=== PATIENT | female | born 1940 | race Caucasian/White ===

== ENCOUNTER → 2016-12-31 | Emergency (ER) | payer OTHER ==
[~2016-12-31] MED LIST: ACETAMINOPHEN INJECTION 100 ML IVPB ONE; HEPARIN INFUSION - 500 ML IVPB ONE; HEPARIN NA (PORCINE) 5,000 UNITS/ML 1ML VIAL ONE
[2016-12-31 20:48] VITALS: BP 156/84; PULSE 85; TEMP 98.8; BMI 31.2
--- NOTE | 2016-12-31 21:02 | PDOC ---
History of Present Illness - General Chief Complaint: Pain Stated Complaint: FALL/HEAD INJURY Past History - Past Medical History Allergies/Adverse Reactions: Allergies Allergy/AdvReac Type Severity Reaction Status Date / Time No Known Allergies Allergy Verified 12/31/16 20:49 Home Medications: Ambulatory Orders Atenolol [Tenormin -] 50 mg PO DAILY 09/08/16 Insulin Lispro Protamin/Lispro [Humalog Mix 75-25 Kwikpen] 40 unit SQ BID Lorazepam [Ativan] 2 mg PO TID 09/08/16 Rosuvastatin Calcium [Crestor] 10 mg PO DAILY 09/08/16 Cancer: Yes (breast, cervical) Diabetes: Yes HTN: Yes Hypercholesterolemia: Yes Psychiatric Problems: Yes (anxiety) - Psycho/Social/Smoking Cessation Hx Suicidal Ideation: No Smoking History: Never smoked Have you smoked in the past 12 months: No Number of Cigarettes Smoked Daily: 0 Hx Alcohol Use: No Drug/Substance Use Hx: No Substance Use Type: None *Physical Exam - Vital Signs Last Vital Signs Temp Pulse Resp BP Pulse Ox 98.8 F 85 18 156/84 98 12/31/16 20:44 12/31/16 20:44 12/31/16 20:44 12/31/16 20:44 12/31/16 20:44 *DC/Admit/Observation/Transfer Diagnosis at time of Disposition: Closed head injury Qualifiers: Encounter type: initial encounter Qualified Code(s): S09.90XA - Unspecified injury of head, initial encounter Forehead laceration Qualifiers: Encounter type: initial encounter Qualified Code(s): S01.81XA - Laceration without foreign body of other part of head, initial encounter Shoulder pain, acute Qualifiers: Laterality: left Qualified Code(s): M25.512 - Pain in left shoulder - Discharge Dispostion Disposition: HOME Condition at time of disposition: Improved Admit: No - Referrals Referrals: Roe Jones MD [Primary Care Provider] - Guanakito Somers MD [Staff Physician] - - Patient Instructions Printed Discharge Instructions: DI for Laceration Repair, DI for Closed Head Injury Additional Instructions: Keep the incision clean and dry for 24 hours. After 24 hours, you may allow the soap and water to rinse off your incision. Avoid direct pressure of the water to the incision. Pat the incision dry with a clean clothe. Apply a small amount of bacitracin onto the incision. Cover the incision loosely with a bandaid. Take tylenol/motrin as needed for pain. Follow up with your physician or the ER in 48 hours for a wound check. Return to the ER if you notice red streaks, increase redness/swelling/severe pain to the incision. Suture removal in 7 days. YOU MUST follow up with your orthopedic or the one listed on your discharge. Tylenol/Motrin as needed for pain You ADAMANTLY REFUSE TO obtain a catscan of your left shoulder and insist on being discharged. If the pain persists/worsens or becomes more severe, please return to the ER
--- NOTE | 2016-12-31 21:37 | PDOC ---
History of Present Illness - General Chief Complaint: Pain Stated Complaint: FALL/HEAD INJURY Time Seen by Provider: 12/31/16 21:05 History Source: Patient Exam Limitations: No Limitations - History of Present Illness Occurred: reports: just prior to arrival Pain Location: reports: head, upper extremity (left shoulder) Method of Injury: Yes: fall (tripped over [facility]) Loss of Consciousness: no loss of consciousness Associated Symptoms (Fall): denies symptoms Past History - Travel Traveled outside of the country in the last 30 days: No Close contact w/someone who was outside of country & ill: No - Past Medical History Allergies/Adverse Reactions: Allergies Allergy/AdvReac Type Severity Reaction Status Date / Time No Known Allergies Allergy Verified 12/31/16 20:49 Home Medications: Ambulatory Orders Atenolol [Tenormin -] 50 mg PO DAILY 09/08/16 Insulin Lispro Protamin/Lispro [Humalog Mix 75-25 Kwikpen] 40 unit SQ BID Lorazepam [Ativan] 2 mg PO TID 09/08/16 Rosuvastatin Calcium [Crestor] 10 mg PO DAILY 09/08/16 Cancer: Yes (breast, cervical) Diabetes: Yes HTN: Yes Hypercholesterolemia: Yes Psychiatric Problems: Yes (anxiety) - Psycho/Social/Smoking Cessation Hx Suicidal Ideation: No Smoking History: Never smoked Have you smoked in the past 12 months: No Number of Cigarettes Smoked Daily: 0 Hx Alcohol Use: No Drug/Substance Use Hx: No Substance Use Type: None Trauma Specific PMHX - Complaint Specific PMHX Back Injury: No Neck Injury: No Review of Systems - Review of Systems Able to Perform ROS?: Yes Comments:: 12/31/16 21:32 CONSTITUTIONAL: Absent: fever, chills, diaphoresis, generalized weakness, malaise, loss of appetite HEENT: Absent: rhinorrhea, nasal congestion, throat pain, throat swelling, difficulty swallowing, mouth swelling, ear pain, eye pain, visual Changes CARDIOVASCULAR: Absent: chest pain, loss of consciousness, palpitations, irregular heart rate, peripheral edema RESPIRATORY: Absent: cough, shortness of breath, dyspnea with exertion, orthopnea, wheezing, stridor, hemoptysis GASTROINTESTINAL: Absent: abdominal pain, abdominal distension, nausea, vomiting, diarrhea, constipation, melena, hematochezia GENITOURINARY: Absent: dysuria, frequency, urgency, hesitancy, hematuria, flank pain, genital pain MUSCULOSKELETAL: +left shoulder pain Absent: myalgia, arthralgia, joint swelling SKIN: Absent: rash, itching, pallor HEMATOLOGIC/IMMUNOLOGIC: Absent: easy bleeding, easy bruising, lymphadenopathy, frequent infections ENDOCRINE: Absent: unexplained weight gain, unexplained weight loss, heat intolerance, cold intolerance NEUROLOGIC: left side forehead lac Absent: headache, focal weakness or paresthesias, dizziness, unsteady gait, seizure, mental status changes, bladder or bowel incontinence PSYCHIATRIC: Absent: anxiety, depression, suicidal or homicidal ideation, hallucinations. Is the patient limited Turkish proficient: No *Physical Exam - Vital Signs Last Vital Signs Temp Pulse Resp BP Pulse Ox 98.8 F 85 18 156/84 98 12/31/16 20:44 12/31/16 20:44 12/31/16 20:44 12/31/16 20:44 12/31/16 20:44 - Physical Exam Comments: 12/31/16 21:33 GENERAL: Well developed, well nourished. Awake and alert. No acute distress. HEENT: Normocephalic, atraumatic. PERRLA, EOMI. No conjunctival pallor. Sclera are non- icteric. Moist mucous membranes. Oropharynx is clear. NECK: Supple. Full ROM. No JVD. Carotid pulses 2+ and symmetric, without bruits. No thyromegaly. No lymphadenopathy. CARDIOVASCULAR: Regular rate and rhythm. No murmurs, rubs, or gallops. Distal pulses are 2+ and symmetric. PULMONARY: No evidence of respiratory distress. Lungs clear to auscultation bilaterally. No wheezing, rales or rhonchi. ABDOMINAL: Soft. Non-tender. Non-distended. No rebound or guarding. No organomegaly. Normoactive bowel sounds. MUSCULOSKELETAL Normal range of motion at all joints except left shoulder. No bony deformities or tenderness. No CVA tenderness. EXTREMITIES: No cyanosis. No clubbing. No edema. No calf tenderness. SKIN: Warm and dry. Normal capillary refill. No rashes. No jaundice. NEUROLOGICAL: Alert, awake, appropriate. Cranial nerves 2-12 intact. No deficits to light touch and temperature in face, upper extremities and lower extremities. No motor deficits in the in face, upper extremities and lower extremities. Normoreflexic in the upper and lower extremities. Normal speech. Toes are down- going bilaterally. Gait is normal without ataxia. PSYCHIATRIC: Cooperative. Good eye contact. Appropriate mood and affect. Left shoulder +pain on palp Limited R.O.M. +swelling Left elbow: F.R.O.M. neg pain on palp Left sided forehead 3cm horizontal lac +swelling Left shoulder Decreased R.O.M. Neg swelling Closed injury Pt able to extend ~30 degrees. Left elbow Neg obv deformities Neg pain on palp F.R.O.M. Neg swelling ED Treatment Course - RADIOLOGY Radiology Studies Ordered: Category Date Time Status HEAD CT WITHOUT CONTRAST [CT] Stat CT Scan 12/31/16 21:08 Ordered SHOULDER-LEFT [RAD] Stat Radiology 12/31/16 21:31 Ordered Radiograph Interpretation: 12/31/16 23:29 CT head w/o contrast neg xray left shoulder; 2v; no obv def Ctscan left shoulder/pt adamantly refused Progress Note - Progress Note Progress Note: 76-year-old female presents to the emergency department with her family complaining of a forehead laceration and left shoulder pain. Patient states while getting up from her couch, she tripped on her ottoman causing her to hit her forehead against the corner of the TV stand. Patient denies any loss of consciousness. The fall was witnessed by her . Patient denies any lightheadedness, dizziness, visual disturbance, blurry vision, neck pains, chest pain, shortness of breath, abdominal pains, extremity numbness or tingling sensation. Will obtain Ct left shoulder /pain is atypical for injury Procedure: left sided forehead 4mm superior to eyelbrow Betadin eprep 1% lidocaine=3cc NS irrigation (2) 5.0 vicryl sq (7) 6.0 prolene simple interrupted Bacitracin Bandaid 0040hrs: Pt adamantly refuses to obtain a catscan of her left shoulder and insists on being discharged AMA. Pt and her son has been advised that her left shoulder pain is atypical for her injury and a catscan would be able to ascertain the extent of her injury. Pt says "I don't care, I will see my own doctor". Pt and her son insists on being discharge. They will f/u with her PMD. I advised her that her PMD will most likely give her a prescription for a ctscan or her shoulder and have her follow up with an orthopedic surgeon. *DC/Admit/Observation/Transfer Diagnosis at time of Disposition: Closed head injury Qualifiers: Encounter type: initial encounter Qualified Code(s): S09.90XA - Unspecified injury of head, initial encounter Forehead laceration Qualifiers: Encounter type: initial encounter Qualified Code(s): S01.81XA - Laceration without foreign body of other part of head, initial encounter Shoulder pain, acute Qualifiers: Laterality: left Qualified Code(s): M25.512 - Pain in left shoulder - Discharge Dispostion Disposition: HOME Condition at time of disposition: Improved Admit: No - Referrals Referrals: Roe Jones MD [Primary Care Provider] - Guanakito Somers MD [Staff Physician] - - Patient Instructions Printed Discharge Instructions: DI for Closed Head Injury, DI for Laceration Repair Additional Instructions: Keep the incision clean and dry for 24 hours. After 24 hours, you may allow the soap and water to rinse off your incision. Avoid direct pressure of the water to the incision. Pat the incision dry with a clean clothe. Apply a small amount of bacitracin onto the incision. Cover the incision loosely with a bandaid. Take tylenol/motrin as needed for pain. Follow up with your physician or the ER in 48 hours for a wound check. Return to the ER if you notice red streaks, increase redness/swelling/severe pain to the incision. Suture removal in 7 days. YOU MUST follow up with your orthopedic or the one listed on your discharge. Tylenol/Motrin as needed for pain You ADAMANTLY REFUSE TO obtain a catscan of your left shoulder and insist on being discharged. If the pain persists/worsens or becomes more severe, please return to the ER
== END | disposition home or self-care (01) ==
LOC: JER 20:37
PROC: 0HQ1XZZ Repair Face Skin, External Approach (ICD-10-PCS; principal; 2016-12-31)
DX: S01.81XA Laceration without foreign body of other part of head, initial encounter (principal); M25.512 Pain in left shoulder; W01.190A Fall on same level from slipping, tripping and stumbling with subsequent striking against furniture, initial encounter; Y93.89 Activity, other specified; Y92.018 Other place in single-family (private) house as the place of occurrence of the external cause; I10 Essential (primary) hypertension; E11.9 Type 2 diabetes mellitus without complications; Z79.4 Long term (current) use of insulin; E78.00 Pure hypercholesterolemia, unspecified; F41.9 Anxiety disorder, unspecified; Z85.3 Personal history of malignant neoplasm of breast; Z85.41 Personal history of malignant neoplasm of cervix uteri
CPT/HCPCS: 12011-25; 70450-TC; 73030-TC-LT; 99282-25

== ENCOUNTER 2017-02-20 10:08 | Inpatient (IN) | payer OTHER, MEDICARE ==
--- NOTE | 2017-02-20 10:25 | PDOC ---
History of Present Illness - History of Present Illness Initial Comments: 02/20/17 12:20 The patient is a 76 year old female, with a significant past medical history of cervical cancer (radiation therapy M-F at [facility], 10 min sessions), IDDM, hypercholesterolemia, and hypertension, who presents to the emergency department via ems from [facility] for low-grade fevers and right lower extremity edema r/o DVT since yesterday. As per the patient's son, he also reports noticing his mothers left lower extremity is slightly edematous today. The patient states she feels generally weak. The son states his mothers last radiation therapy for her cancer was on Tuesday and is usually very tired and weak after radiation treatment. He also reports she just recently had a kidney stent placed because of the effect from her cervical cancer. The patient reports having a decreased appetite the past few days. She denies chest pain, shortness of breath, headache and dizziness. She denies nausea, vomit, diarrhea and constipation. She denies dysuria, frequency, urgency and hematuria. Allergies: NKDA, adverse rxn to acetaminophen PCP - Dr. Jones <Janelle Edmonds - Last Filed: 02/20/17 12:29> <Alfonso Garcia - Last Filed: 02/20/17 18:13> - General Chief Complaint: Edema Stated Complaint: LEG SWELLING Time Seen by Provider: 02/20/17 10:15 Past History <Janelle Edmonds - Last Filed: 02/20/17 12:29> - Past Medical History Cancer: Yes (breast, cervical) Diabetes: Yes HTN: Yes Hypercholesterolemia: Yes Psychiatric Problems: Yes (anxiety) - Psycho/Social/Smoking Cessation Hx Suicidal Ideation: No Smoking History: Never smoked Have you smoked in the past 12 months: No Number of Cigarettes Smoked Daily: 0 Hx Alcohol Use: No Drug/Substance Use Hx: No Substance Use Type: None <Alfonso Garcia - Last Filed: 02/20/17 18:13> - Past Medical History Allergies/Adverse Reactions: Allergies Allergy/AdvReac Type Severity Reaction Status Date / Time acetaminophen [From Tylenol] AdvReac Verified 02/20/17 12:25 Home Medications: Ambulatory Orders Aspirin [ASA -] 81 mg PO DAILY 02/20/17 Atorvastatin Ca [Lipitor] 20 mg PO HS 02/20/17 Clonazepam [KlonoPIN] 0.5 mg PO TID 02/20/17 Insulin Glargine,Hum.rec.anlog [Lantus (nf)] 22 units SQ HS 02/20/17 Insulin Lispro [Humalog] 4 unit SQ TID 02/20/17 Mag Hydrox/Al Hydrox/Simeth [Mylanta Oral Suspension -] 30 ml PO PRN 02/20/17 Mirtazapine 15 mg PO HS 02/20/17 Ondansetron [Zofran -] 4 mg PO Q6H PRN 02/20/17 Review of Systems - Review of Systems Able to Perform ROS?: Yes Comments:: 02/20/17 12:21 CONSTITUTIONAL: (+) Fever No reported: Chills, Diaphoresis, Generalized Weakness, Malaise, Loss of Appetite HEENT: No reported: Rhinorrhea, Nasal Congestion, Throat Pain, Throat Swelling, Difficulty Swallowing, Mouth Swelling, Ear Pain, Eye Pain, Visual Changes CARDIOVASCULAR: No reported: Chest Pain, Syncope, Palpitations, Irregular Heart Rate, Lightheadedness, Peripheral Edema RESPIRATORY: No reported: Cough, Shortness of Breath, SOB with Exertion, Orthopnea, Wheezing , Stridor, Hemoptysis GASTROINTESTINAL: No reported: Abdominal pain, Abdominal Distension, Nausea, Vomiting, Diarrhea, Constipation, Melena, Hematochezia GENITOURINARY: No reported: Dysuria, Frequency, Urgency, Hesitancy, Flank Pain, Genital Pain MUSCULOSKELETAL: (+) Right lower extremity edema. No reported: Myalgia, Arthralgia, Joint Swelling, Back pain, Neck Pain SKIN: No reported: Rash, Itching, Pallor HEMEATOLOGIC/IMMUNOLOGIC: No reported: Easy Bleeding, Easy Bruising, Lymphadenopathy, Frequent infections ENDOCRINE: No reported: Unexplained Weight Gain, Unexplained Weight Loss, Heat Intolerance , Cold Intolerance NEUROLOGIC: No reported: Headache, Focal Weakness, Paresthesias, Vertigo, Lightheadedness, Unsteady Gait, Seizure, Mental Status Changes, Incontinence PSYCHIATRIC: No reported: Anxiety, Depression <Janelle Edmonds - Last Filed: 02/20/17 12:29> *Physical Exam - Vital Signs Last Vital Signs Temp Pulse Resp BP Pulse Ox 98 F 80 18 102/55 95 02/20/17 12:17 02/20/17 12:17 02/20/17 12:17 02/20/17 12:17 02/20/17 12:17 - Physical Exam Comments: 02/20/17 12:21 GENERAL: The patient is awake, alert, and fully oriented - in no acute distress. HEAD: Normocephalic, atraumatic. EYES: extraocular movements intact, sclera anicteric, conjunctiva clear. ENT: Normal voice, Moist mucous membranes. NECK: Normal range of motion, supple LUNGS: Breath sounds equal, clear to auscultation bilaterally. No wheezes, no rhonchi, no rales. HEART: Regular rate and rhythm, without murmur, rub or gallop. ABDOMEN: firm nontender mass in the suprapubic region, normoactive bowel sounds. No guarding, no rebound.No CVA tenderness EXTREMITIES: (+) 2+ edema on the right lower extremity up to thigh. 1+ edema on left lower extremity. Normal range of motion of upper extremities, as well as, hips and knees bilaterally, No clubbing or cyanosis. No cords, erythema, or tenderness. Negative calf tenderness bilaterally. NEUROLOGICAL: No facial assymetry, Normal speech, PSYCH: Normal mood, normal affect. SKIN: Warm, Dry, normal turgor, No skin lesions, no sacodecubital ulcers. no skin breakdowns on anterior pelvis. <Janelle Edmonds - Last Filed: 02/20/17 12:29> Heart Score/ECG Review - ECG Impressions Comment:: 02/20/17 10:39 Twelve-lead EKG was performed and reviewed by me. There is normal sinus rhythm with a normal rate. Rate of 85 left axis deviation The intervals are normal. There is normal R wave progression There are no ST or T wave abnormalities. <Alfonso Garcia - Last Filed: 02/20/17 18:13> ED Treatment Course - LABORATORY CBC & Chemistry Diagram: 02/20/17 10:25 02/20/17 11:23 - ADDITIONAL ORDERS Additional order review: Laboratory Results 02/20/17 02/20/17 02/20/17 12:16 11:23 11:23 INR PTT (Actin FS) VBG pH POC VBG pCO2 POC VBG pO2 Mixed VBG HCO3 Sodium 134 L Potassium 3.7 Chloride 96 L Carbon Dioxide 24 Anion Gap 14 BUN 56 H Creatinine 2.4 H Creat Clearance w eGFR 19.73 Random Glucose 130 H Lactic Acid Calcium 8.1 L Total Bilirubin 0.3 AST 26 ALT 22 Alkaline Phosphatase 112 Creatine Kinase 120 Troponin I < 0.02 Total Protein 6.4 Albumin 2.2 L Urine Color Urine Appearance Urine pH Ur Specific [place] Urine Protein Urine Glucose (UA) Urine Ketones Urine Blood Urine Nitrite Urine Bilirubin Urine Urobilinogen Ur Leukocyte Esterase Urine RBC Urine WBC Urine Bacteria Urine Yeast Stool Occult Blood Negative Blood Type A POSITIVE Antibody Screen Negative 02/20/17 02/20/17 02/20/17 11:00 10:45 10:45 INR PTT (Actin FS) VBG pH 7.40 POC VBG pCO2 42.3 POC VBG pO2 22.9 L Mixed VBG HCO3 26.3 H Sodium Potassium Chloride Carbon Dioxide Anion Gap BUN Creatinine Creat Clearance w eGFR Random Glucose Lactic Acid 1.071 Calcium Total Bilirubin AST ALT Alkaline Phosphatase Creatine Kinase Troponin I Total Protein Albumin Urine Color Yellow Urine Appearance Clear Urine pH 5.0 Ur Specific [place] 1.011 Urine Protein 2+ H Urine Glucose (UA) Negative Urine Ketones Negative Urine Blood 1+ H Urine Nitrite Negative Urine Bilirubin Negative Urine Urobilinogen Negative Ur Leukocyte Esterase Negative Urine RBC 1 Urine WBC 2 Urine Bacteria Rare Urine Yeast Few Stool Occult Blood Blood Type Antibody Screen 02/20/17 10:25 INR 1.34 H PTT (Actin FS) 25.3 L VBG pH POC VBG pCO2 POC VBG pO2 Mixed VBG HCO3 Sodium Potassium Chloride Carbon Dioxide Anion Gap BUN Creatinine Creat Clearance w eGFR Random Glucose Lactic Acid Calcium Total Bilirubin AST ALT Alkaline Phosphatase Creatine Kinase Troponin I Total Protein Albumin Urine Color Urine Appearance Urine pH Ur Specific [place] Urine Protein Urine Glucose (UA) Urine Ketones Urine Blood Urine Nitrite Urine Bilirubin Urine Urobilinogen Ur Leukocyte Esterase Urine RBC Urine WBC Urine Bacteria Urine Yeast Stool Occult Blood Blood Type Antibody Screen 02/20/17 11:13 Influenza Types A,B Antigen (DUTCH) - Final Nasopharyngeal Swab - Final 02/20/17 10:25 RBC 3.28 L MCV 75.9 L MCHC 33.5 RDW 17.6 H MPV 7.3 L Neutrophils % 86.5 H Lymphocytes % 2.4 L Monocytes % 7.4 Eosinophils % 3.4 Basophils % 0.3 - RADIOLOGY Radiograph Interpretation: 02/20/17 12:28 CXR was read by Dr. Bellamy at 11:36 Impression: No acute pathology 02/20/17 12:29 Right lower extremity venous US was read by Dr. Drake at 12:18 Impression: +Right leg DVT. Thrombus is identified within the common femoral, femoral, popliteal, and posterior tibial veins. Soft tissue edema is noted. Note is also made of several nonspecific enlarged right inguinal lymph nodes the most prominent with a 1.5 cm short axis diameter. - Medications Given in the ED: ED Medications Discontinued Medications Generic Name Dose Route Start Last Admin Trade Name Dorothy PRN Reason Stop Dose Admin Acetaminophen 1,000 mg 02/20/17 10:26 02/20/17 11:11 Ofirmev Injection - IVPB 02/20/17 10:27 1,000 mg ONCE ONE Administration <Janelle Edmonds - Last Filed: 02/20/17 12:29> - LABORATORY CBC & Chemistry Diagram: 02/20/17 10:25 02/20/17 11:23 <Alfonso Garcia - Last Filed: 02/20/17 18:13> Medical Decision Making - Medical Decision Making 02/20/17 12:27 Dr. Jones was called at 12:18 via phone answering service and I was connected to speak with him upon first attempt. The patient's case was discussed and he accepts the patient for admission. <Janelle Edmonds - Last Filed: 02/20/17 12:29> - Medical Decision Making 02/20/17 10:43 76y F hx of cervical ca currently receiving radiation therapy (last dose tuesday) , IDDM, htn, hl, anxiety, presents with complaint of RLE edema since yesterday noticed by the pts son. The pt has no other complaints, but the pt was noted to be febrile upon arrival to 100.6. On exam pt had significantRLE edema to this hip, no focal tenderness or limitation in ROM otherwise, trace edema of ankle. Neg homans/tenderness. exam otherwise nonfocal. sepsis orderset obtained - unclear source of fever at this point - will r/o influenza, pna, uti differential for the pts leg swelling includes possible DVT vs. demnished venous return due to pelvic mass will obtain US to r/o dvt A portion of this note was documented by scribe services under my direction. I have reviewed the details of the note, within reason, and agree with the documentation with the following case summary and management plan written by hi 02/20/17 12:06 pts had minaya notable for urinary retention - with output of approx 1L of urine US +DVT labs noted for anemia (last lab work on 02/11 showed hgb of 10.2) --> now to 8.3 , rectal was yellow diarrhea/stool - stool guaic was sent cr noted to be 2.4, last cr on 02/11 was 1.0 --> suspect obstrutive uropathy in light of her urinary retention pt will need a/c for her DVT will continue to monitor her hgb will notify dr. Jones for admission for further management. 02/20/17 14:[address] jones agreed with admission for further management CRITICAL CARE DOCUMENTATION: I spent 45 minutes of Critical Care time, excluding separately billable procedures, involving high complexity decision making to assess, manipulate and support vital system function(s) to treat single or multiple vital organ system failure and/or to prevent further life threatening deterioration of the patient' s condition. <Alfonso Garcia - Last Filed: 02/20/17 18:13> *DC/Admit/Observation/Transfer - Attestations Scribe Attestion: 02/20/17 12:21 Documentation prepared by Janelle Edmonds, acting as medical office scheduler for Alfonso Garcia MD. <Janelle Edmonds - Last Filed: 02/20/17 12:29> - Discharge Dispostion Admit: Yes <Alofnso Garcia - Last Filed: 02/20/17 18:13> Diagnosis at time of Disposition: Urinary retention, Obstructive uropathy DVT, lower extremity Qualifiers: Affected thrombotic vein of extremity: unspecified vein of extremity Laterality : right Chronicity: acute Qualified Code(s): I82.401 - Acute embolism and thrombosis of unspecified deep veins of right lower extremity Anemia Qualifiers: Anemia type: unspecified type Qualified Code(s): D64.9 - Anemia, unspecified Fever Qualifiers: Fever type: unspecified Qualified Code(s): R50.9 - Fever, unspecified - Referrals
[2017-02-20] MEDS ORDERED: ACETAMINOPHEN 1000 MG/100 ML VIAL (NON FORMULARY) IVPB ONE (10:26)
[2017-02-20 11:03] LABS: VENOUS BLOOD GAS HCO3 26.3 meq/L (19-25); VENOUS PH 7.4 (7.32-7.42)
[2017-02-20 11:03] LABS: BASOPHIL 0.3 % (0-2.0); EOSINOPHIL 3.4 % (0-4.5); MCH 25.4 pg (25.7-33.7); MCHC 33.5 g/dl (32.0-36.0); MEAN CELL VOLUME 75.9 fl (80-96); MEAN PLT VOLUME 7.3 fl (7.5-11.1); NEUTROPHILS 86.5 % (42.8-82.8); PLATELET COUNT 211 K/MM3 (134-434); RDW 17.6 % (11.6-15.6); WHITE BLOOD COUNT 10.6 K/mm3 (4.0-10.0)
[2017-02-20 11:14] LABS: INR 1.34 (0.82-1.09); PROTHROMBIN TIME (PATIENT) 14.8 SEC (9.98-11.88)
[2017-02-20 11:14] LABS: URINE APPEARANCE CLEAR; URINE BILIRUBIN NEGATIVE (NEGATIVE); URINE COLOR YELLOW; URINE GLUCOSE (UA) NEGATIVE (NEGATIVE); URINE KETONE NEGATIVE (NEGATIVE); URINE LEUK ESTERASE NEGATIVE (NEGATIVE); URINE NITRITE NEGATIVE (NEGATIVE); URINE UROBILINOGEN NEGATIVE E.U./dl (0.2-1.0)
[2017-02-20 11:17] LABS: ACTIVATED PTT 25.3 SECONDS (26.9-34.4)
[2017-02-20 11:23] LABS: URINE BLOOD 1+ (NEGATIVE); URINE PROTEIN 2+ (NEGATIVE)
[2017-02-20 11:37] LABS: URINE BACTERIA RARE /hpf (NONE SEEN); URINE RBC 1 /hpf (0-3); URINE WBC 2 /hpf (3-5); YEAST FEW
[2017-02-20 11:41] LABS: ALBUMIN 2.2 g/dl (3.4-5.0); ANION GAP 14 (8-16); BILIRUBIN,TOTAL 0.3 mg/dL (0.2-1.0); CALCIUM 8.1 mg/dL (8.5-10.1); CO2 24 mmol/L (21-32); COCKROFT - GAULT 22.6695; CREATININE 2.4 mg/dL (0.55-1.02); GLUCOSE,RANDOM 130 mg/dL (74-106); SGPT/ALT 22 U/L (12-78); TOT PROT 6.4 g/dl (6.4-8.2)
[2017-02-20 11:44] LABS: ALK PHOS 112 U/L (45-117); TROPONIN I < 0.02 ng/ml (0.00-0.05)
[2017-02-20 11:56] LABS: SGOT/AST 26 U/L (15-37)
[2017-02-20] MEDS ORDERED: HEPARIN NA (PORCINE) 5,000 UNITS/ML 1ML VIAL IVPUSH ONE (12:30)
[2017-02-20] MEDS: HEPARIN INFUSION - 500 ML IVPB SCH (13:01)
--- NOTE | 2017-02-20 14:36 | HP ---
DATE OF ADMISSION: 02/20/2017 This is a 76-year-old female who came to the emergency room with swelling of the left lower extremity for 2 days. She has multiple problems; diagnosed to have diabetes, recently diagnosed to have CA of the breast, on radiation. She is coming from a short-term stay in the [facility]. PHYSICAL EXAMINATION: General: She is awake, alert, oriented, but in a lot of anxiety disorder. Vital Signs: Blood pressure is 120/70, pulse 98, temperature 100.6. HEENT: Unremarkable. Neck: Supple. No JVD. Lungs: Clear. Heart: S1, S2 normal. No S3, S4. Abdomen: Soft, nontender. Genitourinary: She has a Hutchins with clear urine. Legs: Edema present. Urinalysis showed urine blood plus, bacteria rare, yeast few. Patient is being admitted for UTI and DVT. ID consult obtained by Dr. Lewis and patient also will be started on IV heparin. FINAL DIAGNOSIS: 1. Deep vein thrombosis. 2. Diabetes. 3. Urinary tract infection. 4. Carcinoma of the uterus. DANELLE VIDALES M.D. [id number]
--- NOTE | 2017-02-20 15:14 | CONSULT ---
Consult Consult Specialty:: infectious diseases Referred by:: Reason for Consultation:: uti - History of Present Illness Chief Complaint: weakness,pain in the leg History of Present Illness: 76 year old female, with a significant past medical history of cervical cancer (radiation therapy M-F at [facility], 10 min sessions), IDDM, hypercholesterolemia, and hypertension, comes from from [facility] for low- grade fevers and right lower extremity edema r/o DVT since yesterday. As per the patient's son, he also reports noticing his mothers left lower extremity is slightly edematous today. The patient states she feels generally weak. The son states his mothers last radiation therapy for her cancer was on Tuesday and is usually very tired and weak after radiation treatment. He also reports she just recently had a kidney stent placed because of the effect from her cervical cancer. The patient reports having a decreased appetite the past few days. patient cannot give history which is taken from the family patient currently feels better,has been receiving radiation - History Source History Provided By: Family Member Limitations to Obtaining History: Language Barrier - Alcohol/Substance Use Hx Alcohol Use: No - Smoking History Smoking history: Never smoked Have you smoked in the past 12 months: No Aproximately how many cigarettes per day: 0 Home Medications - Allergies Allergies/Adverse Reactions: Allergies Allergy/AdvReac Type Severity Reaction Status Date / Time acetaminophen [From Tylenol] AdvReac Verified 02/20/17 12:25 - Home Medications Home Medications: Ambulatory Orders Aspirin [ASA -] 81 mg PO DAILY 02/20/17 Atorvastatin Ca [Lipitor] 20 mg PO HS 02/20/17 Clonazepam [KlonoPIN] 0.5 mg PO TID 02/20/17 Insulin Glargine,Hum.rec.anlog [Lantus (nf)] 22 units SQ HS 02/20/17 Insulin Lispro [Humalog] 4 unit SQ TID 02/20/17 Mag Hydrox/Al Hydrox/Simeth [Mylanta Oral Suspension -] 30 ml PO PRN 02/20/17 Mirtazapine 15 mg PO HS 02/20/17 Ondansetron [Zofran -] 4 mg PO Q6H PRN 02/20/17 Review of Systems Unable to obtain ROS, reason: unable to obtain - Review of Systems Constitutional: reports: Fever, Weakness Physical Exam Vital Signs: Vital Signs Temperature 98 F 02/20/17 12:17 Pulse Rate 78 02/20/17 13:30 Respiratory Rate 18 02/20/17 13:30 Blood Pressure 117/59 02/20/17 13:30 O2 Sat by Pulse Oximetry (%) 99 02/20/17 13:30 Constitutional: Yes: No Distress, Calm, Other Eyes: Yes: Conjunctiva Clear HENT: Yes: Atraumatic, Normocephalic Neck: Yes: Supple, Trachea Midline Cardiovascular: Yes: Pulse Irregular Respiratory: Yes: Regular, CTA Bilaterally Gastrointestinal: Yes: Normal Bowel Sounds, Soft Musculoskeletal: Yes: Other Extremities: Yes: Erythema, Other (edema of the leg) Integumentary: Yes: Erythema, Other Neurological: Yes: Alert, Oriented Psychiatric: Yes: Alert, Oriented Imaging - Results Chest X-ray: Report Reviewed, Image Reviewed Ultrasound: Report Reviewed, Image Reviewed Other: Report Reviewed, Image Reviewed Assessment/Plan dvt edema of both legs r/o uti fever malignancy plan will start on ceftriaxone close monitoring await for all cx to be back rest as per primary team dvt treatment
[2017-02-20] MEDS: CEFTRIAXONE 1G/50 ML IVPB SCH (17:59)
[2017-02-20] MEDS: INSULIN (NOVOLOG) ASPART 100 UNITS/ML 10ML VIAL SQ SCH (18:43)
[2017-02-20] MEDS ORDERED: HEPARIN NA (PORCINE) 5,000 UNITS/ML 1ML VIAL IVPUSH PRN (20:00)
[2017-02-20] MEDS: HEPARIN NA (PORCINE) 5,000 UNITS/ML 1ML VIAL IVPUSH PRN (20:00)
[2017-02-20] MEDS: clonazePAM 0.5 MG TABLET PO SCH (21:40)
[2017-02-20] MEDS: ATORVASTATIN CA 20 MG TABLET (FP) PO SCH (21:40)
[2017-02-20] MEDS: MIRTAZAPINE 15 MG TABLET (FP) PO SCH (21:41)
[2017-02-20] MEDS: INSULIN DETEMIR 100 UNITS/ML MDV SQ SCH (23:00)
[2017-02-20] MEDS: NYSTATIN POWDER 100,000 UNITS/GM - 15 GM TOPICAL POWDER TP SCH (23:01)
[2017-02-21] MEDS: LORazepam 1 MG TABLET PO PRN (02:08)
[2017-02-21] MEDS: clonazePAM 0.5 MG TABLET PO SCH ×3 (05:53→22:47)
[2017-02-21] MEDS: INSULIN (NOVOLOG) ASPART 100 UNITS/ML 10ML VIAL SQ SCH (06:23)
--- NOTE | 2017-02-21 09:01 | PN ---
Progress Note, Physician Chief Complaint: Wants go home History of Present Illness: Admitted with DVT and UTI - Current Medication List Current Medications: Active Medications Aspirin (Ecotrin -) 81 mg PO DAILY [facility] Atorvastatin Calcium (Lipitor -) 20 mg PO HS [facility] Last Admin: 02/20/17 21:40 Dose: 20 mg Clonazepam (Klonopin -) 0.5 mg PO TID [facility] Last Admin: 02/21/17 05:53 Dose: 0.5 mg Heparin Sodium (Porcine) (Heparin -) 5,000 unit IVPUSH PRN PRN Last Admin: 02/21/17 03:28 Dose: 5,000 unit Heparin Sodium (Porcine) (Heparin -) 1,000 unit IVPUSH PRN PRN Last Admin: 02/20/17 20:00 Dose: 1,000 unit Heparin Sodium/Dextrose (Heparin Infusion -) 500 mls @ 16 mls/hr IVPB TITR [facility] ; 800 UNITS/HR PRN Reason: Protocol Last Titration: 02/21/17 03:29 Dose: 1,050 units/hr Ceftriaxone Sodium (Rocephin 1gm Ivpb (Pre-Docked)) 50 mls @ 100 mls/hr IVPB DAILY [facility] Last Admin: 02/20/17 17:59 Dose: 100 mls/hr Insulin Aspart (Novolog Vial) 4 units SQ TIDAC [facility] Last Admin: 02/21/17 06:23 Dose: 4 units Insulin Detemir (Levemir Vial) 22 units SQ HS [facility] Last Admin: 02/20/17 23:00 Dose: 22 units Lorazepam (Ativan -) 1 mg PO Q12H PRN PRN Reason: AGITATION Last Admin: 02/21/17 02:08 Dose: 1 mg Mirtazapine (Remeron -) 15 mg PO HS [facility] Last Admin: 02/20/17 21:41 Dose: 15 mg Nystatin (Nystop Powder -) 1 applic TP BID [facility] Last Admin: 02/20/17 23:01 Dose: 1 applic - Objective Vital Signs: Vital Signs Temperature 99.9 F H 02/21/17 06:00 Pulse Rate 88 02/21/17 06:00 Respiratory Rate 20 02/21/17 06:00 Blood Pressure 141/74 02/21/17 06:00 O2 Sat by Pulse Oximetry (%) 95 02/20/17 20:17 Constitutional: Yes: Anxious Eyes: Yes: WNL HENT: Yes: WNL Neck: Yes: WNL Cardiovascular: Yes: WNL Respiratory: Yes: WNL Gastrointestinal: Yes: Normal Bowel Sounds ...Rectal Exam: Yes: Deferred Genitourinary: Yes: Hutchins Present Breast(s): Yes: WNL Musculoskeletal: Yes: WNL Edema: No Peripheral Pulses WNL: Yes Integumentary: Yes: Rash Neurological: Yes: Alert Psychiatric: Yes: Agitated Labs: INR, PTT INR 1.34 (0.82-1.09) H 02/20/17 10:25
[2017-02-21] MEDS: CEFTRIAXONE 1G/50 ML IVPB SCH (09:37)
[2017-02-21] MEDS ORDERED: CLOTRIMAZOLE/BETAMET DIPROP 15 GM TUBE TP SCH (10:00)
[2017-02-21] MEDS: ASPIRIN COATED 81 MG TABLET.EC PO SCH (10:50)
[2017-02-21] MEDS: NYSTATIN POWDER 100,000 UNITS/GM - 15 GM TOPICAL POWDER TP SCH ×2 (10:50→22:48)
--- NOTE | 2017-02-21 11:10 | EKG ---
Test Reason : Blood Pressure : / mmHG Vent. Rate : 085 BPM Atrial Rate : 085 BPM P-R Int : 146 ms QRS Dur : 080 ms QT Int : 374 ms P-R-T Axes : 042 -34 075 degrees QTc Int : 445 ms NORMAL SINUS RHYTHM LEFT AXIS DEVIATION MODERATE VOLTAGE CRITERIA FOR LVH, MAY BE NORMAL VARIANT ABNORMAL ECG NO PREVIOUS ECGS AVAILABLE Confirmed by TRAV HOFFMAN MD ([id number]) on 02/21/2017 11:09:58 AM Referred By: Confirmed By:TRAV HOFFMAN MD
[2017-02-21] MEDS: INSULIN SLIDING SCALE (NOVOLOG) 1 VIAL SQ SCH ×3 (11:26→23:52)
[2017-02-21] MEDS: HEPARIN INFUSION - 500 ML IVPB SCH (14:26)
--- NOTE | 2017-02-21 18:24 | PN ---
Progress Note, Physician History of Present Illness: stable doing well family in the room no new issues d/w the family inn great detail - Current Medication List Current Medications: Active Medications Aspirin (Ecotrin -) 81 mg PO DAILY [facility] Last Admin: 02/21/17 10:50 Dose: 81 mg Atorvastatin Calcium (Lipitor -) 20 mg PO HS [facility] Last Admin: 02/20/17 21:40 Dose: 20 mg Clonazepam (Klonopin -) 0.5 mg PO TID [facility] Last Admin: 02/21/17 14:45 Dose: Not Given Heparin Sodium (Porcine) (Heparin -) 5,000 unit IVPUSH PRN PRN Last Admin: 02/21/17 03:28 Dose: 5,000 unit Heparin Sodium (Porcine) (Heparin -) 1,000 unit IVPUSH PRN PRN Last Admin: 02/20/17 20:00 Dose: 1,000 unit Heparin Sodium/Dextrose (Heparin Infusion -) 500 mls @ 16 mls/hr IVPB TITR JADEN ; 800 UNITS/HR PRN Reason: Protocol Last Admin: 02/21/17 14:26 Dose: 21 mls/hr Ceftriaxone Sodium (Rocephin 1gm Ivpb (Pre-Docked)) 50 mls @ 100 mls/hr IVPB DAILY [facility] Last Admin: 02/21/17 09:37 Dose: 100 mls/hr Insulin Aspart (Novolog Vial Sliding Scale -) 1 vial SQ ACHS [facility] PRN Reason: Protocol Last Admin: 02/21/17 17:39 Dose: Not Given Insulin Detemir (Levemir Vial) 22 units SQ HS [facility] Last Admin: 02/20/17 23:00 Dose: 22 units Lorazepam (Ativan -) 1 mg PO Q12H PRN PRN Reason: AGITATION Last Admin: 02/21/17 02:08 Dose: 1 mg Mirtazapine (Remeron -) 15 mg PO HS [facility] Last Admin: 02/20/17 21:41 Dose: 15 mg Nystatin (Nystop Powder -) 1 applic TP BID [facility] Last Admin: 02/21/17 10:50 Dose: 1 applic - Objective Vital Signs: Vital Signs Temperature 98.4 F 02/21/17 17:50 Pulse Rate 94 H 02/21/17 17:50 Respiratory Rate 20 02/21/17 17:50 Blood Pressure 129/57 02/21/17 17:50 O2 Sat by Pulse Oximetry (%) 95 02/21/17 11:45 Constitutional: Yes: No Distress, Calm Neck: Yes: Supple Cardiovascular: Yes: Pulse Irregular Respiratory: Yes: Regular, CTA Bilaterally Gastrointestinal: Yes: Normal Bowel Sounds, Soft Musculoskeletal: Yes: Other Extremities: Yes: Other (edema bilateral ext) Edema: LLE: 1+, RLE: 2+ Neurological: Yes: Alert, Oriented Psychiatric: Yes: Alert, Oriented Labs: INR, PTT INR 1.34 (0.82-1.09) H 02/20/17 10:25 Assessment/Plan dvt edema of both legs r/o uti fever malignancy plan continue current mgmt rest as per primary team await for all results
[2017-02-21] MEDS: ATORVASTATIN CA 20 MG TABLET (FP) PO SCH (22:47)
[2017-02-21] MEDS: MIRTAZAPINE 15 MG TABLET (FP) PO SCH (22:47)
[2017-02-22] MEDS: INSULIN DETEMIR 100 UNITS/ML MDV SQ SCH ×3 (00:24→22:44)
[2017-02-22] MEDS: clonazePAM 0.5 MG TABLET PO SCH ×3 (06:11→22:33)
[2017-02-22] MEDS: INSULIN SLIDING SCALE (NOVOLOG) 1 VIAL SQ SCH ×3 (06:11→16:59)
[2017-02-22] MEDS ORDERED: PT OWN MED DRAWER 7, Y5N ONE ×2 (09:00→21:42)
[2017-02-22] MEDS: CEFTRIAXONE 1G/50 ML IVPB SCH (09:06)
[2017-02-22] MEDS: ASPIRIN COATED 81 MG TABLET.EC PO SCH (09:06)
[2017-02-22] MEDS: LORazepam 1 MG TABLET PO PRN (09:07)
[2017-02-22] MEDS: NYSTATIN POWDER 100,000 UNITS/GM - 15 GM TOPICAL POWDER TP SCH ×2 (09:07→22:34)
[2017-02-22] MEDS: HEPARIN INFUSION - 500 ML IVPB SCH ×3 (09:08→20:41)
--- NOTE | 2017-02-22 09:10 | PN ---
Progress Note, Physician Chief Complaint: Feels better History of Present Illness: Admitted with DVT and UTI - Current Medication List Current Medications: Active Medications Aspirin (Ecotrin -) 81 mg PO DAILY [facility] Last Admin: 02/21/17 10:50 Dose: 81 mg Atorvastatin Calcium (Lipitor -) 20 mg PO HS [facility] Last Admin: 02/21/17 22:47 Dose: 20 mg Clonazepam (Klonopin -) 0.5 mg PO TID [facility] Last Admin: 02/22/17 06:11 Dose: 0.5 mg Heparin Sodium (Porcine) (Heparin -) 5,000 unit IVPUSH PRN PRN Last Admin: 02/21/17 03:28 Dose: 5,000 unit Heparin Sodium (Porcine) (Heparin -) 1,000 unit IVPUSH PRN PRN Last Admin: 02/20/17 20:00 Dose: 1,000 unit Heparin Sodium/Dextrose (Heparin Infusion -) 500 mls @ 16 mls/hr IVPB TITR [facility] ; 800 UNITS/HR PRN Reason: Protocol Last Admin: 02/21/17 14:26 Dose: 21 mls/hr Ceftriaxone Sodium (Rocephin 1gm Ivpb (Pre-Docked)) 50 mls @ 100 mls/hr IVPB DAILY [facility] Last Admin: 02/21/17 09:37 Dose: 100 mls/hr Insulin Aspart (Novolog Vial Sliding Scale -) 1 vial SQ ACHS [facility] PRN Reason: Protocol Last Admin: 02/22/17 06:11 Dose: Not Given Insulin Detemir (Levemir Vial) 22 units SQ HS [facility] Last Admin: 02/22/17 00:24 Dose: 22 units Lorazepam (Ativan -) 1 mg PO Q12H PRN PRN Reason: AGITATION Last Admin: 02/21/17 02:08 Dose: 1 mg Mirtazapine (Remeron -) 15 mg PO HS [facility] Last Admin: 02/21/17 22:47 Dose: 15 mg Nystatin (Nystop Powder -) 1 applic TP BID [facility] Last Admin: 02/21/17 22:48 Dose: 1 applic Warfarin Sodium (Coumadin -) 10 mg PO ONCE@1800 ONE Stop: 02/22/17 18:01 - Objective Vital Signs: Vital Signs Temperature 99.1 F 02/22/17 05:46 Pulse Rate 94 H 02/22/17 05:46 Respiratory Rate 20 02/22/17 05:46 Blood Pressure 123/61 02/22/17 05:46 O2 Sat by Pulse Oximetry (%) 97 02/22/17 08:49 Constitutional: Yes: Anxious Eyes: Yes: WNL HENT: Yes: WNL Neck: Yes: WNL Cardiovascular: Yes: WNL Respiratory: Yes: WNL Gastrointestinal: Yes: WNL ...Rectal Exam: Yes: Deferred Genitourinary: Yes: Cuong CONTRERAS Present Edema: Yes Edema: RLE: 1+ Integumentary: No: Body Piercing Neurological: Yes: Alert Labs: INR, PTT INR 1.34 (0.82-1.09) H 02/20/17 10:25 Assessment/Plan Start coumadin CYRIL minaya PT for ambulation
[2017-02-22] MEDS ORDERED: ACETAMINOPHEN 325 MG TABLET (FP) PO PRN (14:23)
[2017-02-22] MEDS ORDERED: WARFARIN NA 10 MG TABLET (FP) PO ONE (18:00)
--- NOTE | 2017-02-22 18:50 | PN ---
Progress Note, Physician History of Present Illness: patient having dirrhoea had fever no complaints - Current Medication List Current Medications: Active Medications Aspirin (Ecotrin -) 81 mg PO DAILY [facility] Last Admin: 02/22/17 09:06 Dose: 81 mg Atorvastatin Calcium (Lipitor -) 20 mg PO HS [facility] Last Admin: 02/21/17 22:47 Dose: 20 mg Clonazepam (Klonopin -) 0.5 mg PO TID [facility] Last Admin: 02/22/17 14:05 Dose: Not Given Heparin Sodium (Porcine) (Heparin -) 5,000 unit IVPUSH PRN PRN Last Admin: 02/21/17 03:28 Dose: 5,000 unit Heparin Sodium (Porcine) (Heparin -) 1,000 unit IVPUSH PRN PRN Last Admin: 02/20/17 20:00 Dose: 1,000 unit Heparin Sodium/Dextrose (Heparin Infusion -) 500 mls @ 16 mls/hr IVPB TITR [facility]AD[facility] ; 800 UNITS/HR PRN Reason: Protocol Last Admin: 02/22/17 14:03 Dose: Not Given Ceftriaxone Sodium (Rocephin 1gm Ivpb (Pre-Docked)) 50 mls @ 100 mls/hr IVPB DAILY [facility] Last Admin: 02/22/17 09:06 Dose: 100 mls/hr Insulin Aspart (Novolog Vial Sliding Scale -) 1 vial SQ ACHS [facility] PRN Reason: Protocol Last Admin: 02/22/17 16:59 Dose: Not Given Insulin Detemir (Levemir Vial) 22 units SQ HS [facility] Last Admin: 02/22/17 00:24 Dose: 22 units Lorazepam (Ativan -) 1 mg PO Q12H PRN PRN Reason: AGITATION Last Admin: 02/22/17 09:07 Dose: 1 mg Mirtazapine (Remeron -) 15 mg PO HS [facility] Last Admin: 02/21/17 22:47 Dose: 15 mg Nystatin (Nystop Powder -) 1 applic TP BID [facility] Last Admin: 02/22/17 09:07 Dose: 1 applic - Objective Vital Signs: Vital Signs Temperature 100.3 F H 02/22/17 18:25 Pulse Rate 108 H 02/22/17 17:57 Respiratory Rate 18 02/22/17 17:57 Blood Pressure 127/72 02/22/17 17:57 O2 Sat by Pulse Oximetry (%) 97 02/22/17 08:49 Constitutional: Yes: No Distress, Calm Cardiovascular: Yes: Pulse Irregular Respiratory: Yes: Regular, CTA Bilaterally Gastrointestinal: Yes: Normal Bowel Sounds, Soft Musculoskeletal: Yes: Other Extremities: Yes: Other Edema: LLE: 1+, RLE: 2+ Integumentary: Yes: Erythema Neurological: Yes: Alert, Oriented Psychiatric: Yes: Alert, Oriented Labs: INR, PTT INR 1.34 (0.82-1.09) H 02/20/17 10:25 Assessment/Plan dvt edema of both legs r/o uti fever malignancy plan continue current mgmt rest as per primary team await for all results if patient continues to spike fever will change abx
[2017-02-22] MEDS: HEPARIN NA (PORCINE) 5,000 UNITS/ML 1ML VIAL IVPUSH PRN (20:33)
[2017-02-22] MEDS: ATORVASTATIN CA 20 MG TABLET (FP) PO SCH (22:33)
[2017-02-22] MEDS: MIRTAZAPINE 15 MG TABLET (FP) PO SCH (22:33)
[2017-02-23] MEDS: INSULIN SLIDING SCALE (NOVOLOG) 1 VIAL SQ SCH ×5 (01:33→21:37)
[2017-02-23] MEDS: HEPARIN INFUSION - 500 ML IVPB SCH ×2 (05:09→16:34)
[2017-02-23] MEDS: clonazePAM 0.5 MG TABLET PO SCH ×3 (06:12→21:35)
[2017-02-23 08:07] LABS: INR 1.79 (0.82-1.09); PROTHROMBIN TIME (PATIENT) 19.9 SEC (9.98-11.88)
[2017-02-23 08:10] LABS: ACTIVATED PTT 57.1 SECONDS (26.9-34.4)
--- NOTE | 2017-02-23 09:47 | PN ---
Progress Note, Physician History of Present Illness: Admitted with DVT and fever on IV heparin and coumadin INR 1.79 - Current Medication List Current Medications: Active Medications Aspirin (Ecotrin -) 81 mg PO DAILY [facility] Last Admin: 02/22/17 09:06 Dose: 81 mg Atorvastatin Calcium (Lipitor -) 20 mg PO HS [facility] Last Admin: 02/22/17 22:33 Dose: 20 mg Clonazepam (Klonopin -) 0.5 mg PO TID [facility] Last Admin: 02/23/17 06:12 Dose: 0.5 mg Heparin Sodium (Porcine) (Heparin -) 5,000 unit IVPUSH PRN PRN Last Admin: 02/21/17 03:28 Dose: 5,000 unit Heparin Sodium (Porcine) (Heparin -) 1,000 unit IVPUSH PRN PRN Last Admin: 02/22/17 20:33 Dose: 1,000 unit Heparin Sodium/Dextrose (Heparin Infusion -) 500 mls @ 16 mls/hr IVPB TITR [facility] ; 800 UNITS/HR PRN Reason: Protocol Last Admin: 02/23/17 05:09 Dose: 25 mls/hr Ceftriaxone Sodium (Rocephin 1gm Ivpb (Pre-Docked)) 50 mls @ 100 mls/hr IVPB DAILY [facility] Last Admin: 02/22/17 09:06 Dose: 100 mls/hr Insulin Aspart (Novolog Vial Sliding Scale -) 1 vial SQ ACHS [facility] PRN Reason: Protocol Last Admin: 02/23/17 06:11 Dose: Not Given Insulin Detemir (Levemir Vial) 22 units SQ HS [facility] Last Admin: 02/22/17 22:44 Dose: 22 units Lorazepam (Ativan -) 1 mg PO Q12H PRN PRN Reason: AGITATION Last Admin: 02/22/17 09:07 Dose: 1 mg Mirtazapine (Remeron -) 15 mg PO HS [facility] Last Admin: 02/22/17 22:33 Dose: 15 mg Nystatin (Nystop Powder -) 1 applic TP BID [facility] Last Admin: 02/22/17 22:34 Dose: 1 applic - Objective Vital Signs: Vital Signs Temperature 100.1 F H 02/23/17 07:50 Pulse Rate 105 H 02/23/17 07:50 Respiratory Rate 20 02/23/17 07:50 Blood Pressure 119/62 02/23/17 07:50 O2 Sat by Pulse Oximetry (%) 97 02/22/17 21:00 Constitutional: Yes: No Distress Eyes: Yes: WNL HENT: Yes: WNL Neck: Yes: WNL Cardiovascular: Yes: WNL Respiratory: Yes: WNL Gastrointestinal: Yes: WNL ...Rectal Exam: Yes: Deferred Genitourinary: Yes: WNL Edema: No Peripheral Pulses WNL: Yes ...Motor Strength: WNL Labs: INR, PTT INR 1.79 (0.82-1.09) H D 02/23/17 06:00 Assessment/Plan Coumadin ordered
[2017-02-23] MEDS: CEFTRIAXONE 1G/50 ML IVPB SCH (10:13)
[2017-02-23] MEDS: ASPIRIN COATED 81 MG TABLET.EC PO SCH (10:13)
[2017-02-23] MEDS: NYSTATIN POWDER 100,000 UNITS/GM - 15 GM TOPICAL POWDER TP SCH ×2 (10:14→21:36)
--- NOTE | 2017-02-23 11:24 | PN ---
Progress Note, Physician History of Present Illness: stable still with low grade fevers no other events - Current Medication List Current Medications: Active Medications Aspirin (Ecotrin -) 81 mg PO DAILY [facility] Last Admin: 02/23/17 10:13 Dose: 81 mg Atorvastatin Calcium (Lipitor -) 20 mg PO HS [facility] Last Admin: 02/22/17 22:33 Dose: 20 mg Clonazepam (Klonopin -) 0.5 mg PO TID [facility] Last Admin: 02/23/17 06:12 Dose: 0.5 mg Heparin Sodium (Porcine) (Heparin -) 5,000 unit IVPUSH PRN PRN Last Admin: 02/21/17 03:28 Dose: 5,000 unit Heparin Sodium (Porcine) (Heparin -) 1,000 unit IVPUSH PRN PRN Last Admin: 02/22/17 20:33 Dose: 1,000 unit Heparin Sodium/Dextrose (Heparin Infusion -) 500 mls @ 16 mls/hr IVPB TITR [facility] ; 800 UNITS/HR PRN Reason: Protocol Last Titration: 02/23/17 10:15 Dose: 1,250 units/hr Ceftriaxone Sodium (Rocephin 1gm Ivpb (Pre-Docked)) 50 mls @ 100 mls/hr IVPB DAILY [facility] Last Admin: 02/23/17 10:13 Dose: 100 mls/hr Insulin Aspart (Novolog Vial Sliding Scale -) 1 vial SQ ACHS [facility] PRN Reason: Protocol Last Admin: 02/23/17 06:11 Dose: Not Given Insulin Detemir (Levemir Vial) 22 units SQ HS [facility] Last Admin: 02/22/17 22:44 Dose: 22 units Lorazepam (Ativan -) 1 mg PO Q12H PRN PRN Reason: AGITATION Last Admin: 02/22/17 09:07 Dose: 1 mg Mirtazapine (Remeron -) 15 mg PO HS [facility] Last Admin: 02/22/17 22:33 Dose: 15 mg Nystatin (Nystop Powder -) 1 applic TP BID [facility] Last Admin: 02/23/17 10:14 Dose: 1 applic Warfarin Sodium (Coumadin -) 5 mg PO ONCE@1800 ONE Stop: 02/23/17 18:01 - Objective Vital Signs: Vital Signs Temperature 100.1 F H 02/23/17 07:50 Pulse Rate 105 H 02/23/17 07:50 Respiratory Rate 20 02/23/17 07:50 Blood Pressure 119/62 02/23/17 07:50 O2 Sat by Pulse Oximetry (%) 97 02/22/17 21:00 Constitutional: Yes: No Distress, Calm Cardiovascular: Yes: Regular Rate and Rhythm Respiratory: Yes: Regular, CTA Bilaterally Gastrointestinal: Yes: Normal Bowel Sounds, Soft Musculoskeletal: Yes: Other Extremities: Yes: Other Edema: LLE: 1+, RLE: 2+ Neurological: Yes: Alert Psychiatric: Yes: Alert Labs: INR, PTT INR 1.79 (0.82-1.09) H D 02/23/17 06:00 Assessment/Plan dvt edema of both legs r/o uti fever malignancy plan continue current mgmt rest as per primary team await for all results will see labs tomorrow if she spikes will change abx
[2017-02-23] MEDS ORDERED: WARFARIN NA 5 MG TABLET (UD) PO ONE (18:00)
[2017-02-23] MEDS ORDERED: PT OWN MED DRAWER 7, Y5N ONE ×2 (21:29→21:32)
[2017-02-23] MEDS: ATORVASTATIN CA 20 MG TABLET (FP) PO SCH (21:35)
[2017-02-23] MEDS: MIRTAZAPINE 15 MG TABLET (FP) PO SCH (21:36)
[2017-02-23] MEDS: INSULIN DETEMIR 100 UNITS/ML MDV SQ SCH (21:37)
[2017-02-23] MEDS: LORazepam 1 MG TABLET PO PRN (22:45)
[2017-02-24] MEDS: HEPARIN INFUSION - 500 ML IVPB SCH ×2 (01:14→14:52)
[2017-02-24] MEDS: INSULIN SLIDING SCALE (NOVOLOG) 1 VIAL SQ SCH ×4 (06:22→22:12)
[2017-02-24] MEDS: clonazePAM 0.5 MG TABLET PO SCH ×4 (06:30→22:01)
[2017-02-24 07:39] LABS: MCH 24.8 pg (25.7-33.7); MCHC 32.3 g/dl (32.0-36.0); MEAN CELL VOLUME 76.8 fl (80-96); MEAN PLT VOLUME 6.7 fl (7.5-11.1); PLATELET COUNT 210 K/MM3 (134-434); RDW 18.2 % (11.6-15.6); WHITE BLOOD COUNT 6.9 K/mm3 (4.0-10.0)
[2017-02-24 08:11] LABS: CALCIUM 7.8 mg/dL (8.5-10.1); COCKROFT - GAULT 36.278; CREATININE 1.5 mg/dL (0.55-1.02)
--- NOTE | 2017-02-24 09:30 | PN ---
Progress Note, Physician Chief Complaint: Wants to go home History of Present Illness: DVT ,low grade fever on IV heparin and rocephin - Current Medication List Current Medications: Active Medications Aspirin (Ecotrin -) 81 mg PO DAILY [facility] Last Admin: 02/23/17 10:13 Dose: 81 mg Atorvastatin Calcium (Lipitor -) 20 mg PO HS [facility] Last Admin: 02/23/17 21:35 Dose: 20 mg Clonazepam (Klonopin -) 0.5 mg PO TID [facility] Last Admin: 02/24/17 06:32 Dose: 0.5 mg Heparin Sodium (Porcine) (Heparin -) 5,000 unit IVPUSH PRN PRN Last Admin: 02/21/17 03:28 Dose: 5,000 unit Heparin Sodium (Porcine) (Heparin -) 1,000 unit IVPUSH PRN PRN Last Admin: 02/22/17 20:33 Dose: 1,000 unit Heparin Sodium/Dextrose (Heparin Infusion -) 500 mls @ 16 mls/hr IVPB TITR [facility] ; 800 UNITS/HR PRN Reason: Protocol Last Admin: 02/24/17 01:14 Dose: 25 mls/hr Ceftriaxone Sodium (Rocephin 1gm Ivpb (Pre-Docked)) 50 mls @ 100 mls/hr IVPB DAILY [facility] Last Admin: 02/23/17 10:13 Dose: 100 mls/hr Insulin Aspart (Novolog Vial Sliding Scale -) 1 vial SQ ACHS [facility] PRN Reason: Protocol Last Admin: 02/24/17 06:22 Dose: Not Given Insulin Detemir (Levemir Vial) 22 units SQ HS [facility] Last Admin: 02/23/17 21:37 Dose: 22 units Lorazepam (Ativan -) 1 mg PO Q12H PRN PRN Reason: AGITATION Last Admin: 02/23/17 22:45 Dose: 1 mg Mirtazapine (Remeron -) 15 mg PO HS [facility] Last Admin: 02/23/17 21:36 Dose: 15 mg Nystatin (Nystop Powder -) 1 applic TP BID [facility] Last Admin: 02/23/17 21:36 Dose: 1 applic - Objective Vital Signs: Vital Signs Temperature 100 F H 02/24/17 06:54 Pulse Rate 107 H 02/24/17 06:33 Respiratory Rate 20 02/24/17 06:33 Blood Pressure 118/60 02/24/17 06:33 O2 Sat by Pulse Oximetry (%) 96 02/23/17 21:00 Constitutional: Yes: Anxious Eyes: Yes: WNL HENT: Yes: WNL Neck: Yes: WNL Cardiovascular: Yes: WNL Respiratory: Yes: WNL Gastrointestinal: Yes: WNL ...Rectal Exam: Yes: Deferred Genitourinary: Yes: WNL Musculoskeletal: No: Muscle Weakness Peripheral Pulses WNL: Yes Integumentary: Yes: WNL Psychiatric: Yes: Alert Labs: CBC, BMP 02/24/17 06:00 02/24/17 06:00 INR, PTT INR 1.79 (0.82-1.09) H D 02/23/17 06:00 Assessment/Plan Labs K 3,cr came down to 1.5 Hb 7.5 down from 8.3 ,probably hydration Plan Kdur PO Case discussed with Dr Medina may change antibiotics
[2017-02-24 11:15] LABS: INR 3.54 (0.82-1.09)
[2017-02-24] MEDS: CEFTRIAXONE 1G/50 ML IVPB SCH (11:35)
[2017-02-24] MEDS: POTASSIUM CHLORIDE TABS 20 MEQ TABLET.ER (FP) PO SCH ×2 (11:36→22:00)
[2017-02-24] MEDS: ASPIRIN COATED 81 MG TABLET.EC PO SCH (11:36)
[2017-02-24] MEDS: NYSTATIN POWDER 100,000 UNITS/GM - 15 GM TOPICAL POWDER TP SCH ×2 (11:37→22:12)
--- NOTE | 2017-02-24 13:20 | PN ---
Progress Note, Physician History of Present Illness: patient continues to spike fevers weakness rest stable - Current Medication List Current Medications: Active Medications Aspirin (Ecotrin -) 81 mg PO DAILY [facility] Last Admin: 02/24/17 11:36 Dose: 81 mg Atorvastatin Calcium (Lipitor -) 20 mg PO HS [facility] Last Admin: 02/23/17 21:35 Dose: 20 mg Clonazepam (Klonopin -) 0.5 mg PO TID [facility] Last Admin: 02/24/17 06:32 Dose: 0.5 mg Heparin Sodium (Porcine) (Heparin -) 5,000 unit IVPUSH PRN PRN Last Admin: 02/21/17 03:28 Dose: 5,000 unit Heparin Sodium (Porcine) (Heparin -) 1,000 unit IVPUSH PRN PRN Last Admin: 02/22/17 20:33 Dose: 1,000 unit Heparin Sodium/Dextrose (Heparin Infusion -) 500 mls @ 16 mls/hr IVPB TITR [facility] ; 800 UNITS/HR PRN Reason: Protocol Last Admin: 02/24/17 01:14 Dose: 25 mls/hr Ceftriaxone Sodium (Rocephin 1gm Ivpb (Pre-Docked)) 50 mls @ 100 mls/hr IVPB DAILY [facility] Last Admin: 02/24/17 11:35 Dose: 100 mls/hr Insulin Aspart (Novolog Vial Sliding Scale -) 1 vial SQ ACHS [facility] PRN Reason: Protocol Last Admin: 02/24/17 06:22 Dose: Not Given Insulin Detemir (Levemir Vial) 22 units SQ HS [facility] Last Admin: 02/23/17 21:37 Dose: 22 units Lorazepam (Ativan -) 1 mg PO Q12H PRN PRN Reason: AGITATION Last Admin: 02/23/17 22:45 Dose: 1 mg Mirtazapine (Remeron -) 15 mg PO HS [facility] Last Admin: 02/23/17 21:36 Dose: 15 mg Nystatin (Nystop Powder -) 1 applic TP BID [facility] Last Admin: 02/24/17 11:37 Dose: 1 applic Potassium Chloride (K-Dur -) 20 meq PO BID [facility] Last Admin: 02/24/17 11:36 Dose: 20 meq - Objective Vital Signs: Vital Signs Temperature 100 F H 02/24/17 06:54 Pulse Rate 107 H 02/24/17 06:33 Respiratory Rate 20 02/24/17 06:33 Blood Pressure 118/60 02/24/17 06:33 O2 Sat by Pulse Oximetry (%) 96 02/23/17 21:00 Constitutional: Yes: No Distress, Calm Cardiovascular: Yes: Regular Rate and Rhythm Respiratory: Yes: Regular, Poor Air Entry Gastrointestinal: Yes: Normal Bowel Sounds, Soft Musculoskeletal: Yes: WNL Extremities: Yes: WNL Neurological: Yes: Alert, Oriented Psychiatric: Yes: Alert, Oriented Labs: CBC, BMP 02/24/17 06:00 02/24/17 06:00 INR, PTT INR 3.54 (0.82-1.09) H D 02/24/17 06:10 Assessment/Plan dvt edema of both legs r/o uti fever malignancy plan continue current mgmt rest as per primary team patient still spiking will change to zosyn and watch
[2017-02-24] MEDS: PIPERACILLIN/TAZOB 3.375 GM 50 ML IVPB SCH ×2 (14:55→18:38)
[2017-02-24] MEDS ORDERED: PT OWN MED DRAWER 7, Y5N ONE (21:58)
[2017-02-24] MEDS: MIRTAZAPINE 15 MG TABLET (FP) PO SCH (22:00)
[2017-02-24] MEDS: ATORVASTATIN CA 20 MG TABLET (FP) PO SCH (22:01)
[2017-02-24] MEDS: INSULIN DETEMIR 100 UNITS/ML MDV SQ SCH (22:03)
[2017-02-25] MEDS: PIPERACILLIN/TAZOB 3.375 GM 50 ML IVPB SCH ×3 (01:20→18:40)
[2017-02-25] MEDS: clonazePAM 0.5 MG TABLET PO SCH ×3 (05:57→21:52)
[2017-02-25] MEDS: INSULIN SLIDING SCALE (NOVOLOG) 1 VIAL SQ SCH ×4 (06:04→23:06)
[2017-02-25 07:14] LABS: MCH 25.3 pg (25.7-33.7); MEAN CELL VOLUME 76.6 fl (80-96); MEAN PLT VOLUME 6.8 fl (7.5-11.1); PLATELET COUNT 206 K/MM3 (134-434); RDW 17.9 % (11.6-15.6)
[2017-02-25 07:43] LABS: BILIRUBIN,TOTAL 0.2 mg/dL (0.2-1.0); CALCIUM 7.6 mg/dL (8.5-10.1); COCKROFT - GAULT 25.9165; CREATININE 2.1 mg/dL (0.55-1.02); TOT PROT 5.5 g/dl (6.4-8.2)
--- NOTE | 2017-02-25 08:46 | PN ---
Progress Note, Physician Chief Complaint: Feels better History of Present Illness: Fever less 99.6 - Current Medication List Current Medications: Active Medications Aspirin (Ecotrin -) 81 mg PO DAILY [facility] Last Admin: 02/24/17 11:36 Dose: 81 mg Atorvastatin Calcium (Lipitor -) 20 mg PO HS [facility] Last Admin: 02/24/17 22:01 Dose: 20 mg Clonazepam (Klonopin -) 0.5 mg PO TID [facility] Last Admin: 02/25/17 05:57 Dose: 0.5 mg Piperacillin Sod/Tazobactam Sod (Zosyn 3.375gm Ivpb (Pre-Docked)) 50 mls @ 100 mls/hr IVPB Q8H-IV [facility] PRN Reason: Protocol Last Admin: 02/25/17 01:20 Dose: 100 mls/hr Insulin Aspart (Novolog Vial Sliding Scale -) 1 vial SQ ACHS [facility] PRN Reason: Protocol Last Admin: 02/25/17 06:04 Dose: Not Given Insulin Detemir (Levemir Vial) 22 units SQ [facility] Last Admin: 02/24/17 22:03 Dose: 22 units Lorazepam (Ativan -) 1 mg PO Q12H PRN PRN Reason: AGITATION Last Admin: 02/23/17 22:45 Dose: 1 mg Mirtazapine (Remeron -) 15 mg PO [facility] Last Admin: 02/24/17 22:00 Dose: 15 mg Nystatin (Nystop Powder -) 1 applic TP BID [facility] Last Admin: 02/24/17 22:12 Dose: 1 applic Potassium Chloride (K-Dur -) 20 meq PO BID [facility] Last Admin: 02/24/17 22:00 Dose: 20 meq - Objective Vital Signs: Vital Signs Temperature 98.8 F 02/25/17 07:22 Pulse Rate 99 H 02/25/17 07:22 Respiratory Rate 20 02/25/17 07:22 Blood Pressure 111/48 02/25/17 07:22 O2 Sat by Pulse Oximetry (%) 95 02/24/17 21:00 Constitutional: Yes: Calm Eyes: Yes: WNL HENT: Yes: WNL Neck: Yes: WNL Cardiovascular: Yes: WNL Respiratory: Yes: WNL Gastrointestinal: Yes: Normal Bowel Sounds ...Rectal Exam: Yes: Deferred Genitourinary: Yes: WNL Neurological: Yes: Alert Labs: CBC, BMP 02/25/17 06:00 02/25/17 06:00 INR, PTT INR 3.54 (0.82-1.09) H D 02/24/17 06:10 Assessment/Plan Cr went up 2.1 ,will get nephrology consult MRI of the pelvis ordered
[2017-02-25] MEDS: NYSTATIN POWDER 100,000 UNITS/GM - 15 GM TOPICAL POWDER TP SCH ×2 (11:26→23:06)
[2017-02-25] MEDS: POTASSIUM CHLORIDE TABS 20 MEQ TABLET.ER (FP) PO SCH ×2 (11:26→21:52)
[2017-02-25] MEDS: ASPIRIN COATED 81 MG TABLET.EC PO SCH (11:26)
--- NOTE | 2017-02-25 13:39 | CONSULT ---
Consult - text type - Consultation Consultation Note: Renal Consult for OSCAR This is a 76 year old woman with PMHx of Cervical Ca on Radiation Tx, Hypertension, Hyperlipidemia, IDDM who presented with worsening LE swelling and found to have DVT and BUN/Cr of 42/2.1. Pt with recent stent placed in right ureter because of obstruction from tumor burden as per son. No intervention done on the left side. Pt denies any CP, SOB, N/V, Abd pain, fever, chills, rash. Denies any NSAID use. Pt noted to have DVt s/p heparin and Coumadin. PMhx: as above Allergies: Acetaminophen Family hx: NC Social Hx: No T/A ROS: As per HPI Home Meds: Home Medications Medication Instructions Recorded Aspirin [ASA -] 81 mg PO DAILY 02/20/17 Atorvastatin Ca [Lipitor] 20 mg PO HS 02/20/17 Clonazepam [KlonoPIN] 0.5 mg PO TID 02/20/17 Insulin Glargine,Hum.rec.anlog 22 units SQ HS 02/20/17 [Lantus (nf)] Insulin Lispro [Humalog] 4 unit SQ TID 02/20/17 Mag Hydrox/Al Hydrox/Simeth 30 ml PO PRN 02/20/17 [Mylanta Oral Suspension -] Mirtazapine 15 mg PO HS 02/20/17 Ondansetron [Zofran -] 4 mg PO Q6H PRN 02/20/17 Vital Signs Temperature 99.6 F 02/25/17 09:15 Pulse Rate 95 H 02/25/17 09:15 Respiratory Rate 22 02/25/17 09:15 Blood Pressure 114/60 02/25/17 09:15 O2 Sat by Pulse Oximetry (%) 95 02/24/17 21:00 Intake & Output 02/22/17 02/23/17 02/24/17 02/25/17 23:59 23:59 23:59 23:59 Intake Total 714 490 540 340 Output Total 1050 Balance -336 490 540 340 Gen: NAD, awake and alert HEENT: NC/AT, MMM, No JVD CVS: RRR, No M/R Lungs: CTA Abd: soft NT/ND Ext: Trace to 1+ edema in LE Neuro: AAOX3, no focal defects CBC, BMP 02/25/17 06:00 02/25/17 06:00 Current Medications Aspirin (Ecotrin -) 81 mg PO DAILY [facility] Last Admin: 02/25/17 11:26 Dose: 81 mg Atorvastatin Calcium (Lipitor -) 20 mg PO HS [facility] Last Admin: 02/24/17 22:01 Dose: 20 mg Clonazepam (Klonopin -) 0.5 mg PO TID [facility] Last Admin: 02/25/17 05:57 Dose: 0.5 mg Piperacillin Sod/Tazobactam Sod (Zosyn 3.375gm Ivpb (Pre-Docked)) 50 mls @ 100 mls/hr IVPB Q8H-IV [facility] PRN Reason: Protocol Last Admin: 02/25/17 11:26 Dose: 100 mls/hr Insulin Aspart (Novolog Vial Sliding Scale -) 1 vial SQ ACHS [facility] PRN Reason: Protocol Last Admin: 02/25/17 12:24 Dose: Not Given Insulin Detemir (Levemir Vial) 22 units SQ HS [facility] Last Admin: 02/24/17 22:03 Dose: 22 units Lorazepam (Ativan -) 1 mg PO Q12H PRN PRN Reason: AGITATION Last Admin: 02/23/17 22:45 Dose: 1 mg Mirtazapine (Remeron -) 15 mg PO HS [facility] Last Admin: 02/24/17 22:00 Dose: 15 mg Nystatin (Nystop Powder -) 1 applic TP BID [facility] Last Admin: 02/25/17 11:26 Dose: 1 applic Potassium Chloride (K-Dur -) 20 meq PO BID [facility] Last Admin: 02/25/17 11:26 Dose: 20 meq A/P 76 year old woman with PMHx of Cervical Ca on Radiation Tx, Hypertension, Hyperlipidemia, IDDM who presented with worsening LE swelling and found to have DVT and BUN/Cr of 42/2.1 #Acute renal insufficiency with ? CKD US showed b/l moderate hydronephrosis -> Urology consult placed no IVF at this time as pt does not appear volume deplete and pt is not hypotensive continue to trend BUN/Cr no indication for [employer] Dose all meds for Cr Cl less then 15 #LE swelling with DVT s/p Heparin gtt on Coumadin now Titrate as per primary #Cervical Ca Suppurative Care MRI of the Abd pending #Anemia Check iron levels no acute indication for transfusion #Hypokalemia on KCl supplement trend K daily Thank you Glenn Deluna DO
--- NOTE | 2017-02-25 14:12 | PN ---
Progress Note, Physician History of Present Illness: patient stable afebrile nephro note noted agree with the thought process - Current Medication List Current Medications: Active Medications Aspirin (Ecotrin -) 81 mg PO DAILY [facility] Last Admin: 02/25/17 11:26 Dose: 81 mg Atorvastatin Calcium (Lipitor -) 20 mg PO HS [facility] Last Admin: 02/24/17 22:01 Dose: 20 mg Clonazepam (Klonopin -) 0.5 mg PO TID [facility] Last Admin: 02/25/17 05:57 Dose: 0.5 mg Piperacillin Sod/Tazobactam Sod (Zosyn 3.375gm Ivpb (Pre-Docked)) 50 mls @ 100 mls/hr IVPB Q8H-IV [facility] PRN Reason: Protocol Last Admin: 02/25/17 11:26 Dose: 100 mls/hr Insulin Aspart (Novolog Vial Sliding Scale -) 1 vial SQ ACHS [facility] PRN Reason: Protocol Last Admin: 02/25/17 12:24 Dose: Not Given Insulin Detemir (Levemir Vial) 22 units SQ [facility] Last Admin: 02/24/17 22:03 Dose: 22 units Lorazepam (Ativan -) 1 mg PO Q12H PRN PRN Reason: AGITATION Last Admin: 02/23/17 22:45 Dose: 1 mg Mirtazapine (Remeron -) 15 mg PO [facility] Last Admin: 02/24/17 22:00 Dose: 15 mg Nystatin (Nystop Powder -) 1 applic TP BID [facility] Last Admin: 02/25/17 11:26 Dose: 1 applic Potassium Chloride (K-Dur -) 20 meq PO BID [facility] Last Admin: 02/25/17 11:26 Dose: 20 meq - Objective Vital Signs: Vital Signs Temperature 99.6 F 02/25/17 09:15 Pulse Rate 95 H 02/25/17 09:15 Respiratory Rate 22 02/25/17 09:15 Blood Pressure 114/60 02/25/17 09:15 O2 Sat by Pulse Oximetry (%) 95 02/24/17 21:00 Constitutional: Yes: No Distress, Calm Respiratory: Yes: Regular, CTA Bilaterally Gastrointestinal: Yes: Normal Bowel Sounds, Soft Musculoskeletal: Yes: Other Edema: LLE: 2+, RLE: 1+ Neurological: Yes: Alert Psychiatric: Yes: Alert Labs: CBC, BMP 02/25/17 06:00 02/25/17 06:00 INR, PTT INR 3.54 (0.82-1.09) H D 02/24/17 06:10 Assessment/Plan dvt edema of both legs r/o uti fever malignancy plan continue current mgmt rest as per primary team continue zosyn await for urology input
[2017-02-25 19:19] LABS: URINE APPEARANCE SLCLOUDY; URINE BILIRUBIN NEGATIVE (NEGATIVE); URINE COLOR YELLOW; URINE GLUCOSE (UA) NEGATIVE (NEGATIVE); URINE KETONE NEGATIVE (NEGATIVE); URINE NITRITE NEGATIVE (NEGATIVE); URINE UROBILINOGEN NEGATIVE E.U./dl (0.2-1.0)
[2017-02-25 19:40] LABS: URINE BLOOD 2+ (NEGATIVE); URINE LEUK ESTERASE 3+ (NEGATIVE); URINE PROTEIN 2+ (NEGATIVE)
[2017-02-25] MEDS: ACETAMINOPHEN 325 MG TABLET (FP) PO PRN (20:38)
[2017-02-25] MEDS ORDERED: PT OWN MED DRAWER 7, Y5N ONE (21:13)
[2017-02-25 21:33] LABS: URINE RBC 1 /hpf (0-3); URINE WBC 46 /hpf (3-5)
[2017-02-25] MEDS: MIRTAZAPINE 15 MG TABLET (FP) PO SCH (22:15)
[2017-02-25] MEDS: ATORVASTATIN CA 20 MG TABLET (FP) PO SCH (23:05)
[2017-02-25] MEDS: INSULIN DETEMIR 100 UNITS/ML MDV SQ SCH (23:12)
[2017-02-26] MEDS: PIPERACILLIN/TAZOB 3.375 GM 50 ML IVPB SCH ×3 (01:14→18:05)
[2017-02-26] MEDS ORDERED: INSULIN (NOVOLOG) ASPART 100 UNITS/ML 10ML VIAL ONE (05:35)
[2017-02-26] MEDS: clonazePAM 0.5 MG TABLET PO SCH ×3 (06:03→22:04)
[2017-02-26] MEDS: INSULIN SLIDING SCALE (NOVOLOG) 1 VIAL SQ SCH ×4 (06:03→22:16)
[2017-02-26 07:47] LABS: PROTHROMBIN TIME (PATIENT) 52.4 SEC (9.98-11.88)
[2017-02-26 08:07] LABS: INR 4.62 (0.82-1.09)
[2017-02-26] MEDS: POTASSIUM CHLORIDE TABS 20 MEQ TABLET.ER (FP) PO SCH ×2 (09:52→22:04)
[2017-02-26] MEDS: NYSTATIN POWDER 100,000 UNITS/GM - 15 GM TOPICAL POWDER TP SCH ×2 (09:52→22:04)
[2017-02-26] MEDS: ASPIRIN COATED 81 MG TABLET.EC PO SCH (09:52)
--- NOTE | 2017-02-26 10:05 | PN ---
[id number]: 76 yrs old F admitted with Rt Le swelling and OSCAR H/O Ca Cervix, T2DM, Depression and CKD - Current Medication List Current Medications: Active Medications Acetaminophen (Tylenol -) 650 mg PO Q6H PRN PRN Reason: FEVER OR PAIN Last Admin: 02/25/17 20:38 Dose: 650 mg Aspirin (Ecotrin -) 81 mg PO DAILY [facility] Last Admin: 02/26/17 09:52 Dose: 81 mg Atorvastatin Calcium (Lipitor -) 20 mg PO HS [facility] Last Admin: 02/25/17 23:05 Dose: 20 mg Clonazepam (Klonopin -) 0.5 mg PO TID [facility] Last Admin: 02/26/17 06:03 Dose: 0.5 mg Piperacillin Sod/Tazobactam Sod (Zosyn 3.375gm Ivpb (Pre-Docked)) 50 mls @ 100 mls/hr IVPB Q8H-IV [facility] PRN Reason: Protocol Last Admin: 02/26/17 09:52 Dose: 100 mls/hr Insulin Aspart (Novolog Vial Sliding Scale -) 1 vial SQ ACHS [facility] PRN Reason: Protocol Last Admin: 02/26/17 06:03 Dose: Not Given Insulin Detemir (Levemir Vial) 22 units SQ HS [facility] Last Admin: 02/25/17 23:12 Dose: 22 units Lorazepam (Ativan -) 1 mg PO Q12H PRN PRN Reason: AGITATION Last Admin: 02/23/17 22:45 Dose: 1 mg Mirtazapine (Remeron -) 15 mg PO HS [facility] Last Admin: 02/25/17 22:15 Dose: 15 mg Nystatin (Nystop Powder -) 1 applic TP BID [facility] Last Admin: 02/26/17 09:52 Dose: 1 applic Potassium Chloride (K-Dur -) 20 meq PO BID [facility] Last Admin: 02/26/17 09:52 Dose: 20 meq - Objective Vital Signs: Vital Signs Temperature 99.1 F 02/26/17 08:50 Pulse Rate 99 H 02/26/17 08:50 Respiratory Rate 18 02/26/17 08:50 Blood Pressure 121/65 02/26/17 08:50 O2 Sat by Pulse Oximetry (%) 95 02/25/17 21:00 Constitutional: Yes: Calm Eyes: Yes: WNL HENT: Yes: WNL, Atraumatic Neck: Yes: WNL, Supple, Trachea Midline Cardiovascular: Yes: WNL, Regular Rate and Rhythm Respiratory: Yes: WNL, Regular, CTA Bilaterally Gastrointestinal: Yes: WNL, Normal Bowel Sounds ...Rectal Exam: Yes: Deferred Musculoskeletal: Yes: Back Pain Edema: Yes Edema: RLE: 1+ Peripheral Pulses WNL: Yes Peripheral Pulses: Left Radial: 2+, Right Radial: 2+, Left Doralis Pedis: 1+, Right Dorsalis Pedis: 1+ Integumentary: Yes: WNL Neurological: Yes: WNL, Alert, Oriented ...Motor Strength: WNL Psychiatric: Yes: WNL Labs: CBC, BMP 02/25/17 06:00 02/25/17 06:00 INR, PTT INR 4.62 (0.82-1.09) H* D 02/26/17 06:00 - ....Imaging Chest X-ray: Image Reviewed (No acute changes) Other: Image Reviewed (Le Doppler Rt Le DVT) Problem List - Problems (1) DVT, lower extremity Assessment/Plan: Rt LE DVT on AC INR 4 will hold Coumadin Code(s): I82.409 - ACUTE EMBOLISM AND THOMBOS UNSP DEEP VN UNSP LOWER EXTREMITY Qualifiers: Affected thrombotic vein of extremity: unspecified vein of extremity Laterality: right Chronicity: acute Qualified Code(s): I82.401 - Acute embolism and thrombosis of unspecified deep veins of right lower extremity (2) Obstructive uropathy Assessment/Plan: Due to CA renal functions are stable Code(s): N13.9 - OBSTRUCTIVE AND REFLUX UROPATHY, UNSPECIFIED (3) Type 2 diabetes mellitus Assessment/Plan: Cont current regimen of insulin F/U HbA1C Code(s): E11.9 - TYPE 2 DIABETES MELLITUS WITHOUT COMPLICATIONS Qualifiers: Diabetes mellitus complication detail: with polyneuropathy (4) Anemia Assessment/Plan: H/h stable F/U H/H Code(s): D64.9 - ANEMIA, UNSPECIFIED Qualifiers: Anemia type: unspecified type Qualified Code(s): D64.9 - Anemia, unspecified (5) OSCAR (acute kidney injury) Assessment/Plan: Renal functions are improving F/U Renal consult recommondation Code(s): N17.9 - ACUTE KIDNEY FAILURE, UNSPECIFIED
--- NOTE | 2017-02-26 11:01 | PN ---
Progress Note (short form) - Note Progress Note: Renal Follow up for OSCAR Pt seen and examined at the bedside no complaints denies any abd pain, sob, chest pain, N/V/D at the bedside Hutchins in place with yellow urine Vital Signs Temperature 99.1 F 02/26/17 08:50 Pulse Rate 99 H 02/26/17 08:50 Respiratory Rate 18 02/26/17 08:50 Blood Pressure 121/65 02/26/17 08:50 O2 Sat by Pulse Oximetry (%) 95 02/25/17 21:00 Intake & Output 02/23/17 02/24/17 02/25/17 02/26/17 23:59 23:59 23:59 23:59 Intake Total 490 540 640 50 Output Total 800 300 Balance 490 540 -160 -250 Gen: NAD, awake and alert CVS: RRR, No M/R Lungs: CTA Abd: soft NT/ND Ext: Trace to 1+ edema in LE : Hutchins in place CBC, BMP 02/25/17 06:00 02/25/17 06:00 Laboratory Tests 02/25/17 02/25/17 06:00 06:00 MCV 76.6 L AST 26 ALT 23 Albumin 2.0 L Current Medications Acetaminophen (Tylenol -) 650 mg PO Q6H PRN PRN Reason: FEVER OR PAIN Last Admin: 02/25/17 20:38 Dose: 650 mg Aspirin (Ecotrin -) 81 mg PO DAILY [facility] Last Admin: 02/26/17 09:52 Dose: 81 mg Atorvastatin Calcium (Lipitor -) 20 mg PO HS [facility] Last Admin: 02/25/17 23:05 Dose: 20 mg Clonazepam (Klonopin -) 0.5 mg PO TID [facility] Last Admin: 02/26/17 06:03 Dose: 0.5 mg Piperacillin Sod/Tazobactam Sod (Zosyn 3.375gm Ivpb (Pre-Docked)) 50 mls @ 100 mls/hr IVPB Q8H-IV [facility] PRN Reason: Protocol Last Admin: 02/26/17 09:52 Dose: 100 mls/hr Insulin Aspart (Novolog Vial Sliding Scale -) 1 vial SQ ACHS [facility] PRN Reason: Protocol Last Admin: 02/26/17 06:03 Dose: Not Given Insulin Detemir (Levemir Vial) 22 units SQ HS [facility] Last Admin: 02/25/17 23:12 Dose: 22 units Lorazepam (Ativan -) 1 mg PO Q12H PRN PRN Reason: AGITATION Last Admin: 02/23/17 22:45 Dose: 1 mg Mirtazapine (Remeron -) 15 mg PO HS [facility] Last Admin: 02/25/17 22:15 Dose: 15 mg Nystatin (Nystop Powder -) 1 applic TP BID [facility] Last Admin: 02/26/17 09:52 Dose: 1 applic Potassium Chloride (K-Dur -) 20 meq PO BID [facility] Last Admin: 02/26/17 09:52 Dose: 20 meq A/P 76 year old woman with PMHx of Cervical Ca on Radiation Tx, Hypertension, Hyperlipidemia, IDDM who presented with worsening LE swelling and found to have DVT and BUN/Cr of 42/2.1 #Acute renal insufficiency with ? CKD US showed b/l moderate hydronephrosis Urology Eval pending pt is non-oliguric and w/o any acute electrolyte abnormalities to warrant emergent HD continue Hutchins Catheter oral intake of fluids as tolerated Trend BUN/cr and electrolytes, todays labs pending #LE swelling with DVT INR now therapeutic #Cervical Ca Suppurative Care MRI of the Abd pending #Anemia Check iron levels- pending may require transfusion this admission #Hypokalemia on KCl supplement trend K daily - awaiting todays labs Thank you Glenn Deluna DO
[2017-02-26 11:21] LABS: MCHC 32.4 g/dl (32.0-36.0); MEAN CELL VOLUME 77.2 fl (80-96); MEAN PLT VOLUME 6.4 fl (7.5-11.1); PLATELET COUNT 198 K/MM3 (134-434); RDW 18.4 % (11.6-15.6); WHITE BLOOD COUNT 7.1 K/mm3 (4.0-10.0)
[2017-02-26 11:48] LABS: CALCIUM 7.8 mg/dL (8.5-10.1); COCKROFT - GAULT 20.1535; CREATININE 2.7 mg/dL (0.55-1.02)
--- NOTE | 2017-02-26 14:10 | PN ---
Progress Note, Physician History of Present Illness: patient stable no fevers - Current Medication List Current Medications: Active Medications Acetaminophen (Tylenol -) 650 mg PO Q6H PRN PRN Reason: FEVER OR PAIN Last Admin: 02/25/17 20:38 Dose: 650 mg Aspirin (Ecotrin -) 81 mg PO DAILY [facility] Last Admin: 02/26/17 09:52 Dose: 81 mg Atorvastatin Calcium (Lipitor -) 20 mg PO HS [facility] Last Admin: 02/25/17 23:05 Dose: 20 mg Clonazepam (Klonopin -) 0.5 mg PO TID [facility] Last Admin: 02/26/17 06:03 Dose: 0.5 mg Piperacillin Sod/Tazobactam Sod (Zosyn 3.375gm Ivpb (Pre-Docked)) 50 mls @ 100 mls/hr IVPB Q8H-IV [facility] PRN Reason: Protocol Last Admin: 02/26/17 09:52 Dose: 100 mls/hr Insulin Aspart (Novolog Vial Sliding Scale -) 1 vial SQ ACHS [facility] PRN Reason: Protocol Last Admin: 02/26/17 12:18 Dose: Not Given Insulin Detemir (Levemir Vial) 22 units SQ [facility] Last Admin: 02/25/17 23:12 Dose: 22 units Lorazepam (Ativan -) 1 mg PO Q12H PRN PRN Reason: AGITATION Last Admin: 02/23/17 22:45 Dose: 1 mg Mirtazapine (Remeron -) 15 mg PO HS [facility] Last Admin: 02/25/17 22:15 Dose: 15 mg Nystatin (Nystop Powder -) 1 applic TP BID [facility] Last Admin: 02/26/17 09:52 Dose: 1 applic Potassium Chloride (K-Dur -) 20 meq PO BID [facility] Last Admin: 02/26/17 09:52 Dose: 20 meq - Objective Vital Signs: Vital Signs Temperature 98.8 F 02/26/17 13:59 Pulse Rate 119 H 02/26/17 13:59 Respiratory Rate 18 02/26/17 13:59 Blood Pressure 133/61 02/26/17 13:59 O2 Sat by Pulse Oximetry (%) 95 02/25/17 21:00 Constitutional: Yes: No Distress, Calm Cardiovascular: Yes: Regular Rate and Rhythm Respiratory: Yes: Regular, CTA Bilaterally Gastrointestinal: Yes: Normal Bowel Sounds, Soft Musculoskeletal: Yes: WNL Extremities: Yes: Other Edema: LLE: 1+, RLE: 1+ Wound/Incision: Yes: Well Approximated Neurological: Yes: Alert, Oriented Psychiatric: Yes: Alert, Oriented Labs: CBC, BMP 02/26/17 11:00 02/26/17 11:00 INR, PTT INR 4.62 (0.82-1.09) H* D 02/26/17 06:00 Assessment/Plan dvt edema of both legs r/o uti fever malignancy plan continue current mgmt rest as per primary team continue zosyn await for urology input patient with foleys catheter
[2017-02-26] MEDS: LORazepam 1 MG TABLET PO PRN (18:12)
[2017-02-26] MEDS ORDERED: PT OWN MED DRAWER 7, Y5N ONE (21:49)
[2017-02-26] MEDS: ATORVASTATIN CA 20 MG TABLET (FP) PO SCH (22:04)
[2017-02-26] MEDS: MIRTAZAPINE 15 MG TABLET (FP) PO SCH (22:04)
[2017-02-26] MEDS: INSULIN DETEMIR 100 UNITS/ML MDV SQ SCH (22:04)
[2017-02-27] MEDS: PIPERACILLIN/TAZOB 3.375 GM 50 ML IVPB SCH ×3 (03:44→18:13)
[2017-02-27] MEDS: INSULIN SLIDING SCALE (NOVOLOG) 1 VIAL SQ SCH ×5 (06:36→22:51)
[2017-02-27] MEDS: clonazePAM 0.5 MG TABLET PO SCH ×3 (06:36→21:51)
[2017-02-27 08:00] LABS: PROTHROMBIN TIME (PATIENT) 57.8 SEC (9.98-11.88)
[2017-02-27 08:02] LABS: ALBUMIN 1.9 g/dl (3.4-5.0); BILIRUBIN,TOTAL 0.4 mg/dL (0.2-1.0); CALCIUM 8.1 mg/dL (8.5-10.1); CREATININE 3.2 mg/dL (0.55-1.02); MAGNESIUM 1.7 mg/dL (1.8-2.4); PHOSPHOROUS 4.2 mg/dL (2.5-4.9); TOT PROT 5.6 g/dl (6.4-8.2)
[2017-02-27 08:03] LABS: BASOPHIL 0.2 % (0-2.0); EOSINOPHIL 2.2 % (0-4.5); MCHC 32.7 g/dl (32.0-36.0); MEAN CELL VOLUME 76.6 fl (80-96); MEAN PLT VOLUME 6.8 fl (7.5-11.1); PLATELET COUNT 216 K/MM3 (134-434); RDW 18.5 % (11.6-15.6); WHITE BLOOD COUNT 7.6 K/mm3 (4.0-10.0)
[2017-02-27 08:18] LABS: INR 5.08 (0.82-1.09)
[2017-02-27] MEDS: D5-1/2NS+10 MEQ KCL - 1,000 ML IV SCH (09:25)
[2017-02-27] MEDS: POTASSIUM CHLORIDE TABS 20 MEQ TABLET.ER (FP) PO SCH ×2 (09:27→21:51)
[2017-02-27] MEDS: NYSTATIN POWDER 100,000 UNITS/GM - 15 GM TOPICAL POWDER TP SCH ×2 (09:28→21:52)
[2017-02-27] MEDS ORDERED: MAGNESIUM SULF 50% (8.12 MEQ/2 ML-1 GM VIAL) IVPB ONE (11:00)
[2017-02-27] MEDS: ASPIRIN COATED 81 MG TABLET.EC PO SCH (12:46)
--- NOTE | 2017-02-27 12:49 | PN ---
Progress Note, Physician Chief Complaint: No New complaint overnigh except poor Po intake History of Present Illness: 76 yrs old F admitted with Rt Le swelling and OSCAR H/O Ca Cervix - Current Medication List Current Medications: Active Medications Acetaminophen (Tylenol -) 650 mg PO Q6H PRN PRN Reason: FEVER OR PAIN Last Admin: 02/25/17 20:38 Dose: 650 mg Aspirin (Ecotrin -) 81 mg PO DAILY [facility] Last Admin: 02/27/17 12:46 Dose: Not Given Atorvastatin Calcium (Lipitor -) 20 mg PO HS [facility] Last Admin: 02/26/17 22:04 Dose: 20 mg Clonazepam (Klonopin -) 0.5 mg PO TID [facility] Last Admin: 02/27/17 06:36 Dose: 0.5 mg Piperacillin Sod/Tazobactam Sod (Zosyn 3.375gm Ivpb (Pre-Docked)) 50 mls @ 100 mls/hr IVPB Q8H-IV [facility] PRN Reason: Protocol Last Admin: 02/27/17 09:27 Dose: 100 mls/hr Potassium Chloride/Dextrose/Sod Cl (D5-1/2ns+10 Meq Kcl -) 1,000 mls @ 100 mls/ hr IV ASDIR [facility] Last Admin: 02/27/17 09:25 Dose: 100 mls/hr Insulin Aspart (Novolog Vial Sliding Scale -) 1 vial SQ ACHS [facility] PRN Reason: Protocol Last Admin: 02/27/17 12:46 Dose: Not Given Insulin Detemir (Levemir Vial) 16 units SQ HS [facility] Mirtazapine (Remeron -) 15 mg PO HS [facility] Last Admin: 02/26/17 22:04 Dose: 15 mg Nystatin (Nystop Powder -) 1 applic TP BID [facility] Last Admin: 02/27/17 09:28 Dose: 1 applic Potassium Chloride (K-Dur -) 20 meq PO BID [facility] Last Admin: 02/27/17 09:27 Dose: 20 meq - Objective Vital Signs: Vital Signs Temperature 98.7 F 02/27/17 05:33 Pulse Rate 95 H 02/27/17 05:33 Respiratory Rate 20 02/27/17 05:33 Blood Pressure 120/59 02/27/17 05:33 O2 Sat by Pulse Oximetry (%) 95 02/26/17 21:00 Labs: CBC, BMP 02/27/17 06:00 02/27/17 06:00 INR, PTT INR 5.08 (0.82-1.09) H* 02/27/17 06:00 Problem List - Problems (1) DVT, lower extremity Assessment/Plan: Rt LE DVT on AC INR 4 will hold Coumadin Code(s): I82.409 - ACUTE EMBOLISM AND THOMBOS UNSP DEEP VN UNSP LOWER EXTREMITY Qualifiers: Affected thrombotic vein of extremity: unspecified vein of extremity Laterality: right Chronicity: acute Qualified Code(s): I82.401 - Acute embolism and thrombosis of unspecified deep veins of right lower extremity (2) Obstructive uropathy Assessment/Plan: Due to CA renal functions are stable Code(s): N13.9 - OBSTRUCTIVE AND REFLUX UROPATHY, UNSPECIFIED (3) Type 2 diabetes mellitus Assessment/Plan: Cont current regimen of insulin F/U HbA1C Code(s): E11.9 - TYPE 2 DIABETES MELLITUS WITHOUT COMPLICATIONS Qualifiers: Diabetes mellitus complication detail: with polyneuropathy (4) Anemia Assessment/Plan: H/h stable F/U H/H Code(s): D64.9 - ANEMIA, UNSPECIFIED Qualifiers: Anemia type: unspecified type Qualified Code(s): D64.9 - Anemia, unspecified (5) OSCAR (acute kidney injury) Assessment/Plan: Rising BUN./Creat F/U Renal consult recommendation Code(s): N17.9 - ACUTE KIDNEY FAILURE, UNSPECIFIED (6) Supratherapeutic INR Assessment/Plan: INR > 5 on Hold of coumdin no active bleeding F/U INR in am, consider small dose of Vit K further increse in INR Code(s): R79.1 - ABNORMAL COAGULATION PROFILE
--- NOTE | 2017-02-27 15:59 | PN ---
Progress Note, Physician History of Present Illness: patient stable has low grade temp awaiting urology to see her low blood sugar - Current Medication List Current Medications: Active Medications Acetaminophen (Tylenol -) 650 mg PO Q6H PRN PRN Reason: FEVER OR PAIN Last Admin: 02/25/17 20:38 Dose: 650 mg Aspirin (Ecotrin -) 81 mg PO DAILY [facility] Last Admin: 02/27/17 12:46 Dose: Not Given Atorvastatin Calcium (Lipitor -) 20 mg PO HS [facility] Last Admin: 02/26/17 22:04 Dose: 20 mg Clonazepam (Klonopin -) 0.5 mg PO TID [facility] Last Admin: 02/27/17 06:36 Dose: 0.5 mg Piperacillin Sod/Tazobactam Sod (Zosyn 3.375gm Ivpb (Pre-Docked)) 50 mls @ 100 mls/hr IVPB Q8H-IV [facility] PRN Reason: Protocol Last Admin: 02/27/17 09:27 Dose: 100 mls/hr Potassium Chloride/Dextrose/Sod Cl (D5-1/2ns+10 Meq Kcl -) 1,000 mls @ 100 mls/ hr IV ASDIR [facility] Last Admin: 02/27/17 09:25 Dose: 100 mls/hr Insulin Aspart (Novolog Vial Sliding Scale -) 1 vial SQ ACHS [facility] PRN Reason: Protocol Last Admin: 02/27/17 12:46 Dose: Not Given Insulin Detemir (Levemir Vial) 16 units SQ HS [facility] Mirtazapine (Remeron -) 15 mg PO HS [facility] Last Admin: 02/26/17 22:04 Dose: 15 mg Nystatin (Nystop Powder -) 1 applic TP BID [facility] Last Admin: 02/27/17 09:28 Dose: 1 applic Potassium Chloride (K-Dur -) 20 meq PO BID [facility] Last Admin: 02/27/17 09:27 Dose: 20 meq - Objective Vital Signs: Vital Signs Temperature 99.6 F 02/27/17 15:23 Pulse Rate 107 H 02/27/17 15:23 Respiratory Rate 20 02/27/17 15:23 Blood Pressure 125/53 02/27/17 15:23 O2 Sat by Pulse Oximetry (%) 95 02/27/17 09:00 Constitutional: Yes: No Distress, Calm Cardiovascular: Yes: Regular Rate and Rhythm Respiratory: Yes: Regular, CTA Bilaterally Gastrointestinal: Yes: Normal Bowel Sounds, Soft Musculoskeletal: Yes: Other Extremities: Yes: Other Neurological: Yes: Alert Psychiatric: Yes: Alert Labs: CBC, BMP 02/27/17 06:00 02/27/17 06:00 INR, PTT INR 5.08 (0.82-1.09) H* 02/27/17 06:00 Assessment/Plan dvt edema of both legs r/o uti fever malignancy plan continue current mgmt rest as per primary team continue zosyn await for urology input creatinine creeping up
[2017-02-27] MEDS ORDERED: PT OWN MED DRAWER 7, Y5N ONE (21:44)
[2017-02-27] MEDS: MIRTAZAPINE 15 MG TABLET (FP) PO SCH (21:52)
[2017-02-27] MEDS: INSULIN DETEMIR 100 UNITS/ML MDV SQ SCH (21:52)
[2017-02-27] MEDS: ATORVASTATIN CA 20 MG TABLET (FP) PO SCH (21:52)
[2017-02-28] MEDS: PIPERACILLIN/TAZOB 3.375 GM 50 ML IVPB SCH ×3 (01:29→18:45)
[2017-02-28] MEDS: D5-1/2NS+10 MEQ KCL - 1,000 ML IV SCH (01:29)
[2017-02-28] MEDS: INSULIN SLIDING SCALE (NOVOLOG) 1 VIAL SQ SCH ×3 (06:33→22:06)
[2017-02-28 07:11] LABS: BASOPHIL 0.3 % (0-2.0); MCH 25.1 pg (25.7-33.7); MCHC 32.1 g/dl (32.0-36.0); MEAN CELL VOLUME 78.2 fl (80-96); MEAN PLT VOLUME 6.6 fl (7.5-11.1); NEUTROPHILS 84.9 % (42.8-82.8); PLATELET COUNT 201 K/MM3 (134-434); RDW 18.3 % (11.6-15.6); WHITE BLOOD COUNT 5.1 K/mm3 (4.0-10.0)
[2017-02-28 07:33] LABS: ALBUMIN 1.8 g/dl (3.4-5.0); BILIRUBIN,TOTAL 0.2 mg/dL (0.2-1.0); CALCIUM 7.7 mg/dL (8.5-10.1); CREATININE 3.4 mg/dL (0.55-1.02); MAGNESIUM 2.3 mg/dL (1.8-2.4); PHOSPHOROUS 3.6 mg/dL (2.5-4.9); TOT PROT 5.2 g/dl (6.4-8.2)
--- NOTE | 2017-02-28 08:57 | PN ---
Progress Note, Physician Chief Complaint: Feels cold History of Present Illness: Low grade fever persists - Current Medication List Current Medications: Active Medications Acetaminophen (Tylenol -) 650 mg PO Q6H PRN PRN Reason: FEVER OR PAIN Last Admin: 02/25/17 20:38 Dose: 650 mg Aspirin (Ecotrin -) 81 mg PO DAILY [facility] Last Admin: 02/27/17 12:46 Dose: Not Given Atorvastatin Calcium (Lipitor -) 20 mg PO HS [facility] Last Admin: 02/27/17 21:52 Dose: 20 mg Piperacillin Sod/Tazobactam Sod (Zosyn 3.375gm Ivpb (Pre-Docked)) 50 mls @ 100 mls/hr IVPB Q8H-IV [facility] PRN Reason: Protocol Last Admin: 02/28/17 01:29 Dose: 100 mls/hr Potassium Chloride/Dextrose/Sod Cl (D5-1/2ns+10 Meq Kcl -) 1,000 mls @ 100 mls/ hr IV ASDIR [facility] Last Admin: 02/28/17 01:29 Dose: 100 mls/hr Insulin Aspart (Novolog Vial Sliding Scale -) 1 vial SQ ACHS [facility] PRN Reason: Protocol Last Admin: 02/28/17 06:33 Dose: 4 unit Insulin Detemir (Levemir Vial) 16 units SQ HS [facility] Last Admin: 02/27/17 21:52 Dose: 16 units Mirtazapine (Remeron -) 15 mg PO HS [facility] Last Admin: 02/27/17 21:52 Dose: 15 mg Nystatin (Nystop Powder -) 1 applic TP BID [facility] Last Admin: 02/27/17 21:52 Dose: 1 applic Potassium Chloride (K-Dur -) 20 meq PO BID [facility] Last Admin: 02/27/17 21:51 Dose: 20 meq - Objective Vital Signs: Vital Signs Temperature 98.5 F 02/28/17 05:32 Pulse Rate 88 02/28/17 05:32 Respiratory Rate 20 02/28/17 05:32 Blood Pressure 117/68 02/28/17 05:32 O2 Sat by Pulse Oximetry (%) 96 02/27/17 20:37 Constitutional: Yes: Anxious Eyes: Yes: WNL HENT: Yes: WNL Neck: Yes: WNL Respiratory: Yes: WNL Gastrointestinal: Yes: Normal Bowel Sounds ...Rectal Exam: Yes: WNL Genitourinary: Yes: Hutchins Present Edema: No Neurological: Yes: Alert ...Motor Strength: WNL Labs: CBC, BMP 02/28/17 05:35 02/28/17 05:35 INR, PTT INR 5.08 (0.82-1.09) H* 02/27/17 06:00 Assessment/Plan Lab showed Hb 6.9 . 2units of PRBC ordered
--- NOTE | 2017-02-28 08:59 | PN ---
Progress Note, Physician - Current Medication List Current Medications: Active Medications Acetaminophen (Tylenol -) 650 mg PO Q6H PRN PRN Reason: FEVER OR PAIN Last Admin: 02/25/17 20:38 Dose: 650 mg Aspirin (Ecotrin -) 81 mg PO DAILY [facility] Last Admin: 02/27/17 12:46 Dose: Not Given Atorvastatin Calcium (Lipitor -) 20 mg PO HS [facility] Last Admin: 02/27/17 21:52 Dose: 20 mg Piperacillin Sod/Tazobactam Sod (Zosyn 3.375gm Ivpb (Pre-Docked)) 50 mls @ 100 mls/hr IVPB Q8H-IV [facility] PRN Reason: Protocol Last Admin: 02/28/17 01:29 Dose: 100 mls/hr Potassium Chloride/Dextrose/Sod Cl (D5-1/2ns+10 Meq Kcl -) 1,000 mls @ 100 mls/ hr IV ASDIR [facility] Last Admin: 02/28/17 01:29 Dose: 100 mls/hr Insulin Aspart (Novolog Vial Sliding Scale -) 1 vial SQ ACHS [facility] PRN Reason: Protocol Last Admin: 02/28/17 06:33 Dose: 4 unit Insulin Detemir (Levemir Vial) 16 units SQ HS [facility] Last Admin: 02/27/17 21:52 Dose: 16 units Mirtazapine (Remeron -) 15 mg PO HS [facility] Last Admin: 02/27/17 21:52 Dose: 15 mg Nystatin (Nystop Powder -) 1 applic TP BID [facility] Last Admin: 02/27/17 21:52 Dose: 1 applic Potassium Chloride (K-Dur -) 20 meq PO BID [facility] Last Admin: 02/27/17 21:51 Dose: 20 meq - Objective Vital Signs: Vital Signs Temperature 98.5 F 02/28/17 05:32 Pulse Rate 88 02/28/17 05:32 Respiratory Rate 20 02/28/17 05:32 Blood Pressure 117/68 02/28/17 05:32 O2 Sat by Pulse Oximetry (%) 96 02/27/17 20:37 Labs: CBC, BMP 02/28/17 05:35 02/28/17 05:35 INR, PTT INR 5.08 (0.82-1.09) H* 02/27/17 06:00 Assessment/Plan Urine culture grew fungus, will talk to ID
[2017-02-28 09:07] LABS: PROTHROMBIN TIME (PATIENT) 53.3 SEC (9.98-11.88)
[2017-02-28 09:25] LABS: INR 4.69 (0.82-1.09)
[2017-02-28] MEDS: POTASSIUM CHLORIDE TABS 20 MEQ TABLET.ER (FP) PO SCH ×2 (10:20→22:06)
[2017-02-28] MEDS: ASPIRIN COATED 81 MG TABLET.EC PO SCH (10:20)
[2017-02-28] MEDS: NYSTATIN POWDER 100,000 UNITS/GM - 15 GM TOPICAL POWDER TP SCH ×2 (10:20→22:08)
[2017-02-28 10:31] LABS: MICROCYTOSIS 1+
[2017-02-28 10:32] LABS: HYPOCHROMIA 1+
--- NOTE | 2017-02-28 11:49 | PN ---
Progress Note (short form) - Note Progress Note: Renal Follow up for OSCAR Pt seen and examined at the bedside no abd pain or sob good urine output via minaya Vital Signs Temperature 98.5 F 02/28/17 05:32 Pulse Rate 88 02/28/17 05:32 Respiratory Rate 20 02/28/17 05:32 Blood Pressure 117/68 02/28/17 05:32 O2 Sat by Pulse Oximetry (%) 96 02/27/17 20:37 Intake & Output 02/25/17 02/26/17 02/27/17 02/28/17 23:59 23:59 23:59 23:59 Intake Total 640 50 290 1300 Output Total 800 600 670 200 Balance -160 -550 -380 1100 Gen: NAD, awake and alert CVS: RRR, No M/R Lungs: CTA Abd: soft NT/ND Ext: Trace to 1+ edema in LE : Minaya in place CBC, BMP 02/28/17 05:35 02/28/17 05:35 Laboratory Tests 02/28/17 05:35 Calcium 7.7 L Phosphorus 3.6 Magnesium 2.3 D Albumin 1.8 L Current Medications Acetaminophen (Tylenol -) 650 mg PO Q6H PRN PRN Reason: FEVER OR PAIN Last Admin: 02/25/17 20:38 Dose: 650 mg Aspirin (Ecotrin -) 81 mg PO DAILY [facility] Last Admin: 02/28/17 10:20 Dose: 81 mg Atorvastatin Calcium (Lipitor -) 20 mg PO HS [facility] Last Admin: 02/27/17 21:52 Dose: 20 mg Piperacillin Sod/Tazobactam Sod (Zosyn 3.375gm Ivpb (Pre-Docked)) 50 mls @ 100 mls/hr IVPB Q8H-IV [facility] PRN Reason: Protocol Last Admin: 02/28/17 10:19 Dose: 100 mls/hr Potassium Chloride/Dextrose/Sod Cl (D5-1/2ns+10 Meq Kcl -) 1,000 mls @ 100 mls/ hr IV ASDIR [facility] Last Admin: 02/28/17 01:29 Dose: 100 mls/hr Insulin Aspart (Novolog Vial Sliding Scale -) 1 vial SQ ACHS [facility] PRN Reason: Protocol Last Admin: 02/28/17 06:33 Dose: 4 unit Insulin Detemir (Levemir Vial) 16 units SQ [facility] Last Admin: 02/27/17 21:52 Dose: 16 units Mirtazapine (Remeron -) 15 mg PO HS [facility] Last Admin: 02/27/17 21:52 Dose: 15 mg Nystatin (Nystop Powder -) 1 applic TP BID [facility] Last Admin: 02/28/17 10:20 Dose: 1 applic Potassium Chloride (K-Dur -) 20 meq PO BID [facility] Last Admin: 02/28/17 10:20 Dose: 20 meq A/P 76 year old woman with PMHx of Cervical Ca on Radiation Tx, Hypertension, Hyperlipidemia, IDDM who presented with worsening LE swelling and found to have DVT and BUN/Cr of 42/2.1 #Acute renal insufficiency with ? CKD US showed b/l moderate hydronephrosis Renal function worsening over the past 3 days Urology consult pending no lasix at this time Trend BUN/Cr no indicatoin for [employer]ER #LE swelling with DVT on Coumdin INR supratheraptuic #Cervical Ca Suppurative Care MRI of the Abd pending #Anemia to get PRBC transfusion today Check stool occult blood Thank you Glenn Deluna DO
--- NOTE | 2017-02-28 16:28 | CON.GU ---
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rec.anlog [Lantus (nf)] 22 units SQ HS 02/20/17 Insulin Lispro [Humalog] 4 unit SQ TID 02/20/17 Mag Hydrox/Al Hydrox/Simeth [Mylanta Oral Suspension -] 30 ml PO PRN 02/20/17 Mirtazapine 15 mg PO HS 02/20/17 Ondansetron [Zofran -] 4 mg PO Q6H PRN 02/20/17 Physical Exam- Vital Signs: Vital Signs Temperature 98.5 F 02/28/17 05:32 Pulse Rate 88 02/28/17 05:32 Respiratory Rate 20 02/28/17 05:32 Blood Pressure 117/68 02/28/17 05:32 O2 Sat by Pulse Oximetry (%) 96 02/27/17 20:37 Labs: CBC, BMP 02/28/17 05:35 02/28/17 05:35 Assessment/Plan 76 year old recently diagnosed cervical ca, with hydronephrosis and shayy insufficiency. Pt. was treated at [facility] where a stent was placed on the left lang system. Recent ultrasound showed bilateral hydro and progressive enal insufficiency. Plan: Most likely will need stent change on the left and stent placement on the right. Will discuss with Dr. Jones and Dr. Mikie elizabeth. May schedule on Tuesday. Thank you
[2017-02-28] MEDS ORDERED: MAG HYDROX/AL HYDROX/SIMETH 30 ML UNIT-DOSE CUP PO PRN (17:44)
--- NOTE | 2017-02-28 17:54 | PN ---
Progress Note, Physician History of Present Illness: stable no complaints remaining afebrile - Current Medication List Current Medications: Active Medications Acetaminophen (Tylenol -) 650 mg PO Q6H PRN PRN Reason: FEVER OR PAIN Last Admin: 02/25/17 20:38 Dose: 650 mg Al Hydroxide/Mg Hydroxide (Mylanta Oral Suspension -) 30 ml PO Q6H PRN PRN Reason: DYSPEPSIA Aspirin (Ecotrin -) 81 mg PO DAILY [facility] Last Admin: 02/28/17 10:20 Dose: 81 mg Atorvastatin Calcium (Lipitor -) 20 mg PO HS [facility] Last Admin: 02/27/17 21:52 Dose: 20 mg Piperacillin Sod/Tazobactam Sod (Zosyn 3.375gm Ivpb (Pre-Docked)) 50 mls @ 100 mls/hr IVPB Q8H-IV [facility] PRN Reason: Protocol Last Admin: 02/28/17 10:19 Dose: 100 mls/hr Potassium Chloride/Dextrose/Sod Cl (D5-1/2ns+10 Meq Kcl -) 1,000 mls @ 100 mls/ hr IV ASDIR [facility] Last Admin: 02/28/17 01:29 Dose: 100 mls/hr Insulin Aspart (Novolog Vial Sliding Scale -) 1 vial SQ ACHS [facility] PRN Reason: Protocol Last Admin: 02/28/17 14:48 Dose: Not Given Insulin Detemir (Levemir Vial) 16 units SQ HS [facility] Last Admin: 02/27/17 21:52 Dose: 16 units Mirtazapine (Remeron -) 15 mg PO HS [facility] Last Admin: 02/27/17 21:52 Dose: 15 mg Nystatin (Nystop Powder -) 1 applic TP BID [facility] Last Admin: 02/28/17 10:20 Dose: 1 applic Potassium Chloride (K-Dur -) 20 meq PO BID [facility] Last Admin: 02/28/17 10:20 Dose: 20 meq - Objective Vital Signs: Vital Signs Temperature 98.5 F 02/28/17 10:00 Pulse Rate 88 02/28/17 10:00 Respiratory Rate 20 02/28/17 10:00 Blood Pressure 117/68 02/28/17 10:00 O2 Sat by Pulse Oximetry (%) 96 02/27/17 20:37 Constitutional: Yes: No Distress, Calm Cardiovascular: Yes: S1, S2 Respiratory: Yes: Regular, CTA Bilaterally Gastrointestinal: Yes: Normal Bowel Sounds, Soft Genitourinary: Yes: Other Musculoskeletal: Yes: Other Extremities: Yes: Other Edema: LLE: 1+, RLE: Trace Integumentary: Yes: WNL Neurological: Yes: Alert, Oriented Psychiatric: Yes: Alert Labs: CBC, BMP 02/28/17 05:35 02/28/17 05:35 INR, PTT INR 4.69 (0.82-1.09) H* 02/28/17 05:35 Assessment/Plan dvt edema of both legs r/o uti fever malignancy plan continue current mgmt rest as per primary team urology input noted plan noted urine growing yeast will add antifungal
[2017-02-28] MEDS: ATORVASTATIN CA 20 MG TABLET (FP) PO SCH (22:06)
[2017-02-28] MEDS: INSULIN DETEMIR 100 UNITS/ML MDV SQ SCH (22:07)
[2017-02-28] MEDS: ACETAMINOPHEN 325 MG TABLET (FP) PO PRN (22:09)
[2017-02-28] MEDS: MIRTAZAPINE 15 MG TABLET (FP) PO SCH (22:12)
[2017-03-01] MEDS: D5-1/2NS+10 MEQ KCL - 1,000 ML IV SCH (01:17)
[2017-03-01] MEDS: PIPERACILLIN/TAZOB 3.375 GM 50 ML IVPB SCH ×2 (01:17→11:00)
[2017-03-01] MEDS ORDERED: INSULIN DETEMIR 100 UNITS/ML MDV SQ ONE ×2 (05:55→22:04)
[2017-03-01] MEDS: INSULIN SLIDING SCALE (NOVOLOG) 1 VIAL SQ SCH ×4 (06:10→21:34)
[2017-03-01 07:57] LABS: BASOPHIL 0.4 % (0-2.0); EOSINOPHIL 2.4 % (0-4.5); MCHC 33.1 g/dl (32.0-36.0); MEAN CELL VOLUME 78.7 fl (80-96); MEAN PLT VOLUME 6.6 fl (7.5-11.1); NEUTROPHILS 86.1 % (42.8-82.8); PLATELET COUNT 193 K/MM3 (134-434); WHITE BLOOD COUNT 6.3 K/mm3 (4.0-10.0)
[2017-03-01 08:15] LABS: ALBUMIN 1.8 g/dl (3.4-5.0); BILIRUBIN,TOTAL 0.6 mg/dL (0.2-1.0); CALCIUM 7.9 mg/dL (8.5-10.1); CREATININE 3.4 mg/dL (0.55-1.02); MAGNESIUM 2.2 mg/dL (1.8-2.4); PHOSPHOROUS 3.7 mg/dL (2.5-4.9); TOT PROT 5.3 g/dl (6.4-8.2)
--- NOTE | 2017-03-01 08:42 | PN ---
Progress Note, Physician History of Present Illness: stable no complaints remaining afebrile son in room creatinine increasing c/o of loose BM 2 times now - Current Medication List Current Medications: Active Medications Acetaminophen (Tylenol -) 650 mg PO Q6H PRN PRN Reason: FEVER OR PAIN Last Admin: 02/28/17 22:09 Dose: 650 mg Al Hydroxide/Mg Hydroxide (Mylanta Oral Suspension -) 30 ml PO Q6H PRN PRN Reason: DYSPEPSIA Last Admin: 02/28/17 18:12 Dose: 30 ml Aspirin (Ecotrin -) 81 mg PO DAILY [facility] Last Admin: 02/28/17 10:20 Dose: 81 mg Atorvastatin Calcium (Lipitor -) 20 mg PO HS [facility] Last Admin: 02/28/17 22:06 Dose: 20 mg Piperacillin Sod/Tazobactam Sod (Zosyn 3.375gm Ivpb (Pre-Docked)) 50 mls @ 100 mls/hr IVPB Q8H-IV [facility] PRN Reason: Protocol Last Admin: 03/01/17 01:17 Dose: 100 mls/hr Potassium Chloride/Dextrose/Sod Cl (D5-1/2ns+10 Meq Kcl -) 1,000 mls @ 100 mls/ hr IV ASDIR [facility] Last Admin: 03/01/17 01:17 Dose: 100 mls/hr Insulin Aspart (Novolog Vial Sliding Scale -) 1 vial SQ ACHS [facility] PRN Reason: Protocol Last Admin: 03/01/17 06:10 Dose: Not Given Insulin Detemir (Levemir Vial) 16 units SQ HS [facility] Last Admin: 02/28/17 22:07 Dose: 16 units Mirtazapine (Remeron -) 15 mg PO HS [facility] Last Admin: 02/28/17 22:12 Dose: 15 mg Nystatin (Nystop Powder -) 1 applic TP BID [facility] Last Admin: 02/28/17 22:08 Dose: 1 applic Potassium Chloride (K-Dur -) 20 meq PO BID [facility] Last Admin: 02/28/17 22:06 Dose: 20 meq - Objective Vital Signs: Vital Signs Temperature 97.7 F 03/01/17 02:00 Pulse Rate 99 H 03/01/17 02:00 Respiratory Rate 20 03/01/17 02:00 Blood Pressure 131/68 03/01/17 02:00 O2 Sat by Pulse Oximetry (%) 96 02/28/17 21:00 Constitutional: Yes: No Distress Cardiovascular: Yes: S1, S2 Respiratory: Yes: Regular, CTA Bilaterally Gastrointestinal: Yes: Normal Bowel Sounds, Soft Musculoskeletal: Yes: Other Extremities: Yes: Other Edema: LLE: 1+, RLE: 1+ Neurological: Yes: Alert, Oriented Labs: CBC, BMP 03/01/17 06:00 03/01/17 06:00 INR, PTT INR 4.69 (0.82-1.09) H* 02/28/17 05:35 Assessment/Plan dvt edema of both legs r/o uti fever malignancy plan continue current mgmt rest as per primary team urology input noted plan noted urine growing yeast l
--- NOTE | 2017-03-01 09:26 | PN ---
Progress Note, Physician Chief Complaint: Feels better History of Present Illness: receved 2units of PC , Hb today is 9.7 - Current Medication List Current Medications: Active Medications Acetaminophen (Tylenol -) 650 mg PO Q6H PRN PRN Reason: FEVER OR PAIN Last Admin: 02/28/17 22:09 Dose: 650 mg Al Hydroxide/Mg Hydroxide (Mylanta Oral Suspension -) 30 ml PO Q6H PRN PRN Reason: DYSPEPSIA Last Admin: 02/28/17 18:12 Dose: 30 ml Aspirin (Ecotrin -) 81 mg PO DAILY [facility] Last Admin: 02/28/17 10:20 Dose: 81 mg Atorvastatin Calcium (Lipitor -) 20 mg PO HS [facility] Last Admin: 02/28/17 22:06 Dose: 20 mg Piperacillin Sod/Tazobactam Sod (Zosyn 3.375gm Ivpb (Pre-Docked)) 50 mls @ 100 mls/hr IVPB Q8H-IV [facility] PRN Reason: Protocol Last Admin: 03/01/17 01:17 Dose: 100 mls/hr Fluconazole (Diflucan 200 Mg/D5w Premixed Ivpb -) 100 mls @ 100 mls/hr IVPB ONCE ONE Stop: 03/01/17 10:59 Fluconazole (Diflucan 100 Mg/D5w Premixed Ivpb -) 50 mls @ 100 mls/hr IVPB DAILY [facility] Insulin Aspart (Novolog Vial Sliding Scale -) 1 vial SQ ACHS [facility] PRN Reason: Protocol Last Admin: 03/01/17 06:10 Dose: Not Given Insulin Detemir (Levemir Vial) 16 units SQ HS [facility] Last Admin: 02/28/17 22:07 Dose: 16 units Mirtazapine (Remeron -) 15 mg PO HS [facility] Last Admin: 02/28/17 22:12 Dose: 15 mg Nystatin (Nystop Powder -) 1 applic TP BID [facility] Last Admin: 02/28/17 22:08 Dose: 1 applic Potassium Chloride (K-Dur -) 20 meq PO BID [facility] Last Admin: 02/28/17 22:06 Dose: 20 meq - Objective Vital Signs: Vital Signs Temperature 97.7 F 03/01/17 02:00 Pulse Rate 99 H 03/01/17 02:00 Respiratory Rate 20 03/01/17 02:00 Blood Pressure 131/68 03/01/17 02:00 O2 Sat by Pulse Oximetry (%) 96 02/28/17 21:00 Constitutional: Yes: Mild Distress Eyes: Yes: WNL HENT: Yes: WNL Neck: Yes: WNL Cardiovascular: Yes: WNL Respiratory: Yes: WNL Genitourinary: Yes: Hutchins Present Breast(s): Yes: WNL Musculoskeletal: Yes: WNL Extremities: Yes: WNL Edema: No Peripheral Pulses WNL: Yes Neurological: Yes: Alert Labs: CBC, BMP 03/01/17 06:00 03/01/17 06:00 INR, PTT INR 4.69 (0.82-1.09) H* 02/28/17 05:35 Assessment/Plan Needs urethral stent insertion both sides Case discussed with Dr Medina On diflucan for yeast
[2017-03-01] MEDS: POTASSIUM CHLORIDE TABS 20 MEQ TABLET.ER (FP) PO SCH ×2 (10:00→21:49)
[2017-03-01] MEDS ORDERED: FLUCONAZOLE 200 MG/D5W 100 ML IVPB ONE (10:00)
[2017-03-01] MEDS: BISMUTH SUBSALICYLATE 262 MG/15 ML BTL PO SCH (10:57)
[2017-03-01] MEDS: NYSTATIN POWDER 100,000 UNITS/GM - 15 GM TOPICAL POWDER TP SCH ×2 (10:58→21:50)
[2017-03-01] MEDS: ASPIRIN COATED 81 MG TABLET.EC PO SCH (11:00)
--- NOTE | 2017-03-01 11:43 | PN ---
Progress Note (short form) - Note Progress Note: Renal Follow up for OSCAR Pt seen and examined at the bedside no acute complaints son at the bedside Vital Signs Temperature 97.7 F 03/01/17 02:00 Pulse Rate 99 H 03/01/17 02:00 Respiratory Rate 20 03/01/17 02:00 Blood Pressure 131/68 03/01/17 02:00 O2 Sat by Pulse Oximetry (%) 96 02/28/17 21:00 Intake & Output 02/26/17 02/27/17 02/28/17 03/01/17 23:59 23:59 23:59 23:59 Intake Total 50 290 1400 1100 Output Total 600 670 600 350 Balance -550 -380 800 750 Gen: NAD, awake and alert CVS: RRR, No M/R Lungs: CTA Abd: soft NT/ND Ext: Trace to 1+ edema in LE : Hutchins in place CBC, BMP 03/01/17 06:00 03/01/17 06:00 Laboratory Tests 03/01/17 06:00 Calcium 7.9 L Phosphorus 3.7 Magnesium 2.2 Albumin 1.8 L Current Medications Acetaminophen (Tylenol -) 650 mg PO Q6H PRN PRN Reason: FEVER OR PAIN Last Admin: 02/28/17 22:09 Dose: 650 mg Al Hydroxide/Mg Hydroxide (Mylanta Oral Suspension -) 30 ml PO Q6H PRN PRN Reason: DYSPEPSIA Last Admin: 02/28/17 18:12 Dose: 30 ml Aspirin (Ecotrin -) 81 mg PO DAILY [facility] Last Admin: 03/01/17 11:00 Dose: 81 mg Atorvastatin Calcium (Lipitor -) 20 mg PO HS [facility] Last Admin: 02/28/17 22:06 Dose: 20 mg Bismuth Subsalicylate (Pepto-Bismol Liquid -) 30 ml PO DAILY [facility] Last Admin: 03/01/17 10:57 Dose: 30 ml Piperacillin Sod/Tazobactam Sod (Zosyn 3.375gm Ivpb (Pre-Docked)) 50 mls @ 100 mls/hr IVPB Q8H-IV [facility] PRN Reason: Protocol Last Admin: 03/01/17 11:00 Dose: 100 mls/hr Fluconazole (Diflucan 100 Mg/Ns Premixed Ivpb -) 50 mls @ 100 mls/hr IVPB DAILY [facility] Insulin Aspart (Novolog Vial Sliding Scale -) 1 vial SQ ACHS [facility] PRN Reason: Protocol Last Admin: 03/01/17 06:10 Dose: Not Given Insulin Detemir (Levemir Vial) 16 units SQ HS [facility] Last Admin: 02/28/17 22:07 Dose: 16 units Mirtazapine (Remeron -) 15 mg PO HS [facility] Last Admin: 02/28/17 22:12 Dose: 15 mg Nystatin (Nystop Powder -) 1 applic TP BID [facility] Last Admin: 03/01/17 10:58 Dose: 1 applic Potassium Chloride (K-Dur -) 20 meq PO BID [facility] Last Admin: 02/28/17 22:06 Dose: 20 meq A/P 76 year old woman with PMHx of Cervical Ca on Radiation Tx, Hypertension, Hyperlipidemia, IDDM who presented with worsening LE swelling and found to have DVT and BUN/Cr of 42/2.1 #Acute renal insufficiency with ? CKD Renal function worse then baseline but stable for b/l stent placement tomorrow as per urology trend BUN/Cr continue gentle IVF #LE swelling with DVT on Coumdin INR supratheraptuic #Cervical Ca Suppurative Care MRI of the Abd pending #Anemia s/p prbc transfusion with good response trend CBC Thank you Glenn Deluna DO
[2017-03-01] MEDS: ATORVASTATIN CA 20 MG TABLET (FP) PO SCH (21:48)
[2017-03-01] MEDS: INSULIN DETEMIR 100 UNITS/ML MDV SQ SCH (21:49)
[2017-03-01] MEDS: MIRTAZAPINE 15 MG TABLET (FP) PO SCH (21:51)
[2017-03-02] MEDS: PIPERACILLIN/TAZOB 3.375 GM 50 ML IVPB SCH ×3 (01:27→18:19)
[2017-03-02] MEDS: MAG HYDROX/ALH/SMC/DPHA/LIDO 240 ML MOUTHWASH MM SCH ×3 (01:55→13:08)
[2017-03-02 07:08] LABS: BASOPHIL 0.3 % (0-2.0); EOSINOPHIL 2.5 % (0-4.5); MCH 26.6 pg (25.7-33.7); MCHC 34.5 g/dl (32.0-36.0); MEAN CELL VOLUME 76.9 fl (80-96); MEAN PLT VOLUME 6.3 fl (7.5-11.1); NEUTROPHILS 82.6 % (42.8-82.8); PLATELET COUNT 181 K/MM3 (134-434); RDW 18.1 % (11.6-15.6); WHITE BLOOD COUNT 5.5 K/mm3 (4.0-10.0)
[2017-03-02 08:03] LABS: CALCIUM 7.9 mg/dL (8.5-10.1); CREATININE 3.2 mg/dL (0.55-1.02); MAGNESIUM 1.9 mg/dL (1.8-2.4); PHOSPHOROUS 3.8 mg/dL (2.5-4.9)
[2017-03-02] MEDS ORDERED: DEXTROSE 5%-0.45% SALINE 1,000 ML IV SCH (08:30)
--- NOTE | 2017-03-02 08:35 | PN ---
Progress Note, Physician Chief Complaint: Feels better History of Present Illness: Scheduled for uretric stent insertion - Current Medication List Current Medications: Active Medications Acetaminophen (Tylenol -) 650 mg PO Q6H PRN PRN Reason: FEVER OR PAIN Last Admin: 02/28/17 22:09 Dose: 650 mg Al Hydroxide/Mg Hydroxide (Mylanta Oral Suspension -) 30 ml PO Q6H PRN PRN Reason: DYSPEPSIA Last Admin: 02/28/17 18:12 Dose: 30 ml Aspirin (Ecotrin -) 81 mg PO DAILY [facility] Last Admin: 03/01/17 11:00 Dose: 81 mg Atorvastatin Calcium (Lipitor -) 20 mg PO HS [facility] Last Admin: 03/01/17 21:48 Dose: 20 mg Bismuth Subsalicylate (Pepto-Bismol Liquid -) 30 ml PO DAILY [facility] Last Admin: 03/01/17 10:57 Dose: 30 ml Piperacillin Sod/Tazobactam Sod (Zosyn 3.375gm Ivpb (Pre-Docked)) 50 mls @ 100 mls/hr IVPB Q8H-IV [facility] PRN Reason: Protocol Last Admin: 03/02/17 01:27 Dose: 100 mls/hr Fluconazole (Diflucan 100 Mg/Ns Premixed Ivpb -) 50 mls @ 100 mls/hr IVPB DAILY [facility] Dextrose/Sodium Chloride (D5-1/2ns -) 1,000 mls @ 83 mls/hr IV ASDIR [facility] Insulin Aspart (Novolog Vial Sliding Scale -) 1 vial SQ ACHS [facility] PRN Reason: Protocol Last Admin: 03/01/17 21:34 Dose: Not Given Insulin Detemir (Levemir Vial) 16 units SQ HS [facility] Last Admin: 03/01/17 21:49 Dose: 16 units Lidocaine/Aluminum/Magnesium/Simeth (Magic Mouthwash *Sjr Formula* -) 5 ml MM Q6HPO [facility] Last Admin: 03/02/17 01:55 Dose: Not Given Mirtazapine (Remeron -) 15 mg PO HS [facility] Last Admin: 03/01/17 21:51 Dose: 15 mg Nystatin (Nystop Powder -) 1 applic TP BID [facility] Last Admin: 03/01/17 21:50 Dose: 1 applic Potassium Chloride (K-Dur -) 20 meq PO BID [facility] Last Admin: 03/01/17 21:49 Dose: 20 meq - Objective Vital Signs: Vital Signs Temperature 98 F 03/02/17 06:00 Pulse Rate 87 03/02/17 06:00 Respiratory Rate 20 03/02/17 06:00 Blood Pressure 112/55 03/02/17 06:00 O2 Sat by Pulse Oximetry (%) 96 03/01/17 20:24 Constitutional: Yes: No Distress Eyes: Yes: WNL HENT: Yes: WNL Neck: Yes: WNL Cardiovascular: Yes: WNL Respiratory: Yes: WNL Gastrointestinal: Yes: Normal Bowel Sounds ...Rectal Exam: Yes: Deferred Genitourinary: Yes: Hutchins Present Breast(s): Yes: WNL Edema: No Labs: CBC, BMP 03/02/17 06:00 03/02/17 06:00 INR, PTT INR 4.69 (0.82-1.09) H* 02/28/17 05:35 Assessment/Plan Cleared for the procedures
[2017-03-02] MEDS: INSULIN SLIDING SCALE (NOVOLOG) 1 VIAL SQ SCH ×3 (09:38→21:31)
[2017-03-02] MEDS: POTASSIUM CHLORIDE TABS 20 MEQ TABLET.ER (FP) PO SCH ×2 (09:44→21:33)
[2017-03-02] MEDS: BISMUTH SUBSALICYLATE 262 MG/15 ML BTL PO SCH (09:44)
[2017-03-02] MEDS: ASPIRIN COATED 81 MG TABLET.EC PO SCH (09:45)
[2017-03-02] MEDS ORDERED: FLUCONAZOLE 100 MG/NS 50 ML IVPB SCH (10:00)
[2017-03-02] MEDS: NYSTATIN POWDER 100,000 UNITS/GM - 15 GM TOPICAL POWDER TP SCH ×2 (10:50→21:35)
--- NOTE | 2017-03-02 14:57 | PN ---
Progress Note, Physician History of Present Illness: stable no new issues patient going for procedure today - Current Medication List Current Medications: Active Medications Acetaminophen (Tylenol -) 650 mg PO Q6H PRN PRN Reason: FEVER OR PAIN Last Admin: 02/28/17 22:09 Dose: 650 mg Al Hydroxide/Mg Hydroxide (Mylanta Oral Suspension -) 30 ml PO Q6H PRN PRN Reason: DYSPEPSIA Last Admin: 02/28/17 18:12 Dose: 30 ml Aspirin (Ecotrin -) 81 mg PO DAILY [facility] Last Admin: 03/02/17 09:45 Dose: Not Given Atorvastatin Calcium (Lipitor -) 20 mg PO HS [facility] Last Admin: 03/01/17 21:48 Dose: 20 mg Bismuth Subsalicylate (Pepto-Bismol Liquid -) 30 ml PO DAILY [facility] Last Admin: 03/02/17 09:44 Dose: Not Given Piperacillin Sod/Tazobactam Sod (Zosyn 3.375gm Ivpb (Pre-Docked)) 50 mls @ 100 mls/hr IVPB Q8H-IV [facility] PRN Reason: Protocol Last Admin: 03/02/17 09:42 Dose: 100 mls/hr Fluconazole (Diflucan 100 Mg/Ns Premixed Ivpb -) 50 mls @ 100 mls/hr IVPB DAILY [facility] Last Admin: 03/02/17 10:45 Dose: 100 mls/hr Dextrose/Sodium Chloride (D5-1/2ns -) 1,000 mls @ 83 mls/hr IV ASDIR [facility] Last Admin: 03/02/17 09:43 Dose: 83 mls/hr Insulin Aspart (Novolog Vial Sliding Scale -) 1 vial SQ ACHS [facility] PRN Reason: Protocol Last Admin: 03/02/17 11:32 Dose: Not Given Insulin Detemir (Levemir Vial) 16 units SQ HS [facility] Last Admin: 03/01/17 21:49 Dose: 16 units Lidocaine/Aluminum/Magnesium/Simeth (Magic Mouthwash *Sjr Formula* -) 5 ml MM Q6HPO [facility] Last Admin: 03/02/17 13:08 Dose: Not Given Mirtazapine (Remeron -) 15 mg PO HS [facility] Last Admin: 03/01/17 21:51 Dose: 15 mg Nystatin (Nystop Powder -) 1 applic TP BID [facility] Last Admin: 03/02/17 10:50 Dose: 1 applic Potassium Chloride (K-Dur -) 20 meq PO BID [facility] Last Admin: 03/02/17 09:44 Dose: Not Given - Objective Vital Signs: Vital Signs Temperature 98.5 F 03/02/17 10:19 Pulse Rate 99 H 03/02/17 10:19 Respiratory Rate 20 03/02/17 10:19 Blood Pressure 105/52 03/02/17 10:19 O2 Sat by Pulse Oximetry (%) 96 03/01/17 20:24 Constitutional: Yes: No Distress, Calm Cardiovascular: Yes: S1, S2 Respiratory: Yes: Regular, CTA Bilaterally Gastrointestinal: Yes: Normal Bowel Sounds, Soft Genitourinary: Yes: [place] Present Musculoskeletal: Yes: WNL Extremities: Yes: WNL Neurological: Yes: Alert, Oriented Psychiatric: Yes: Alert Labs: CBC, BMP 03/02/17 06:00 03/02/17 06:00 INR, PTT INR 4.69 (0.82-1.09) H* 02/28/17 05:35 Assessment/Plan dvt edema of both legs r/o uti fever malignancy plan continue current mgmt rest as per primary team urology procedure today continue monitoring
[2017-03-02] MEDS ORDERED: PROPOFOL 20 ML ONE (15:11)
--- NOTE | 2017-03-02 16:06 | OP ---
Operative Note - Note: Operative Date: 03/02/17 Pre-Operative Diagnosis: Hydronephrosis Operation: Cysto Attempted right ureteral catheterization Findings: Obstructive uropathy with involvement of trigone either with tumor or radiation. Left stent in good position. Post-Operative Diagnosis: Same as Pre-op Anesthesia: General Operative Report Dictated: Yes
[2017-03-02] MEDS ORDERED: LACTATED RINGERS SOLUTION 1,000 ML IV SCH (16:30)
[2017-03-02] MEDS ORDERED: MAG HYDROX/AL HYDROX/SIMETH 30 ML UNIT-DOSE CUP PO PRN (16:42)
[2017-03-02] MEDS: DEXTROSE 5%-0.45% SALINE 1,000 ML IV SCH (18:11)
[2017-03-02] MEDS: ACETAMINOPHEN 325 MG TABLET (FP) PO PRN (18:14)
[2017-03-02 18:43] LABS: PROTHROMBIN TIME (PATIENT) 54.4 SEC (9.98-11.88)
[2017-03-02 18:46] LABS: INR 4.79 (0.82-1.09)
[2017-03-02] MEDS ORDERED: INSULIN (NOVOLOG) ASPART 100 UNITS/ML 10ML VIAL ONE (20:53)
[2017-03-02] MEDS ORDERED: PT OWN MED DRAWER 7, Y5N ONE (20:54)
[2017-03-02] MEDS: INSULIN DETEMIR 100 UNITS/ML MDV SQ SCH (21:34)
[2017-03-02] MEDS: ATORVASTATIN CA 20 MG TABLET (FP) PO SCH (21:35)
[2017-03-02] MEDS: MIRTAZAPINE 15 MG TABLET (FP) PO SCH (21:35)
[2017-03-03] MEDS: PIPERACILLIN/TAZOB 3.375 GM 50 ML IVPB SCH ×3 (01:54→18:14)
[2017-03-03] MEDS ORDERED: PT OWN MED DRAWER 7, Y5N ONE (02:20)
[2017-03-03] MEDS: DEXTROSE 5%-0.45% SALINE 1,000 ML IV SCH ×3 (05:42→21:14)
[2017-03-03] MEDS: MAG HYDROX/ALH/SMC/DPHA/LIDO 240 ML MOUTHWASH MM SCH ×4 (05:46→18:26)
[2017-03-03] MEDS: INSULIN SLIDING SCALE (NOVOLOG) 1 VIAL SQ SCH ×4 (06:02→23:18)
[2017-03-03 07:54] LABS: BASOPHIL 0.4 % (0-2.0); EOSINOPHIL 2.5 % (0-4.5); MCH 26.4 pg (25.7-33.7); MCHC 33.7 g/dl (32.0-36.0); MEAN CELL VOLUME 78.4 fl (80-96); MEAN PLT VOLUME 6.5 fl (7.5-11.1); NEUTROPHILS 81.7 % (42.8-82.8); PLATELET COUNT 185 K/MM3 (134-434); RDW 18.5 % (11.6-15.6); WHITE BLOOD COUNT 5.5 K/mm3 (4.0-10.0)
[2017-03-03 08:18] LABS: CALCIUM 7.9 mg/dL (8.5-10.1); COCKROFT - GAULT 16.49; CREATININE 3.3 mg/dL (0.55-1.02); MAGNESIUM 1.8 mg/dL (1.8-2.4); PHOSPHOROUS 4.6 mg/dL (2.5-4.9)
--- NOTE | 2017-03-03 08:52 | PN ---
Progress Note, Physician Chief Complaint: Feels weak History of Present Illness: S/P stent replacement - Current Medication List Current Medications: Active Medications Acetaminophen (Tylenol -) 650 mg PO Q6H PRN PRN Reason: FEVER OR PAIN Last Admin: 03/02/17 18:14 Dose: 650 mg Al Hydroxide/Mg Hydroxide (Mylanta Oral Suspension -) 30 ml PO Q6H PRN PRN Reason: DYSPEPSIA Aspirin (Ecotrin -) 81 mg PO DAILY [facility] Atorvastatin Calcium (Lipitor -) 20 mg PO HS [facility] Last Admin: 03/02/17 21:35 Dose: 20 mg Bismuth Subsalicylate (Pepto-Bismol Liquid -) 30 ml PO DAILY [facility] Dextrose/Sodium Chloride (D5-1/2ns -) 1,000 mls @ 83 mls/hr IV ASDIR [facility] Last Admin: 03/03/17 05:42 Dose: 83 mls/hr Fluconazole (Diflucan 100 Mg/Ns Premixed Ivpb -) 50 mls @ 100 mls/hr IVPB DAILY [facility] Piperacillin Sod/Tazobactam Sod (Zosyn 3.375gm Ivpb (Pre-Docked)) 50 mls @ 100 mls/hr IVPB Q8H-IV [facility] PRN Reason: Protocol Last Admin: 03/03/17 01:54 Dose: 100 mls/hr Insulin Aspart (Novolog Vial Sliding Scale -) 1 vial SQ ACHS [facility] PRN Reason: Protocol Last Admin: 03/03/17 06:02 Dose: Not Given Insulin Detemir (Levemir Vial) 16 units SQ HS [facility] Last Admin: 03/02/17 21:34 Dose: 16 units Lidocaine/Aluminum/Magnesium/Simeth (Magic Mouthwash *Sjr Formula* -) 5 ml MM Q6HPO [facility] Last Admin: 03/03/17 05:46 Dose: Not Given Mirtazapine (Remeron -) 15 mg PO HS [facility] Last Admin: 03/02/17 21:35 Dose: 15 mg Nystatin (Nystop Powder -) 1 applic TP BID [facility] Last Admin: 03/02/17 21:35 Dose: 1 applic Potassium Chloride (K-Dur -) 20 meq PO BID [facility] Last Admin: 03/02/17 21:33 Dose: 20 meq - Objective Vital Signs: Vital Signs Temperature 98.9 F 03/03/17 06:11 Pulse Rate 95 H 03/03/17 06:11 Respiratory Rate 20 03/03/17 06:11 Blood Pressure 131/80 03/03/17 06:11 O2 Sat by Pulse Oximetry (%) 98 03/02/17 21:00 Constitutional: Yes: Mild Distress Eyes: Yes: WNL HENT: Yes: WNL Neck: Yes: WNL Cardiovascular: Yes: WNL Respiratory: Yes: WNL Gastrointestinal: Yes: Normal Bowel Sounds ...Rectal Exam: Yes: Deferred Breast(s): Yes: WNL Musculoskeletal: Yes: WNL Edema: No Labs: CBC, BMP 03/03/17 06:00 03/03/17 06:00 INR, PTT INR 4.79 (0.82-1.09) H* 03/02/17 17:30 Assessment/Plan Will talk with Dr Meyer
[2017-03-03] MEDS: FLUCONAZOLE 100 MG/NS 50 ML IVPB SCH (11:41)
[2017-03-03] MEDS: BISMUTH SUBSALICYLATE 262 MG/15 ML BTL PO SCH (11:43)
[2017-03-03] MEDS: ASPIRIN COATED 81 MG TABLET.EC PO SCH (11:45)
[2017-03-03] MEDS: NYSTATIN POWDER 100,000 UNITS/GM - 15 GM TOPICAL POWDER TP SCH ×2 (11:46→21:14)
[2017-03-03] MEDS: POTASSIUM CHLORIDE TABS 20 MEQ TABLET.ER (FP) PO SCH ×3 (11:46→23:24)
--- NOTE | 2017-03-03 14:19 | PN ---
Progress Note, Physician History of Present Illness: The patient is in her bed. Family visiting. Has abdominal discomfort. Putting out large amounts of urine. - Current Medication List Current Medications: Active Medications Acetaminophen (Tylenol -) 650 mg PO Q6H PRN PRN Reason: FEVER OR PAIN Last Admin: 03/02/17 18:14 Dose: 650 mg Al Hydroxide/Mg Hydroxide (Mylanta Oral Suspension -) 30 ml PO Q6H PRN PRN Reason: DYSPEPSIA Aspirin (Ecotrin -) 81 mg PO DAILY [facility] Last Admin: 03/03/17 11:45 Dose: 81 mg Atorvastatin Calcium (Lipitor -) 20 mg PO HS [facility] Last Admin: 03/02/17 21:35 Dose: 20 mg Bismuth Subsalicylate (Pepto-Bismol Liquid -) 30 ml PO DAILY [facility] Last Admin: 03/03/17 11:43 Dose: 30 ml Dextrose/Sodium Chloride (D5-1/2ns -) 1,000 mls @ 83 mls/hr IV ASDIR [facility] Last Admin: 03/03/17 05:42 Dose: 83 mls/hr Fluconazole (Diflucan 100 Mg/Ns Premixed Ivpb -) 50 mls @ 100 mls/hr IVPB DAILY [facility] Last Admin: 03/03/17 11:41 Dose: 100 mls/hr Piperacillin Sod/Tazobactam Sod (Zosyn 3.375gm Ivpb (Pre-Docked)) 50 mls @ 100 mls/hr IVPB Q8H-IV [facility] PRN Reason: Protocol Last Admin: 03/03/17 11:45 Dose: 100 mls/hr Insulin Aspart (Novolog Vial Sliding Scale -) 1 vial SQ ACHS [facility] PRN Reason: Protocol Last Admin: 03/03/17 12:55 Dose: Not Given Insulin Detemir (Levemir Vial) 16 units SQ HS [facility] Last Admin: 03/02/17 21:34 Dose: 16 units Lidocaine/Aluminum/Magnesium/Simeth (Magic Mouthwash *Sjr Formula* -) 5 ml MM Q6HPO [facility] Last Admin: 03/03/17 11:40 Dose: 5 ml Mirtazapine (Remeron -) 15 mg PO HS [facility] Last Admin: 03/02/17 21:35 Dose: 15 mg Nystatin (Nystop Powder -) 1 applic TP BID [facility] Last Admin: 03/03/17 11:46 Dose: 1 applic Potassium Chloride (K-Dur -) 20 meq PO BID [facility] Last Admin: 03/03/17 11:46 Dose: 20 meq - Objective Vital Signs: Vital Signs Temperature 99.1 F 03/03/17 11:20 Pulse Rate 96 H 03/03/17 11:20 Respiratory Rate 18 03/03/17 11:20 Blood Pressure 147/66 03/03/17 11:20 O2 Sat by Pulse Oximetry (%) 98 03/02/17 21:00 Constitutional: Yes: Mild Distress HENT: Yes: Atraumatic Neck: Yes: Supple Cardiovascular: Yes: Regular Rate and Rhythm, S1, S2 Respiratory: Yes: Regular, CTA Bilaterally, Diminished Gastrointestinal: Yes: Normal Bowel Sounds, Abdomen, Obese, Tenderness (CVA) Genitourinary: Yes: Hutchins Present Labs: CBC, BMP 03/03/17 06:00 03/03/17 06:00 INR, PTT INR 4.79 (0.82-1.09) H* 03/02/17 17:30 Problem List - Problems (1) OSCAR (acute kidney injury) Code(s): N17.9 - ACUTE KIDNEY FAILURE, UNSPECIFIED (2) Anemia Code(s): D64.9 - ANEMIA, UNSPECIFIED Qualifiers: Anemia type: unspecified type Qualified Code(s): D64.9 - Anemia, unspecified (3) Obstructive uropathy Code(s): N13.9 - OBSTRUCTIVE AND REFLUX UROPATHY, UNSPECIFIED (4) Type 2 diabetes mellitus Code(s): E11.9 - TYPE 2 DIABETES MELLITUS WITHOUT COMPLICATIONS Qualifiers: Diabetes mellitus complication detail: with polyneuropathy (5) Urinary retention Code(s): R33.9 - RETENTION OF URINE, UNSPECIFIED Assessment/Plan The patient with CA Cx, obstructive Uropathy, DVT, on AC, s/p placement of ureteric stent, putting out fair amounts of urine. The patient's azotemia seems to be tending to stabilize. IV fluids well tolerated , and will continue. If a post obstructive diuresis sets in, will require iv fluid volume to increase. Will monitor the renal/electrolyte profile with you. Jennifer Gardner MD
--- NOTE | 2017-03-03 14:42 | PN ---
Progress Note, Physician History of Present Illness: patient doing well stent could not be placed plan portably for nephrostomy - Current Medication List Current Medications: Active Medications Acetaminophen (Tylenol -) 650 mg PO Q6H PRN PRN Reason: FEVER OR PAIN Last Admin: 03/02/17 18:14 Dose: 650 mg Al Hydroxide/Mg Hydroxide (Mylanta Oral Suspension -) 30 ml PO Q6H PRN PRN Reason: DYSPEPSIA Aspirin (Ecotrin -) 81 mg PO DAILY [facility] Last Admin: 03/03/17 11:45 Dose: 81 mg Atorvastatin Calcium (Lipitor -) 20 mg PO HS [facility] Last Admin: 03/02/17 21:35 Dose: 20 mg Bismuth Subsalicylate (Pepto-Bismol Liquid -) 30 ml PO DAILY [facility] Last Admin: 03/03/17 11:43 Dose: 30 ml Dextrose/Sodium Chloride (D5-1/2ns -) 1,000 mls @ 83 mls/hr IV ASDIR [facility] Last Admin: 03/03/17 05:42 Dose: 83 mls/hr Fluconazole (Diflucan 100 Mg/Ns Premixed Ivpb -) 50 mls @ 100 mls/hr IVPB DAILY [facility] Last Admin: 03/03/17 11:41 Dose: 100 mls/hr Piperacillin Sod/Tazobactam Sod (Zosyn 3.375gm Ivpb (Pre-Docked)) 50 mls @ 100 mls/hr IVPB Q8H-IV [facility] PRN Reason: Protocol Last Admin: 03/03/17 11:45 Dose: 100 mls/hr Insulin Aspart (Novolog Vial Sliding Scale -) 1 vial SQ ACHS [facility] PRN Reason: Protocol Last Admin: 03/03/17 12:55 Dose: Not Given Insulin Detemir (Levemir Vial) 16 units SQ HS [facility] Last Admin: 03/02/17 21:34 Dose: 16 units Lidocaine/Aluminum/Magnesium/Simeth (Magic Mouthwash *Sjr Formula* -) 5 ml MM Q6HPO [facility] Last Admin: 03/03/17 11:40 Dose: 5 ml Mirtazapine (Remeron -) 15 mg PO HS [facility] Last Admin: 03/02/17 21:35 Dose: 15 mg Nystatin (Nystop Powder -) 1 applic TP BID [facility] Last Admin: 03/03/17 11:46 Dose: 1 applic Potassium Chloride (K-Dur -) 20 meq PO BID [facility] Last Admin: 03/03/17 11:46 Dose: 20 meq - Objective Vital Signs: Vital Signs Temperature 98.1 F 03/03/17 14:21 Pulse Rate 105 H 03/03/17 14:21 Respiratory Rate 20 03/03/17 14:21 Blood Pressure 125/68 03/03/17 14:21 O2 Sat by Pulse Oximetry (%) 98 03/02/17 21:00 Constitutional: Yes: No Distress, Calm Cardiovascular: Yes: S1, S2 Respiratory: Yes: Regular, CTA Bilaterally Gastrointestinal: Yes: Normal Bowel Sounds, Soft Musculoskeletal: Yes: WNL Extremities: Yes: WNL Neurological: Yes: Alert, Oriented Psychiatric: Yes: Alert Labs: CBC, BMP 03/03/17 06:00 03/03/17 06:00 INR, PTT INR 4.79 (0.82-1.09) H* 03/02/17 17:30 Assessment/Plan dvt edema of both legs r/o uti fever malignancy plan continue current mgmt rest as per primary team plan for nephrostomy tube probably once that is done will deescalte abx
--- NOTE | 2017-03-03 16:42 | OP ---
DATE OF OPERATION: 03/02/2017 SURGEON: Melissa Meyer M.D. ANESTHESIA: General. PREOPERATIVE DIAGNOSIS: Obstructive uropathy, indwelling left stent. PROCEDURE: Cystoscopy attempted retrograde and right ureteral catheterization. FINDINGS: Urethra normal. Bladder neck appeared okay. Marked trigone involvement of a lesion either inflammatory or from radiation. The right ureteral orifice could not be seen. An attempt at catheterization resulted in severe bleeding, so the procedure was terminated. The left stent was found to be in good position, so it was left alone. PROCEDURE: Patient in lithotomy position under anesthesia, was prepped and draped in the usual manner using 22 scope, cystoscopy performed. Findings were as noted above, and the procedure was terminated, and patient left operating room in satisfactory condition. MELISSA MEYER M.D. [id number]
[2017-03-03] MEDS: ATORVASTATIN CA 20 MG TABLET (FP) PO SCH ×2 (21:13→23:24)
[2017-03-03] MEDS: INSULIN DETEMIR 100 UNITS/ML MDV SQ SCH (23:19)
[2017-03-03] MEDS: MIRTAZAPINE 15 MG TABLET (FP) PO SCH (23:23)
[2017-03-04] MEDS: PIPERACILLIN/TAZOB 3.375 GM 50 ML IVPB SCH ×3 (03:24→18:52)
[2017-03-04] MEDS: INSULIN SLIDING SCALE (NOVOLOG) 1 VIAL SQ SCH ×4 (06:54→23:47)
[2017-03-04] MEDS: MAG HYDROX/ALH/SMC/DPHA/LIDO 240 ML MOUTHWASH MM SCH ×3 (06:54→18:47)
[2017-03-04 07:54] LABS: MCH 26.2 pg (25.7-33.7); MCHC 33.6 g/dl (32.0-36.0); MEAN CELL VOLUME 78.1 fl (80-96); MEAN PLT VOLUME 6.5 fl (7.5-11.1); PLATELET COUNT 179 K/MM3 (134-434); RDW 19.3 % (11.6-15.6); WHITE BLOOD COUNT 5.2 K/mm3 (4.0-10.0)
[2017-03-04 08:57] LABS: ALBUMIN 1.7 g/dl (3.4-5.0); BILIRUBIN,TOTAL 0.2 mg/dL (0.2-1.0); CALCIUM 7.7 mg/dL (8.5-10.1); CREATININE 3.2 mg/dL (0.55-1.02); TOT PROT 5.4 g/dl (6.4-8.2)
--- NOTE | 2017-03-04 09:02 | PN ---
Progress Note, Physician Chief Complaint: Feels OK History of Present Illness: Case discussed with Dr Solomon, may need percutaneous nephrostomy - Current Medication List Current Medications: Active Medications Acetaminophen (Tylenol -) 650 mg PO Q6H PRN PRN Reason: FEVER OR PAIN Last Admin: 03/02/17 18:14 Dose: 650 mg Al Hydroxide/Mg Hydroxide (Mylanta Oral Suspension -) 30 ml PO Q6H PRN PRN Reason: DYSPEPSIA Aspirin (Ecotrin -) 81 mg PO DAILY [facility] Last Admin: 03/03/17 11:45 Dose: 81 mg Atorvastatin Calcium (Lipitor -) 20 mg PO HS [facility] Last Admin: 03/03/17 23:24 Dose: Not Given Bismuth Subsalicylate (Pepto-Bismol Liquid -) 30 ml PO DAILY [facility] Last Admin: 03/03/17 11:43 Dose: 30 ml Dextrose/Sodium Chloride (D5-1/2ns -) 1,000 mls @ 83 mls/hr IV ASDIR [facility] Last Admin: 03/03/17 21:14 Dose: 83 mls/hr Fluconazole (Diflucan 100 Mg/Ns Premixed Ivpb -) 50 mls @ 100 mls/hr IVPB DAILY [facility] Last Admin: 03/03/17 11:41 Dose: 100 mls/hr Piperacillin Sod/Tazobactam Sod (Zosyn 3.375gm Ivpb (Pre-Docked)) 50 mls @ 100 mls/hr IVPB Q8H-IV [facility] PRN Reason: Protocol Last Admin: 03/04/17 03:24 Dose: 100 mls/hr Insulin Aspart (Novolog Vial Sliding Scale -) 1 vial SQ ACHS [facility] PRN Reason: Protocol Last Admin: 03/04/17 06:54 Dose: Not Given Insulin Detemir (Levemir Vial) 16 units SQ HS [facility] Last Admin: 03/03/17 23:19 Dose: 16 units Lidocaine/Aluminum/Magnesium/Simeth (Magic Mouthwash *Sjr Formula* -) 5 ml MM Q6HPO [facility] Last Admin: 03/04/17 06:54 Dose: Not Given Mirtazapine (Remeron -) 15 mg PO HS [facility] Last Admin: 03/03/17 23:23 Dose: Not Given Nystatin (Nystop Powder -) 1 applic TP BID [facility] Last Admin: 03/03/17 21:14 Dose: 1 applic Potassium Chloride (K-Dur -) 20 meq PO BID [facility] Last Admin: 03/03/17 23:24 Dose: Not Given - Objective Vital Signs: Vital Signs Temperature 98.5 F 03/04/17 06:00 Pulse Rate 90 03/04/17 06:00 Respiratory Rate 18 03/04/17 06:00 Blood Pressure 141/70 03/04/17 06:00 O2 Sat by Pulse Oximetry (%) 98 03/03/17 21:00 Constitutional: Yes: Mild Distress Eyes: Yes: WNL HENT: Yes: WNL Neck: Yes: WNL Cardiovascular: Yes: WNL Respiratory: Yes: WNL Gastrointestinal: Yes: WNL ...Rectal Exam: Yes: Deferred Genitourinary: Yes: Hutchins Present Edema: No Labs: CBC, BMP 03/04/17 06:00 03/04/17 06:00 INR, PTT INR 4.79 (0.82-1.09) H* 03/02/17 17:30 Assessment/Plan To discussed with
[2017-03-04] MEDS: BISMUTH SUBSALICYLATE 262 MG/15 ML BTL PO SCH (10:50)
[2017-03-04] MEDS: DEXTROSE 5%-0.45% SALINE 1,000 ML IV SCH ×3 (10:57→23:37)
[2017-03-04] MEDS: NYSTATIN POWDER 100,000 UNITS/GM - 15 GM TOPICAL POWDER TP SCH ×2 (10:57→21:49)
[2017-03-04] MEDS: POTASSIUM CHLORIDE TABS 20 MEQ TABLET.ER (FP) PO SCH ×3 (10:57→23:58)
[2017-03-04] MEDS: ASPIRIN COATED 81 MG TABLET.EC PO SCH (10:58)
[2017-03-04 12:29] LABS: PROTHROMBIN TIME (PATIENT) 58.3 SEC (9.98-11.88)
[2017-03-04] MEDS: FLUCONAZOLE 100 MG/NS 50 ML IVPB SCH (12:35)
[2017-03-04] MEDS ORDERED: PT OWN MED DRAWER 7, Y5N ONE ×2 (12:37→21:26)
[2017-03-04 12:48] LABS: INR 5.13 (0.82-1.09)
[2017-03-04] MEDS: MIRTAZAPINE 15 MG TABLET (FP) PO SCH ×2 (21:47→23:59)
[2017-03-04] MEDS: ATORVASTATIN CA 20 MG TABLET (FP) PO SCH ×2 (21:47→23:59)
[2017-03-04] MEDS: INSULIN DETEMIR 100 UNITS/ML MDV SQ SCH (21:48)
--- NOTE | 2017-03-04 23:14 | PN ---
Progress Note (short form) - Note Progress Note: chart reviewed prem hydronephrosis Current Medications Acetaminophen (Tylenol -) 650 mg PO Q6H PRN PRN Reason: FEVER OR PAIN Last Admin: 03/02/17 18:14 Dose: 650 mg Al Hydroxide/Mg Hydroxide (Mylanta Oral Suspension -) 30 ml PO Q6H PRN PRN Reason: DYSPEPSIA Atorvastatin Calcium (Lipitor -) 20 mg PO HS [facility] Last Admin: 03/04/17 21:47 Dose: 20 mg Bismuth Subsalicylate (Pepto-Bismol Liquid -) 30 ml PO DAILY [facility] Last Admin: 03/04/17 10:50 Dose: Not Given Dextrose/Sodium Chloride (D5-1/2ns -) 1,000 mls @ 83 mls/hr IV ASDIR [facility] Last Admin: 03/04/17 18:00 Dose: Not Given Fluconazole (Diflucan 100 Mg/Ns Premixed Ivpb -) 50 mls @ 100 mls/hr IVPB DAILY [facility] Last Admin: 03/04/17 12:35 Dose: 100 mls/hr Piperacillin Sod/Tazobactam Sod (Zosyn 3.375gm Ivpb (Pre-Docked)) 50 mls @ 100 mls/hr IVPB Q8H-IV [facility] PRN Reason: Protocol Last Admin: 03/04/17 18:52 Dose: 100 mls/hr Insulin Aspart (Novolog Vial Sliding Scale -) 1 vial SQ ACHS [facility] PRN Reason: Protocol Last Admin: 03/04/17 17:59 Dose: Not Given Insulin Detemir (Levemir Vial) 16 units SQ HS [facility] Last Admin: 03/04/17 21:48 Dose: 16 units Lidocaine/Aluminum/Magnesium/Simeth (Magic Mouthwash *Sjr Formula* -) 5 ml MM Q6HPO [facility] Last Admin: 03/04/17 18:47 Dose: 5 ml Mirtazapine (Remeron -) 15 mg PO HS [facility] Last Admin: 03/04/17 21:47 Dose: 15 mg Nystatin (Nystop Powder -) 1 applic TP BID [facility] Last Admin: 03/04/17 21:49 Dose: 1 applic Potassium Chloride (K-Dur -) 20 meq PO BID [facility] Last Admin: 03/04/17 21:48 Dose: 20 meq Last Vital Signs Temp Pulse Resp BP Pulse Ox 97.9 F 102 H 20 155/76 98 03/04/17 18:00 03/04/17 18:00 03/04/17 18:00 03/04/17 18:00 03/04/17 09:00 lungs clear heart reg rate and rhythm abd sofr nontender CBC, BMP 03/04/17 06:00 03/03/17 03/04/17 06:00 06:00 Sodium 139 139 Potassium 4.4 4.1 Chloride 107 108 H Carbon Dioxide 22 20 L Anion Gap 11 BUN 40 H 36 H Creatinine 3.3 H 3.2 H Calcium 7.9 L 7.7 L Albumin 1.7 L obstructive uropathy retroperitoneal nodes
[2017-03-04] MEDS ORDERED: INSULIN (NOVOLOG) ASPART 100 UNITS/ML 10ML VIAL ONE (23:41)
[2017-03-05] MEDS: PIPERACILLIN/TAZOB 3.375 GM 50 ML IVPB SCH ×3 (01:58→17:00)
[2017-03-05] MEDS: MAG HYDROX/ALH/SMC/DPHA/LIDO 240 ML MOUTHWASH MM SCH ×4 (06:26→17:00)
[2017-03-05] MEDS: INSULIN SLIDING SCALE (NOVOLOG) 1 VIAL SQ SCH ×4 (06:31→22:32)
[2017-03-05 07:38] LABS: MCH 26.2 pg (25.7-33.7); MCHC 33.5 g/dl (32.0-36.0); MEAN CELL VOLUME 78.3 fl (80-96); MEAN PLT VOLUME 6.6 fl (7.5-11.1); PLATELET COUNT 171 K/MM3 (134-434); WHITE BLOOD COUNT 5.5 K/mm3 (4.0-10.0)
[2017-03-05 08:00] LABS: ALBUMIN 1.7 g/dl (3.4-5.0); CALCIUM 7.9 mg/dL (8.5-10.1)
[2017-03-05 08:02] LABS: BILIRUBIN,TOTAL 0.3 mg/dL (0.2-1.0); COCKROFT - GAULT 18.7595; CREATININE 2.9 mg/dL (0.55-1.02); TOT PROT 5.2 g/dl (6.4-8.2)
[2017-03-05] MEDS ORDERED: PT OWN MED DRAWER 7, Y5N ONE (10:00)
[2017-03-05] MEDS: POTASSIUM CHLORIDE TABS 20 MEQ TABLET.ER (FP) PO SCH ×2 (10:10→22:32)
[2017-03-05] MEDS: FLUCONAZOLE 100 MG/NS 50 ML IVPB SCH (10:35)
[2017-03-05] MEDS: BISMUTH SUBSALICYLATE 262 MG/15 ML BTL PO SCH (10:35)
[2017-03-05] MEDS: NYSTATIN POWDER 100,000 UNITS/GM - 15 GM TOPICAL POWDER TP SCH ×2 (10:36→22:32)
--- NOTE | 2017-03-05 11:46 | PN ---
Progress Note, Physician Chief Complaint: No New complaint overnight except poor Po intake History of Present Illness: 76 yrs old F admitted with Rt Le swelling and OSCAR H/O Ca Cervix, T2DM, Depression and CKD - Current Medication List Current Medications: Active Medications Acetaminophen (Tylenol -) 650 mg PO Q6H PRN PRN Reason: FEVER OR PAIN Last Admin: 03/02/17 18:14 Dose: 650 mg Al Hydroxide/Mg Hydroxide (Mylanta Oral Suspension -) 30 ml PO Q6H PRN PRN Reason: DYSPEPSIA Atorvastatin Calcium (Lipitor -) 20 mg PO HS [facility] Last Admin: 03/04/17 23:59 Dose: Not Given Bismuth Subsalicylate (Pepto-Bismol Liquid -) 30 ml PO DAILY [facility] Last Admin: 03/05/17 10:35 Dose: 30 ml Dextrose/Sodium Chloride (D5-1/2ns -) 1,000 mls @ 83 mls/hr IV ASDIR [facility] Last Admin: 03/04/17 23:37 Dose: 83 mls/hr Fluconazole (Diflucan 100 Mg/Ns Premixed Ivpb -) 50 mls @ 100 mls/hr IVPB DAILY [facility] Last Admin: 03/05/17 10:35 Dose: 100 mls/hr Piperacillin Sod/Tazobactam Sod (Zosyn 3.375gm Ivpb (Pre-Docked)) 50 mls @ 100 mls/hr IVPB Q8H-IV [facility] PRN Reason: Protocol Last Admin: 03/05/17 10:10 Dose: 100 mls/hr Insulin Aspart (Novolog Vial Sliding Scale -) 1 vial SQ ACHS [facility] PRN Reason: Protocol Last Admin: 03/05/17 06:31 Dose: Not Given Insulin Detemir (Levemir Vial) 16 units SQ HS [facility] Last Admin: 03/04/17 21:48 Dose: 16 units Lidocaine/Aluminum/Magnesium/Simeth (Magic Mouthwash *Sjr Formula* -) 5 ml MM Q6HPO [facility] Last Admin: 03/05/17 07:40 Dose: 5 ml Mirtazapine (Remeron -) 15 mg PO HS [facility] Last Admin: 03/04/17 23:59 Dose: Not Given Nystatin (Nystop Powder -) 1 applic TP BID [facility] Last Admin: 03/05/17 10:36 Dose: 1 applic Potassium Chloride (K-Dur -) 20 meq PO BID [facility] Last Admin: 03/05/17 10:10 Dose: 20 meq - Objective Vital Signs: Vital Signs Temperature 98.6 F 03/05/17 06:59 Pulse Rate 91 H 03/05/17 06:59 Respiratory Rate 18 03/05/17 06:59 Blood Pressure 159/74 03/05/17 06:59 O2 Sat by Pulse Oximetry (%) 98 03/04/17 21:00 Constitutional: Yes: Mild Distress, Pallor Eyes: Yes: WNL, Conjunctiva Clear HENT: Yes: WNL, Atraumatic, Normocephalic Neck: Yes: WNL, Supple, Trachea Midline Cardiovascular: Yes: WNL, Regular Rate and Rhythm Respiratory: Yes: WNL, Regular, Rales Gastrointestinal: Yes: WNL, Normal Bowel Sounds ...Rectal Exam: Yes: Deferred Genitourinary: No: Anuria, Bladder Distention Edema: Yes Peripheral Pulses WNL: Yes Neurological: Yes: WNL, Alert, Oriented Labs: CBC, BMP 03/05/17 06:00 03/05/17 06:00 INR, PTT INR 5.13 (0.82-1.09) H* 03/04/17 09:50 Problem List - Problems (1) DVT, lower extremity Assessment/Plan: Rt LE DVT on AC INR 4 will hold Coumadin Code(s): I82.409 - ACUTE EMBOLISM AND THOMBOS UNSP DEEP VN UNSP LOWER EXTREMITY Qualifiers: Affected thrombotic vein of extremity: unspecified vein of extremity Laterality: right Chronicity: acute Qualified Code(s): I82.401 - Acute embolism and thrombosis of unspecified deep veins of right lower extremity (2) Obstructive uropathy Assessment/Plan: Due to CA renal functions are stable Code(s): N13.9 - OBSTRUCTIVE AND REFLUX UROPATHY, UNSPECIFIED (3) Type 2 diabetes mellitus Assessment/Plan: Cont current regimen of insulin F/U HbA1C Code(s): E11.9 - TYPE 2 DIABETES MELLITUS WITHOUT COMPLICATIONS Qualifiers: Diabetes mellitus complication detail: with polyneuropathy (4) Anemia Assessment/Plan: H/h stable F/U H/H Code(s): D64.9 - ANEMIA, UNSPECIFIED Qualifiers: Anemia type: unspecified type Qualified Code(s): D64.9 - Anemia, unspecified (5) OSCAR (acute kidney injury) Assessment/Plan: Renal functions are improving F/U Renal consult recommondation Code(s): N17.9 - ACUTE KIDNEY FAILURE, UNSPECIFIED (6) Supratherapeutic INR Code(s): R79.1 - ABNORMAL COAGULATION PROFILE
--- NOTE | 2017-03-05 12:36 | PN ---
Progress Note, Physician History of Present Illness: patient doing well no fevers family in room - Current Medication List Current Medications: Active Medications Acetaminophen (Tylenol -) 650 mg PO Q6H PRN PRN Reason: FEVER OR PAIN Last Admin: 03/02/17 18:14 Dose: 650 mg Al Hydroxide/Mg Hydroxide (Mylanta Oral Suspension -) 30 ml PO Q6H PRN PRN Reason: DYSPEPSIA Atorvastatin Calcium (Lipitor -) 20 mg PO HS [facility] Last Admin: 03/04/17 23:59 Dose: Not Given Bismuth Subsalicylate (Pepto-Bismol Liquid -) 30 ml PO DAILY [facility] Last Admin: 03/05/17 10:35 Dose: 30 ml Dextrose/Sodium Chloride (D5-1/2ns -) 1,000 mls @ 83 mls/hr IV ASDIR [facility] Last Admin: 03/04/17 23:37 Dose: 83 mls/hr Fluconazole (Diflucan 100 Mg/Ns Premixed Ivpb -) 50 mls @ 100 mls/hr IVPB DAILY [facility] Last Admin: 03/05/17 10:35 Dose: 100 mls/hr Piperacillin Sod/Tazobactam Sod (Zosyn 3.375gm Ivpb (Pre-Docked)) 50 mls @ 100 mls/hr IVPB Q8H-IV [facility] PRN Reason: Protocol Last Admin: 03/05/17 10:10 Dose: 100 mls/hr Insulin Aspart (Novolog Vial Sliding Scale -) 1 vial SQ ACHS [facility] PRN Reason: Protocol Last Admin: 03/05/17 12:06 Dose: Not Given Insulin Detemir (Levemir Vial) 16 units SQ [facility] Last Admin: 03/04/17 21:48 Dose: 16 units Lidocaine/Aluminum/Magnesium/Simeth (Magic Mouthwash *Sjr Formula* -) 5 ml MM Q6HPO [facility] Last Admin: 03/05/17 12:07 Dose: Not Given Metoclopramide HCl (Reglan Injection -) 10 mg IVPB Q8H PRN PRN Reason: NAUSEA/VOMITING Mirtazapine (Remeron -) 15 mg PO HS [facility] Last Admin: 03/04/17 23:59 Dose: Not Given Nystatin (Nystop Powder -) 1 applic TP BID [facility] Last Admin: 05/06/17 10:36 Dose: 1 applic Potassium Chloride (K-Dur -) 20 meq PO BID [facility] Last Admin: 03/05/17 10:10 Dose: 20 meq - Objective Vital Signs: Vital Signs Temperature 98.6 F 03/05/17 06:59 Pulse Rate 91 H 03/05/17 06:59 Respiratory Rate 18 03/05/17 06:59 Blood Pressure 159/74 03/05/17 06:59 O2 Sat by Pulse Oximetry (%) 98 03/05/17 09:00 Constitutional: Yes: No Distress, Calm Cardiovascular: Yes: Regular Rate and Rhythm Respiratory: Yes: Regular, CTA Bilaterally Genitourinary: Yes: Hutchins Present Musculoskeletal: Yes: Other Extremities: Yes: Other Edema: LLE: Trace, RLE: Trace Neurological: Yes: Alert, Oriented Psychiatric: Yes: Alert, Oriented Labs: CBC, BMP 03/05/17 06:00 03/05/17 06:00 INR, PTT INR 5.13 (0.82-1.09) H* 03/04/17 09:50 Assessment/Plan dvt edema of both legs r/o uti fever malignancy plan continue current mgmt rest as per primary team plan for nephrostomy tube probably once that is done will deescalte abx
--- NOTE | 2017-03-05 12:37 | PN ---
Progress Note, Physician History of Present Illness: patient doing well no fevers patient walking family in room no complaints - Current Medication List Current Medications: Active Medications Acetaminophen (Tylenol -) 650 mg PO Q6H PRN PRN Reason: FEVER OR PAIN Last Admin: 03/02/17 18:14 Dose: 650 mg Al Hydroxide/Mg Hydroxide (Mylanta Oral Suspension -) 30 ml PO Q6H PRN PRN Reason: DYSPEPSIA Atorvastatin Calcium (Lipitor -) 20 mg PO HS [facility] Last Admin: 03/04/17 23:59 Dose: Not Given Bismuth Subsalicylate (Pepto-Bismol Liquid -) 30 ml PO DAILY [facility] Last Admin: 03/05/17 10:35 Dose: 30 ml Dextrose/Sodium Chloride (D5-1/2ns -) 1,000 mls @ 83 mls/hr IV ASDIR [facility] Last Admin: 03/04/17 23:37 Dose: 83 mls/hr Fluconazole (Diflucan 100 Mg/Ns Premixed Ivpb -) 50 mls @ 100 mls/hr IVPB DAILY [facility] Last Admin: 03/05/17 10:35 Dose: 100 mls/hr Piperacillin Sod/Tazobactam Sod (Zosyn 3.375gm Ivpb (Pre-Docked)) 50 mls @ 100 mls/hr IVPB Q8H-IV [facility] PRN Reason: Protocol Last Admin: 03/05/17 10:10 Dose: 100 mls/hr Insulin Aspart (Novolog Vial Sliding Scale -) 1 vial SQ ACHS [facility] PRN Reason: Protocol Last Admin: 03/05/17 12:06 Dose: Not Given Insulin Detemir (Levemir Vial) 16 units SQ [facility] Last Admin: 03/04/17 21:48 Dose: 16 units Lidocaine/Aluminum/Magnesium/Simeth (Magic Mouthwash *Sjr Formula* -) 5 ml MM Q6HPO [facility] Last Admin: 03/05/17 12:07 Dose: Not Given Metoclopramide HCl (Reglan Injection -) 10 mg IVPB Q8H PRN PRN Reason: NAUSEA/VOMITING Mirtazapine (Remeron -) 15 mg PO HS [facility] Last Admin: 03/04/17 23:59 Dose: Not Given Nystatin (Nystop Powder -) 1 applic TP BID [facility] Last Admin: 03/05/17 10:36 Dose: 1 applic Potassium Chloride (K-Dur -) 20 meq PO BID [facility] Last Admin: 03/05/17 10:10 Dose: 20 meq - Objective Vital Signs: Vital Signs Temperature 98.6 F 03/05/17 06:59 Pulse Rate 91 H 03/05/17 06:59 Respiratory Rate 18 03/05/17 06:59 Blood Pressure 159/74 03/05/17 06:59 O2 Sat by Pulse Oximetry (%) 98 03/05/17 09:00 Constitutional: Yes: No Distress, Calm Cardiovascular: Yes: S1, S2 Respiratory: Yes: Regular, CTA Bilaterally Gastrointestinal: Yes: Normal Bowel Sounds, Soft Genitourinary: Yes: Hutchins Present Musculoskeletal: Yes: Other Extremities: Yes: Other Neurological: Yes: Alert, Oriented Psychiatric: Yes: Alert, Oriented Labs: CBC, BMP 03/05/17 06:00 03/05/17 06:00 INR, PTT INR 5.13 (0.82-1.09) H* 03/04/17 09:50 Assessment/Plan dvt edema of both legs r/o uti fever malignancy plan continue current mgmt rest as per primary team plan is for nephrostomy tube once that is done we will stop all meds
[2017-03-05] MEDS: METOCLOPRAMIDE HCL INJECTION 10 MG/2 ML VIAL IVPB PRN (12:53)
[2017-03-05] MEDS: DEXTROSE 5%-0.45% SALINE 1,000 ML IV SCH (16:33)
--- NOTE | 2017-03-05 16:42 | PN ---
Progress Note (short form) - Note Progress Note: minaya catheter in place 900 cc urine emptied earlier Current Medications Acetaminophen (Tylenol -) 650 mg PO Q6H PRN PRN Reason: FEVER OR PAIN Last Admin: 03/02/17 18:14 Dose: 650 mg Al Hydroxide/Mg Hydroxide (Mylanta Oral Suspension -) 30 ml PO Q6H PRN PRN Reason: DYSPEPSIA Atorvastatin Calcium (Lipitor -) 20 mg PO HS [facility] Last Admin: 03/04/17 23:59 Dose: Not Given Bismuth Subsalicylate (Pepto-Bismol Liquid -) 30 ml PO DAILY [facility] Last Admin: 03/05/17 10:35 Dose: 30 ml Dextrose/Sodium Chloride (D5-1/2ns -) 1,000 mls @ 83 mls/hr IV ASDIR [facility] Last Admin: 03/05/17 16:33 Dose: 83 mls/hr Fluconazole (Diflucan 100 Mg/Ns Premixed Ivpb -) 50 mls @ 100 mls/hr IVPB DAILY [facility] Last Admin: 03/05/17 10:35 Dose: 100 mls/hr Piperacillin Sod/Tazobactam Sod (Zosyn 3.375gm Ivpb (Pre-Docked)) 50 mls @ 100 mls/hr IVPB Q8H-IV [facility] PRN Reason: Protocol Last Admin: 03/05/17 10:10 Dose: 100 mls/hr Insulin Aspart (Novolog Vial Sliding Scale -) 1 vial SQ ACHS [facility] PRN Reason: Protocol Last Admin: 03/05/17 16:32 Dose: Not Given Insulin Detemir (Levemir Vial) 16 units SQ HS [facility] Last Admin: 03/04/17 21:48 Dose: 16 units Lidocaine/Aluminum/Magnesium/Simeth (Magic Mouthwash *Sjr Formula* -) 5 ml MM Q6HPO [facility] Last Admin: 03/05/17 12:07 Dose: Not Given Metoclopramide HCl (Reglan Injection -) 10 mg IVPB Q8H PRN PRN Reason: NAUSEA/VOMITING Last Admin: 03/05/17 12:53 Dose: 10 mg Mirtazapine (Remeron -) [address] [facility] Last Admin: 03/04/17 23:59 Dose: Not Given Nystatin (Nystop Powder -) 1 applic TP BID [facility] Last Admin: 03/05/17 10:36 Dose: 1 applic Potassium Chloride (K-Dur -) 20 meq PO BID [facility] Last Admin: 03/05/17 10:10 Dose: 20 meq Last Vital Signs Temp Pulse Resp BP Pulse Ox 98.0 F 96 H 18 157/88 98 03/05/17 14:14 03/05/17 14:14 03/05/17 14:14 03/05/17 14:16 03/05/17 09:00 vs noted lungs clear heart reg rate and rhythm abd soft nontender 03/04/17 03/05/17 06:00 06:00 Sodium 139 139 Potassium 4.1 3.9 Chloride 108 H 108 H Carbon Dioxide 20 L 18 L BUN 36 H 33 H Creatinine 3.2 H 2.9 H renal function beginning to improve plan- continue to monitor urine output
[2017-03-05] MEDS: INSULIN DETEMIR 100 UNITS/ML MDV SQ SCH (22:31)
[2017-03-05] MEDS: MIRTAZAPINE 15 MG TABLET (FP) PO SCH (22:32)
[2017-03-05] MEDS: ATORVASTATIN CA 20 MG TABLET (FP) PO SCH (22:32)
[2017-03-06] MEDS: PIPERACILLIN/TAZOB 3.375 GM 50 ML IVPB SCH ×3 (01:15→17:00)
[2017-03-06] MEDS: MAG HYDROX/ALH/SMC/DPHA/LIDO 240 ML MOUTHWASH MM SCH ×4 (01:15→17:00)
[2017-03-06] MEDS: INSULIN SLIDING SCALE (NOVOLOG) 1 VIAL SQ SCH ×4 (06:10→21:53)
[2017-03-06] MEDS: METOCLOPRAMIDE HCL INJECTION 10 MG/2 ML VIAL IVPB PRN (06:24)
[2017-03-06 07:59] LABS: BASOPHIL 0.3 % (0-2.0); EOSINOPHIL 1.7 % (0-4.5); MCH 26.4 pg (25.7-33.7); MCHC 33.7 g/dl (32.0-36.0); MEAN CELL VOLUME 78.2 fl (80-96); MEAN PLT VOLUME 6.5 fl (7.5-11.1); NEUTROPHILS 80.2 % (42.8-82.8); PLATELET COUNT 182 K/MM3 (134-434); RDW 18.6 % (11.6-15.6); WHITE BLOOD COUNT 5.5 K/mm3 (4.0-10.0)
[2017-03-06 08:13] LABS: ALBUMIN 1.7 g/dl (3.4-5.0); BILIRUBIN,TOTAL 0.5 mg/dL (0.2-1.0); CALCIUM 7.5 mg/dL (8.5-10.1); COCKROFT - GAULT 20.1535; CREATININE 2.7 mg/dL (0.55-1.02); TOT PROT 5.3 g/dl (6.4-8.2)
[2017-03-06 08:15] LABS: PROTHROMBIN TIME (PATIENT) 46.7 SEC (9.98-11.88)
[2017-03-06 08:37] LABS: INR 4.12 (0.82-1.09)
[2017-03-06] MEDS ORDERED: PT OWN MED DRAWER 7, Y5N ONE ×3 (09:30→21:56)
[2017-03-06] MEDS ORDERED: PHYTONADIONE 5 MG TABLET PO ONE ×2 (09:34)
[2017-03-06] MEDS: POTASSIUM CHLORIDE TABS 20 MEQ TABLET.ER (FP) PO SCH ×2 (09:41→21:52)
[2017-03-06] MEDS: FLUCONAZOLE 100 MG/NS 50 ML IVPB SCH (09:41)
[2017-03-06] MEDS: BISMUTH SUBSALICYLATE 262 MG/15 ML BTL PO SCH (09:41)
--- NOTE | 2017-03-06 09:44 | PN ---
Progress Note, Physician Chief Complaint: No New complaint overnight , looks comfortable - Current Medication List Current Medications: Active Medications Acetaminophen (Tylenol -) 650 mg PO Q6H PRN PRN Reason: FEVER OR PAIN Last Admin: 03/02/17 18:14 Dose: 650 mg Al Hydroxide/Mg Hydroxide (Mylanta Oral Suspension -) 30 ml PO Q6H PRN PRN Reason: DYSPEPSIA Atorvastatin Calcium (Lipitor -) 20 mg PO HS [facility] Last Admin: 03/05/17 22:32 Dose: 20 mg Bismuth Subsalicylate (Pepto-Bismol Liquid -) 30 ml PO DAILY [facility] Last Admin: 03/05/17 10:35 Dose: 30 ml Dextrose/Sodium Chloride (D5-1/2ns -) 1,000 mls @ 83 mls/hr IV ASDIR [facility] Last Admin: 03/05/17 16:33 Dose: 83 mls/hr Fluconazole (Diflucan 100 Mg/Ns Premixed Ivpb -) 50 mls @ 100 mls/hr IVPB DAILY [facility] Last Admin: 03/05/17 10:35 Dose: 100 mls/hr Piperacillin Sod/Tazobactam Sod (Zosyn 3.375gm Ivpb (Pre-Docked)) 50 mls @ 100 mls/hr IVPB Q8H-IV [facility] PRN Reason: Protocol Last Admin: 03/06/17 01:15 Dose: 100 mls/hr Insulin Aspart (Novolog Vial Sliding Scale -) 1 vial SQ ACHS [facility] PRN Reason: Protocol Last Admin: 03/06/17 06:10 Dose: Not Given Insulin Detemir (Levemir Vial) 16 units SQ [facility] Last Admin: 03/05/17 22:31 Dose: 16 units Lidocaine/Aluminum/Magnesium/Simeth (Magic Mouthwash *Sjr Formula* -) 5 ml MM Q6HPO [facility] Last Admin: 03/06/17 06:10 Dose: Not Given Metoclopramide HCl (Reglan Injection -) 10 mg IVPB Q8H PRN PRN Reason: NAUSEA/VOMITING Last Admin: 03/06/17 06:24 Dose: 10 mg Mirtazapine (Remeron -) 15 mg PO HS [facility] Last Admin: 03/05/17 22:32 Dose: 15 mg Nystatin (Nystop Powder -) 1 applic TP BID [facility] Last Admin: 03/05/17 22:32 Dose: 1 applic Phytonadione (Mephyton -) 2.5 mg PO ONCE ONE Stop: 03/06/17 09:35 Potassium Chloride (K-Dur -) 20 meq PO BID [facility] Last Admin: 03/05/17 22:32 Dose: 20 meq - Objective Vital Signs: Vital Signs Temperature 98.8 F 03/06/17 08:06 Pulse Rate 105 H 03/06/17 08:06 Respiratory Rate 18 03/06/17 08:06 Blood Pressure 153/82 03/06/17 08:06 O2 Sat by Pulse Oximetry (%) 98 03/05/17 21:00 Constitutional: Yes: Mild Distress, Pallor Eyes: Yes: Conjunctiva Clear HENT: Yes: WNL, Atraumatic, Normocephalic. No: Drooling Neck: Yes: WNL, Supple, Trachea Midline Cardiovascular: Yes: WNL, Regular Rate and Rhythm. No: JVD Respiratory: Yes: WNL, Regular, Rales Gastrointestinal: Yes: WNL, Normal Bowel Sounds, Soft. No: Tenderness, Epigastrium ...Rectal Exam: Yes: Deferred Genitourinary: Yes: Hutchins Present. No: Anuria, Oliguria Musculoskeletal: Yes: Back Pain Edema: Yes Edema: LLE: Trace, RLE: Trace Peripheral Pulses WNL: Yes Integumentary: Yes: Bruising Neurological: Yes: WNL, Alert, Oriented ...Motor Strength: WNL, LUE, LLE, RUE, RLE Psychiatric: Yes: WNL, Alert, Oriented Labs: CBC, BMP 03/06/17 06:00 03/06/17 06:00 INR, PTT INR 4.12 (0.82-1.09) H* 03/06/17 06:00 Problem List - Problems (1) DVT, lower extremity Assessment/Plan: Rt LE DVT on AC INR 4 will hold Coumadin, consider VIt K if Nephrostomy is scheduled F/U INR in am. Code(s): I82.409 - ACUTE EMBOLISM AND THOMBOS UNSP DEEP VN UNSP LOWER EXTREMITY Qualifiers: Affected thrombotic vein of extremity: unspecified vein of extremity Laterality: right Chronicity: acute Qualified Code(s): I82.401 - Acute embolism and thrombosis of unspecified deep veins of right lower extremity (2) Obstructive uropathy Assessment/Plan: Due to CA renal functions are stable, Left stent patent , considering Rt Nephrostomy. Code(s): N13.9 - OBSTRUCTIVE AND REFLUX UROPATHY, UNSPECIFIED (3) Type 2 diabetes mellitus Assessment/Plan: Cont current regimen of insulin F/U HbA1C Code(s): E11.9 - TYPE 2 DIABETES MELLITUS WITHOUT COMPLICATIONS Qualifiers: Diabetes mellitus complication detail: with polyneuropathy (4) Anemia Assessment/Plan: H/h stable F/U H/H Code(s): D64.9 - ANEMIA, UNSPECIFIED Qualifiers: Anemia type: unspecified type Qualified Code(s): D64.9 - Anemia, unspecified (5) OSCAR (acute kidney injury) Assessment/Plan: Renal functions are improving F/U Renal consult recommondation Code(s): N17.9 - ACUTE KIDNEY FAILURE, UNSPECIFIED (6) Supratherapeutic INR Assessment/Plan: INR > 4 on Hold of coumdin no active bleeding F/U INR in am, consider small dose of Vit K if scheduled for Rt Nephrostomy. Code(s): R79.1 - ABNORMAL COAGULATION PROFILE (7) UTI (urinary tract infection) Assessment/Plan: Uriinre grew Fungus on anti fungal and Zosyn F/U ID recommendations. 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
[2017-03-06] MEDS: NYSTATIN POWDER 100,000 UNITS/GM - 15 GM TOPICAL POWDER TP SCH ×2 (09:47→21:53)
[2017-03-06] MEDS ORDERED: INSULIN (NOVOLOG) ASPART 100 UNITS/ML 10ML VIAL ONE (12:58)
[2017-03-06] MEDS: DEXTROSE 5%-0.45% SALINE 1,000 ML IV SCH (16:46)
--- NOTE | 2017-03-06 16:52 | PN ---
Progress Note (short form) - Note Progress Note: Current Medications Acetaminophen (Tylenol -) 650 mg PO Q6H PRN PRN Reason: FEVER OR PAIN Last Admin: 03/02/17 18:14 Dose: 650 mg Al Hydroxide/Mg Hydroxide (Mylanta Oral Suspension -) 30 ml PO Q6H PRN PRN Reason: DYSPEPSIA Atorvastatin Calcium (Lipitor -) 20 mg PO HS [facility] Last Admin: 03/05/17 22:32 Dose: 20 mg Bismuth Subsalicylate (Pepto-Bismol Liquid -) 30 ml PO DAILY [facility] Last Admin: 03/06/17 09:41 Dose: 30 ml Dextrose/Sodium Chloride (D5-1/2ns -) 1,000 mls @ 83 mls/hr IV ASDIR [facility] Last Admin: 03/05/17 16:33 Dose: 83 mls/hr Fluconazole (Diflucan 100 Mg/Ns Premixed Ivpb -) 50 mls @ 100 mls/hr IVPB DAILY [facility] Last Admin: 03/06/17 09:41 Dose: 100 mls/hr Piperacillin Sod/Tazobactam Sod (Zosyn 3.375gm Ivpb (Pre-Docked)) 50 mls @ 100 mls/hr IVPB Q8H-IV [facility] PRN Reason: Protocol Last Admin: 03/06/17 09:41 Dose: 100 mls/hr Insulin Aspart (Novolog Vial Sliding Scale -) 1 vial SQ ACHS [facility] PRN Reason: Protocol Last Admin: 03/06/17 13:26 Dose: 4 units Insulin Detemir (Levemir Vial) 16 units SQ [facility] Last Admin: 03/05/17 22:31 Dose: 16 units Lidocaine/Aluminum/Magnesium/Simeth (Magic Mouthwash *Sjr Formula* -) 5 ml MM Q6HPO [facility] Last Admin: 03/06/17 13:11 Dose: Not Given Metoclopramide HCl (Reglan Injection -) 10 mg IVPB Q8H PRN PRN Reason: NAUSEA/VOMITING Last Admin: 03/06/17 06:24 Dose: 10 mg Mirtazapine (Remeron -) 15 mg PO HS [facility] Last Admin: 03/05/17 22:32 Dose: 15 mg Nystatin (Nystop Powder -) 1 applic TP BID [facility] Last Admin: 03/06/17 09:47 Dose: 1 applic Potassium Chloride (K-Dur -) 20 meq PO BID [facility] Last Admin: 03/06/17 09:41 Dose: 20 meq Last Vital Signs Temp Pulse Resp BP Pulse Ox 99.4 F 110 H 20 148/75 98 03/06/17 15:03 03/06/17 15:03 03/06/17 15:03 03/06/17 15:03 03/05/17 21:00 lungs clear heart reg abd soft ext no edema CBC, BMP 03/06/17 06:00 03/06/17 06:00 IMP- jalyn obstructive uropathy renal function improved partly but not to baseline PLan- f/u chems tomorrow waiting for urology f/u
[2017-03-06] MEDS: INSULIN DETEMIR 100 UNITS/ML MDV SQ SCH (21:52)
[2017-03-06] MEDS: ATORVASTATIN CA 20 MG TABLET (FP) PO SCH (21:53)
[2017-03-06] MEDS: ACETAMINOPHEN 325 MG TABLET (FP) PO PRN (21:55)
[2017-03-06] MEDS: MIRTAZAPINE 15 MG TABLET (FP) PO SCH (21:57)
[2017-03-07] MEDS: MAG HYDROX/ALH/SMC/DPHA/LIDO 240 ML MOUTHWASH MM SCH ×5 (00:08→18:17)
[2017-03-07] MEDS: PIPERACILLIN/TAZOB 3.375 GM 50 ML IVPB SCH ×3 (01:49→18:09)
[2017-03-07] MEDS: INSULIN SLIDING SCALE (NOVOLOG) 1 VIAL SQ SCH ×4 (06:18→22:31)
[2017-03-07] MEDS: DEXTROSE 5%-0.45% SALINE 1,000 ML IV SCH ×3 (06:20→22:30)
[2017-03-07] MEDS ORDERED: PT OWN MED DRAWER 7, Y5N ONE ×3 (06:30→22:34)
[2017-03-07] MEDS ORDERED: INSULIN DETEMIR 100 UNITS/ML MDV SQ ONE (06:30)
[2017-03-07 07:49] LABS: BASOPHIL 0.5 % (0-2.0); EOSINOPHIL 1.9 % (0-4.5); MCH 26.4 pg (25.7-33.7); MCHC 33.9 g/dl (32.0-36.0); MEAN CELL VOLUME 77.9 fl (80-96); MEAN PLT VOLUME 6.5 fl (7.5-11.1); NEUTROPHILS 82.1 % (42.8-82.8); PLATELET COUNT 185 K/MM3 (134-434); RDW 19.2 % (11.6-15.6); WHITE BLOOD COUNT 5.4 K/mm3 (4.0-10.0)
[2017-03-07 08:01] LABS: INR 3.97 (0.82-1.09); PROTHROMBIN TIME (PATIENT) 44.9 SEC (9.98-11.88)
[2017-03-07 08:02] LABS: ALBUMIN 1.7 g/dl (3.4-5.0); BILIRUBIN,TOTAL 0.5 mg/dL (0.2-1.0); CALCIUM 7.3 mg/dL (8.5-10.1); COCKROFT - GAULT 20.927; CREATININE 2.6 mg/dL (0.55-1.02); TOT PROT 5.3 g/dl (6.4-8.2)
--- NOTE | 2017-03-07 08:48 | PN ---
Progress Note, Physician Chief Complaint: Not eating History of Present Illness: Admitted with urosepsis and hydroneprosis Needs percutaneous nephrostomy - Current Medication List Current Medications: Active Medications Acetaminophen (Tylenol -) 650 mg PO Q6H PRN PRN Reason: FEVER OR PAIN Last Admin: 03/06/17 21:55 Dose: 650 mg Al Hydroxide/Mg Hydroxide (Mylanta Oral Suspension -) 30 ml PO Q6H PRN PRN Reason: DYSPEPSIA Last Admin: 03/06/17 16:45 Dose: 30 ml Atorvastatin Calcium (Lipitor -) 20 mg PO HS [facility] Last Admin: 03/06/17 21:53 Dose: 20 mg Bismuth Subsalicylate (Pepto-Bismol Liquid -) 30 ml PO DAILY [facility] Last Admin: 03/06/17 09:41 Dose: 30 ml Dextrose/Sodium Chloride (D5-1/2ns -) 1,000 mls @ 83 mls/hr IV ASDIR [facility] Last Admin: 03/07/17 06:20 Dose: 83 mls/hr Fluconazole (Diflucan 100 Mg/Ns Premixed Ivpb -) 50 mls @ 100 mls/hr IVPB DAILY [facility] Last Admin: 03/06/17 09:41 Dose: 100 mls/hr Piperacillin Sod/Tazobactam Sod (Zosyn 3.375gm Ivpb (Pre-Docked)) 50 mls @ 100 mls/hr IVPB Q8H-IV [facility] PRN Reason: Protocol Last Admin: 03/07/17 01:49 Dose: 100 mls/hr Insulin Aspart (Novolog Vial Sliding Scale -) 1 vial SQ ACHS [facility] PRN Reason: Protocol Last Admin: 03/07/17 06:18 Dose: 4 units Insulin Detemir (Levemir Vial) 16 units SQ [facility] Last Admin: 03/06/17 21:52 Dose: 16 units Lidocaine/Aluminum/Magnesium/Simeth (Magic Mouthwash *Sjr Formula* -) 5 ml MM Q6HPO [facility] Last Admin: 03/07/17 06:07 Dose: Not Given Metoclopramide HCl (Reglan Injection -) 10 mg IVPB Q8H PRN PRN Reason: NAUSEA/VOMITING Last Admin: 03/06/17 06:24 Dose: 10 mg Mirtazapine (Remeron -) 15 mg PO [facility] Last Admin: 03/06/17 21:57 Dose: 15 mg Nystatin (Nystop Powder -) 1 applic TP BID [facility] Last Admin: 03/06/17 21:53 Dose: 1 applic Potassium Chloride (K-Dur -) 20 meq PO BID [facility] Last Admin: 03/06/17 21:52 Dose: Not Given - Objective Vital Signs: Vital Signs Temperature 98.1 F 03/07/17 05:48 Pulse Rate 98 H 03/07/17 05:48 Respiratory Rate 18 03/07/17 05:48 Blood Pressure 147/82 03/07/17 05:48 O2 Sat by Pulse Oximetry (%) 98 03/06/17 21:00 Constitutional: Yes: No Distress Eyes: Yes: WNL HENT: Yes: WNL Neck: Yes: WNL Cardiovascular: Yes: WNL Respiratory: Yes: Regular Gastrointestinal: Yes: WNL ...Rectal Exam: Yes: WNL Genitourinary: Yes: WNL Musculoskeletal: Yes: Muscle Weakness Integumentary: Yes: WNL Neurological: Yes: Alert Labs: CBC, BMP 03/07/17 05:35 03/07/17 05:35 INR, PTT INR 3.97 (0.82-1.09) H 03/07/17 05:35 Assessment/Plan vit K ordered
[2017-03-07] MEDS ORDERED: PHYTONADIONE 10 MG/1 ML AMP IM ONE (09:00)
[2017-03-07] MEDS: FLUCONAZOLE 100 MG/NS 50 ML IVPB SCH (11:00)
[2017-03-07] MEDS: POTASSIUM CHLORIDE TABS 20 MEQ TABLET.ER (FP) PO SCH ×2 (11:01→22:31)
[2017-03-07] MEDS: NYSTATIN POWDER 100,000 UNITS/GM - 15 GM TOPICAL POWDER TP SCH ×2 (11:01→22:32)
[2017-03-07] MEDS: METOCLOPRAMIDE HCL INJECTION 10 MG/2 ML VIAL IVPB PRN (11:01)
[2017-03-07] MEDS: BISMUTH SUBSALICYLATE 262 MG/15 ML BTL PO SCH (11:02)
[2017-03-07] MEDS ORDERED: INSULIN (NOVOLOG) ASPART 100 UNITS/ML 10ML VIAL ONE (11:35)
--- NOTE | 2017-03-07 16:09 | PN ---
Progress Note, Physician Chief Complaint: Patient in bed. Oral food intake suboptimal. Maintains good urine output. Family visiting. ` - Current Medication List Current Medications: Active Medications Acetaminophen (Tylenol -) 650 mg PO Q6H PRN PRN Reason: FEVER OR PAIN Last Admin: 03/06/17 21:55 Dose: 650 mg Al Hydroxide/Mg Hydroxide (Mylanta Oral Suspension -) 30 ml PO Q6H PRN PRN Reason: DYSPEPSIA Last Admin: 03/06/17 16:45 Dose: 30 ml Atorvastatin Calcium (Lipitor -) 20 mg PO HS [facility] Last Admin: 03/06/17 21:53 Dose: 20 mg Bismuth Subsalicylate (Pepto-Bismol Liquid -) 30 ml PO DAILY [facility] Last Admin: 03/07/17 11:02 Dose: 30 ml Dextrose/Sodium Chloride (D5-1/2ns -) 1,000 mls @ 83 mls/hr IV ASDIR [facility] Last Admin: 03/07/17 06:20 Dose: 83 mls/hr Fluconazole (Diflucan 100 Mg/Ns Premixed Ivpb -) 50 mls @ 100 mls/hr IVPB DAILY [facility] Last Admin: 03/07/17 11:00 Dose: 100 mls/hr Piperacillin Sod/Tazobactam Sod (Zosyn 3.375gm Ivpb (Pre-Docked)) 50 mls @ 100 mls/hr IVPB Q8H-IV [facility] PRN Reason: Protocol Last Admin: 03/07/17 11:00 Dose: 100 mls/hr Insulin Aspart (Novolog Vial Sliding Scale -) 1 vial SQ ACHS [facility] PRN Reason: Protocol Last Admin: 03/07/17 12:57 Dose: Not Given Insulin Detemir (Levemir Vial) 16 units SQ [facility] Last Admin: 03/06/17 21:52 Dose: 16 units Lidocaine/Aluminum/Magnesium/Simeth (Magic Mouthwash *Sjr Formula* -) 5 ml MM Q6HPO [facility] Last Admin: 03/07/17 10:59 Dose: 5 ml Metoclopramide HCl (Reglan Injection -) 10 mg IVPB Q8H PRN PRN Reason: NAUSEA/VOMITING Last Admin: 03/07/17 11:01 Dose: 10 mg Mirtazapine (Remeron -) 15 mg PO [facility] Last Admin: 03/06/17 21:57 Dose: 15 mg Nystatin (Nystop Powder -) 1 applic TP BID [facility] Last Admin: 03/07/17 11:01 Dose: 1 applic Potassium Chloride (K-Dur -) 20 meq PO BID [facility] Last Admin: 03/07/17 11:01 Dose: 20 meq - Objective Vital Signs: Vital Signs Temperature 99.8 F H 03/07/17 14:48 Pulse Rate 107 H 03/07/17 14:48 Respiratory Rate 18 03/07/17 14:48 Blood Pressure 147/75 03/07/17 14:48 O2 Sat by Pulse Oximetry (%) 98 03/06/17 21:00 Constitutional: Yes: No Distress Eyes: Yes: Conjunctiva Clear HENT: Yes: Atraumatic Neck: Yes: Trachea Midline Cardiovascular: Yes: S1, S2 Respiratory: Yes: Regular, CTA Bilaterally Gastrointestinal: Yes: Normal Bowel Sounds, Soft, Hypoactive Bowel Sounds Genitourinary: Yes: CVA Tenderness - Left (mild). No: Bladder Distention Labs: CBC, BMP 03/07/17 05:35 03/07/17 05:35 INR, PTT INR 3.97 (0.82-1.09) H 03/07/17 05:35 Problem List - Problems (1) OSCAR (acute kidney injury) Code(s): N17.9 - ACUTE KIDNEY FAILURE, UNSPECIFIED (2) Anemia Code(s): D64.9 - ANEMIA, UNSPECIFIED Qualifiers: Anemia type: unspecified type Qualified Code(s): D64.9 - Anemia, unspecified (3) Obstructive uropathy Code(s): N13.9 - OBSTRUCTIVE AND REFLUX UROPATHY, UNSPECIFIED (4) Type 2 diabetes mellitus Code(s): E11.9 - TYPE 2 DIABETES MELLITUS WITHOUT COMPLICATIONS Qualifiers: Diabetes mellitus complication detail: with polyneuropathy (5) Urinary retention Code(s): R33.9 - RETENTION OF URINE, UNSPECIFIED Assessment/Plan The patient with CA Cx, obstructive Uropathy, DVT, on AC, s/p placement of ureteric stent, putting out fair amounts of urine. The patient's azotemia is improving.( 26/2.6) Oral intake is suboptimal. IV fluids well tolerated. PT/INR too high. Scheduled for Nephrostomy when the coagulopathy is corrected. BP in acceptable range. Will monitor the renal/electrolyte profile with you. Jennifer Gardner MD
--- NOTE | 2017-03-07 16:29 | PN ---
Progress Note, Physician History of Present Illness: patient better no new issues awaiting nephrostomy placement - Current Medication List Current Medications: Active Medications Acetaminophen (Tylenol -) 650 mg PO Q6H PRN PRN Reason: FEVER OR PAIN Last Admin: 03/06/17 21:55 Dose: 650 mg Al Hydroxide/Mg Hydroxide (Mylanta Oral Suspension -) 30 ml PO Q6H PRN PRN Reason: DYSPEPSIA Last Admin: 03/06/17 16:45 Dose: 30 ml Atorvastatin Calcium (Lipitor -) 20 mg PO [facility] Last Admin: 03/06/17 21:53 Dose: 20 mg Bismuth Subsalicylate (Pepto-Bismol Liquid -) 30 ml PO DAILY [facility] Last Admin: 03/07/17 11:02 Dose: 30 ml Dextrose/Sodium Chloride (D5-1/2ns -) 1,000 mls @ 83 mls/hr IV ASDIR [facility] Last Admin: 03/07/17 06:20 Dose: 83 mls/hr Fluconazole (Diflucan 100 Mg/Ns Premixed Ivpb -) 50 mls @ 100 mls/hr IVPB DAILY [facility] Last Admin: 03/07/17 11:00 Dose: 100 mls/hr Piperacillin Sod/Tazobactam Sod (Zosyn 3.375gm Ivpb (Pre-Docked)) 50 mls @ 100 mls/hr IVPB Q8H-IV [facility] PRN Reason: Protocol Last Admin: 03/07/17 11:00 Dose: 100 mls/hr Insulin Aspart (Novolog Vial Sliding Scale -) 1 vial SQ ACHS [facility] PRN Reason: Protocol Last Admin: 03/07/17 12:57 Dose: Not Given Insulin Detemir (Levemir Vial) 16 units SQ [facility] Last Admin: 03/06/17 21:52 Dose: 16 units Lidocaine/Aluminum/Magnesium/Simeth (Magic Mouthwash *Sjr Formula* -) 5 ml MM Q6HPO [facility] Last Admin: 03/07/17 10:59 Dose: 5 ml Metoclopramide HCl (Reglan Injection -) 10 mg IVPB Q8H PRN PRN Reason: NAUSEA/VOMITING Last Admin: 03/07/17 11:01 Dose: 10 mg Mirtazapine (Remeron -) 15 mg PO [facility] Last Admin: 03/06/17 21:57 Dose: 15 mg Nystatin (Nystop Powder -) 1 applic TP BID [facility] Last Admin: 03/07/17 11:01 Dose: 1 applic Potassium Chloride (K-Dur -) 20 meq PO BID [facility] Last Admin: 03/07/17 11:01 Dose: 20 meq - Objective Vital Signs: Vital Signs Temperature 99.8 F H 03/07/17 14:48 Pulse Rate 107 H 03/07/17 14:48 Respiratory Rate 18 03/07/17 14:48 Blood Pressure 147/75 03/07/17 14:48 O2 Sat by Pulse Oximetry (%) 98 03/06/17 21:00 Constitutional: Yes: No Distress, Calm Cardiovascular: Yes: S1, S2 Respiratory: Yes: Regular, CTA Bilaterally Gastrointestinal: Yes: Normal Bowel Sounds, Soft Genitourinary: Yes: Hutchins Present Musculoskeletal: Yes: Other Edema: LLE: Trace, RLE: Trace Neurological: Yes: Alert, Oriented Psychiatric: Yes: Alert, Oriented Labs: CBC, BMP 03/07/17 05:35 03/07/17 05:35 INR, PTT INR 3.97 (0.82-1.09) H 03/07/17 05:35 Assessment/Plan dvt edema of both legs r/o uti fever malignancy plan awaiting nephrostomy tube placement rest continue current mgmt once tube done will deescalate abx rest as per primary
[2017-03-07] MEDS: INSULIN DETEMIR 100 UNITS/ML MDV SQ SCH (22:31)
[2017-03-07] MEDS: ATORVASTATIN CA 20 MG TABLET (FP) PO SCH (22:31)
[2017-03-07] MEDS: MIRTAZAPINE 15 MG TABLET (FP) PO SCH (22:35)
[2017-03-08] MEDS: MAG HYDROX/ALH/SMC/DPHA/LIDO 240 ML MOUTHWASH MM SCH ×4 (01:27→17:02)
[2017-03-08] MEDS: PIPERACILLIN/TAZOB 3.375 GM 50 ML IVPB SCH ×3 (01:27→17:01)
[2017-03-08] MEDS: INSULIN SLIDING SCALE (NOVOLOG) 1 VIAL SQ SCH ×4 (06:23→22:57)
[2017-03-08 07:45] LABS: ALBUMIN 1.7 g/dl (3.4-5.0); CALCIUM 7.6 mg/dL (8.5-10.1)
[2017-03-08 07:48] LABS: BILIRUBIN,TOTAL 0.5 mg/dL (0.2-1.0); COCKROFT - GAULT 22.6695; CREATININE 2.4 mg/dL (0.55-1.02); TOT PROT 5.3 g/dl (6.4-8.2)
[2017-03-08] MEDS: DEXTROSE 5%-0.45% SALINE 1,000 ML IV SCH ×2 (09:30→17:01)
--- NOTE | 2017-03-08 09:31 | PN ---
Progress Note, Physician Chief Complaint: More awake and alert History of Present Illness: Obstructive uropathy Cr2.4 BUN 24 Scheduled for nephrostomy cath insertion Awaiting INR - Current Medication List Current Medications: Active Medications Acetaminophen (Tylenol -) 650 mg PO Q6H PRN PRN Reason: FEVER OR PAIN Last Admin: 03/06/17 21:55 Dose: 650 mg Al Hydroxide/Mg Hydroxide (Mylanta Oral Suspension -) 30 ml PO Q6H PRN PRN Reason: DYSPEPSIA Last Admin: 03/06/17 16:45 Dose: 30 ml Atorvastatin Calcium (Lipitor -) 20 mg PO HS ON [facility] OF [facility] Last Admin: 03/07/17 22:31 Dose: 20 mg Bismuth Subsalicylate (Pepto-Bismol Liquid -) 30 ml PO DAILY [facility] OF [facility] Last Admin: 03/07/17 11:02 Dose: 30 ml Dextrose/Sodium Chloride (D5-1/2ns -) 1,000 mls @ 83 mls/hr IV ASDIR ON LICENSE OF [facility] Last Admin: 03/07/17 22:30 Dose: 83 mls/hr Fluconazole (Diflucan 100 Mg/Ns Premixed Ivpb -) 50 mls @ 100 mls/hr IVPB DAILY [facility] OF [facility] Last Admin: 03/07/17 11:00 Dose: 100 mls/hr Piperacillin Sod/Tazobactam Sod (Zosyn 3.375gm Ivpb (Pre-Docked)) 50 mls @ 100 mls/hr IVPB Q8H-IV [facility] PRN Reason: Protocol Last Admin: 03/08/17 01:27 Dose: 100 mls/hr Insulin Aspart (Novolog Vial Sliding Scale -) 1 vial SQ ACHS ON [facility] OF [facility] PRN Reason: Protocol Last Admin: 03/08/17 06:23 Dose: Not Given Insulin Detemir (Levemir Vial) 16 units SQ HS ON [facility] OF [facility] Last Admin: 03/07/17 22:31 Dose: 16 units Lidocaine/Aluminum/Magnesium/Simeth (Magic Mouthwash *Sjr Formula* -) 5 ml MM Q6HPO ON [facility] OF [facility] Last Admin: 03/08/17 06:19 Dose: Not Given Metoclopramide HCl (Reglan Injection -) 10 mg IVPB Q8H PRN PRN Reason: NAUSEA/VOMITING Last Admin: 03/07/17 11:01 Dose: 10 mg Mirtazapine (Remeron -) 15 mg PO HS [facility] Last Admin: 03/07/17 22:35 Dose: 15 mg Nystatin (Nystop Powder -) 1 applic TP BID ON [facility] Last Admin: 03/07/17 22:32 Dose: 1 applic Potassium Chloride (K-Dur -) 20 meq PO BID ON [facility] OF [facility] Last Admin: 03/07/17 22:31 Dose: 20 meq - Objective Vital Signs: Vital Signs Temperature 98.2 F 03/08/17 05:56 Pulse Rate 108 H 03/08/17 05:56 Respiratory Rate 18 03/08/17 05:56 Blood Pressure 153/86 03/08/17 05:56 O2 Sat by Pulse Oximetry (%) 98 03/07/17 21:00 Constitutional: Yes: Calm Eyes: Yes: WNL Neck: Yes: WNL Cardiovascular: Yes: WNL Respiratory: Yes: WNL Gastrointestinal: Yes: Normal Bowel Sounds ...Rectal Exam: Yes: Deferred Genitourinary: Yes: WNL Breast(s): Yes: WNL Musculoskeletal: Yes: WNL Extremities: Yes: WNL Edema: No Integumentary: Yes: WNL Wound/Incision: Yes: Other Neurological: Yes: Alert Labs: CBC, BMP 03/07/17 05:35 03/08/17 05:35 INR, PTT INR 3.97 (0.82-1.09) H 03/07/17 05:35
[2017-03-08 09:59] LABS: INR 1.29 (0.82-1.09); PROTHROMBIN TIME (PATIENT) 14.3 SEC (9.98-11.88)
[2017-03-08] MEDS ORDERED: PT OWN MED DRAWER 7, Y5N ONE (10:54)
[2017-03-08] MEDS: POTASSIUM CHLORIDE TABS 20 MEQ TABLET.ER (FP) PO SCH ×2 (11:00→22:58)
[2017-03-08] MEDS: NYSTATIN POWDER 100,000 UNITS/GM - 15 GM TOPICAL POWDER TP SCH ×2 (11:04→22:57)
[2017-03-08] MEDS: FLUCONAZOLE 100 MG/NS 50 ML IVPB SCH (11:04)
--- NOTE | 2017-03-08 12:32 | PN ---
Progress Note, Physician History of Present Illness: patient better no new issues nephrostomy today - Current Medication List Current Medications: Active Medications Acetaminophen (Tylenol -) 650 mg PO Q6H PRN PRN Reason: FEVER OR PAIN Last Admin: 03/06/17 21:55 Dose: 650 mg Al Hydroxide/Mg Hydroxide (Mylanta Oral Suspension -) 30 ml PO Q6H PRN PRN Reason: DYSPEPSIA Last Admin: 03/06/17 16:45 Dose: 30 ml Atorvastatin Calcium (Lipitor -) 20 mg PO HS [facility] Last Admin: 03/07/17 22:31 Dose: 20 mg Bismuth Subsalicylate (Pepto-Bismol Liquid -) 30 ml PO DAILY [facility] Last Admin: 03/07/17 11:02 Dose: 30 ml Dextrose/Sodium Chloride (D5-1/2ns -) 1,000 mls @ 83 mls/hr IV ASDIR [facility] Last Admin: 03/08/17 09:30 Dose: 83 mls/hr Fluconazole (Diflucan 100 Mg/Ns Premixed Ivpb -) 50 mls @ 100 mls/hr IVPB DAILY [facility] Last Admin: 03/08/17 11:04 Dose: 100 mls/hr Piperacillin Sod/Tazobactam Sod (Zosyn 3.375gm Ivpb (Pre-Docked)) 50 mls @ 100 mls/hr IVPB Q8H-IV [facility] PRN Reason: Protocol Last Admin: 03/08/17 11:00 Dose: 100 mls/hr Insulin Aspart (Novolog Vial Sliding Scale -) 1 vial SQ ACHS [facility] PRN Reason: Protocol Last Admin: 03/08/17 11:07 Dose: Not Given Insulin Detemir (Levemir Vial) 16 units SQ [facility] Last Admin: 03/07/17 22:31 Dose: 16 units Lidocaine/Aluminum/Magnesium/Simeth (Magic Mouthwash *Sjr Formula* -) 5 ml MM Q6HPO [facility] Last Admin: 03/08/17 11:02 Dose: Not Given Metoclopramide HCl (Reglan Injection -) 10 mg IVPB Q8H PRN PRN Reason: NAUSEA/VOMITING Last Admin: 03/07/17 11:01 Dose: 10 mg Mirtazapine (Remeron -) 15 mg PO [facility] Last Admin: 03/07/17 22:35 Dose: 15 mg Nystatin (Nystop Powder -) 1 applic TP BID [facility] Last Admin: 03/08/17 11:04 Dose: 1 applic Potassium Chloride (K-Dur -) 20 meq PO BID [facility] Last Admin: 03/08/17 11:00 Dose: Not Given - Objective Vital Signs: Vital Signs Temperature 98.2 F 03/08/17 09:00 Pulse Rate 105 H 03/08/17 09:00 Respiratory Rate 18 03/08/17 09:00 Blood Pressure 154/80 03/08/17 09:00 O2 Sat by Pulse Oximetry (%) 98 03/08/17 10:10 Constitutional: Yes: No Distress, Calm Cardiovascular: Yes: S1, S2 Respiratory: Yes: Regular, CTA Bilaterally Gastrointestinal: Yes: Normal Bowel Sounds, Soft Musculoskeletal: Yes: WNL Extremities: Yes: WNL Neurological: Yes: Alert, Oriented Psychiatric: Yes: Alert, Oriented Labs: CBC, BMP 03/07/17 05:35 03/08/17 05:35 INR, PTT INR 1.29 (0.82-1.09) H D 03/08/17 08:58 Assessment/Plan dvt edema of both legs r/o uti fever malignancy plan awaiting nephrostomy tube placement rest continue current mgmt once tube done will deescalate abx rest as per primary
[2017-03-08] MEDS: BISMUTH SUBSALICYLATE 262 MG/15 ML BTL PO SCH (13:00)
--- NOTE | 2017-03-08 15:06 | PN ---
Progress Note (short form) - Note Progress Note: Renal Follow up for OSCAR Pt seen and examined at the bedside and granddaughter at the bedside no acute complaints is axious about undergoing nephrostomy placement denies any sob, chest pain, abd pian, N/V/D minaya in place Vital Signs Temperature 98.2 F 03/08/17 09:00 Pulse Rate 109 H 03/08/17 14:57 Respiratory Rate 16 03/08/17 14:57 Blood Pressure 113/77 03/08/17 14:57 O2 Sat by Pulse Oximetry (%) 98 03/08/17 10:10 Intake & Output 03/05/17 03/06/17 03/07/17 03/08/17 23:59 23:59 23:59 23:59 Intake Total 1863 1746 1300 1046 Output Total 2500 1550 1900 Balance -637 196 -600 1046 Gen: NAD CVS: RRR, No M/R Lungs: CTA Abd: soft NT/ND Ext: Trace to 1+ edema in LE : Minaya in place CBC, BMP 03/07/17 05:35 03/08/17 05:35 Laboratory Tests 03/08/17 05:35 Calcium 7.6 L Albumin 1.7 L Current Medications Acetaminophen (Tylenol -) 650 mg PO Q6H PRN PRN Reason: FEVER OR PAIN Last Admin: 03/06/17 21:55 Dose: 650 mg Al Hydroxide/Mg Hydroxide (Mylanta Oral Suspension -) 30 ml PO Q6H PRN PRN Reason: DYSPEPSIA Last Admin: 03/06/17 16:45 Dose: 30 ml Atorvastatin Calcium (Lipitor -) 20 mg PO HS [facility] Last Admin: 03/07/17 22:31 Dose: 20 mg Bismuth Subsalicylate (Pepto-Bismol Liquid -) 30 ml PO DAILY [facility] Last Admin: 03/08/17 13:00 Dose: Not Given Dextrose/Sodium Chloride (D5-1/2ns -) 1,000 mls @ 83 mls/hr IV ASDIR [facility] Last Admin: 03/08/17 09:30 Dose: 83 mls/hr Fluconazole (Diflucan 100 Mg/Ns Premixed Ivpb -) 50 mls @ 100 mls/hr IVPB DAILY [facility] Last Admin: 03/08/17 11:04 Dose: 100 mls/hr Piperacillin Sod/Tazobactam Sod (Zosyn 3.375gm Ivpb (Pre-Docked)) 50 mls @ 100 mls/hr IVPB Q8H-IV [facility] PRN Reason: Protocol Last Admin: 03/08/17 11:00 Dose: 100 mls/hr Insulin Aspart (Novolog Vial Sliding Scale -) 1 vial SQ ACHS [facility] PRN Reason: Protocol Last Admin: 03/08/17 11:07 Dose: Not Given Insulin Detemir (Levemir Vial) 16 units SQ HS [facility] Last Admin: 03/07/17 22:31 Dose: 16 units Lidocaine/Aluminum/Magnesium/Simeth (Magic Mouthwash *Sjr Formula* -) 5 ml MM Q6HPO [facility] Last Admin: 03/08/17 11:02 Dose: Not Given Metoclopramide HCl (Reglan Injection -) 10 mg IVPB Q8H PRN PRN Reason: NAUSEA/VOMITING Last Admin: 03/07/17 11:01 Dose: 10 mg Mirtazapine (Remeron -) 15 mg PO HS [facility] Last Admin: 03/07/17 22:35 Dose: 15 mg Nystatin (Nystop Powder -) 1 applic TP BID [facility] Last Admin: 03/08/17 11:04 Dose: 1 applic Potassium Chloride (K-Dur -) 20 meq PO BID [facility] Last Admin: 03/08/17 11:00 Dose: Not Given A/P 76 year old woman with PMHx of Cervical Ca on Radiation Tx, Hypertension, Hyperlipidemia, IDDM who presented with worsening LE swelling and found to have DVT and BUN/Cr of 42/2.1 #Acute renal insufficiency with ? CKD Renal function improved and pt is non-oliguric for nephrostomy tube placement by IR today trend BUN/Cr continue 1/2 and titrate based on output via nephrostomy and minaya #Metabolic Acidosis Start Sodium bicarb 650mg Daily goal bicarb > 22 Thank you Glenn Deluna DO
[2017-03-08] MEDS: SODIUM BICARBONATE 650 MG TABLET PO SCH (15:53)
[2017-03-08 18:16] LABS: BASOPHIL 0.3 % (0-2.0); EOSINOPHIL 1.6 % (0-4.5); MCH 25.7 pg (25.7-33.7); MCHC 32.8 g/dl (32.0-36.0); MEAN CELL VOLUME 78.5 fl (80-96); MEAN PLT VOLUME 6.5 fl (7.5-11.1); PLATELET COUNT 219 K/MM3 (134-434); RDW 18.9 % (11.6-15.6); WHITE BLOOD COUNT 6.2 K/mm3 (4.0-10.0)
[2017-03-08] MEDS: INSULIN DETEMIR 100 UNITS/ML MDV SQ SCH (22:55)
[2017-03-08] MEDS: ACETAMINOPHEN 325 MG TABLET (FP) PO PRN (22:56)
[2017-03-08] MEDS: ATORVASTATIN CA 20 MG TABLET (FP) PO SCH (22:57)
[2017-03-08] MEDS: MIRTAZAPINE 15 MG TABLET (FP) PO SCH (22:58)
[2017-03-09] MEDS: MAG HYDROX/ALH/SMC/DPHA/LIDO 240 ML MOUTHWASH MM SCH ×4 (01:29→17:26)
[2017-03-09] MEDS: MIRTAZAPINE 15 MG TABLET (FP) PO SCH ×2 (01:30→22:02)
[2017-03-09] MEDS: ATORVASTATIN CA 20 MG TABLET (FP) PO SCH ×2 (01:30→22:02)
[2017-03-09] MEDS: POTASSIUM CHLORIDE TABS 20 MEQ TABLET.ER (FP) PO SCH ×3 (01:30→22:03)
[2017-03-09] MEDS: PIPERACILLIN/TAZOB 3.375 GM 50 ML IVPB SCH ×4 (01:56→18:38)
[2017-03-09] MEDS: DEXTROSE 5%-0.45% SALINE 1,000 ML IV SCH (01:56)
[2017-03-09] MEDS: INSULIN SLIDING SCALE (NOVOLOG) 1 VIAL SQ SCH ×4 (06:44→21:57)
[2017-03-09 08:46] LABS: ALBUMIN 1.7 g/dl (3.4-5.0); BILIRUBIN,TOTAL 0.3 mg/dL (0.2-1.0); CALCIUM 7.5 mg/dL (8.5-10.1); COCKROFT - GAULT 22.6695; CREATININE 2.4 mg/dL (0.55-1.02); MAGNESIUM 1.3 mg/dL (1.8-2.4); PHOSPHOROUS 3.2 mg/dL (2.5-4.9); TOT PROT 5.2 g/dl (6.4-8.2)
[2017-03-09] MEDS ORDERED: PT OWN MED DRAWER 7, Y5N ONE ×2 (09:01→21:45)
--- NOTE | 2017-03-09 09:05 | PN ---
Progress Note, Physician Chief Complaint: Confussed History of Present Illness: for percutaneous nephrostomy - Current Medication List Current Medications: Active Medications Acetaminophen (Tylenol -) 650 mg PO Q6H PRN PRN Reason: FEVER OR PAIN Last Admin: 03/08/17 22:56 Dose: 650 mg Al Hydroxide/Mg Hydroxide (Mylanta Oral Suspension -) 30 ml PO Q6H PRN PRN Reason: DYSPEPSIA Last Admin: 03/06/17 16:45 Dose: 30 ml Atorvastatin Calcium (Lipitor -) 20 mg PO [facility] Last Admin: 03/09/17 01:30 Dose: Not Given Bismuth Subsalicylate (Pepto-Bismol Liquid -) 30 ml PO DAILY [facility] Last Admin: 03/08/17 13:00 Dose: Not Given Dextrose/Sodium Chloride (D5-1/2ns -) 1,000 mls @ 83 mls/hr IV ASDIR [facility] Last Admin: 03/09/17 01:56 Dose: 83 mls/hr Fluconazole (Diflucan 100 Mg/Ns Premixed Ivpb -) 50 mls @ 100 mls/hr IVPB DAILY [facility] Last Admin: 03/08/17 11:04 Dose: 100 mls/hr Piperacillin Sod/Tazobactam Sod (Zosyn 3.375gm Ivpb (Pre-Docked)) 50 mls @ 100 mls/hr IVPB Q8H-IV [facility] PRN Reason: Protocol Last Admin: 03/09/17 01:56 Dose: 100 mls/hr Insulin Aspart (Novolog Vial Sliding Scale -) 1 vial SQ ACHS [facility] PRN Reason: Protocol Last Admin: 03/09/17 06:44 Dose: Not Given Insulin Detemir (Levemir Vial) 16 units SQ [facility] Last Admin: 03/08/17 22:55 Dose: 16 units Lidocaine/Aluminum/Magnesium/Simeth (Magic Mouthwash *Sjr Formula* -) 5 ml MM Q6HPO [facility] Last Admin: 03/09/17 06:38 Dose: Not Given Metoclopramide HCl (Reglan Injection -) 10 mg IVPB Q8H PRN PRN Reason: NAUSEA/VOMITING Last Admin: 03/07/17 11:01 Dose: 10 mg Mirtazapine (Remeron -) 15 mg PO [facility] Last Admin: 03/09/17 01:30 Dose: Not Given Nystatin (Nystop Powder -) 1 applic TP BID [facility] Last Admin: 03/08/17 22:57 Dose: 1 applic Potassium Chloride (K-Dur -) 20 meq PO BID [facility] Last Admin: 03/09/17 01:30 Dose: Not Given Sodium Bicarbonate (Sodium Bicarbonate -) 650 mg PO DAILY [facility] Last Admin: 03/08/17 15:53 Dose: 650 mg - Objective Vital Signs: Vital Signs Temperature 98.4 F 03/09/17 05:47 Pulse Rate 98 H 03/09/17 05:47 Respiratory Rate 20 03/09/17 05:47 Blood Pressure 131/74 03/09/17 05:47 O2 Sat by Pulse Oximetry (%) 100 03/08/17 21:00 Constitutional: Yes: Anxious Eyes: Yes: WNL HENT: Yes: WNL Neck: Yes: WNL Cardiovascular: Yes: WNL Respiratory: Yes: WNL Gastrointestinal: Yes: Normal Bowel Sounds ...Rectal Exam: Yes: Deferred Genitourinary: Yes: Hutchins Present Musculoskeletal: Yes: WNL Labs: CBC, BMP 03/08/17 17:30 03/09/17 06:00 INR, PTT INR 1.29 (0.82-1.09) H D 03/08/17 08:58 Assessment/Plan Will arrange procedure
[2017-03-09] MEDS: FLUCONAZOLE 100 MG/NS 50 ML IVPB SCH (09:06)
[2017-03-09] MEDS: BISMUTH SUBSALICYLATE 262 MG/15 ML BTL PO SCH (09:07)
[2017-03-09] MEDS: SODIUM BICARBONATE 650 MG TABLET PO SCH ×2 (09:07→22:03)
[2017-03-09] MEDS: NYSTATIN POWDER 100,000 UNITS/GM - 15 GM TOPICAL POWDER TP SCH ×2 (09:12→22:08)
--- NOTE | 2017-03-09 12:05 | PN ---
Progress Note, Physician History of Present Illness: nephrostomy tube could not be placed because patient was agitated plan to place the tube today currently patient is calm - Current Medication List Current Medications: Active Medications Acetaminophen (Tylenol -) 650 mg PO Q6H PRN PRN Reason: FEVER OR PAIN Last Admin: 03/08/17 22:56 Dose: 650 mg Al Hydroxide/Mg Hydroxide (Mylanta Oral Suspension -) 30 ml PO Q6H PRN PRN Reason: DYSPEPSIA Last Admin: 03/06/17 16:45 Dose: 30 ml Atorvastatin Calcium (Lipitor -) 20 mg PO HS [facility] Last Admin: 03/09/17 01:30 Dose: Not Given Bismuth Subsalicylate (Pepto-Bismol Liquid -) 30 ml PO DAILY [facility] Last Admin: 03/09/17 09:07 Dose: Not Given Dextrose/Sodium Chloride (D5-1/2ns -) 1,000 mls @ 83 mls/hr IV ASDIR [facility] Last Admin: 03/09/17 01:56 Dose: 83 mls/hr Fluconazole (Diflucan 100 Mg/Ns Premixed Ivpb -) 50 mls @ 100 mls/hr IVPB DAILY [facility] Last Admin: 03/09/17 09:06 Dose: 100 mls/hr Piperacillin Sod/Tazobactam Sod (Zosyn 3.375gm Ivpb (Pre-Docked)) 50 mls @ 100 mls/hr IVPB Q8H-IV [facility] PRN Reason: Protocol Last Admin: 03/09/17 09:07 Dose: 100 mls/hr Insulin Aspart (Novolog Vial Sliding Scale -) 1 vial SQ ACHS [facility] PRN Reason: Protocol Last Admin: 03/09/17 06:44 Dose: Not Given Insulin Detemir (Levemir Vial) 16 units SQ HS [facility] Last Admin: 03/08/17 22:55 Dose: 16 units Lidocaine/Aluminum/Magnesium/Simeth (Magic Mouthwash *Sjr Formula* -) 5 ml MM Q6HPO [facility] Last Admin: 03/09/17 06:38 Dose: Not Given Metoclopramide HCl (Reglan Injection -) 10 mg IVPB Q8H PRN PRN Reason: NAUSEA/VOMITING Last Admin: 03/07/17 11:01 Dose: 10 mg Mirtazapine (Remeron -) 15 mg PO [facility] Last Admin: 03/09/17 01:30 Dose: Not Given Nystatin (Nystop Powder -) 1 applic TP BID [facility] Last Admin: 03/09/17 09:12 Dose: 1 applic Potassium Chloride (K-Dur -) 20 meq PO BID [facility] Last Admin: 03/09/17 09:07 Dose: 20 meq Sodium Bicarbonate (Sodium Bicarbonate -) 650 mg PO DAILY [facility] Last Admin: 03/09/17 09:07 Dose: 650 mg - Objective Vital Signs: Vital Signs Temperature 98.4 F 03/09/17 05:47 Pulse Rate 98 H 03/09/17 05:47 Respiratory Rate 20 03/09/17 05:47 Blood Pressure 131/74 03/09/17 05:47 O2 Sat by Pulse Oximetry (%) 100 03/08/17 21:00 Constitutional: Yes: No Distress, Calm Cardiovascular: Yes: S1, S2 Respiratory: Yes: Regular, CTA Bilaterally Gastrointestinal: Yes: Normal Bowel Sounds, Soft Genitourinary: Yes: Hutchins Present Musculoskeletal: Yes: WNL Extremities: Yes: WNL Neurological: Yes: Alert, Oriented Psychiatric: Yes: Alert Labs: CBC, BMP 03/08/17 17:30 03/09/17 06:00 INR, PTT INR 1.29 (0.82-1.09) H D 03/08/17 08:58 Assessment/Plan dvt edema of both legs r/o uti fever malignancy plan awaiting nephrostomy tube placement rest continue current mgmt
[2017-03-09] MEDS ORDERED: MAGNESIUM SULF 50% (8.12 MEQ/2 ML-1 GM VIAL) IVPB ONE (14:30)
--- NOTE | 2017-03-09 14:32 | PN ---
Progress Note (short form) - Note Progress Note: Renal Follow up for OSCAR Pt seen and examined at the bedside unable to have nephrostomy placed yesterday awaiting to go back to OR today with general anasthesia no acute complaints minaya in place Vital Signs Temperature 98.4 F 03/09/17 05:47 Pulse Rate 98 H 03/09/17 05:47 Respiratory Rate 20 03/09/17 05:47 Blood Pressure 131/74 03/09/17 05:47 O2 Sat by Pulse Oximetry (%) 100 03/08/17 21:00 Intake & Output 03/06/17 03/07/17 03/08/17 03/09/17 23:59 23:59 23:59 23:59 Intake Total 1746 1300 1378 714 Output Total 1550 1900 1050 700 Balance 196 -600 328 14 Gen: NAD CVS: RRR, No M/R Lungs: CTA Abd: soft NT/ND Ext: Trace to 1+ edema in LE : Minaya in place CBC, BMP 03/08/17 17:30 03/09/17 06:00 Laboratory Tests 03/09/17 06:00 Calcium 7.5 L Phosphorus 3.2 D Magnesium 1.3 L D Current Medications Acetaminophen (Tylenol -) 650 mg PO Q6H PRN PRN Reason: FEVER OR PAIN Last Admin: 03/08/17 22:56 Dose: 650 mg Al Hydroxide/Mg Hydroxide (Mylanta Oral Suspension -) 30 ml PO Q6H PRN PRN Reason: DYSPEPSIA Last Admin: 03/06/17 16:45 Dose: 30 ml Atorvastatin Calcium (Lipitor -) 20 mg PO HS [facility] Last Admin: 03/09/17 01:30 Dose: Not Given Bismuth Subsalicylate (Pepto-Bismol Liquid -) 30 ml PO DAILY [facility] Last Admin: 03/09/17 09:07 Dose: Not Given Fluconazole (Diflucan 100 Mg/Ns Premixed Ivpb -) 50 mls @ 100 mls/hr IVPB DAILY [facility] Last Admin: 03/09/17 09:06 Dose: 100 mls/hr Piperacillin Sod/Tazobactam Sod (Zosyn 3.375gm Ivpb (Pre-Docked)) 50 mls @ 100 mls/hr IVPB Q8H-IV [facility] PRN Reason: Protocol Last Admin: 03/09/17 09:07 Dose: 100 mls/hr Potassium Chloride/Dextrose/Sod Cl (D5-1/2ns+10 Meq Kcl -) 1,000 mls @ 83 mls/ hr IV ASDIR [facility] Insulin Aspart (Novolog Vial Sliding Scale -) 1 vial SQ ACHS [facility] PRN Reason: Protocol Last Admin: 03/09/17 12:27 Dose: Not Given Insulin Detemir (Levemir Vial) 16 units SQ HS [facility] Last Admin: 03/08/17 22:55 Dose: 16 units Lidocaine/Aluminum/Magnesium/Simeth (Magic Mouthwash *Sjr Formula* -) 5 ml MM Q6HPO [facility] Last Admin: 03/09/17 06:38 Dose: Not Given Metoclopramide HCl (Reglan Injection -) 10 mg IVPB Q8H PRN PRN Reason: NAUSEA/VOMITING Last Admin: 03/07/17 11:01 Dose: 10 mg Mirtazapine (Remeron -) 15 mg PO HS [facility] Last Admin: 03/09/17 01:30 Dose: Not Given Nystatin (Nystop Powder -) 1 applic TP BID [facility] Last Admin: 03/09/17 09:12 Dose: 1 applic Potassium Chloride (K-Dur -) 20 meq PO BID [facility] Last Admin: 03/09/17 09:07 Dose: 20 meq Sodium Bicarbonate (Sodium Bicarbonate -) 650 mg PO BID [facility] A/P 76 year old woman with PMHx of Cervical Ca on Radiation Tx, Hypertension, Hyperlipidemia, IDDM who presented with worsening LE swelling and found to have DVT and BUN/Cr of 42/2.1 #Acute renal insufficiency secondary to obstruction with underlying CKD that is not specified Renal function stable to attempt nephrostomy tube placement again today #Metabolic Acidosis increase sodium bicarb to 650mg BID #Hypomagneseia Give Mg sulfate 2g IV x 1 Thank you Glenn Deluna DO
[2017-03-09] MEDS: D5-1/2NS+10 MEQ KCL - 1,000 ML IV SCH (14:56)
[2017-03-09] MEDS ORDERED: ROCURONIUM BROMIDE 50 MG/5 ML VIAL ONE (15:30)
[2017-03-09] MEDS ORDERED: LIDOCAINE HCL/PF 2% SDV 5ML VIAL ONE (15:30)
[2017-03-09] MEDS ORDERED: PROPOFOL 20 ML ONE (15:30)
[2017-03-09] MEDS ORDERED: MAGNESIUM SULF 50% (8.12 MEQ/2 ML-1 GM VIAL) ONE (16:36)
[2017-03-09] MEDS: INSULIN DETEMIR 100 UNITS/ML MDV SQ SCH (22:01)
[2017-03-10] MEDS: MAG HYDROX/ALH/SMC/DPHA/LIDO 240 ML MOUTHWASH MM SCH ×5 (00:50→17:08)
[2017-03-10] MEDS: INSULIN SLIDING SCALE (NOVOLOG) 1 VIAL SQ SCH ×4 (06:47→23:22)
[2017-03-10 07:25] LABS: BASOPHIL 0.5 % (0-2.0); EOSINOPHIL 1.9 % (0-4.5); MCH 26.1 pg (25.7-33.7); MCHC 33.5 g/dl (32.0-36.0); MEAN CELL VOLUME 77.8 fl (80-96); MEAN PLT VOLUME 6.5 fl (7.5-11.1); NEUTROPHILS 81.6 % (42.8-82.8); PLATELET COUNT 188 K/MM3 (134-434); RDW 19.3 % (11.6-15.6)
[2017-03-10 07:45] LABS: CALCIUM 7.5 mg/dL (8.5-10.1)
[2017-03-10 07:49] LABS: COCKROFT - GAULT 22.6695; CREATININE 2.4 mg/dL (0.55-1.02); MAGNESIUM 1.8 mg/dL (1.8-2.4); PHOSPHOROUS 3.2 mg/dL (2.5-4.9)
--- NOTE | 2017-03-10 08:27 | PN ---
Progress Note, Physician Chief Complaint: Feels OK History of Present Illness: PC nephrostomy was not done yesterday,scheduled to do it in the OR - Current Medication List Current Medications: Active Medications Acetaminophen (Tylenol -) 650 mg PO Q6H PRN PRN Reason: FEVER OR PAIN Last Admin: 03/08/17 22:56 Dose: 650 mg Al Hydroxide/Mg Hydroxide (Mylanta Oral Suspension -) 30 ml PO Q6H PRN PRN Reason: DYSPEPSIA Last Admin: 03/06/17 16:45 Dose: 30 ml Atorvastatin Calcium (Lipitor -) 20 mg PO [facility] Last Admin: 03/09/17 22:02 Dose: Not Given Bismuth Subsalicylate (Pepto-Bismol Liquid -) 30 ml PO DAILY [facility] Last Admin: 03/09/17 09:07 Dose: Not Given Fluconazole (Diflucan 100 Mg/Ns Premixed Ivpb -) 50 mls @ 100 mls/hr IVPB DAILY [facility] Last Admin: 03/09/17 09:06 Dose: 100 mls/hr Potassium Chloride/Dextrose/Sod Cl (D5-1/2ns+10 Meq Kcl -) 1,000 mls @ 83 mls/ hr IV ASDIR [facility] Last Admin: 03/09/17 14:56 Dose: 83 mls/hr Insulin Aspart (Novolog Vial Sliding Scale -) 1 vial SQ ACHS [facility] PRN Reason: Protocol Last Admin: 03/10/17 06:47 Dose: Not Given Insulin Detemir (Levemir Vial) 16 units SQ [facility] Last Admin: 03/09/17 22:01 Dose: Not Given Lidocaine/Aluminum/Magnesium/Simeth (Magic Mouthwash *Sjr Formula* -) 5 ml MM Q6HPO [facility] Last Admin: 03/10/17 06:47 Dose: Not Given Metoclopramide HCl (Reglan Injection -) 10 mg IVPB Q8H PRN PRN Reason: NAUSEA/VOMITING Last Admin: 03/07/17 11:01 Dose: 10 mg Mirtazapine (Remeron -) 15 mg PO HS [facility] Last Admin: 03/09/17 22:02 Dose: 15 mg Nystatin (Nystop Powder -) 1 applic TP BID [facility] Last Admin: 03/09/17 22:08 Dose: 1 applic Potassium Chloride (K-Dur -) 20 meq PO BID [facility] Last Admin: 03/09/17 22:03 Dose: Not Given Sodium Bicarbonate (Sodium Bicarbonate -) 650 mg PO BID [facility] Last Admin: 03/09/17 22:03 Dose: Not Given - Objective Vital Signs: Vital Signs Temperature 98.5 F 03/10/17 05:32 Pulse Rate 104 H 03/10/17 05:32 Respiratory Rate 20 03/10/17 05:32 Blood Pressure 128/58 03/10/17 05:32 O2 Sat by Pulse Oximetry (%) 100 03/09/17 22:00 Constitutional: Yes: No Distress Eyes: Yes: WNL HENT: Yes: WNL Neck: Yes: WNL Cardiovascular: Yes: WNL Respiratory: Yes: WNL Gastrointestinal: Yes: Normal Bowel Sounds ...Rectal Exam: Yes: Deferred Genitourinary: Yes: Hutchins Present Breast(s): Yes: WNL Musculoskeletal: Yes: WNL, Muscle Weakness Extremities: Yes: WNL Edema: No Neurological: Yes: Alert Labs: CBC, BMP 03/10/17 06:00 03/10/17 06:00 INR, PTT INR 1.29 (0.82-1.09) H D 03/08/17 08:58 Assessment/Plan Cleared for the procedure
--- NOTE | 2017-03-10 08:29 | PN ---
Progress Note, Physician - Current Medication List Current Medications: Active Medications Acetaminophen (Tylenol -) 650 mg PO Q6H PRN PRN Reason: FEVER OR PAIN Last Admin: 03/08/17 22:56 Dose: 650 mg Al Hydroxide/Mg Hydroxide (Mylanta Oral Suspension -) 30 ml PO Q6H PRN PRN Reason: DYSPEPSIA Last Admin: 03/06/17 16:45 Dose: 30 ml Atorvastatin Calcium (Lipitor -) 20 mg PO [facility] Last Admin: 03/09/17 22:02 Dose: Not Given Bismuth Subsalicylate (Pepto-Bismol Liquid -) 30 ml PO DAILY [facility] Last Admin: 03/09/17 09:07 Dose: Not Given Fluconazole (Diflucan 100 Mg/Ns Premixed Ivpb -) 50 mls @ 100 mls/hr IVPB DAILY [facility] Last Admin: 03/09/17 09:06 Dose: 100 mls/hr Potassium Chloride/Dextrose/Sod Cl (D5-1/2ns+10 Meq Kcl -) 1,000 mls @ 83 mls/ hr IV ASDIR [facility] Last Admin: 03/09/17 14:56 Dose: 83 mls/hr Insulin Aspart (Novolog Vial Sliding Scale -) 1 vial SQ ACHS [facility] PRN Reason: Protocol Last Admin: 03/10/17 06:47 Dose: Not Given Insulin Detemir (Levemir Vial) 16 units SQ [facility] Last Admin: 03/09/17 22:01 Dose: Not Given Lidocaine/Aluminum/Magnesium/Simeth (Magic Mouthwash *Sjr Formula* -) 5 ml MM Q6HPO [facility] Last Admin: 03/10/17 06:47 Dose: Not Given Metoclopramide HCl (Reglan Injection -) 10 mg IVPB Q8H PRN PRN Reason: NAUSEA/VOMITING Last Admin: 03/07/17 11:01 Dose: 10 mg Mirtazapine (Remeron -) 15 mg PO HS [facility] Last Admin: 03/09/17 22:02 Dose: 15 mg Nystatin (Nystop Powder -) 1 applic TP BID [facility] Last Admin: 03/09/17 22:08 Dose: 1 applic Potassium Chloride (K-Dur -) 20 meq PO BID [facility] Last Admin: 03/09/17 22:03 Dose: Not Given Sodium Bicarbonate (Sodium Bicarbonate -) 650 mg PO BID [facility] Last Admin: 05/10/17 22:03 Dose: Not Given - Objective Vital Signs: Vital Signs Temperature 98.5 F 03/10/17 05:32 Pulse Rate 104 H 03/10/17 05:32 Respiratory Rate 20 03/10/17 05:32 Blood Pressure 128/58 03/10/17 05:32 O2 Sat by Pulse Oximetry (%) 100 03/09/17 22:00 Labs: CBC, BMP 03/10/17 06:00 03/10/17 06:00 INR, PTT INR 1.29 (0.82-1.09) H D 03/08/17 08:58
[2017-03-10] MEDS: D5-1/2NS+10 MEQ KCL - 1,000 ML IV SCH (09:00)
[2017-03-10] MEDS ORDERED: PT OWN MED DRAWER 7, Y5N ONE (09:20)
[2017-03-10] MEDS: FLUCONAZOLE 100 MG/NS 50 ML IVPB SCH (09:24)
[2017-03-10] MEDS: SODIUM BICARBONATE 650 MG TABLET PO SCH ×2 (09:24→23:23)
[2017-03-10] MEDS: NYSTATIN POWDER 100,000 UNITS/GM - 15 GM TOPICAL POWDER TP SCH ×2 (09:24→23:22)
[2017-03-10] MEDS: POTASSIUM CHLORIDE TABS 20 MEQ TABLET.ER (FP) PO SCH ×2 (09:24→23:21)
[2017-03-10] MEDS: BISMUTH SUBSALICYLATE 262 MG/15 ML BTL PO SCH (09:24)
[2017-03-10] MEDS ORDERED: D5-1/2NS+30 MEQ KCL - 1,000 ML IV SCH ×2 (10:15→11:00)
[2017-03-10] MEDS: POTASSIUM CHLORIDE 30 MEQ in DEXTROSE 5%-0.45% SALINE 1,000 ML IVPB SCH (12:20)
--- NOTE | 2017-03-10 12:59 | PN ---
Progress Note (short form) - Note Progress Note: Renal Follow up for OSCAR Pt seen and examined at the bedside awake and alert at the bedside pt refused procedure yesterday and procedure was canceled by Anaesthesia pt understands that her kidneys are not functioning and that she needs something to be done Vital Signs Temperature 98.5 F 03/10/17 09:15 Pulse Rate 104 H 03/10/17 09:15 Respiratory Rate 18 03/10/17 09:15 Blood Pressure 157/80 03/10/17 09:15 O2 Sat by Pulse Oximetry (%) 96 03/10/17 09:15 Intake & Output 03/07/17 03/08/17 03/09/17 03/10/17 23:59 23:59 23:59 23:59 Intake Total 1300 1378 1714 990 Output Total 1900 1050 1650 300 Balance -600 328 64 690 Gen: NAD CVS: RRR, No M/R Lungs: CTA Abd: soft NT/ND Ext: Trace to 1+ edema in LE : Minaya in place CBC, BMP 03/10/17 06:00 03/10/17 06:00 Laboratory Tests 03/10/17 06:00 Calcium 7.5 L Phosphorus 3.2 Magnesium 1.8 D Current Medications Acetaminophen (Tylenol -) 650 mg PO Q6H PRN PRN Reason: FEVER OR PAIN Last Admin: 03/08/17 22:56 Dose: 650 mg Al Hydroxide/Mg Hydroxide (Mylanta Oral Suspension -) 30 ml PO Q6H PRN PRN Reason: DYSPEPSIA Last Admin: 03/06/17 16:45 Dose: 30 ml Atorvastatin Calcium (Lipitor -) 20 mg PO HS [facility] Last Admin: 03/09/17 22:02 Dose: Not Given Bismuth Subsalicylate (Pepto-Bismol Liquid -) 30 ml PO DAILY [facility] Last Admin: 03/10/17 09:24 Dose: Not Given Potassium Chloride 30 meq/ (Dextrose/Sodium Chloride) 1,015 mls @ 75 mls/hr IVPB Q13H [facility] Last Admin: 03/10/17 12:20 Dose: 75 mls/hr Insulin Aspart (Novolog Vial Sliding Scale -) 1 vial SQ ACHS [facility] PRN Reason: Protocol Last Admin: 03/10/17 12:19 Dose: Not Given Insulin Detemir (Levemir Vial) 16 units SQ HS [facility] Last Admin: 03/09/17 22:01 Dose: Not Given Lidocaine/Aluminum/Magnesium/Simeth (Magic Mouthwash *Sjr Formula* -) 5 ml MM Q6HPO [facility] Last Admin: 03/10/17 12:20 Dose: Not Given Metoclopramide HCl (Reglan Injection -) 10 mg IVPB Q8H PRN PRN Reason: NAUSEA/VOMITING Last Admin: 03/07/17 11:01 Dose: 10 mg Mirtazapine (Remeron -) 15 mg PO HS [facility] Last Admin: 03/09/17 22:02 Dose: 15 mg Nystatin (Nystop Powder -) 1 applic TP BID [facility] Last Admin: 03/10/17 09:24 Dose: 1 applic Potassium Chloride (K-Dur -) 20 meq PO BID [facility] Last Admin: 03/10/17 09:24 Dose: Not Given Sodium Bicarbonate (Sodium Bicarbonate -) 650 mg PO BID [facility] Last Admin: 03/10/17 09:24 Dose: Not Given A/P 76 year old woman with PMHx of Cervical Ca on Radiation Tx, Hypertension, Hyperlipidemia, IDDM who presented with worsening LE swelling and found to have DVT and BUN/Cr of 42/2.1 #Acute renal insufficiency secondary to obstruction with underlying CKD that is not specified Renal function stable at this time awaiting nephrostomy tube placement (discussed with Dr. Hidalgo who said it will most likely be tomorrow) continue gentle IVF for now maintain minaya catheter until nephrostomy placed dose all meds for Cr Cl less then 20 continue sodium bicarb BID Trend BUN/Cr Thank you Glenn Deluna DO
--- NOTE | 2017-03-10 16:55 | PN ---
Progress Note, Physician History of Present Illness: plan again for nephrostomy tomorrow patient looks calm here - Current Medication List Current Medications: Active Medications Acetaminophen (Tylenol -) 650 mg PO Q6H PRN PRN Reason: FEVER OR PAIN Last Admin: 03/08/17 22:56 Dose: 650 mg Al Hydroxide/Mg Hydroxide (Mylanta Oral Suspension -) 30 ml PO Q6H PRN PRN Reason: DYSPEPSIA Last Admin: 03/06/17 16:45 Dose: 30 ml Atorvastatin Calcium (Lipitor -) 20 mg PO HS [facility] Last Admin: 03/09/17 22:02 Dose: Not Given Bismuth Subsalicylate (Pepto-Bismol Liquid -) 30 ml PO DAILY [facility] Last Admin: 03/10/17 09:24 Dose: Not Given Potassium Chloride 30 meq/ (Dextrose/Sodium Chloride) 1,015 mls @ 75 mls/hr IVPB Q13H [facility] Last Admin: 03/10/17 12:20 Dose: 75 mls/hr Insulin Aspart (Novolog Vial Sliding Scale -) 1 vial SQ ACHS [facility] PRN Reason: Protocol Last Admin: 03/10/17 12:19 Dose: Not Given Insulin Detemir (Levemir Vial) 16 units SQ [facility] Last Admin: 03/09/17 22:01 Dose: Not Given Lidocaine/Aluminum/Magnesium/Simeth (Magic Mouthwash *Sjr Formula* -) 5 ml MM Q6HPO [facility] Last Admin: 03/10/17 12:20 Dose: Not Given Metoclopramide HCl (Reglan Injection -) 10 mg IVPB Q8H PRN PRN Reason: NAUSEA/VOMITING Last Admin: 03/07/17 11:01 Dose: 10 mg Mirtazapine (Remeron -) 15 mg PO HS [facility] Last Admin: 03/09/17 22:02 Dose: 15 mg Nystatin (Nystop Powder -) 1 applic TP BID [facility] Last Admin: 03/10/17 09:24 Dose: 1 applic Potassium Chloride (K-Dur -) 20 meq PO BID [facility] Last Admin: 03/10/17 09:24 Dose: Not Given Sodium Bicarbonate (Sodium Bicarbonate -) 650 mg PO BID [facility] Last Admin: 03/10/17 09:24 Dose: Not Given - Objective Vital Signs: Vital Signs Temperature 99.0 F 03/10/17 14:12 Pulse Rate 109 H 03/10/17 14:12 Respiratory Rate 18 03/10/17 14:12 Blood Pressure 145/81 03/10/17 14:12 O2 Sat by Pulse Oximetry (%) 96 03/10/17 09:15 Constitutional: Yes: No Distress, Calm Cardiovascular: Yes: S1, S2 Respiratory: Yes: Regular, CTA Bilaterally Gastrointestinal: Yes: Normal Bowel Sounds, Soft Musculoskeletal: Yes: WNL Extremities: Yes: WNL Integumentary: Yes: WNL Neurological: Yes: Alert, Oriented Psychiatric: Yes: Alert Labs: CBC, BMP 03/10/17 06:00 03/10/17 06:00 INR, PTT INR 1.29 (0.82-1.09) H D 03/08/17 08:58 Assessment/Plan dvt edema of both legs r/o uti fever malignancy plan awaiting nephrostomy tube placement continue abx
[2017-03-10] MEDS: MIRTAZAPINE 15 MG TABLET (FP) PO SCH (23:22)
[2017-03-10] MEDS: ATORVASTATIN CA 20 MG TABLET (FP) PO SCH (23:22)
[2017-03-10] MEDS: INSULIN DETEMIR 100 UNITS/ML MDV SQ SCH (23:22)
[2017-03-11] MEDS: MAG HYDROX/ALH/SMC/DPHA/LIDO 240 ML MOUTHWASH MM SCH ×4 (01:48→18:00)
[2017-03-11] MEDS: POTASSIUM CHLORIDE 30 MEQ in DEXTROSE 5%-0.45% SALINE 1,000 ML IVPB SCH ×2 (03:33→21:17)
[2017-03-11] MEDS: INSULIN SLIDING SCALE (NOVOLOG) 1 VIAL SQ SCH ×4 (06:51→21:19)
[2017-03-11] MEDS ORDERED: PT OWN MED DRAWER 7, Y5N ONE ×3 (06:55→20:28)
--- NOTE | 2017-03-11 09:00 | PN ---
Progress Note, Physician Chief Complaint: Feels OK ,wants to go home History of Present Illness: Scheduled for PC nephrostomy - Current Medication List Current Medications: Active Medications Acetaminophen (Tylenol -) 650 mg PO Q6H PRN PRN Reason: FEVER OR PAIN Last Admin: 03/08/17 22:56 Dose: 650 mg Al Hydroxide/Mg Hydroxide (Mylanta Oral Suspension -) 30 ml PO Q6H PRN PRN Reason: DYSPEPSIA Last Admin: 03/06/17 16:45 Dose: 30 ml Atorvastatin Calcium (Lipitor -) 20 mg PO HS [facility] Last Admin: 03/10/17 23:22 Dose: Not Given Bismuth Subsalicylate (Pepto-Bismol Liquid -) 30 ml PO DAILY [facility] Last Admin: 03/10/17 09:24 Dose: Not Given Potassium Chloride 30 meq/ (Dextrose/Sodium Chloride) 1,015 mls @ 75 mls/hr IVPB Q13H [facility] Last Admin: 03/11/17 03:33 Dose: 75 mls/hr Insulin Aspart (Novolog Vial Sliding Scale -) 1 vial SQ ACHS [facility] PRN Reason: Protocol Last Admin: 03/11/17 06:51 Dose: Not Given Insulin Detemir (Levemir Vial) 16 units SQ HS [facility] Last Admin: 03/10/17 23:22 Dose: 16 units Lidocaine/Aluminum/Magnesium/Simeth (Magic Mouthwash *Sjr Formula* -) 5 ml MM Q6HPO [facility] Last Admin: 03/11/17 06:48 Dose: Not Given Metoclopramide HCl (Reglan Injection -) 10 mg IVPB Q8H PRN PRN Reason: NAUSEA/VOMITING Last Admin: 03/07/17 11:01 Dose: 10 mg Mirtazapine (Remeron -) 15 mg PO HS [facility] Last Admin: 03/10/17 23:22 Dose: Not Given Nystatin (Nystop Powder -) 1 applic TP BID [facility] Last Admin: 03/10/17 23:22 Dose: 1 applic Potassium Chloride (K-Dur -) 20 meq PO BID [facility] Last Admin: 03/10/17 23:21 Dose: Not Given Sodium Bicarbonate (Sodium Bicarbonate -) 650 mg PO BID [facility] Last Admin: 03/10/17 23:23 Dose: Not Given - Objective Vital Signs: Vital Signs Temperature 98.8 F 03/10/17 22:00 Pulse Rate 75 03/11/17 05:48 Respiratory Rate 20 03/11/17 05:48 Blood Pressure 115/75 03/11/17 05:48 O2 Sat by Pulse Oximetry (%) 96 03/10/17 21:00 Constitutional: Yes: Anxious Eyes: Yes: WNL HENT: Yes: WNL Neck: Yes: WNL Cardiovascular: Yes: WNL Respiratory: Yes: WNL ...Rectal Exam: Yes: Deferred Genitourinary: Yes: WNL Musculoskeletal: Yes: Muscle Weakness Edema: No Neurological: Yes: Alert ...Motor Strength: WNL Psychiatric: Yes: Alert Labs: CBC, BMP 03/10/17 06:00 03/10/17 06:00 INR, PTT INR 1.29 (0.82-1.09) H D 03/08/17 08:58 Assessment/Plan Continue same trt
[2017-03-11] MEDS: POTASSIUM CHLORIDE TABS 20 MEQ TABLET.ER (FP) PO SCH ×2 (09:49→21:18)
[2017-03-11] MEDS: NYSTATIN POWDER 100,000 UNITS/GM - 15 GM TOPICAL POWDER TP SCH ×2 (09:49→21:19)
[2017-03-11] MEDS: SODIUM BICARBONATE 650 MG TABLET PO SCH ×2 (09:50→21:18)
[2017-03-11] MEDS: BISMUTH SUBSALICYLATE 262 MG/15 ML BTL PO SCH (09:50)
--- NOTE | 2017-03-11 09:50 | PN ---
Progress Note, Physician History of Present Illness: patient better today more calmer - Current Medication List Current Medications: Active Medications Acetaminophen (Tylenol -) 650 mg PO Q6H PRN PRN Reason: FEVER OR PAIN Last Admin: 03/08/17 22:56 Dose: 650 mg Al Hydroxide/Mg Hydroxide (Mylanta Oral Suspension -) 30 ml PO Q6H PRN PRN Reason: DYSPEPSIA Last Admin: 03/06/17 16:45 Dose: 30 ml Atorvastatin Calcium (Lipitor -) 20 mg PO HS [facility] Last Admin: 03/10/17 23:22 Dose: Not Given Bismuth Subsalicylate (Pepto-Bismol Liquid -) 30 ml PO DAILY [facility] Last Admin: 03/10/17 09:24 Dose: Not Given Potassium Chloride 30 meq/ (Dextrose/Sodium Chloride) 1,015 mls @ 75 mls/hr IVPB Q13H [facility] Last Admin: 03/11/17 03:33 Dose: 75 mls/hr Insulin Aspart (Novolog Vial Sliding Scale -) 1 vial SQ [facility] PRN Reason: Protocol Last Admin: 03/11/17 06:51 Dose: Not Given Insulin Detemir (Levemir Vial) 16 units SQ [facility] Last Admin: 03/10/17 23:22 Dose: 16 units Lidocaine/Aluminum/Magnesium/Simeth (Magic Mouthwash *Sjr Formula* -) 5 ml MM Q6HPO [facility] Last Admin: 03/11/17 06:48 Dose: Not Given Metoclopramide HCl (Reglan Injection -) 10 mg IVPB Q8H PRN PRN Reason: NAUSEA/VOMITING Last Admin: 03/07/17 11:01 Dose: 10 mg Mirtazapine (Remeron -) 15 mg PO [facility] Last Admin: 03/10/17 23:22 Dose: Not Given Nystatin (Nystop Powder -) 1 applic TP BID [facility] Last Admin: 03/10/17 23:22 Dose: 1 applic Potassium Chloride (K-Dur -) 20 meq PO BID [facility] Last Admin: 03/10/17 23:21 Dose: Not Given Sodium Bicarbonate (Sodium Bicarbonate -) 650 mg PO BID [facility] Last Admin: 03/10/17 23:23 Dose: Not Given - Objective Vital Signs: Vital Signs Temperature 98.5 F 03/11/17 09:39 Pulse Rate 100 H 03/11/17 09:39 Respiratory Rate 18 03/11/17 09:39 Blood Pressure 150/70 03/11/17 09:39 O2 Sat by Pulse Oximetry (%) 96 03/10/17 21:00 Constitutional: Yes: No Distress, Calm Cardiovascular: Yes: S1, S2 Respiratory: Yes: Regular, CTA Bilaterally Gastrointestinal: Yes: Normal Bowel Sounds, Soft Genitourinary: Yes: Hutchins Present Musculoskeletal: Yes: WNL Extremities: Yes: WNL Neurological: Yes: Alert, Oriented Psychiatric: Yes: Alert Labs: CBC, BMP 03/10/17 06:00 03/10/17 06:00 INR, PTT INR 1.29 (0.82-1.09) H D 03/08/17 08:58 Assessment/Plan dvt edema of both legs r/o uti fever malignancy plan plan nephrostomy tube placement today continue abx continue as per nephro rest as per primary
[2017-03-11] MEDS ORDERED: MIDAZOLAM HCL 2 MG/2 ML SINGLE DOSE VIAL IVPUSH ONE (11:02)
[2017-03-11] MEDS ORDERED: LEVOFLOXACIN 500 MG IVPB 100 ML IVPB ONE (12:30)
--- NOTE | 2017-03-11 13:26 | PN ---
Progress Note (short form) - Note Progress Note: Renal Follow up for OSCAR Pt seen and examined at the bedside s/p bilateral nephrostomy tube placement pt without any acute complaints minaya in place denies any sob or chest pain Vital Signs Temperature 98.6 F 03/11/17 12:15 Pulse Rate 105 H 03/11/17 12:15 Respiratory Rate 18 03/11/17 12:15 Blood Pressure 154/75 03/11/17 12:15 O2 Sat by Pulse Oximetry (%) 100 03/11/17 11:26 Intake & Output 03/08/17 03/09/17 03/10/17 03/11/17 23:59 23:59 23:59 23:59 Intake Total 1378 1714 1290 600 Output Total 1050 1650 1400 500 Balance 328 64 -110 100 Gen: NAD CVS: RRR, No M/R Lungs: CTA Abd: soft NT/ND Ext: Trace to 1+ edema in LE : Minaya in place, b/l nephrostomy tubes in place. some hematuria on the right side. CBC, BMP 03/10/17 06:00 03/10/17 06:00 Current Medications Acetaminophen (Tylenol -) 650 mg PO Q6H PRN PRN Reason: FEVER OR PAIN Last Admin: 03/08/17 22:56 Dose: 650 mg Al Hydroxide/Mg Hydroxide (Mylanta Oral Suspension -) 30 ml PO Q6H PRN PRN Reason: DYSPEPSIA Last Admin: 03/06/17 16:45 Dose: 30 ml Atorvastatin Calcium (Lipitor -) 20 mg PO HS [facility] Last Admin: 03/10/17 23:22 Dose: Not Given Bismuth Subsalicylate (Pepto-Bismol Liquid -) 30 ml PO DAILY [facility] Last Admin: 03/11/17 09:50 Dose: Not Given Potassium Chloride 30 meq/ (Dextrose/Sodium Chloride) 1,015 mls @ 75 mls/hr IVPB Q13H [facility] Last Admin: 03/11/17 03:33 Dose: 75 mls/hr Levofloxacin (Levaquin 500 Mg Premixed Ivpb -) 100 mls @ 100 mls/hr IVPB ONCE ONE Stop: 03/11/17 13:29 Insulin Aspart (Novolog Vial Sliding Scale -) 1 vial SQ ACHS [facility] PRN Reason: Protocol Last Admin: 03/11/17 12:38 Dose: Not Given Insulin Detemir (Levemir Vial) 16 units SQ HS [facility] Last Admin: 03/10/17 23:22 Dose: 16 units Lidocaine/Aluminum/Magnesium/Simeth (Magic Mouthwash *Sjr Formula* -) 5 ml MM Q6HPO [facility] Last Admin: 03/11/17 12:38 Dose: Not Given Metoclopramide HCl (Reglan Injection -) 10 mg IVPB Q8H PRN PRN Reason: NAUSEA/VOMITING Last Admin: 03/07/17 11:01 Dose: 10 mg Mirtazapine (Remeron -) 15 mg PO HS [facility] Last Admin: 03/10/17 23:22 Dose: Not Given Nystatin (Nystop Powder -) 1 applic TP BID [facility] Last Admin: 03/11/17 09:49 Dose: 1 applic Potassium Chloride (K-Dur -) 20 meq PO BID [facility] Last Admin: 03/11/17 09:49 Dose: Not Given Sodium Bicarbonate (Sodium Bicarbonate -) 650 mg PO BID [facility] Last Admin: 03/11/17 09:50 Dose: Not Given A/P 76 year old woman with PMHx of Cervical Ca on Radiation Tx, Hypertension, Hyperlipidemia, IDDM who presented with worsening LE swelling and found to have DVT and BUN/Cr of 42/2.1 #Acute renal insufficiency secondary to obstruction with underlying CKD that is not specified Renal function stable at this time awaiting nephrostomy tube placement (discussed with Dr. Hidalgo who said it will most likely be tomorrow) continue gentle IVF for now maintain minaya catheter until nephrostomy placed dose all meds for Cr Cl less then 20 continue sodium bicarb BID Trend BUN/Cr continue gentle IVF hydration for now Thank you Glenn Deluna DO
[2017-03-11] MEDS: amLODIPine BESYLATE 5 MG TABLET (FP) PO SCH (15:15)
[2017-03-11] MEDS: INSULIN DETEMIR 100 UNITS/ML MDV SQ SCH (21:18)
[2017-03-11] MEDS: ATORVASTATIN CA 20 MG TABLET (FP) PO SCH (21:18)
[2017-03-11] MEDS: MIRTAZAPINE 15 MG TABLET (FP) PO SCH (21:18)
[2017-03-12] MEDS: MAG HYDROX/ALH/SMC/DPHA/LIDO 240 ML MOUTHWASH MM SCH ×4 (00:10→19:06)
[2017-03-12] MEDS: POTASSIUM CHLORIDE 30 MEQ in DEXTROSE 5%-0.45% SALINE 1,000 ML IVPB SCH ×2 (02:15→09:40)
[2017-03-12] MEDS: INSULIN SLIDING SCALE (NOVOLOG) 1 VIAL SQ SCH ×4 (06:19→21:32)
[2017-03-12] MEDS ORDERED: INSULIN DETEMIR 100 UNITS/ML MDV SQ ONE (06:37)
[2017-03-12] MEDS ORDERED: INSULIN (NOVOLOG) ASPART 100 UNITS/ML 10ML VIAL ONE ×2 (06:38→12:57)
[2017-03-12] MEDS ORDERED: PT OWN MED DRAWER 7, Y5N ONE ×2 (06:38→21:04)
[2017-03-12] MEDS: METOCLOPRAMIDE HCL INJECTION 10 MG/2 ML VIAL IVPB PRN (06:40)
--- NOTE | 2017-03-12 08:54 | PN ---
Progress Note, Physician Chief Complaint: feels good History of Present Illness: S/P bilateral nephrostomy - Current Medication List Current Medications: Active Medications Acetaminophen (Tylenol -) 650 mg PO Q6H PRN PRN Reason: FEVER OR PAIN Last Admin: 03/08/17 22:56 Dose: 650 mg Al Hydroxide/Mg Hydroxide (Mylanta Oral Suspension -) 30 ml PO Q6H PRN PRN Reason: DYSPEPSIA Last Admin: 03/06/17 16:45 Dose: 30 ml Amlodipine Besylate (Norvasc -) 5 mg PO DAILY [facility] Last Admin: 03/11/17 15:15 Dose: 5 mg Atorvastatin Calcium (Lipitor -) 20 mg PO HS [facility] Last Admin: 03/11/17 21:18 Dose: 20 mg Bismuth Subsalicylate (Pepto-Bismol Liquid -) 30 ml PO DAILY [facility] Last Admin: 03/11/17 09:50 Dose: Not Given Potassium Chloride 30 meq/ (Dextrose/Sodium Chloride) 1,015 mls @ 75 mls/hr IVPB Q13H [facility] Last Admin: 03/12/17 02:15 Dose: Not Given Insulin Aspart (Novolog Vial Sliding Scale -) 1 vial SQ ACHS [facility] PRN Reason: Protocol Last Admin: 03/12/17 06:19 Dose: 4 units Insulin Detemir (Levemir Vial) 16 units SQ HS [facility] Last Admin: 03/11/17 21:18 Dose: Not Given Lidocaine/Aluminum/Magnesium/Simeth (Magic Mouthwash *Sjr Formula* -) 5 ml MM Q6HPO [facility] Last Admin: 03/12/17 06:17 Dose: Not Given Metoclopramide HCl (Reglan Injection -) 10 mg IVPB Q8H PRN PRN Reason: NAUSEA/VOMITING Last Admin: 03/12/17 06:40 Dose: 10 mg Mirtazapine (Remeron -) 15 mg PO HS [facility] Last Admin: 03/11/17 21:18 Dose: 15 mg Nystatin (Nystop Powder -) 1 applic TP BID [facility] Last Admin: 03/11/17 21:19 Dose: 1 applic Potassium Chloride (K-Dur -) 20 meq PO BID [facility] Last Admin: 03/11/17 21:18 Dose: 20 meq Sodium Bicarbonate (Sodium Bicarbonate -) 650 mg PO BID [facility] Last Admin: 03/11/17 21:18 Dose: 650 mg - Objective Vital Signs: Vital Signs Temperature 97.8 F 03/12/17 05:28 Pulse Rate 108 H 03/12/17 05:28 Respiratory Rate 20 03/12/17 05:28 Blood Pressure 139/80 03/12/17 05:28 O2 Sat by Pulse Oximetry (%) 95 03/11/17 20:58 Constitutional: Yes: No Distress Eyes: Yes: WNL HENT: Yes: WNL Neck: Yes: WNL Cardiovascular: Yes: WNL Respiratory: Yes: WNL Gastrointestinal: Yes: WNL ...Rectal Exam: Yes: Deferred Genitourinary: Yes: Other (Rt nephrostomy has minimal blood stained urine) Labs: CBC, BMP 03/10/17 06:00 03/10/17 06:00 INR, PTT INR 1.29 (0.82-1.09) H D 03/08/17 08:58 Assessment/Plan Start back on coumadin
[2017-03-12] MEDS: amLODIPine BESYLATE 5 MG TABLET (FP) PO SCH (09:40)
[2017-03-12] MEDS: POTASSIUM CHLORIDE TABS 20 MEQ TABLET.ER (FP) PO SCH ×2 (09:40→21:22)
[2017-03-12] MEDS: SODIUM BICARBONATE 650 MG TABLET PO SCH ×2 (09:41→21:22)
--- NOTE | 2017-03-12 12:30 | PN ---
Progress Note (short form) - Note Progress Note: Renal Follow up for OSCAR Pt seen and examined at the bedside currently getting blood drawn no labs from this aM no overnight events Hutchins discontinued nephrostoy tubes with good drainage Vital Signs Temperature 97.8 F 03/12/17 05:28 Pulse Rate 108 H 03/12/17 05:28 Respiratory Rate 20 03/12/17 05:28 Blood Pressure 139/80 03/12/17 05:28 O2 Sat by Pulse Oximetry (%) 95 03/11/17 20:58 Intake & Output 03/09/17 03/10/17 03/11/17 03/12/17 23:59 23:59 23:59 23:59 Intake Total 1714 1290 1320 1200 Output Total 1650 1400 1550 1350 Balance 64 -110 -230 -150 Gen: NAD CVS: RRR, No M/R Lungs: CTA Abd: soft NT/ND Ext: Trace to 1+ edema in LE : b/l nephrostomy tubes in place. s CBC, BMP 03/10/17 06:00 03/10/17 06:00 Current Medications Acetaminophen (Tylenol -) 650 mg PO Q6H PRN PRN Reason: FEVER OR PAIN Last Admin: 03/08/17 22:56 Dose: 650 mg Al Hydroxide/Mg Hydroxide (Mylanta Oral Suspension -) 30 ml PO Q6H PRN PRN Reason: DYSPEPSIA Last Admin: 03/06/17 16:45 Dose: 30 ml Amlodipine Besylate (Norvasc -) 5 mg PO DAILY [facility] Last Admin: 03/12/17 09:40 Dose: 5 mg Atorvastatin Calcium (Lipitor -) 20 mg PO HS [facility] Last Admin: 03/11/17 21:18 Dose: 20 mg Bismuth Subsalicylate (Pepto-Bismol Liquid -) 30 ml PO DAILY [facility] Last Admin: 03/11/17 09:50 Dose: Not Given Potassium Chloride 30 meq/ (Dextrose/Sodium Chloride) 1,015 mls @ 75 mls/hr IVPB Q13H [facility] Last Admin: 03/12/17 09:40 Dose: 75 mls/hr Insulin Aspart (Novolog Vial Sliding Scale -) 1 vial SQ [facility] PRN Reason: Protocol Last Admin: 03/12/17 06:19 Dose: 4 units Insulin Detemir (Levemir Vial) 16 units SQ [facility] Last Admin: 03/11/17 21:18 Dose: Not Given Lidocaine/Aluminum/Magnesium/Simeth (Magic Mouthwash *Sjr Formula* -) 5 ml MM Q6HPO [facility] Last Admin: 03/12/17 06:17 Dose: Not Given Metoclopramide HCl (Reglan Injection -) 10 mg IVPB Q8H PRN PRN Reason: NAUSEA/VOMITING Last Admin: 03/12/17 06:40 Dose: 10 mg Mirtazapine (Remeron -) 15 mg PO HS [facility] Last Admin: 03/11/17 21:18 Dose: 15 mg Nystatin (Nystop Powder -) 1 applic TP BID [facility] Last Admin: 03/11/17 21:19 Dose: 1 applic Potassium Chloride (K-Dur -) 20 meq PO BID [facility] Last Admin: 03/12/17 09:40 Dose: 20 meq Sodium Bicarbonate (Sodium Bicarbonate -) 650 mg PO BID [facility] Last Admin: 03/12/17 09:41 Dose: 650 mg A/P 76 year old woman with PMHx of Cervical Ca on Radiation Tx, Hypertension, Hyperlipidemia, IDDM who presented with worsening LE swelling and found to have DVT and BUN/Cr of 42/2.1 #Acute renal insufficiency secondary to obstruction with underlying CKD that is not specified todays labs pending nephrostomy tubes with good drainage d/c IVF today Trend BUN/Cr continue soidum bicarb BID f/u todays labs d/c planning as per primary Thank you Glenn Deluna DO
[2017-03-12] MEDS: BISMUTH SUBSALICYLATE 262 MG/15 ML BTL PO SCH (13:03)
[2017-03-12 13:51] LABS: CALCIUM 7.9 mg/dL (8.5-10.1); COCKROFT - GAULT 20.927; CREATININE 2.6 mg/dL (0.55-1.02)
[2017-03-12] MEDS: NYSTATIN POWDER 100,000 UNITS/GM - 15 GM TOPICAL POWDER TP SCH ×2 (15:03→21:27)
--- NOTE | 2017-03-12 17:56 | PN ---
Progress Note, Physician History of Present Illness: patient better spiking fever family in room nephrostomy tubes [placed urine looks dirty - Current Medication List Current Medications: Active Medications Acetaminophen (Tylenol -) 650 mg PO Q6H PRN PRN Reason: FEVER OR PAIN Last Admin: 03/08/17 22:56 Dose: 650 mg Al Hydroxide/Mg Hydroxide (Mylanta Oral Suspension -) 30 ml PO Q6H PRN PRN Reason: DYSPEPSIA Last Admin: 03/06/17 16:45 Dose: 30 ml Amlodipine Besylate (Norvasc -) 5 mg PO DAILY [facility] Last Admin: 03/12/17 09:40 Dose: 5 mg Atorvastatin Calcium (Lipitor -) 20 mg PO [facility] Last Admin: 03/11/17 21:18 Dose: 20 mg Bismuth Subsalicylate (Pepto-Bismol Liquid -) 30 ml PO DAILY [facility] Last Admin: 03/12/17 13:03 Dose: Not Given Insulin Aspart (Novolog Vial Sliding Scale -) 1 vial SQ [facility] PRN Reason: Protocol Last Admin: 03/12/17 13:01 Dose: 4 units Insulin Detemir (Levemir Vial) 16 units SQ [facility] Last Admin: 03/11/17 21:18 Dose: Not Given Lidocaine/Aluminum/Magnesium/Simeth (Magic Mouthwash *Sjr Formula* -) 5 ml MM Q6HPO [facility] Last Admin: 03/12/17 15:03 Dose: Not Given Metoclopramide HCl (Reglan Injection -) 10 mg IVPB Q8H PRN PRN Reason: NAUSEA/VOMITING Last Admin: 03/12/17 06:40 Dose: 10 mg Mirtazapine (Remeron -) 15 mg PO [facility] Last Admin: 03/11/17 21:18 Dose: 15 mg Nystatin (Nystop Powder -) 1 applic TP BID [facility] Last Admin: 03/12/17 15:03 Dose: 1 applic Potassium Chloride (K-Dur -) 20 meq PO BID [facility] Last Admin: 03/12/17 09:40 Dose: 20 meq Sodium Bicarbonate (Sodium Bicarbonate -) 650 mg PO BID [facility] Last Admin: 03/12/17 09:41 Dose: 650 mg Warfarin Sodium (Coumadin -) 5 mg PO DAILY@1800 [facility] - Objective Vital Signs: Vital Signs Temperature 99.0 F 03/12/17 15:16 Pulse Rate 124 H 03/12/17 15:16 Respiratory Rate 20 03/12/17 15:16 Blood Pressure 152/88 03/12/17 15:16 O2 Sat by Pulse Oximetry (%) 95 03/12/17 09:00 Constitutional: Yes: No Distress, Calm Cardiovascular: Yes: S1, S2 Respiratory: Yes: Regular, CTA Bilaterally Gastrointestinal: Yes: Normal Bowel Sounds, Soft Genitourinary: Yes: Other (nephrostomy tube placement) Musculoskeletal: Yes: WNL Extremities: Yes: WNL Neurological: Yes: Alert, Oriented Psychiatric: Yes: Alert, Oriented Labs: CBC, BMP 03/10/17 06:00 03/12/17 12:43 INR, PTT INR 1.29 (0.82-1.09) H D 03/08/17 08:58 Assessment/Plan dvt edema of both legs r/o uti fever malignancy fevers plan nephrostomy tubes in place continue abx continue as per nephro rest as per primary will send urine cx
[2017-03-12] MEDS: WARFARIN NA 5 MG TABLET (UD) PO SCH (18:03)
[2017-03-12] MEDS: ACETAMINOPHEN 325 MG TABLET (FP) PO PRN (18:04)
[2017-03-12] MEDS: ATORVASTATIN CA 20 MG TABLET (FP) PO SCH (21:21)
[2017-03-12] MEDS: MIRTAZAPINE 15 MG TABLET (FP) PO SCH (21:22)
[2017-03-12] MEDS: INSULIN DETEMIR 100 UNITS/ML MDV SQ SCH (21:23)
[2017-03-13] MEDS: MAG HYDROX/ALH/SMC/DPHA/LIDO 240 ML MOUTHWASH MM SCH ×4 (01:01→18:03)
[2017-03-13] MEDS: INSULIN SLIDING SCALE (NOVOLOG) 1 VIAL SQ SCH ×4 (06:01→21:59)
[2017-03-13 07:41] LABS: MCH 26.1 pg (25.7-33.7); MCHC 33.8 g/dl (32.0-36.0); MEAN CELL VOLUME 77.2 fl (80-96); MEAN PLT VOLUME 6.6 fl (7.5-11.1); PLATELET COUNT 210 K/MM3 (134-434); RDW 18.9 % (11.6-15.6); WHITE BLOOD COUNT 8.4 K/mm3 (4.0-10.0)
[2017-03-13 07:59] LABS: COCKROFT - GAULT 23.6555; CREATININE 2.3 mg/dL (0.55-1.02); MAGNESIUM 1.3 mg/dL (1.8-2.4); PHOSPHOROUS 3.2 mg/dL (2.5-4.9)
[2017-03-13 08:36] LABS: PLATELET ESTIMATE ADEQUATE (NORMAL)
[2017-03-13] MEDS ORDERED: PT OWN MED DRAWER 7, Y5N ONE ×2 (09:09→21:11)
[2017-03-13] MEDS: POTASSIUM CHLORIDE TABS 20 MEQ TABLET.ER (FP) PO SCH ×2 (09:48→21:44)
[2017-03-13] MEDS: amLODIPine BESYLATE 5 MG TABLET (FP) PO SCH (09:48)
[2017-03-13] MEDS: NYSTATIN POWDER 100,000 UNITS/GM - 15 GM TOPICAL POWDER TP SCH ×2 (09:48→21:44)
[2017-03-13] MEDS: BISMUTH SUBSALICYLATE 262 MG/15 ML BTL PO SCH (09:48)
[2017-03-13] MEDS: SODIUM BICARBONATE 650 MG TABLET PO SCH ×2 (09:48→21:43)
--- NOTE | 2017-03-13 11:43 | PN ---
Progress Note, Physician Chief Complaint: Feels better History of Present Illness: S/P percutaneous nephrostomy - Current Medication List Current Medications: Active Medications Acetaminophen (Tylenol -) 650 mg PO Q6H PRN PRN Reason: FEVER OR PAIN Last Admin: 03/12/17 18:04 Dose: 650 mg Al Hydroxide/Mg Hydroxide (Mylanta Oral Suspension -) 30 ml PO Q6H PRN PRN Reason: DYSPEPSIA Last Admin: 03/06/17 16:45 Dose: 30 ml Amlodipine Besylate (Norvasc -) 5 mg PO DAILY [facility] Last Admin: 03/13/17 09:48 Dose: 5 mg Atorvastatin Calcium (Lipitor -) [address] [facility] Last Admin: 03/12/17 21:21 Dose: 20 mg Bismuth Subsalicylate (Pepto-Bismol Liquid -) 30 ml PO DAILY [facility] Last Admin: 03/13/17 09:48 Dose: Not Given Insulin Aspart (Novolog Vial Sliding Scale -) [address] [facility] PRN Reason: Protocol Last Admin: 03/13/17 11:22 Dose: Not Given Insulin Detemir (Levemir Vial) [address] [facility] Last Admin: 03/12/17 21:23 Dose: 16 units Lidocaine/Aluminum/Magnesium/Simeth (Magic Mouthwash *Sjr Formula* -) 5 ml MM Q6HPO [facility] Last Admin: 03/13/17 06:01 Dose: Not Given Metoclopramide HCl (Reglan Injection -) 10 mg IVPB Q8H PRN PRN Reason: NAUSEA/VOMITING Last Admin: 03/12/17 06:40 Dose: 10 mg Mirtazapine (Remeron -) [address] [facility] Last Admin: 03/12/17 21:22 Dose: 15 mg Nystatin (Nystop Powder -) 1 applic TP BID [facility] Last Admin: 03/13/17 09:48 Dose: 1 applic Potassium Chloride (K-Dur -) 20 meq PO BID [facility] Last Admin: 03/13/17 09:48 Dose: 20 meq Sodium Bicarbonate (Sodium Bicarbonate -) 650 mg PO BID [facility] Last Admin: 03/13/17 09:48 Dose: 650 mg Warfarin Sodium (Coumadin -) 5 mg PO DAILY@1800 [facility] Last Admin: 03/12/17 18:03 Dose: 5 mg - Objective Vital Signs: Vital Signs Temperature 98.9 F 03/13/17 05:19 Pulse Rate 107 H 03/13/17 05:19 Respiratory Rate 20 03/13/17 05:19 Blood Pressure 148/81 03/13/17 05:19 O2 Sat by Pulse Oximetry (%) 100 03/12/17 21:00 Constitutional: Yes: Anxious Eyes: Yes: WNL HENT: Yes: WNL Neck: Yes: WNL Cardiovascular: Yes: WNL Respiratory: Yes: Regular Gastrointestinal: Yes: WNL ...Rectal Exam: Yes: WNL Genitourinary: Yes: Other (Nephrostomy working good) Edema: No Labs: CBC, BMP 03/13/17 06:10 03/13/17 06:10 INR, PTT INR 1.29 (0.82-1.09) H D 03/08/17 08:58
--- NOTE | 2017-03-13 11:48 | PN ---
Progress Note, Physician History of Present Illness: patient stable no new issues still with fevers - Current Medication List Current Medications: Active Medications Acetaminophen (Tylenol -) 650 mg PO Q6H PRN PRN Reason: FEVER OR PAIN Last Admin: 03/12/17 18:04 Dose: 650 mg Al Hydroxide/Mg Hydroxide (Mylanta Oral Suspension -) 30 ml PO Q6H PRN PRN Reason: DYSPEPSIA Last Admin: 03/06/17 16:45 Dose: 30 ml Amlodipine Besylate (Norvasc -) 5 mg PO DAILY [facility] Last Admin: 03/13/17 09:48 Dose: 5 mg Atorvastatin Calcium (Lipitor -) 20 mg PO [facility] Last Admin: 03/12/17 21:21 Dose: 20 mg Bismuth Subsalicylate (Pepto-Bismol Liquid -) 30 ml PO DAILY [facility] Last Admin: 03/13/17 09:48 Dose: Not Given Insulin Aspart (Novolog Vial Sliding Scale -) 1 vial SQ [facility] PRN Reason: Protocol Last Admin: 03/13/17 11:22 Dose: Not Given Insulin Detemir (Levemir Vial) 16 units SQ [facility] Last Admin: 03/12/17 21:23 Dose: 16 units Lidocaine/Aluminum/Magnesium/Simeth (Magic Mouthwash *Sjr Formula* -) 5 ml MM Q6HPO [facility] Last Admin: 03/13/17 06:01 Dose: Not Given Metoclopramide HCl (Reglan Injection -) 10 mg IVPB Q8H PRN PRN Reason: NAUSEA/VOMITING Last Admin: 03/12/17 06:40 Dose: 10 mg Mirtazapine (Remeron -) 15 mg PO [facility] Last Admin: 03/12/17 21:22 Dose: 15 mg Nystatin (Nystop Powder -) 1 applic TP BID [facility] Last Admin: 03/13/17 09:48 Dose: 1 applic Potassium Chloride (K-Dur -) 20 meq PO BID [facility] Last Admin: 03/13/17 09:48 Dose: 20 meq Sodium Bicarbonate (Sodium Bicarbonate -) 650 mg PO BID [facility] Last Admin: 03/13/17 09:48 Dose: 650 mg Warfarin Sodium (Coumadin -) 5 mg PO DAILY@1800 [facility] Last Admin: 03/12/17 18:03 Dose: 5 mg - Objective Vital Signs: Vital Signs Temperature 98.9 F 03/13/17 05:19 Pulse Rate 107 H 03/13/17 05:19 Respiratory Rate 20 03/13/17 05:19 Blood Pressure 148/81 03/13/17 05:19 O2 Sat by Pulse Oximetry (%) 100 03/12/17 21:00 Constitutional: Yes: No Distress, Calm Cardiovascular: Yes: S1, S2 Respiratory: Yes: Regular, CTA Bilaterally Gastrointestinal: Yes: Normal Bowel Sounds, Soft Genitourinary: Yes: Other (bilateral nephrostomy tube) Musculoskeletal: Yes: WNL Extremities: Yes: WNL Wound/Incision: Yes: Clean/Dry Neurological: Yes: Alert Psychiatric: Yes: Alert Labs: CBC, BMP 03/13/17 06:10 03/13/17 06:10 INR, PTT INR 1.29 (0.82-1.09) H D 03/08/17 08:58 Assessment/Plan dvt edema of both legs r/o uti fever malignancy fevers plan nephrostomy tubes in place continue abx continue as per nephro rest as per primary await for urine cx report once we have that we will decide
[2017-03-13] MEDS: METOCLOPRAMIDE HCL INJECTION 10 MG/2 ML VIAL IVPB PRN (13:31)
[2017-03-13] MEDS: WARFARIN NA 5 MG TABLET (UD) PO SCH (18:04)
[2017-03-13] MEDS: MIRTAZAPINE 15 MG TABLET (FP) PO SCH (21:43)
[2017-03-13] MEDS: ATORVASTATIN CA 20 MG TABLET (FP) PO SCH (21:43)
[2017-03-13] MEDS: INSULIN DETEMIR 100 UNITS/ML MDV SQ SCH (21:44)
[2017-03-14] MEDS: MAG HYDROX/ALH/SMC/DPHA/LIDO 240 ML MOUTHWASH MM SCH ×3 (06:25→12:42)
[2017-03-14] MEDS: INSULIN SLIDING SCALE (NOVOLOG) 1 VIAL SQ SCH ×2 (06:27→12:42)
[2017-03-14 07:35] LABS: BASOPHIL 0.4 % (0-2.0); EOSINOPHIL 1.4 % (0-4.5); MCH 25.9 pg (25.7-33.7); MCHC 33.3 g/dl (32.0-36.0); MEAN CELL VOLUME 77.8 fl (80-96); MEAN PLT VOLUME 6.8 fl (7.5-11.1); NEUTROPHILS 78.8 % (42.8-82.8); PLATELET COUNT 202 K/MM3 (134-434); RDW 18.9 % (11.6-15.6)
[2017-03-14 07:53] LABS: COCKROFT - GAULT 27.2085; MAGNESIUM 1.4 mg/dL (1.8-2.4); PHOSPHOROUS 3.8 mg/dL (2.5-4.9)
--- NOTE | 2017-03-14 09:22 | DS ---
Physical Examination Vital Signs: Vital Signs Temperature 98.6 F 03/14/17 06:01 Pulse Rate 114 H 03/14/17 05:48 Respiratory Rate 20 03/14/17 05:48 Blood Pressure 126/81 03/14/17 05:48 O2 Sat by Pulse Oximetry (%) 98 03/13/17 21:00 Findings/Remarks: S/P percutanious neprostomy Cr down to 2 Constitutional: Yes: Anxious Eyes: Yes: WNL HENT: Yes: WNL Neck: Yes: WNL Cardiovascular: Yes: WNL Respiratory: Yes: WNL Gastrointestinal: Yes: WNL ...Rectal Exam: Yes: Deferred Renal/: Yes: Other (Nephrosyomy working) Edema: No Neurological: Yes: Alert Labs: CBC, BMP 03/14/17 06:00 03/14/17 06:00 Discharge Summary Reason For Visit: ANEMIA, DVT,OBSTRUCTIVE UROPATHY Current Active Problems OSCAR (acute kidney injury) (Acute) Anemia (Acute) CA cervix (Acute) DVT, lower extremity (Acute) Fever (Acute) Obstructive uropathy (Acute) Supratherapeutic INR (Acute) Type 2 diabetes mellitus (Acute) UTI (urinary tract infection) (Acute) Urinary retention (Acute) Condition: Improved - Instructions Referrals: Roe Jones MD [Primary Care Provider] - Disposition: [facility] - Home Medications Comprehensive Discharge Medication List: Ambulatory Orders Aspirin [ASA -] 81 mg PO DAILY 02/20/17 Atorvastatin Ca [Lipitor] 20 mg PO HS 02/20/17 Clonazepam [KlonoPIN] 0.5 mg PO TID 02/20/17 Insulin Glargine,Hum.rec.anlog [Lantus (10mL VIAL) -] 22 units SQ HS 02/20/17 Insulin Lispro [Humalog] 4 unit SQ TID 02/20/17 Mirtazapine 15 mg PO HS 02/20/17 Amlodipine Besylate [Norvasc -] 5 mg PO DAILY tablet 03/14/17 Atorvastatin Ca [Lipitor] 20 mg PO HS tablet 03/14/17 Insulin (Levemir) [Levemir Vial] 16 units SQ HS ml 03/14/17 Mirtazapine [Remeron -] 15 mg PO HS tablet 03/14/17 Nystatin Powder [Nystop Powder -] 1 applic TP BID applic 03/14/17
[2017-03-14] MEDS: amLODIPine BESYLATE 5 MG TABLET (FP) PO SCH (10:06)
[2017-03-14] MEDS: POTASSIUM CHLORIDE TABS 20 MEQ TABLET.ER (FP) PO SCH (10:06)
[2017-03-14] MEDS: SODIUM BICARBONATE 650 MG TABLET PO SCH (10:06)
[2017-03-14] MEDS: BISMUTH SUBSALICYLATE 262 MG/15 ML BTL PO SCH (10:07)
[2017-03-14] MEDS: NYSTATIN POWDER 100,000 UNITS/GM - 15 GM TOPICAL POWDER TP SCH (10:07)
[2017-03-14] MEDS ORDERED: MAGNESIUM SULF 50% (8.12 MEQ/2 ML-1 GM VIAL) IVPB ONE (10:45)
[2017-03-14 15:36] VITALS: BP 125/67; PULSE 110; TEMP 98.3
--- NOTE | 2017-03-14 15:44 | PN ---
Progress Note, Physician Chief Complaint: Patient in bed. OS/p Bilateral Percutaneous Nephrostomy Maintains good urine output. Reports feeling better. ` History of Present Illness: The patient is in her bed. Family visiting. Has abdominal discomfort. Putting out large amounts of urine. - Current Medication List Current Medications: Active Medications Acetaminophen (Tylenol -) 650 mg PO Q6H PRN PRN Reason: FEVER OR PAIN Last Admin: 03/12/17 18:04 Dose: 650 mg Al Hydroxide/Mg Hydroxide (Mylanta Oral Suspension -) 30 ml PO Q6H PRN PRN Reason: DYSPEPSIA Last Admin: 03/06/17 16:45 Dose: 30 ml Amlodipine Besylate (Norvasc -) 5 mg PO DAILY [facility] Last Admin: 03/14/17 10:06 Dose: 5 mg Atorvastatin Calcium (Lipitor -) 20 mg PO HS [facility] Last Admin: 03/13/17 21:43 Dose: 20 mg Bismuth Subsalicylate (Pepto-Bismol Liquid -) 30 ml PO DAILY [facility] Last Admin: 03/14/17 10:07 Dose: Not Given Insulin Aspart (Novolog Vial Sliding Scale -) 1 vial SQ [facility]ES [facility] PRN Reason: Protocol Last Admin: 03/14/17 12:42 Dose: Not Given Insulin Detemir (Levemir Vial) 16 units SQ [facility] Last Admin: 03/13/17 21:44 Dose: 16 units Lidocaine/Aluminum/Magnesium/Simeth (Magic Mouthwash *Sjr Formula* -) 5 ml MM Q6HPO [facility] Last Admin: 03/14/17 12:42 Dose: Not Given Metoclopramide HCl (Reglan Injection -) 10 mg IVPB Q8H PRN PRN Reason: NAUSEA/VOMITING Last Admin: 03/13/17 13:31 Dose: 10 mg Mirtazapine (Remeron -) 15 mg PO HS [facility] Last Admin: 03/13/17 21:43 Dose: 15 mg Nystatin (Nystop Powder -) 1 applic TP BID [facility] Last Admin: 03/14/17 10:07 Dose: 1 applic Sodium Bicarbonate (Sodium Bicarbonate -) 650 mg PO BID [facility] Last Admin: 03/14/17 10:06 Dose: 650 mg Warfarin Sodium (Coumadin -) 5 mg PO DAILY@1800 [facility] Last Admin: 03/13/17 18:04 Dose: 5 mg - Objective Vital Signs: Vital Signs Temperature 98.3 F 03/14/17 15:34 Pulse Rate 110 H 03/14/17 15:34 Respiratory Rate 20 03/14/17 15:34 Blood Pressure 125/67 03/14/17 15:34 O2 Sat by Pulse Oximetry (%) 98 03/13/17 21:00 Constitutional: Yes: No Distress, Calm Eyes: Yes: Conjunctiva Clear HENT: Yes: WNL Neck: Yes: WNL, Trachea Midline Cardiovascular: Yes: Regular Rate and Rhythm, S1, S2 Respiratory: Yes: CTA Bilaterally Gastrointestinal: Yes: Normal Bowel Sounds Genitourinary: Yes: Other (Bilateral Percutaneous Nephrostomy) Edema: No Neurological: Yes: Alert Psychiatric: Yes: Alert, Oriented Labs: CBC, BMP 03/14/17 06:00 03/14/17 06:00 INR, PTT INR 1.29 (0.82-1.09) H D 03/08/17 08:58 Problem List - Problems (1) OSCAR (acute kidney injury) Code(s): N17.9 - ACUTE KIDNEY FAILURE, UNSPECIFIED (2) Anemia Code(s): D64.9 - ANEMIA, UNSPECIFIED Qualifiers: Anemia type: unspecified type Qualified Code(s): D64.9 - Anemia, unspecified (3) Obstructive uropathy Code(s): N13.9 - OBSTRUCTIVE AND REFLUX UROPATHY, UNSPECIFIED (4) Type 2 diabetes mellitus Code(s): E11.9 - TYPE 2 DIABETES MELLITUS WITHOUT COMPLICATIONS Qualifiers: Diabetes mellitus complication detail: with polyneuropathy (5) Urinary retention Code(s): R33.9 - RETENTION OF URINE, UNSPECIFIED Assessment/Plan The patient with CA Cx, obstructive Uropathy, DVT, on AC, s/p placement of Percutaneous Nephrostomy, Bilateral. good urine output bilaterlly. The patient's azotemia is improving. Oral intake improving. Getting Mg supplements. (Was 1.4mg/dL) Will monitor the renal/electrolyte profile with you. Jennifer Gardner MD
--- NOTE | 2017-03-14 15:55 | PN ---
Progress Note, Physician History of Present Illness: stable no new issues no fevers - Current Medication List Current Medications: Active Medications Acetaminophen (Tylenol -) 650 mg PO Q6H PRN PRN Reason: FEVER OR PAIN Last Admin: 03/12/17 18:04 Dose: 650 mg Al Hydroxide/Mg Hydroxide (Mylanta Oral Suspension -) 30 ml PO Q6H PRN PRN Reason: DYSPEPSIA Last Admin: 03/06/17 16:45 Dose: 30 ml Amlodipine Besylate (Norvasc -) 5 mg PO DAILY [facility] Last Admin: 03/14/17 10:06 Dose: 5 mg Atorvastatin Calcium (Lipitor -) 20 mg PO [facility] Last Admin: 03/13/17 21:43 Dose: 20 mg Bismuth Subsalicylate (Pepto-Bismol Liquid -) 30 ml PO DAILY [facility] Last Admin: 03/14/17 10:07 Dose: Not Given Insulin Aspart (Novolog Vial Sliding Scale -) 1 vial SQ [facility] PRN Reason: Protocol Last Admin: 03/14/17 12:42 Dose: Not Given Insulin Detemir (Levemir Vial) 16 units SQ [facility] Last Admin: 03/13/17 21:44 Dose: 16 units Lidocaine/Aluminum/Magnesium/Simeth (Magic Mouthwash *Sjr Formula* -) 5 ml MM Q6HPO [facility] Last Admin: 03/14/17 12:42 Dose: Not Given Metoclopramide HCl (Reglan Injection -) 10 mg IVPB Q8H PRN PRN Reason: NAUSEA/VOMITING Last Admin: 03/13/17 13:31 Dose: 10 mg Mirtazapine (Remeron -) 15 mg PO [facility] Last Admin: 03/13/17 21:43 Dose: 15 mg Nystatin (Nystop Powder -) 1 applic TP BID [facility] Last Admin: 03/14/17 10:07 Dose: 1 applic Sodium Bicarbonate (Sodium Bicarbonate -) 650 mg PO BID [facility] Last Admin: 03/14/17 10:06 Dose: 650 mg Warfarin Sodium (Coumadin -) 5 mg PO DAILY@1800 [facility] Last Admin: 03/13/17 18:04 Dose: 5 mg - Objective Vital Signs: Vital Signs Temperature 98.3 F 03/14/17 15:34 Pulse Rate 110 H 03/14/17 15:34 Respiratory Rate 20 03/14/17 15:34 Blood Pressure 125/67 03/14/17 15:34 O2 Sat by Pulse Oximetry (%) 98 03/13/17 21:00 Constitutional: Yes: No Distress, Calm Cardiovascular: Yes: S1, S2 Respiratory: Yes: Regular, CTA Bilaterally Gastrointestinal: Yes: Normal Bowel Sounds, Soft Genitourinary: Yes: Other (bilateral nephrostomy tubes in place urine looks clean) Musculoskeletal: Yes: WNL Extremities: Yes: WNL Neurological: Yes: Alert, Oriented Psychiatric: Yes: Alert, Oriented Labs: CBC, BMP 03/14/17 06:00 03/14/17 06:00 INR, PTT INR 1.29 (0.82-1.09) H D 03/08/17 08:58 Assessment/Plan dvt edema of both legs r/o uti fever malignancy fevers plan nephrostomy tubes in place stopped all abx continue as per nephro rest as per primary urine cx negative will monitor
== END 2017-03-14 17:41 | DRG 755 ==
LOC: JER 10:08 → JERBED 12:15 → J7W 14:30
PROVIDERS: ADMIT Internal Medicine; ATTEND Internal Medicine
PROC: 30233N1 Transfusion of Nonautologous Red Blood Cells into Peripheral Vein, Percutaneous Approach (ICD-10-PCS; 2017-02-28)
PROC: 0TJB8ZZ Inspection of Bladder, Via Natural or Artificial Opening Endoscopic (ICD-10-PCS; 2017-03-02)
PROC: 0T9030Z Drainage of Right Kidney with Drainage Device, Percutaneous Approach (ICD-10-PCS; principal; 2017-03-11)
PROC: 0T9130Z Drainage of Left Kidney with Drainage Device, Percutaneous Approach (ICD-10-PCS; 2017-03-11)
DX: C53.9 Malignant neoplasm of cervix uteri, unspecified (principal); I82.411 Acute embolism and thrombosis of right femoral vein; N39.0 Urinary tract infection, site not specified; N17.9 Acute kidney failure, unspecified; E87.2 Acidosis; N13.30 Unspecified hydronephrosis; I82.431 Acute embolism and thrombosis of right popliteal vein; D64.9 Anemia, unspecified; N13.9 Obstructive and reflux uropathy, unspecified; R79.1 Abnormal coagulation profile; R33.9 Retention of urine, unspecified; I12.9 Hypertensive chronic kidney disease with stage 1 through stage 4 chronic kidney disease, or unspecified chronic kidney disease; E11.22 Type 2 diabetes mellitus with diabetic chronic kidney disease; N18.9 Chronic kidney disease, unspecified; Z79.4 Long term (current) use of insulin; E83.42 Hypomagnesemia; E78.5 Hyperlipidemia, unspecified; R50.9 Fever, unspecified; E87.6 Hypokalemia
CPT/HCPCS: 36415; 36430; 50432; 71010-TC; 72195-TC; 76098-TC; 76775-TC; 76942-TC; 76998-TC; 80048; 80053; 81003; 81015; 82272; 82550; 82570; 82803; 83605; 83735; 84100; 84156; 84300; 84484; 84540; 85025; 85027; 85610; 85730; 86850; 86900; 86901; 86922; 87040; 87077; 87086; 87324; 87449; 87804; 87899; 93005; 93010; 93971-TC; 94760; 97116-GP; 97161; 99285-25; A4358; C1729; C1769; J1644; P9038; P9058

== ENCOUNTER 2017-03-20 17:21 | Inpatient (IN) | payer OTHER, MEDICARE ==
--- NOTE | 2017-03-20 18:19 | PDOC ---
History of Present Illness - General History Source: Family (son) - History of Present Illness Initial Comments: 03/20/17 18:20 The patient is a 76 year old female with a significant past medical history of cervical CA (last radiation treatment was over a month ago), IDDM, HLD, and HTN who presents to the ED s/p post surgical complications earlier today.Son states the patient has a hoarse-like voice and loss of appetite since the surgery. As per son, the patient is at [facility] for physical therapy and noticed the patient slumped over the chair earlier today. Son reports the patient had a subjective fever and neck pain radiating to her shoulders bilaterally. Denies chest pain or shortness of breath. Denies abdominal pain, nausea, vomiting, or diarrhea. Denies any other symptoms. <Juarez Fernandez - Last Filed: 03/20/17 18:20> <Vladimir Persaud - Last Filed: 03/20/17 19:22> <Naima Golden - Last Filed: 03/20/17 20:03> - General Chief Complaint: Pain, Acute Stated Complaint: NECK PAIN/HOARSE VOICE Time Seen by Provider: 03/20/17 17:56 Past History <Juarez Fernandez - Last Filed: 03/20/17 18:20> - Past Medical History Anemia: Yes Asthma: No Cancer: Yes (breast, cervical) CVA: No COPD: No CHF: No Dementia: No Diabetes: Yes GI Disorders: No Disorders: No HTN: Yes Hypercholesterolemia: Yes Liver Disease: No Psychiatric Problems: Yes (anxiety) Seizures: No Thyroid Disease: No - Surgical History Abdominal Surgery: No Appendectomy: No Cardiac Surgery: No Cholecystectomy: No Lung Surgery: No Neurologic Surgery: No Orthopedic Surgery: No - Immunization History Immunization Up to Date: Yes - Psycho/Social/Smoking Cessation Hx Suicidal Ideation: No Smoking History: Never smoked Have you smoked in the past 12 months: No Number of Cigarettes Smoked Daily: 0 Hx Alcohol Use: No Drug/Substance Use Hx: No Substance Use Type: None Hx Substance Use Treatment: No <Vladimir Persaud - Last Filed: 03/20/17 19:22> <Naima Golden - Last Filed: 03/20/17 20:03> - Past Medical History Allergies/Adverse Reactions: Allergies Allergy/AdvReac Type Severity Reaction Status Date / Time acetaminophen [From Tylenol] AdvReac Verified 02/20/17 12:25 Home Medications: Ambulatory Orders Aspirin [ASA -] 81 mg PO DAILY 02/20/17 Atorvastatin Ca [Lipitor] 20 mg PO HS 02/20/17 Clonazepam [KlonoPIN] 0.5 mg PO TID 02/20/17 Mirtazapine 15 mg PO HS 02/20/17 Acetaminophen [Tylenol .Regular Strength -] 650 mg PO Q6H PRN #0 tablet Amlodipine Besylate [Norvasc -] 5 mg PO DAILY tablet 03/14/17 Ciprofloxacin [Cipro -] 500 mg PO Q12H #60 tablet 03/14/17 Insulin (Levemir) [Levemir Vial] 16 units SQ HS ml 03/14/17 Nystatin Powder [Nystop Powder -] 1 applic TP BID applic 03/14/17 Warfarin Na [Coumadin -] 2 mg PO DAILY@1800 #0 tablet 03/14/17 Review of Systems - Review of Systems Able to Perform ROS?: Yes Comments:: 03/20/17 18:21 GENERAL/CONSTITUTIONAL: + hoarse voice, fever, loss of appetite. No weakness. HEAD, EYES, EARS, NOSE AND THROAT: No change in vision. No ear pain or discharge. No sore throat. CARDIOVASCULAR: No chest pain or shortness of breath. RESPIRATORY: No cough, wheezing, or hemoptysis. GASTROINTESTINAL: No nausea, vomiting, diarrhea or constipation. GENITOURINARY: No dysuria, frequency, or change in urination. MUSCULOSKELETAL: + neck pain. No joint or muscle swelling or pain. No back pain. SKIN: No rash NEUROLOGIC: No headache, vertigo, loss of consciousness, or change in strength/ sensation. ENDOCRINE: No increased thirst. No abnormal weight change. HEMATOLOGIC/LYMPHATIC: No anemia, easy bleeding, or history of blood clots. ALLERGIC/IMMUNOLOGIC: No hives or skin allergy. <Juarez Fernandez - Last Filed: 03/20/17 18:20> *Physical Exam - Vital Signs Last Vital Signs Temp Pulse Resp BP Pulse Ox 100.1 F H 115 H 23 109/62 96 03/20/17 17:44 03/20/17 17:44 03/20/17 17:44 03/20/17 17:44 03/20/17 17:44 - Physical Exam Comments: 03/20/17 18:21 GENERAL: Awake, alert, and fully oriented, in no acute distress HEAD: No signs of trauma EYES: PERRLA, EOMI, sclera anicteric, conjunctiva clear ENT: + dry mucosa. Auricles normal inspection, hearing grossly normal, nares patent, oropharynx clear without exudates. NECK: Normal ROM, supple, no lymphadenopathy, JVD, or masses LUNGS: Breath sounds equal, clear to auscultation bilaterally. No wheezes, and no crackles HEART:+ tachycardia. Regular rhythm, normal S1 and S2, no murmurs, rubs or gallops ABDOMEN: Soft, nontender, normoactive bowel sounds. No guarding, no rebound. No masses EXTREMITIES: Normal range of motion, no edema. No clubbing or cyanosis. No cords, erythema, or tenderness NEUROLOGICAL: Cranial nerves II through XII grossly intact. Normal speech, normal gait SKIN: + Bilateral nephrostomy tubes, clean and dry with no drainage. Warm, Dry, normal turgor, no rashes or lesions noted. <Juarez Fernandez - Last Filed: 03/20/17 18:20> - Vital Signs Last Vital Signs Temp Pulse Resp BP Pulse Ox 100.1 F H 115 H 23 109/62 96 03/20/17 17:44 03/20/17 17:44 03/20/17 17:44 03/20/17 17:44 03/20/17 17:44 <Vladimir Persaud - Last Filed: 03/20/17 19:22> - Vital Signs Last Vital Signs Temp Pulse Resp BP Pulse Ox 100.1 F H 115 H 23 109/62 96 03/20/17 17:44 03/20/17 17:44 03/20/17 17:44 03/20/17 17:44 03/20/17 18:20 <Naima Golden - Last Filed: 03/20/17 20:03> Heart Score/ECG Review #1 ECG reviewed & interpreted by me at: 19:20 03/20/17 19:20 NSR 112, no std/brian, left axis deviation, QTC 444 msec <Vladimir Persaud - Last Filed: 03/20/17 19:22> ED Treatment Course - LABORATORY CBC & Chemistry Diagram: 03/20/17 19:07 03/20/17 19:07 <CoriVladimir - Last Filed: 03/20/17 19:22> - LABORATORY CBC & Chemistry Diagram: 03/20/17 19:07 03/20/17 19:06 - ADDITIONAL ORDERS Additional order review: Laboratory Results 03/20/17 03/20/17 03/20/17 19:07 19:06 19:06 INR 1.31 H PTT (Actin FS) 30.0 D Sodium 136 Potassium 4.5 Chloride 102 Carbon Dioxide 20 L Anion Gap 14 BUN 46 H D Creatinine 2.9 H D Creat Clearance w eGFR 15.86 Random Glucose 186 H D Lactic Acid 1.246 Calcium 7.8 L Total Bilirubin 0.3 AST 90 H D ALT 57 D Alkaline Phosphatase 274 H D Creatine Kinase 161 D CK-MB (CK-2) 3.624 H Troponin I < 0.02 Total Protein 6.2 L Albumin 1.8 L 03/20/17 19:07 RBC 2.83 L MCV 79.4 L MCHC 31.9 L RDW 18.5 H MPV 7.0 L Neutrophils % 81.6 Lymphocytes % 9.6 Monocytes % 7.6 Eosinophils % 0.8 Basophils % 0.4 - Medications Given in the ED: ED Medications Discontinued Medications Generic Name Dose Route Start Last Admin Trade Name Dorothy PRN Reason Stop Dose Admin Acetaminophen 1,000 mg 03/20/17 19:22 03/20/17 19:53 Ofirmev Injection - IVPB 03/20/17 19:23 1,000 mg ONCE ONE Administration Ketorolac Tromethamine 15 mg 03/20/17 19:20 03/20/17 19:34 Toradol Injection - IVPUSH 03/20/17 19:21 Not Given ONCE ONE <Naima Golden - Last Filed: 03/20/17 20:03> Medical Decision Making - Medical Decision Making 03/20/17 19:08 A portion of this note was documented by scribe services under my direction. I have reviewed the details of the note, within reason, and agree with the documentation with the following case summary and management plan written by me. Patient treated in the ED. Nursing notes are reviewed and incorporated into the medical decision-making. Vital signs reviewed. Peripheral IV access obtained by the nurse, laboratory studies are drawn and sent, reviewed and interpreted by myself. Vital Signs Temp Pulse Resp BP Pulse Ox 100.1 F H 115 H 23 109/62 96 03/20/17 17:44 03/20/17 17:44 03/20/17 17:44 03/20/17 17:44 03/20/17 17:44 76-year-old female with past medical history of cervical cancer status post multiple radiation treatments, diabetes, hyperlipidemia, hypertension presents with weakness, dehydration and low-grade temperatures. [facility]arseness [facility]. The patient on March 15 had general anesthesia for bilateral nephrostomy tube placements for obstruction secondary to cervical cancer. Since the procedure, patient's been complaining about hoarseness of throat. When she was discharged back half-way, patient has had poor appetite and very little to eat or drink. Patient has also been complaining about low-grade temps but denies any pain. Patient's has been complaining about hoarseness of throat. Patient's oropharynx is clear and without evidence of erythema or exudates. However, differential includes local cord paralysis secondary to intubation. However, patient is clearly not eating or drinking and appears to have dry mucous members. We'll initiate IV fluids. Patient's nephrostomy tubes contains urine that is concerning for potential urinary tract infection. We'll assess protocol initiated. I suspect the patient will likely need to be readmitted to the hospital. Patient's family had a runny contacted their primary care physician Dr. Jones who is aware that the patient is in the hospital. 03/20/17 19:20 Case signed out to oncoming ED attending DR. Golden 03/20/17 19:22 Pt's son and reports to me that she has taken tylenol without problems or allergic reaction. Will write tylenol for the low grade fever. <Vladimir Persaud - Last Filed: 03/20/17 19:22> *DC/Admit/Observation/Transfer - Attestations Scribe Attestion: 03/20/17 18:21 Documentation prepared by Juarez Fernandez, acting as medical billing instructor for lVadimir Persaud MD <Juarez Fernandez - Last Filed: 03/20/17 18:20> <Vladimir Persaud - Last Filed: 03/20/17 19:22> - Discharge Dispostion Admit: Yes <Naima Golden - Last Filed: 03/20/17 20:03> Diagnosis at time of Disposition: OSCAR (acute kidney injury), Fever, Sepsis - Discharge Dispostion Condition at time of disposition: Guarded - Referrals Referrals: Roe Jones MD [Primary Care Provider] -
[2017-03-20] MEDS ORDERED: SODIUM CHLORIDE 1,000 ML IV STA (19:04)
[2017-03-20 19:15] LABS: BASOPHIL 0.4 % (0-2.0); EOSINOPHIL 0.8 % (0-4.5); MCH 25.3 pg (25.7-33.7); MCHC 31.9 g/dl (32.0-36.0); MEAN CELL VOLUME 79.4 fl (80-96); NEUTROPHILS 81.6 % (42.8-82.8); PLATELET COUNT 291 K/MM3 (134-434); RDW 18.5 % (11.6-15.6); WHITE BLOOD COUNT 15.4 K/mm3 (4.0-10.0)
[2017-03-20] MEDS ORDERED: KETOROLAC TROMETHAMINE 15 MG/ML VIAL IVPUSH ONE (19:20)
[2017-03-20] MEDS ORDERED: ASPIRIN 300 MG SUPP.RECT PR ONE (19:21)
[2017-03-20] MEDS ORDERED: ACETAMINOPHEN 1000 MG/100 ML VIAL (NON FORMULARY) IVPB ONE (19:22)
[2017-03-20 19:28] LABS: INR 1.31 (0.82-1.09); PROTHROMBIN TIME (PATIENT) 14.5 SEC (9.98-11.88)
[2017-03-20] MEDS ORDERED: ACETAMINOPHEN INJECTION 100 ML IVPB ONE (19:34)
[2017-03-20 19:37] LABS: ALBUMIN 1.8 g/dl (3.4-5.0); ANION GAP 14 (8-16); BILIRUBIN,TOTAL 0.3 mg/dL (0.2-1.0); CALCIUM 7.8 mg/dL (8.5-10.1); CO2 20 mmol/L (21-32); CREATININE 2.9 mg/dL (0.55-1.02); GLUCOSE,RANDOM 186 mg/dL (74-106); SGOT/AST 90 U/L (15-37); SGPT/ALT 57 U/L (12-78); TOT PROT 6.2 g/dl (6.4-8.2)
[2017-03-20] MEDS ORDERED: PIPERACILLIN/TAZOB 3.375 GM 3.375 GM in DEXTROSE 5%-WATER - 50 ML IVPB ONE (19:37)
[2017-03-20 19:39] LABS: ALK PHOS 274 U/L (45-117); TROPONIN I < 0.02 ng/ml (0.00-0.05)
[2017-03-20 19:57] LABS: URINE APPEARANCE CLOUDY; URINE BILIRUBIN NEGATIVE (NEGATIVE); URINE COLOR YELLOW; URINE GLUCOSE (UA) NEGATIVE (NEGATIVE); URINE KETONE NEGATIVE (NEGATIVE); URINE NITRITE NEGATIVE (NEGATIVE); URINE UROBILINOGEN NEGATIVE E.U./dl (0.2-1.0)
[2017-03-20 20:04] LABS: URINE BLOOD 2+ (NEGATIVE); URINE LEUK ESTERASE 3+ (NEGATIVE); URINE PROTEIN 2+ (NEGATIVE)
[2017-03-20 20:05] LABS: URINE BACTERIA RARE /hpf (NONE SEEN); URINE MUCUS RARE; URINE RBC 10 /hpf (0-3); URINE WBC 230 /hpf (3-5); YEAST MANY
[2017-03-20] MEDS ORDERED: PIPERACILLIN/TAZOB 3.375 GM 50 ML IVPB ONE (20:09)
[2017-03-20] MEDS ORDERED: CYANOCOBALAMIN (VITAMIN B-12) 1000 MCG/1 ML VIAL IM ONE (20:24)
[2017-03-20] MEDS ORDERED: INSULIN DETEMIR 100 UNITS/ML MDV SQ SCH (22:00)
[2017-03-20] MEDS: MIRTAZAPINE 15 MG TABLET (FP) PO SCH (23:24)
[2017-03-20] MEDS: clonazePAM 0.5 MG TABLET PO SCH (23:24)
[2017-03-20] MEDS: FLUCONAZOLE 200 MG/D5W 100 ML IVPB SCH (23:25)
[2017-03-20] MEDS: NYSTATIN POWDER 100,000 UNITS/GM - 15 GM TOPICAL POWDER TP SCH (23:38)
[2017-03-21 01:13] VITALS: BMI 23.0
[2017-03-21] MEDS: INSULIN SLIDING SCALE (NOVOLOG) 1 VIAL SQ SCH ×3 (06:55→17:28)
[2017-03-21] MEDS: clonazePAM 0.5 MG TABLET PO SCH ×3 (06:56→22:24)
[2017-03-21 07:49] LABS: BASOPHIL 0.6 % (0-2.0); EOSINOPHIL 1.2 % (0-4.5); MCH 26.6 pg (25.7-33.7); MCHC 32.5 g/dl (32.0-36.0); MEAN CELL VOLUME 81.6 fl (80-96); MEAN PLT VOLUME 7.1 fl (7.5-11.1); NEUTROPHILS 83.5 % (42.8-82.8); PLATELET COUNT 254 K/MM3 (134-434); WHITE BLOOD COUNT 11.8 K/mm3 (4.0-10.0)
[2017-03-21 08:21] LABS: INR 1.3 (0.82-1.09); PROTHROMBIN TIME (PATIENT) 14.4 SEC (9.98-11.88)
[2017-03-21 08:40] LABS: ALBUMIN 1.6 g/dl (3.4-5.0); BILIRUBIN,TOTAL 0.3 mg/dL (0.2-1.0); CALCIUM 7.6 mg/dL (8.5-10.1); COCKROFT - GAULT 15.5975; TOT PROT 5.3 g/dl (6.4-8.2)
[2017-03-21] MEDS: FLUCONAZOLE 200 MG/D5W 100 ML IVPB SCH (10:51)
[2017-03-21] MEDS: PIPERACILLIN/TAZOB 2.25 GM 50 ML IVPB SCH ×2 (12:27→17:06)
--- NOTE | 2017-03-21 12:29 | CONSULT ---
Admitting History and Physical - Primary Care Physician PCP: Roe Jones - Admission History of Present Illness: Per EMR: "Initial Comments: 03/20/17 18:20 The patient is a 76 year old female with a significant past medical history of cervical CA (last radiation treatment was over a month ago), IDDM, HLD, and HTN who presents to the ED s/p post surgical complications earlier today.Son states the patient has a hoarse-like voice and loss of appetite since the surgery. As per son, the patient is at [facility] for physical therapy and noticed the patient slumped over the chair earlier today. Son reports the patient had a subjective fever and neck pain radiating to her shoulders bilaterally. Denies chest pain or shortness of breath. Denies abdominal pain, nausea, vomiting, or diarrhea. 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: Yes: Dementia Renal/: Yes: Renal Inusuff ...: No - Advance Directives Advance Directives: Yes: Health Care Proxy - Smoking History Smoking history: Never smoked Have you smoked in the past 12 months: No Aproximately how many cigarettes per day: 0 - Alcohol/Substance Use Hx Alcohol Use: No History - Admission Reason For Visit: COMPLICATION OF NEPHROSTOMY/SEPSIS - Diagnostics X-ray: Report Reviewed - General Mental Status: Awake and Alert, Able to Follow Commands, Lethargic (arousable) Ability to Follow Directions: Fair - Hearing Hearing: Normal Hearing Aide: No Speech Evaluation - Communication Primary Language: IRISH Secondary Language: AFGHAN Communication: Yes: Simple Responses (speaks [place]ian and Croatian. Vague responses) - Speech Production Intelligibility: Yes: Mildly Impaired - Speech Characteristics Voice Loudness: Mildly Soft/Quiet Voice Pitch: Yes: Normal Voice Phonatory-based Quality: Yes: Weak, Dysphonia (mild vs confused with low sppeech volume. Limited cooperation.) Speech Clarity: < 75% Nasal Resonance: Normal Articulation: Yes: Precise Voice, Other Observations: Yes: Progressively Weak Voice - Language/Auditory Comprehension Follows: Yes: 1 Stage Simple Commands - Swallow Evaluation/Bedside Assessment Current Nutritional Intake: Soft, Thin Liquids Oral Secretions: Yes: WFL Dentition: Yes: Edentulous (has dentures. Not in at present.) Facial Symmetry at Rest: Symmetrical Facial Symmetry on Retraction: Symmetrical Lingual Movement: Symmetric (Possible white coating posteriorally. On Diflucan) Lingual Speed of Movement: Normal Velopharyngeal Movement: Normal Laryngeal Elevation: WFL Laryngeal Movement: Able to Palpate Rate of Intake: WFL Labial Seal: WFL Oral Prep Time: WFL A-P Transit: WFL Pocketing: None Timing of Swallow: WFL Coughing/Throat Clear: No Change in Voice: No Recommendations - Speech Evaluation, Impression/Plan Impression: Limited cooperation. Wanted to sleep. Verbal, alternating b/n [place]ian and Croatian. Vague. Reduced speech volume. Mild dysphonia/hypophonia. May be functional. Limited assessment/cooperation. - Dysphagia Impressions/Plan Dysphagia Impressions: Ongoing Evaluation (Seemed functional. No overt signs o9f aspiration/) *Silent aspiration: cannot be R/O at bedside Recommendations: Other (Use dentures mealtime) - Recommendations Diet Consistency: Regular Liquids: Thin Liquids Supplement: Other (as indicated, b/n meals)
[2017-03-21 12:58] LABS: ANISOCYTOSIS 1+; HYPOCHROMIA 1+
[2017-03-21 12:59] LABS: MICROCYTOSIS 2+
--- NOTE | 2017-03-21 14:04 | EKG ---
Test Reason : Blood Pressure : / mmHG Vent. Rate : 112 BPM Atrial Rate : 112 BPM P-R Int : 140 ms QRS Dur : 074 ms QT Int : 326 ms P-R-T Axes : 055 -35 053 degrees QTc Int : 444 ms SINUS TACHYCARDIA LEFT AXIS DEVIATION POSSIBLE LATERAL INFARCT , AGE UNDETERMINED ABNORMAL ECG WHEN COMPARED WITH ECG OF 20-FEB-2017 10:24, T WAVE VARIATION Confirmed by TAMMY CINTRON MD ([id number]) on 03/21/2017 2:03:52 PM Referred By: Confirmed By:TAMMY CINTRON MD
--- NOTE | 2017-03-21 14:56 | HP ---
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 Renal/: Yes: Renal Inusuff ...: No - Advance Directives Advance Directives: Yes: Health Care Proxy - Smoking History Smoking history: Never smoked Have you smoked in the past 12 months: No Aproximately how many cigarettes per day: 0 - Alcohol/Substance Use Hx Alcohol Use: No Home Medications - Allergies Allergies/Adverse Reactions: Allergies Allergy/AdvReac Type Severity Reaction Status Date / Time No Known Allergies Allergy Verified 03/20/17 20:05 - Home Medications Home Medications: Ambulatory Orders Aspirin [ASA -] 81 mg PO DAILY 02/20/17 Atorvastatin Ca [Lipitor] 20 mg PO HS 02/20/17 Mirtazapine 15 mg PO HS 02/20/17 Amlodipine Besylate [Norvasc -] 5 mg PO DAILY tablet 03/14/17 Insulin (Levemir) [Levemir Vial] 16 units SQ HS ml 03/14/17 Warfarin Na [Coumadin -] 2 mg PO DAILY@1800 #0 tablet 03/14/17 Ferrous Sulfate 325 mg PO BID 03/20/17 Review of Systems - Review of Systems Constitutional: reports: Lethargy, Malaise Eyes: reports: No Symptoms HENT: reports: No Symptoms Neck: reports: No Symptoms Cardiovascular: reports: No Symptoms Respiratory: reports: No Symptoms Gastrointestinal: reports: No Symptoms Genitourinary: reports: Dysuria, Flank Pain Musculoskeletal: reports: Back Pain Integumentary: reports: Wound Neurological: reports: No Symptoms Hematology/Lymphatic: reports: No Symptoms Psychiatric: reports: Depression Physical Examination Vital Signs: Vital Signs Temperature 98.9 F 03/21/17 07:44 Pulse Rate 92 H 03/21/17 07:44 Respiratory Rate 20 03/21/17 07:44 Blood Pressure 125/66 03/21/17 07:44 O2 Sat by Pulse Oximetry (%) 98 03/21/17 07:00 Constitutional: Yes: Mild Distress, Pallor Eyes: Yes: WNL, Conjunctiva Clear, EOM Intact HENT: Yes: WNL, Atraumatic, Normocephalic, Tonsillar Exudate Neck: Yes: WNL, Supple, Trachea Midline Cardiovascular: Yes: WNL, Regular Rate and Rhythm Respiratory: Yes: WNL, Regular, CTA Bilaterally Gastrointestinal: Yes: WNL, Normal Bowel Sounds, Soft Renal/: Yes: Other (S/P Nephrostomy) Extremities: Yes: WNL Edema: No Peripheral Pulses WNL: Yes Peripheral Pulses: Left Doralis Pedis: 1+, Right Dorsalis Pedis: 1+ Integumentary: Yes: Other (Sacral decubitus stage 2) ...Motor Strength: WNL, LUE, LLE, RUE, RLE Psychiatric: Yes: WNL, Alert Labs: CBC, BMP 03/21/17 06:30 03/21/17 06:30 Imaging - Results X-ray: Image Reviewed (No acute infiltrates) Problem List - Problems (1) OSCAR (acute kidney injury) Assessment/Plan: Due to dehydartion , re evaluate renal functions after IV Hydration, renal consult. Code(s): N17.9 - ACUTE KIDNEY FAILURE, UNSPECIFIED (2) Acute on chronic kidney failure Code(s): N17.9 - ACUTE KIDNEY FAILURE, UNSPECIFIED N18.9 - CHRONIC KIDNEY DISEASE, UNSPECIFIED (3) Type 2 diabetes mellitus Assessment/Plan: Hold Levimir as patient has poor Po intake cont FS and Correction dose insulin Code(s): E11.9 - TYPE 2 DIABETES MELLITUS WITHOUT COMPLICATIONS Qualifiers: Diabetic retinopathy severity: with moderate nonproliferative retinopathy (4) Anemia Assessment/Plan: Worsening anemia will transfuse 1 unit PRBC Code(s): D64.9 - ANEMIA, UNSPECIFIED Qualifiers: Anemia type: unspecified type Qualified Code(s): D64.9 - Anemia, unspecified (5) DVT, lower extremity Assessment/Plan: Sub acute cont coumadin 2 mg F/U INR Code(s): I82.409 - ACUTE EMBOLISM AND THOMBOS UNSP DEEP VN UNSP LOWER EXTREMITY Qualifiers: Affected thrombotic vein of extremity: unspecified vein of extremity Laterality: right Chronicity: acute Qualified Code(s): I82.401 - Acute embolism and thrombosis of unspecified deep veins of right lower extremity (6) CA cervix Assessment/Plan: S/P RT and chemotherapy Code(s): C53.9 - MALIGNANT NEOPLASM OF CERVIX UTERI, UNSPECIFIED (7) Obstructive uropathy Assessment/Plan: Due to CA Cervix s/p Nephrostomy tube Code(s): N13.9 - OBSTRUCTIVE AND REFLUX UROPATHY, UNSPECIFIED (8) UTI (urinary tract infection) Assessment/Plan: F/U ID recommondation and U culture cont Fluconazole. Code(s): N39.0 - URINARY TRACT INFECTION, SITE NOT SPECIFIED Qualifiers: Indwelling urinary catheter type: indwelling urethral catheter (9) Hoarseness of voice Assessment/Plan: Post intubation, F/U speech and swallow evaluation Code(s): R49.0 - DYSPHONIA
[2017-03-21] MEDS: NYSTATIN POWDER 100,000 UNITS/GM - 15 GM TOPICAL POWDER TP SCH ×2 (15:02→22:24)
[2017-03-21] MEDS ORDERED: diphenhydrAMINE HCL 25 MG CAPSULE (FP) PO PRN (15:33)
--- NOTE | 2017-03-21 15:39 | CONSULT ---
Consult Consult Specialty:: infectious diseases Reason for Consultation:: uti - History of Present Illness Chief Complaint: weakness,pain in the neck History of Present Illness: this patient well known to em from last admission coming to the hospital for dehydration pain in the rt side of the neck and sever anemia. 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 Renal/: Yes: Renal Inusuff ...: No - Alcohol/Substance Use Hx Alcohol Use: No - Smoking History Smoking history: Never smoked Have you smoked in the past 12 months: No Aproximately how many cigarettes per day: 0 Home Medications - Allergies Allergies/Adverse Reactions: Allergies Allergy/AdvReac Type Severity Reaction Status Date / Time No Known Allergies Allergy Verified 03/20/17 20:05 - Home Medications Home Medications: Ambulatory Orders Aspirin [ASA -] 81 mg PO DAILY 02/20/17 Atorvastatin Ca [Lipitor] 20 mg PO HS 02/20/17 Mirtazapine 15 mg PO HS 02/20/17 Amlodipine Besylate [Norvasc -] 5 mg PO DAILY tablet 03/14/17 Insulin (Levemir) [Levemir Vial] 16 units SQ HS ml 03/14/17 Warfarin Na [Coumadin -] 2 mg PO DAILY@1800 #0 tablet 03/14/17 Ferrous Sulfate 325 mg PO BID 03/20/17 Review of Systems - Review of Systems Constitutional: reports: No Symptoms Eyes: reports: No Symptoms HENT: reports: No Symptoms, Other (neck pain --rt scapular mucle) Cardiovascular: reports: No Symptoms Respiratory: reports: No Symptoms Gastrointestinal: reports: No Symptoms Musculoskeletal: reports: No Symptoms Integumentary: reports: No Symptoms Endocrine: reports: No Symptoms Hematology/Lymphatic: reports: No Symptoms Psychiatric: reports: No Symptoms Physical Exam Vital Signs: Vital Signs Temperature 98.9 F 03/21/17 07:44 Pulse Rate 92 H 03/21/17 07:44 Respiratory Rate 20 03/21/17 07:44 Blood Pressure 125/66 03/21/17 07:44 O2 Sat by Pulse Oximetry (%) 98 03/21/17 07:00 Constitutional: Yes: Calm, Mild Distress Eyes: Yes: Conjunctiva Clear HENT: Yes: Atraumatic Neck: Yes: Supple, Other (pain on palpation on the rt side of the neck--neck muscle no photophobia,or stiffness or light bothering her) Cardiovascular: Yes: Pulse Irregular Respiratory: Yes: Regular, CTA Bilaterally Gastrointestinal: Yes: Normal Bowel Sounds, Soft Renal/: Yes: Other (bilateral nephrostomy tube left looks cloudy) Musculoskeletal: Yes: WNL Extremities: Yes: WNL Neurological: Yes: Alert, Oriented Psychiatric: Yes: Alert Labs: CBC, BMP 03/21/17 06:30 03/21/17 06:30 Imaging - Results Chest X-ray: Report Reviewed, Image Reviewed Assessment/Plan uti neck pain anemia dehydration cancer plan continue abx a\continue antifungal await urine cx reports await rest of the reports might have to change the nephrostomy tubes
--- NOTE | 2017-03-21 16:48 | CONSULT ---
Consult Consult Specialty:: Nephrology ( Jj/ Mikie) Referred by:: Robert Reason for Consultation:: Worsening Renal functions - History of Present Illness Chief Complaint: The patient known to us with h/o Cevical Ca, S/p Radiation, Hyperlipidemia, Hypertension, Obstructive uropathy, s/p Bilateral percutaneous nephrostomy, admitted with fever, lethargy, shortness of breath. Has h/o DM2, HLD, HTN, CKKD4. Renal functions significantly worsened since discharge. History of Present Illness: The patient was recently discharged from the hospital to SNF for rehab. Readmitted with fever, lethargy and worsening renal functions. S Cr 1.5...>3.0 Patient is arousable, but poor historian. 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: Yes: Dementia Renal/: Yes: Renal Failure, Renal Inusuff, UTI, Other (Bilateral percutaneous nephrostomy) ...: No - Alcohol/Substance Use Hx Alcohol Use: No - Smoking History Smoking history: Never smoked Have you smoked in the past 12 months: No Aproximately how many cigarettes per day: 0 Home Medications - Allergies Allergies/Adverse Reactions: Allergies Allergy/AdvReac Type Severity Reaction Status Date / Time No Known Allergies Allergy Verified 03/20/17 20:05 - Home Medications Home Medications: Ambulatory Orders Aspirin [ASA -] 81 mg PO DAILY 02/20/17 Atorvastatin Ca [Lipitor] 20 mg PO HS 02/20/17 Mirtazapine 15 mg PO HS 02/20/17 Amlodipine Besylate [Norvasc -] 5 mg PO DAILY tablet 03/14/17 Insulin (Levemir) [Levemir Vial] 16 units SQ HS ml 03/14/17 Warfarin Na [Coumadin -] 2 mg PO DAILY@1800 #0 tablet 03/14/17 Ferrous Sulfate 325 mg PO BID 03/20/17 Review of Systems - Review of Systems Constitutional: reports: Fever, Lethargy Neck: reports: Pain on Movement, Tenderness Gastrointestinal: reports: Abdominal Pain. denies: Diarrhea, Nausea, Vomiting Musculoskeletal: reports: Back Pain Neurological: reports: Change in LOC Physical Exam Vital Signs: Vital Signs Temperature 100.4 F H 03/21/17 15:39 Pulse Rate 117 H 03/21/17 15:39 Respiratory Rate 20 03/21/17 15:39 Blood Pressure 115/60 03/21/17 15:39 O2 Sat by Pulse Oximetry (%) 98 03/21/17 07:00 Constitutional: Yes: Mild Distress HENT: Yes: Normocephalic Cardiovascular: Yes: S1, S2 Respiratory: Yes: Diminished, Poor Air Entry, Tachypnea Gastrointestinal: Yes: Soft, Hypoactive Bowel Sounds Renal/: Yes: CVA Tenderness - Left, CVA Tenderness - Right Musculoskeletal: Yes: Back Pain Labs: CBC, BMP 03/21/17 06:30 03/21/17 06:30 Problem List - Problems (1) OSCAR (acute kidney injury) Code(s): N17.9 - ACUTE KIDNEY FAILURE, UNSPECIFIED (2) Acute on chronic kidney failure Code(s): N17.9 - ACUTE KIDNEY FAILURE, UNSPECIFIED N18.9 - CHRONIC KIDNEY DISEASE, UNSPECIFIED (3) Fever Code(s): R50.9 - FEVER, UNSPECIFIED (4) Sepsis Code(s): A41.9 - SEPSIS, UNSPECIFIED ORGANISM (5) Anemia Code(s): D64.9 - ANEMIA, UNSPECIFIED Qualifiers: Anemia type: unspecified type Qualified Code(s): D64.9 - Anemia, unspecified (6) CA cervix Code(s): C53.9 - MALIGNANT NEOPLASM OF CERVIX UTERI, UNSPECIFIED (7) Obstructive uropathy Code(s): N13.9 - OBSTRUCTIVE AND REFLUX UROPATHY, UNSPECIFIED (8) Type 2 diabetes mellitus Code(s): E11.9 - TYPE 2 DIABETES MELLITUS WITHOUT COMPLICATIONS Qualifiers: Diabetic retinopathy severity: with moderate nonproliferative retinopathy (9) Urinary retention Code(s): R33.9 - RETENTION OF URINE, UNSPECIFIED Assessment/Plan 76 y/o female with obstructive uropathy, s/p Bilateral percutaneous Nephrostomy admitted with fever, lethargy, leucocytosis, possible urosepsis, hoarseness of voice. The renal functions are worsened possibly related to the sepsis, and effective renal hypoperfusion. Will continue IV fluids. IV antibiotics as ordered. Will monitor the renal functions with you. anne Gardner MD
[2017-03-21] MEDS: PANTOPRAZOLE SOD 40 MG SUSPENSION PACKET PO SCH (17:06)
[2017-03-21] MEDS: WARFARIN NA 2 MG TABLET (UD) PO SCH (17:06)
[2017-03-21] MEDS: ACETAMINOPHEN 325 MG TABLET (FP) PO PRN (18:21)
[2017-03-21] MEDS ORDERED: PT OWN MED DRAWER 7, Y5N ONE (21:26)
[2017-03-21] MEDS: MIRTAZAPINE 15 MG TABLET (FP) PO SCH (22:24)
--- NOTE | 2017-03-21 22:41 | CONSULT ---
Consult - text type - Consultation Consultation Note: Patient seen and examined History of Present Illness Chief Complaint: 76 y/o patient with h/o Cevical Ca, S/p Radiation, Hyperlipidemia, Hypertension, Obstructive uropathy, s/p Bilateral percutaneous nephrostomy, admitted with fever, lethargy, shortness of breath. Has h/o DM2, HLD, HTN, CKKD4. Renal functions significantly worsened since discharge. History of Present Illness: The patient was recently discharged from the hospital to SNF for rehab. Readmitted with fever, lethargy and worsening renal functions. S Cr 1.5...>3.0 Patient is arousable, but poor historian. 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 Dementia Renal/: Yes: Renal Failure, Renal Inusuff, UTI, Other (Bilateral percutaneous nephrostomy) - Smoking History Smoking history: Never smoked Home Medications - Allergies Allergies/Adverse Reactions: Allergies Allergy/AdvReac Type Severity Reaction Status Date / Time No Known Allergies Allergy Verified 03/20/17 20:05 - Home Medications Home Medications: Ambulatory Orders Aspirin [ASA -] 81 mg PO DAILY 02/20/17 Atorvastatin Ca [Lipitor] 20 mg PO HS 02/20/17 Mirtazapine 15 mg PO HS 02/20/17 Amlodipine Besylate [Norvasc -] 5 mg PO DAILY tablet 03/14/17 Insulin (Levemir) [Levemir Vial] 16 units SQ HS ml 03/14/17 Warfarin Na [Coumadin -] 2 mg PO DAILY@1800 #0 tablet 03/14/17 Ferrous Sulfate 325 mg PO BID 03/20/17 Physical Exam Vital Signs: Vital Signs Temperature 98.9 F 03/21/17 07:44 Pulse Rate 92 H 03/21/17 07:44 Respiratory Rate 20 03/21/17 07:44 Blood Pressure 125/66 03/21/17 07:44 O2 Sat by Pulse Oximetry (%) 98 03/21/17 07:00 Constitutional: Yes: Mild Distress HENT: Yes: Normocephalic Cardiovascular: Yes: S1, S2 Respiratory: Yes: Diminished, Poor Air Entry, Tachypnea Gastrointestinal: Yes: Soft, Hypoactive Bowel Sounds Labs: CBC, BMP 03/21/17 06:30 03/21/17 06:30 Assessment/Plan 76 y/o female with DM, metasttaic cervical cancer, poor performance status, b/l PCN, h/o DVT, UTI comes in with weakness, OSCAR, ? UTI, profound anemia Anemia--multifactorial anemia of chronic disease-- OSCAR, infection, stage IV cancer r/o blood loss getting transfused will check screening tests On coumadin for h/o DVT--INR subtherapeutic r/o blood loss
[2017-03-22] MEDS: PIPERACILLIN/TAZOB 2.25 GM 50 ML IVPB SCH ×3 (03:59→18:03)
[2017-03-22] MEDS: clonazePAM 0.5 MG TABLET PO SCH ×3 (06:13→21:49)
[2017-03-22] MEDS: INSULIN SLIDING SCALE (NOVOLOG) 1 VIAL SQ SCH ×3 (06:14→17:59)
[2017-03-22 08:28] LABS: BASOPHIL 0.4 % (0-2.0); EOSINOPHIL 0.9 % (0-4.5); MCHC 32.9 g/dl (32.0-36.0); MEAN CELL VOLUME 82.1 fl (80-96); MEAN PLT VOLUME 7.5 fl (7.5-11.1); NEUTROPHILS 82.3 % (42.8-82.8); RDW 17.2 % (11.6-15.6); WHITE BLOOD COUNT 15.1 K/mm3 (4.0-10.0)
[2017-03-22 08:49] LABS: INR 1.3 (0.82-1.09); PROTHROMBIN TIME (PATIENT) 14.4 SEC (9.98-11.88)
[2017-03-22 08:55] LABS: ALBUMIN 1.5 g/dl (3.4-5.0); BILIRUBIN,TOTAL 0.5 mg/dL (0.2-1.0); CALCIUM 7.7 mg/dL (8.5-10.1); COCKROFT - GAULT 14.943; CREATININE 3.1 mg/dL (0.55-1.02); TOT PROT 5.3 g/dl (6.4-8.2)
--- NOTE | 2017-03-22 08:55 | PN ---
Progress Note, Physician History of Present Illness: stable no new issues had a low grade temp heam/onco on case - Current Medication List Current Medications: Active Medications Acetaminophen (Tylenol -) 650 mg PO Q6H PRN PRN Reason: FEVER OR PAIN Last Admin: 03/21/17 18:21 Dose: 650 mg Clonazepam (Klonopin -) 0.5 mg PO TID [facility] Last Admin: 03/22/17 06:13 Dose: 0.5 mg Diphenhydramine HCl (Benadryl -) 25 mg PO Q6H PRN PRN Reason: FOR ITCHING Fluconazole (Diflucan 200 Mg/D5w Premixed Ivpb -) 100 mls @ 100 mls/hr IVPB DAILY [facility] Last Admin: 03/21/17 10:51 Dose: 100 mls/hr Piperacillin Sod/Tazobactam Sod (Zosyn 2.25gm Ivpb (Pre-Docked)) 50 mls @ 100 mls/hr IVPB Q8H-IV JADEN PRN Reason: Protocol Last Admin: 03/22/17 03:59 Dose: 100 mls/hr Insulin Aspart (Novolog Vial Sliding Scale -) 1 vial SQ TIDAC [facility] PRN Reason: Protocol Last Admin: 03/22/17 06:14 Dose: 2 units Mirtazapine (Remeron -) 15 mg PO HS [facility] Last Admin: 03/21/17 22:24 Dose: 15 mg Nystatin (Nystop Powder -) 1 applic TP BID [facility] Last Admin: 03/21/17 22:24 Dose: 1 applic Pantoprazole Sodium (Protonix Packets For Oral Suspension -) 40 mg PO DAILY [facility] Last Admin: 03/21/17 17:06 Dose: 40 mg Warfarin Sodium (Coumadin -) 2 mg PO DAILY@1800 [facility] Last Admin: 03/21/17 17:06 Dose: 2 mg - Objective Vital Signs: Vital Signs Temperature 98.9 F 03/22/17 07:14 Pulse Rate 72 03/22/17 07:14 Respiratory Rate 20 03/22/17 07:14 Blood Pressure 124/66 03/22/17 07:14 O2 Sat by Pulse Oximetry (%) 98 03/21/17 21:00 Constitutional: Yes: No Distress, Calm Cardiovascular: Yes: Pulse Irregular Respiratory: Yes: Regular, CTA Bilaterally Gastrointestinal: Yes: Normal Bowel Sounds, Soft Genitourinary: Yes: Other (bilateral nephrostomy tubes) Musculoskeletal: Yes: WNL Extremities: Yes: Other Neurological: Yes: Alert, Oriented Psychiatric: Yes: Alert Labs: CBC, BMP 03/22/17 06:30 INR, PTT INR 1.30 (0.82-1.09) H 03/21/17 06:30 Assessment/Plan uti neck pain anemia dehydration cancer plan continue current mgmt await for cx to eb back monitor fevers rest as per primary and heam/onc
[2017-03-22] MEDS: NYSTATIN POWDER 100,000 UNITS/GM - 15 GM TOPICAL POWDER TP SCH ×2 (10:23→21:49)
[2017-03-22] MEDS: PANTOPRAZOLE SOD 40 MG SUSPENSION PACKET PO SCH (10:30)
[2017-03-22] MEDS: FLUCONAZOLE 200 MG/D5W 100 ML IVPB SCH (11:37)
[2017-03-22] MEDS: ACETAMINOPHEN 325 MG TABLET (FP) PO PRN ×2 (11:50→22:02)
--- NOTE | 2017-03-22 12:03 | PN ---
Progress Note, Physician Chief Complaint: Feels improved H/H remained stable History of Present Illness: 76 yrs old F multiple medical co-morbidities H/O HTN, T2DM, CKD stage 4 , obstructive uropathy due to CA Cervix S/P ureteric Stent and Nephrostomy, Chronic anemia, Rt LE DVT on AC, Depression Dc [facility] on 03/14/2017 after treated for UTI and obstructive uropathy, transferred back from [facility] with gradually worsening dysphonia, low grade fever and feeling weak, on arrival low BP, elevated TWBC and + UA,lw H/H recited 1 unit PRB now H/H is stable. - Current Medication List Current Medications: Active Medications Acetaminophen (Tylenol -) 650 mg PO Q6H PRN PRN Reason: FEVER OR PAIN Last Admin: 03/22/17 11:50 Dose: 650 mg Clonazepam (Klonopin -) 0.5 mg PO TID [facility] Last Admin: 03/22/17 06:13 Dose: 0.5 mg Diphenhydramine HCl (Benadryl -) 25 mg PO Q6H PRN PRN Reason: FOR ITCHING Fluconazole (Diflucan 200 Mg/D5w Premixed Ivpb -) 100 mls @ 100 mls/hr IVPB DAILY [facility] Last Admin: 03/22/17 11:37 Dose: 100 mls/hr Piperacillin Sod/Tazobactam Sod (Zosyn 2.25gm Ivpb (Pre-Docked)) 50 mls @ 100 mls/hr IVPB Q8H-IV [facility] PRN Reason: Protocol Last Admin: 03/22/17 10:30 Dose: 100 mls/hr Insulin Aspart (Novolog Vial Sliding Scale -) 1 vial SQ TIDAC [facility] PRN Reason: Protocol Last Admin: 03/22/17 06:14 Dose: 2 units Mirtazapine (Remeron -) 15 mg PO HS [facility] Last Admin: 03/21/17 22:24 Dose: 15 mg Nystatin (Nystop Powder -) 1 applic TP BID [facility] Last Admin: 03/22/17 10:23 Dose: 1 applic Pantoprazole Sodium (Protonix Packets For Oral Suspension -) 40 mg PO DAILY [facility] Last Admin: 03/22/17 10:30 Dose: 40 mg Warfarin Sodium (Coumadin -) 2 mg PO DAILY@1800 [facility] Last Admin: 03/21/17 17:06 Dose: 2 mg - Objective Vital Signs: Vital Signs Temperature 98.9 F 03/22/17 07:14 Pulse Rate 72 03/22/17 07:14 Respiratory Rate 20 03/22/17 07:14 Blood Pressure 124/66 03/22/17 07:14 O2 Sat by Pulse Oximetry (%) 98 03/21/17 21:00 Constitutional: Yes: Pallor Eyes: Yes: WNL, Conjunctiva Clear, EOM Intact HENT: Yes: WNL, Atraumatic, Normocephalic Neck: Yes: WNL, Supple, Trachea Midline Cardiovascular: Yes: WNL, Regular Rate and Rhythm Respiratory: Yes: WNL, Regular, CTA Bilaterally Gastrointestinal: Yes: WNL, Normal Bowel Sounds Genitourinary: Yes: Other (B/L Nephrostomy tubes) Edema: LLE: 1+ Peripheral Pulses WNL: Yes Peripheral Pulses: Left Doralis Pedis: 1+, Right Dorsalis Pedis: 1+ Neurological: Yes: WNL, Alert, Oriented ...Motor Strength: LLE Psychiatric: Yes: WNL, Alert Labs: CBC, BMP 03/22/17 06:30 03/22/17 06:30 INR, PTT INR 1.30 (0.82-1.09) H 03/22/17 06:30 - ....Imaging Chest X-ray: Image Reviewed (Normal) Problem List - Problems (1) OSCAR (acute kidney injury) Assessment/Plan: Due to dehydartion , re evaluate renal functions after IV Hydration, renal consult. Code(s): N17.9 - ACUTE KIDNEY FAILURE, UNSPECIFIED (2) Acute on chronic kidney failure Code(s): N17.9 - ACUTE KIDNEY FAILURE, UNSPECIFIED N18.9 - CHRONIC KIDNEY DISEASE, UNSPECIFIED (3) Type 2 diabetes mellitus Assessment/Plan: Hold Levimir as patient has poor Po intake cont FS and Correction dose insulin Code(s): E11.9 - TYPE 2 DIABETES MELLITUS WITHOUT COMPLICATIONS Qualifiers: Diabetic retinopathy severity: with moderate nonproliferative retinopathy (4) Anemia Assessment/Plan: H/H stable after 1 unit PRBC transfusion , no obvious source of bleeding. Code(s): D64.9 - ANEMIA, UNSPECIFIED Qualifiers: Anemia type: unspecified type Qualified Code(s): D64.9 - Anemia, unspecified (5) DVT, lower extremity Code(s): I82.409 - ACUTE EMBOLISM AND THOMBOS UNSP DEEP VN UNSP LOWER EXTREMITY Qualifiers: Affected thrombotic vein of extremity: unspecified vein of extremity Laterality: right Chronicity: acute Qualified Code(s): I82.401 - Acute embolism and thrombosis of unspecified deep veins of right lower extremity (6) CA cervix Assessment/Plan: S/P RT and chemotherapy Code(s): C53.9 - MALIGNANT NEOPLASM OF CERVIX UTERI, UNSPECIFIED (7) Obstructive uropathy Assessment/Plan: Due to CA Cervix s/p Nephrostomy tube Code(s): N13.9 - OBSTRUCTIVE AND REFLUX UROPATHY, UNSPECIFIED (8) UTI (urinary tract infection) Assessment/Plan: F/U ID recommondation and U culture cont Fluconazole. Code(s): N39.0 - URINARY TRACT INFECTION, SITE NOT SPECIFIED Qualifiers: Indwelling urinary catheter type: indwelling urethral catheter (9) Hoarseness of voice Assessment/Plan: Post intubation, F/U speech and swallow evaluation Code(s): R49.0 - DYSPHONIA
[2017-03-22 12:26] LABS: PLATELET COUNT 257 K/MM3 (134-434)
--- NOTE | 2017-03-22 12:45 | PN ---
Progress Note, [employer] - Note Progress Note: Selected Entries 03/20/17 03/20/17 03/20/17 17:44 20:03 21:47 Breakfast Lunch Supper Temperature 100.1 F H 97.5 F L 98.1 F 03/21/17 03/21/17 03/21/17 07:44 10:50 13:26 Breakfast 25% Lunch 50% Supper Temperature 98.9 F 99.3 F 03/21/17 03/21/17 03/21/17 15:39 19:00 19:02 Breakfast Lunch Supper 25% Temperature 100.4 F H 100.8 F H 03/21/17 03/21/17 03/22/17 22:00 22:59 07:14 Breakfast Lunch Supper Temperature 99.3 F 99.5 F 98.9 F 03/22/17 11:47 Breakfast 75% Lunch Supper Temperature Laboratory Tests 03/20/17 03/21/17 03/22/17 19:07 06:30 06:30 WBC 15.4 H D 11.8 H 15.1 H Pt mostly aphonic, with reduced effort to phonate. When she becomes agitated, voice is louder and more functional, with dysphonia. Swallowing grossly functional, without responsive cough. Silent aspiration can not be r/o at bedside. CXR 03/20 (-). ' Family reports onset of dysphonia on Tuesday, not following intubation. She is confused, spitting out mashed pieces of cake. No visible candidiasis. REC: Dys puree, Glucerna, Magic cup r/o vocal cord paresis? consider ENT consult.
[2017-03-22] MEDS: WARFARIN NA 2 MG TABLET (UD) PO SCH (18:03)
[2017-03-22] MEDS ORDERED: SODIUM CHLORIDE 500 ML IV STA (18:27)
--- NOTE | 2017-03-22 18:33 | PN ---
Progress Note (short form) - Note Progress Note: Renal Follow up for OSCAR on CKD Pt seen and examined at the bedside no sob or chest pain no N/V/D poor oral intake is urinating Vital Signs Temperature 97.5 F L 03/22/17 17:59 Pulse Rate 112 H 03/22/17 17:59 Respiratory Rate 20 03/22/17 17:59 Blood Pressure 106/58 03/22/17 17:59 O2 Sat by Pulse Oximetry (%) 98 03/22/17 09:00 Intake & Output 03/19/17 03/20/17 03/21/17 03/22/17 23:59 23:59 23:59 23:59 Intake Total 200 900 980 Output Total 100 402 480 Balance 100 498 500 Weight 134 lb 1.6 oz 132 lb 6.4 oz 131 lb 2 oz Gen: NAD CVS: RRR, No M/R Lungs: CTA Abd: soft NT/ND Ext: No edema CBC, BMP 03/22/17 06:30 03/22/17 06:30 Current Medications Acetaminophen (Tylenol -) 650 mg PO Q6H PRN PRN Reason: FEVER OR PAIN Last Admin: 03/22/17 11:50 Dose: 650 mg Clonazepam (Klonopin -) 0.5 mg PO TID [facility] Last Admin: 03/22/17 14:51 Dose: Not Given Diphenhydramine HCl (Benadryl -) 25 mg PO Q6H PRN PRN Reason: FOR ITCHING Fluconazole (Diflucan 200 Mg/D5w Premixed Ivpb -) 100 mls @ 100 mls/hr IVPB DAILY [facility] Last Admin: 03/22/17 11:37 Dose: 100 mls/hr Piperacillin Sod/Tazobactam Sod (Zosyn 2.25gm Ivpb (Pre-Docked)) 50 mls @ 100 mls/hr IVPB Q8H-IV JADEN PRN Reason: Protocol Last Admin: 03/22/17 18:03 Dose: 100 mls/hr Sodium Chloride (Normal Saline -) 500 mls @ 500 mls/hr IV ASDIR STA Stop: 03/22/17 19:26 Sodium Chloride (Normal Saline -) 1,000 mls @ 83 mls/hr IV ASDIR JADEN Insulin Aspart (Novolog Vial Sliding Scale -) 1 vial SQ TIDAC [facility] PRN Reason: Protocol Last Admin: 03/22/17 17:59 Dose: 2 units Mirtazapine (Remeron -) 15 mg PO HS [facility] Last Admin: 03/21/17 22:24 Dose: 15 mg Nystatin (Nystop Powder -) 1 applic TP BID [facility] Last Admin: 03/22/17 10:23 Dose: 1 applic Pantoprazole Sodium (Protonix Packets For Oral Suspension -) 40 mg PO DAILY [facility] Last Admin: 03/22/17 10:30 Dose: 40 mg Warfarin Sodium (Coumadin -) 2 mg PO DAILY@1800 [facility] Last Admin: 03/22/17 18:03 Dose: 2 mg A/P 76 year old Female with PMhx of Cevical Ca, S/p Radiation, Hyperlipidemia, Hypertension, Obstructive uropathy, s/p Bilateral percutaneous nephrostomy, admitted with fever, lethargy, shortness of breath. #OSCAR on CKD pt with signs of volume depeltion will start IV NS (bolous and then standing IVF) Check Renal US to r/o dislodgment of tube or persistent hydronephrosis dose all meds for Cr Cl less then 15 no acute indication for dialysis Start Sodium Bicarb 650mg BID Glenn Deluna DO
[2017-03-22] MEDS: SODIUM CHLORIDE 1,000 ML IV SCH (18:41)
[2017-03-22] MEDS: MIRTAZAPINE 15 MG TABLET (FP) PO SCH (21:49)
[2017-03-23] MEDS: PIPERACILLIN/TAZOB 2.25 GM 50 ML IVPB SCH ×3 (02:02→18:27)
[2017-03-23] MEDS: INSULIN SLIDING SCALE (NOVOLOG) 1 VIAL SQ SCH ×4 (06:19→17:04)
[2017-03-23] MEDS: clonazePAM 0.5 MG TABLET PO SCH ×3 (06:20→21:19)
[2017-03-23 08:12] LABS: BASOPHIL 0.5 % (0-2.0); EOSINOPHIL 0.7 % (0-4.5); MCH 27.3 pg (25.7-33.7); MCHC 33.3 g/dl (32.0-36.0); MEAN CELL VOLUME 81.8 fl (80-96); MEAN PLT VOLUME 7.1 fl (7.5-11.1); PLATELET COUNT 237 K/MM3 (134-434); RDW 17.7 % (11.6-15.6); WHITE BLOOD COUNT 13.3 K/mm3 (4.0-10.0)
[2017-03-23 08:20] LABS: ALBUMIN 1.4 g/dl (3.4-5.0); CALCIUM 7.3 mg/dL (8.5-10.1); MAGNESIUM 1.6 mg/dL (1.8-2.4)
[2017-03-23 08:22] LABS: BILIRUBIN,TOTAL 0.3 mg/dL (0.2-1.0); COCKROFT - GAULT 14.943; CREATININE 3.1 mg/dL (0.55-1.02); TOT PROT 5.2 g/dl (6.4-8.2)
[2017-03-23 08:30] LABS: INR 1.46 (0.82-1.09); PROTHROMBIN TIME (PATIENT) 16.2 SEC (9.98-11.88)
[2017-03-23] MEDS: SODIUM CHLORIDE 1,000 ML IV SCH ×2 (08:53→19:18)
[2017-03-23] MEDS ORDERED: MAGNESIUM SULF 50% (8.12 MEQ/2 ML-1 GM VIAL) IVPB ONE (11:15)
[2017-03-23] MEDS: PANTOPRAZOLE SOD 40 MG SUSPENSION PACKET PO SCH (11:32)
[2017-03-23] MEDS: NYSTATIN POWDER 100,000 UNITS/GM - 15 GM TOPICAL POWDER TP SCH ×2 (11:32→21:18)
[2017-03-23] MEDS: FLUCONAZOLE 200 MG/D5W 100 ML IVPB SCH (11:34)
--- NOTE | 2017-03-23 11:44 | PN ---
Progress Note, Physician History of Present Illness: patient stable no new issues - Current Medication List Current Medications: Active Medications Acetaminophen (Tylenol -) 650 mg PO Q6H PRN PRN Reason: FEVER OR PAIN Last Admin: 03/22/17 22:02 Dose: 650 mg Clonazepam (Klonopin -) 0.5 mg PO TID [facility] Last Admin: 03/23/17 06:20 Dose: 0.5 mg Diphenhydramine HCl (Benadryl -) 25 mg PO Q6H PRN PRN Reason: FOR ITCHING Fluconazole (Diflucan 200 Mg/D5w Premixed Ivpb -) 100 mls @ 100 mls/hr IVPB DAILY [facility] Last Admin: 03/23/17 11:34 Dose: 100 mls/hr Piperacillin Sod/Tazobactam Sod (Zosyn 2.25gm Ivpb (Pre-Docked)) 50 mls @ 100 mls/hr IVPB Q8H-IV JADEN PRN Reason: Protocol Last Admin: 03/23/17 11:33 Dose: 100 mls/hr Sodium Chloride (Normal Saline -) 1,000 mls @ 83 mls/hr IV ASDIR [facility] Last Admin: 03/23/17 08:53 Dose: 83 mls/hr Insulin Aspart (Novolog Vial Sliding Scale -) 1 vial SQ TIDAC [facility] PRN Reason: Protocol Last Admin: 03/23/17 06:19 Dose: Not Given Mirtazapine (Remeron -) 15 mg PO HS [facility] Last Admin: 03/22/17 21:49 Dose: 15 mg Nystatin (Nystop Powder -) 1 applic TP BID [facility] Last Admin: 03/23/17 11:32 Dose: 1 applic Pantoprazole Sodium (Protonix Packets For Oral Suspension -) 40 mg PO DAILY [facility] Last Admin: 03/23/17 11:32 Dose: 40 mg Warfarin Sodium (Coumadin -) 2 mg PO DAILY@1800 [facility] Last Admin: 03/22/17 18:03 Dose: 2 mg - Objective Vital Signs: Vital Signs Temperature 98.5 F 03/23/17 06:53 Pulse Rate 102 H 03/23/17 06:53 Respiratory Rate 20 03/23/17 06:53 Blood Pressure 122/66 03/23/17 06:53 O2 Sat by Pulse Oximetry (%) 98 03/22/17 21:00 Constitutional: Yes: No Distress, Calm Cardiovascular: Yes: Pulse Irregular Respiratory: Yes: Regular, CTA Bilaterally Gastrointestinal: Yes: Normal Bowel Sounds, Soft Musculoskeletal: Yes: Other Neurological: Yes: Alert, Oriented Psychiatric: Yes: Alert, Oriented Labs: CBC, BMP 03/23/17 06:00 03/23/17 06:00 INR, PTT INR 1.46 (0.82-1.09) H 03/23/17 06:00 Assessment/Plan uti neck pain anemia dehydration cancer plan continue current mgmt await for cx to be back once we have those then we will decide rest as per primary
--- NOTE | 2017-03-23 12:24 | PN ---
Progress Note, Physician Chief Complaint: Feels improved H/H remained stable History of Present Illness: 76 yrs old F multiple medical co-morbidities H/O HTN, T2DM, CKD stage 4 , obstructive uropathy due to CA Cervix S/P ureteric Stent and Nephrostomy, Chronic anemia, Rt LE DVT on AC, Depression Dc [facility] on 03/14/2017 after treated for UTI and obstructive uropathy, transferred back from [facility] with gradually worsening dysphonia, low grade fever and feeling weak, on arrival low BP, elevated TWBC and + UA,lw H/H recited 1 unit PRB now H/H is stable. - Current Medication List Current Medications: Active Medications Acetaminophen (Tylenol -) 650 mg PO Q6H PRN PRN Reason: FEVER OR PAIN Last Admin: 03/22/17 22:02 Dose: 650 mg Clonazepam (Klonopin -) 0.5 mg PO TID [facility] Last Admin: 03/23/17 06:20 Dose: 0.5 mg Diphenhydramine HCl (Benadryl -) 25 mg PO Q6H PRN PRN Reason: FOR ITCHING Fluconazole (Diflucan 200 Mg/D5w Premixed Ivpb -) 100 mls @ 100 mls/hr IVPB DAILY [facility] Last Admin: 03/23/17 11:34 Dose: 100 mls/hr Piperacillin Sod/Tazobactam Sod (Zosyn 2.25gm Ivpb (Pre-Docked)) 50 mls @ 100 mls/hr IVPB Q8H-IV [facility] PRN Reason: Protocol Last Admin: 03/23/17 11:33 Dose: 100 mls/hr Sodium Chloride (Normal Saline -) 1,000 mls @ 83 mls/hr IV ASDIR [facility] Last Admin: 03/23/17 08:53 Dose: 83 mls/hr Insulin Aspart (Novolog Vial Sliding Scale -) 1 vial SQ TIDAC [facility] PRN Reason: Protocol Last Admin: 03/23/17 11:48 Dose: Not Given Mirtazapine (Remeron -) 15 mg PO HS [facility] Last Admin: 03/22/17 21:49 Dose: 15 mg Nystatin (Nystop Powder -) 1 applic TP BID [facility] Last Admin: 03/23/17 11:32 Dose: 1 applic Pantoprazole Sodium (Protonix Packets For Oral Suspension -) 40 mg PO DAILY [facility] Last Admin: 03/23/17 11:32 Dose: 40 mg Warfarin Sodium (Coumadin -) 2 mg PO DAILY@1800 [facility] Last Admin: 03/22/17 18:03 Dose: 2 mg - Objective Vital Signs: Vital Signs Temperature 98.5 F 03/23/17 06:53 Pulse Rate 102 H 03/23/17 06:53 Respiratory Rate 20 03/23/17 06:53 Blood Pressure 122/66 03/23/17 06:53 O2 Sat by Pulse Oximetry (%) 98 03/22/17 21:00 Constitutional: Yes: Calm HENT: Yes: WNL, Atraumatic, Normocephalic Neck: Yes: WNL, Supple, Trachea Midline Cardiovascular: Yes: WNL, Regular Rate and Rhythm Respiratory: Yes: WNL, Regular, CTA Bilaterally Gastrointestinal: Yes: WNL, Soft, Hypoactive Bowel Sounds Musculoskeletal: Yes: WNL. No: Back Pain Extremities: Yes: WNL Edema: LLE: Trace, RLE: Trace Neurological: Yes: WNL, Alert, Oriented Labs: CBC, BMP 03/23/17 06:00 03/23/17 06:00 INR, PTT INR 1.46 (0.82-1.09) H 03/23/17 06:00 Problem List - Problems (1) OSCAR (acute kidney injury) Code(s): N17.9 - ACUTE KIDNEY FAILURE, UNSPECIFIED (2) Acute on chronic kidney failure Code(s): N17.9 - ACUTE KIDNEY FAILURE, UNSPECIFIED N18.9 - CHRONIC KIDNEY DISEASE, UNSPECIFIED (3) Type 2 diabetes mellitus Code(s): E11.9 - TYPE 2 DIABETES MELLITUS WITHOUT COMPLICATIONS Qualifiers: Diabetic retinopathy severity: with moderate nonproliferative retinopathy (4) Anemia Code(s): D64.9 - ANEMIA, UNSPECIFIED Qualifiers: Anemia type: unspecified type Qualified Code(s): D64.9 - Anemia, unspecified (5) DVT, lower extremity Code(s): I82.409 - ACUTE EMBOLISM AND THOMBOS UNSP DEEP VN UNSP LOWER EXTREMITY Qualifiers: Affected thrombotic vein of extremity: unspecified vein of extremity Laterality: right Chronicity: acute Qualified Code(s): I82.401 - Acute embolism and thrombosis of unspecified deep veins of right lower extremity (6) CA cervix Code(s): C53.9 - MALIGNANT NEOPLASM OF CERVIX UTERI, UNSPECIFIED (7) Obstructive uropathy Code(s): N13.9 - OBSTRUCTIVE AND REFLUX UROPATHY, UNSPECIFIED (8) UTI (urinary tract infection) Code(s): N39.0 - URINARY TRACT INFECTION, SITE NOT SPECIFIED Qualifiers: Indwelling urinary catheter type: indwelling urethral catheter (9) Hoarseness of voice Code(s): R49.0 - DYSPHONIA
--- NOTE | 2017-03-23 12:45 | CON.ENT ---
Consult Consult Specialty:: ENT Reason for Consultation:: Hoarseness - History of Present Illness Chief Complaint: Weak voice and trouble swallowing History of Present Illness: 76 yo female with multiple medical problems who became weak and dehydrated recently in [place] 3 days ago. Her daughter notes weak voice, trouble speaking and swallowing. She had no prior voice issues. She has been evaluated by Sowmya Perera who recommended an ENT evaluation. - History Source History Provided By: Family Member Limitations to Obtaining History: Clinical Condition - Past Medical History [employer]: Yes: Dementia Renal/: Yes: Renal Inusuff ...: No Additional Medical History: Cervical CA - Past Surgical History Additional Surgical History: Neprostomy - Alcohol/Substance Use Hx Alcohol Use: No - Smoking History Smoking history: Never smoked Have you smoked in the past 12 months: No Aproximately how many cigarettes per day: 0 Home Medications - Allergies Allergies/Adverse Reactions: Allergies Allergy/AdvReac Type Severity Reaction Status Date / Time No Known Allergies Allergy Verified 03/20/17 20:05 - Home Medications Home Medications: Ambulatory Orders Aspirin [ASA -] 81 mg PO DAILY 02/20/17 Atorvastatin Ca [Lipitor] 20 mg PO HS 02/20/17 Mirtazapine 15 mg PO HS 02/20/17 Amlodipine Besylate [Norvasc -] 5 mg PO DAILY tablet 03/14/17 Insulin (Levemir) [Levemir Vial] 16 units SQ HS ml 03/14/17 Warfarin Na [Coumadin -] 2 mg PO DAILY@1800 #0 tablet 03/14/17 Ferrous Sulfate 325 mg PO BID 03/20/17 Review of Systems - Review of Systems Constitutional: reports: Loss of Appetite, Weakness HENT: reports: Difficult Swallowing, Other Neck: reports: No Symptoms (hoarseness) Physical Exam-ENT Vital Signs: Vital Signs Temperature 98.5 F 03/23/17 06:53 Pulse Rate 102 H 03/23/17 06:53 Respiratory Rate 20 03/23/17 06:53 Blood Pressure 122/66 03/23/17 06:53 O2 Sat by Pulse Oximetry (%) 98 03/22/17 21:00 Constitutional: Yes: Mild Distress Head: Yes: WNL Eyes: Yes: WNL Nose: Yes: Pale Nasal Passage: Yes: Pale Oral/Pharynx: Yes: Other (edentulous) Outer Ear: Yes: WNL Ear Canal: Yes: WNL Tympanic Membrane: Yes: WNL Neck: Yes: Supple Neurological: Yes: Cran Nerves II-XII Intact Imaging - Results Chest X-ray: Report Reviewed Problem List - Problems (1) Hoarseness of voice Assessment/Plan: Weak voice and trouble swallowing- no anatomic abnormality noted on fiberoptic laryngoscopy. Likely due to weakness and dehydration. Continue medical treatment. ENT follow-up as needed Code(s): R49.0 - DYSPHONIA Procedure Note Procedure: Fiberoptic Laryngoscopy- after obtaining consent from daughter, topical Lido/ decongestant sprayed intranasally. Scope was passed and airway was examined. No nasal pathology noted. Clear nasopharynx. Normal natalie- and hypopharynx noted. Normal VC mobility with mild bowing of cords. No lesions or infection noted.
--- NOTE | 2017-03-23 14:42 | PN ---
Progress Note (short form) - Note Progress Note: Renal Follow up for OSCAR on CKD Pt seen and examined at the bedside no acute complaints no sob, chest pain for US of Kidney today on IVF tolerating small amount of food as per family good urine output via nephrostomy tubes Vital Signs Temperature 99 F 03/23/17 10:00 Pulse Rate 107 H 03/23/17 10:00 Respiratory Rate 20 03/23/17 10:00 Blood Pressure 92/50 03/23/17 10:00 O2 Sat by Pulse Oximetry (%) 98 03/22/17 21:00 Intake & Output 03/20/17 03/21/17 03/22/17 03/23/17 23:59 23:59 23:59 23:59 Intake Total 200 641 039 6612 Output Total 100 402 480 300 Balance 100 498 500 986 Weight 134 lb 1.6 oz 132 lb 6.4 oz 131 lb 2 oz Gen: NAD CVS: RRR, No M/R Lungs: CTA Abd: soft NT/ND Ext: No edema CBC, BMP 03/23/17 06:00 03/23/17 06:00 Laboratory Tests 03/23/17 06:00 Calcium 7.3 L Phosphorus 4.0 Magnesium 1.6 L Albumin 1.4 L Current Medications Acetaminophen (Tylenol -) 650 mg PO Q6H PRN PRN Reason: FEVER OR PAIN Last Admin: 03/22/17 22:02 Dose: 650 mg Clonazepam (Klonopin -) 0.5 mg PO TID [facility] Last Admin: 03/23/17 06:20 Dose: 0.5 mg Diphenhydramine HCl (Benadryl -) 25 mg PO Q6H PRN PRN Reason: FOR ITCHING Fluconazole (Diflucan 200 Mg/D5w Premixed Ivpb -) 100 mls @ 100 mls/hr IVPB DAILY [facility] Last Admin: 03/23/17 11:34 Dose: 100 mls/hr Piperacillin Sod/Tazobactam Sod (Zosyn 2.25gm Ivpb (Pre-Docked)) 50 mls @ 100 mls/hr IVPB Q8H-IV [facility] PRN Reason: Protocol Last Admin: 03/23/17 11:33 Dose: 100 mls/hr Sodium Chloride (Normal Saline -) 1,000 mls @ 83 mls/hr IV ASDIR [facility] Last Admin: 03/23/17 08:53 Dose: 83 mls/hr Insulin Aspart (Novolog Vial Sliding Scale -) 1 vial SQ TIDAC [facility] PRN Reason: Protocol Last Admin: 03/23/17 11:48 Dose: Not Given Mirtazapine (Remeron -) 15 mg PO HS [facility] Last Admin: 03/22/17 21:49 Dose: 15 mg Nystatin (Nystop Powder -) 1 applic TP BID [facility] Last Admin: 03/23/17 11:32 Dose: 1 applic Pantoprazole Sodium (Protonix Packets For Oral Suspension -) 40 mg PO DAILY [facility] Last Admin: 03/23/17 11:32 Dose: 40 mg Warfarin Sodium (Coumadin -) 2 mg PO DAILY@1800 [facility] Last Admin: 03/22/17 18:03 Dose: 2 mg A/P 76 year old Female with PMhx of Cevical Ca, S/p Radiation, Hyperlipidemia, Hypertension, Obstructive uropathy, s/p Bilateral percutaneous nephrostomy, admitted with fever, lethargy, shortness of breath. #OSCAR on CKD Renal function w/o signficnat improvement but has been stable pt continues to have low BP and signs of volume depletion good urine output via nephrostomy tubes check Renal Us today continue IVF Dose all meds for Cr Cl less then 15 Trend BUN/Cr Glenn Deluna DO
[2017-03-23] MEDS: WARFARIN NA 2 MG TABLET (UD) PO SCH (18:27)
[2017-03-23] MEDS: ACETAMINOPHEN 325 MG TABLET (FP) PO PRN (21:16)
[2017-03-23] MEDS: MIRTAZAPINE 15 MG TABLET (FP) PO SCH (21:18)
[2017-03-24] MEDS: PIPERACILLIN/TAZOB 2.25 GM 50 ML IVPB SCH ×3 (01:41→17:04)
[2017-03-24] MEDS: clonazePAM 0.5 MG TABLET PO SCH ×3 (06:12→22:27)
[2017-03-24] MEDS: INSULIN SLIDING SCALE (NOVOLOG) 1 VIAL SQ SCH ×4 (06:13→16:55)
[2017-03-24 08:15] LABS: BASOPHIL 0.5 % (0-2.0); EOSINOPHIL 0.9 % (0-4.5); MCH 26.4 pg (25.7-33.7); MCHC 32.4 g/dl (32.0-36.0); MEAN CELL VOLUME 81.6 fl (80-96); PLATELET COUNT 252 K/MM3 (134-434); RDW 17.7 % (11.6-15.6); WHITE BLOOD COUNT 13.4 K/mm3 (4.0-10.0)
[2017-03-24 08:36] LABS: ALBUMIN 1.4 g/dl (3.4-5.0); BILIRUBIN,TOTAL 0.3 mg/dL (0.2-1.0); CALCIUM 7.3 mg/dL (8.5-10.1); COCKROFT - GAULT 14.535; CREATININE 3.2 mg/dL (0.55-1.02); MAGNESIUM 2.2 mg/dL (1.8-2.4); PHOSPHOROUS 3.9 mg/dL (2.5-4.9); TOT PROT 5.2 g/dl (6.4-8.2)
[2017-03-24] MEDS: FLUCONAZOLE 200 MG/D5W 100 ML IVPB SCH (09:08)
[2017-03-24] MEDS: PANTOPRAZOLE SOD 40 MG SUSPENSION PACKET PO SCH (09:08)
[2017-03-24] MEDS: NYSTATIN POWDER 100,000 UNITS/GM - 15 GM TOPICAL POWDER TP SCH ×2 (09:08→22:29)
--- NOTE | 2017-03-24 11:31 | PN ---
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 Hypophonia related to weakness/dehydration. Selected Entries 03/22/17 03/22/17 03/22/17 07:14 10:00 15:41 Breakfast Lunch Supper Temperature 98.9 F 97.9 F 98.7 F 03/22/17 03/22/17 03/23/17 17:59 22:00 06:53 Breakfast Lunch Supper Temperature 97.5 F L 100 F H 98.5 F 03/23/17 03/23/17 03/23/17 10:00 12:32 15:24 Breakfast 25% Lunch 25% Supper Temperature 99 F 98.4 F 03/23/17 03/23/17 03/24/17 19:49 22:00 02:00 Breakfast Lunch Supper 50% Temperature 99.2 F 100 F H 98.4 F 03/24/17 03/24/17 06:00 09:00 Breakfast Lunch Supper Temperature 98.5 F 98.2 F Laboratory Tests 03/22/17 03/23/17 03/24/17 06:30 06:00 07:00 WBC 15.1 H 13.3 H 13.4 H Selected Entries 03/24/17 09:00 Pulse Rate 100 H Respiratory 20 Rate Family reports pt is better today, eating a little more, and speaking a little better. They are in agreemernt with downgraded diet. Pt accepted 1/2 of glucerna and cereal this am. Liked the magic cup yesterday.
[2017-03-24] MEDS ORDERED: INSULIN (NOVOLOG) ASPART 100 UNITS/ML 10ML VIAL ONE (11:49)
--- NOTE | 2017-03-24 13:07 | PN ---
Progress Note, Physician Chief Complaint: Patient feels , poor PO intake H/H remained stable - Current Medication List Current Medications: Active Medications Acetaminophen (Tylenol -) 650 mg PO Q6H PRN PRN Reason: FEVER OR PAIN Last Admin: 03/23/17 21:16 Dose: 650 mg Clonazepam (Klonopin -) 0.5 mg PO TID [facility] Last Admin: 03/24/17 06:12 Dose: Not Given Diphenhydramine HCl (Benadryl -) 25 mg PO Q6H PRN PRN Reason: FOR ITCHING Fluconazole (Diflucan 200 Mg/D5w Premixed Ivpb -) 100 mls @ 100 mls/hr IVPB DAILY [facility] Last Admin: 03/24/17 09:08 Dose: 100 mls/hr Piperacillin Sod/Tazobactam Sod (Zosyn 2.25gm Ivpb (Pre-Docked)) 50 mls @ 100 mls/hr IVPB Q8H-IV JADEN PRN Reason: Protocol Last Admin: 03/24/17 10:29 Dose: 100 mls/hr Sodium Chloride (Normal Saline -) 1,000 mls @ 83 mls/hr IV ASDIR [facility] Last Admin: 03/23/17 19:18 Dose: Not Given Insulin Aspart (Novolog Vial Sliding Scale -) 1 vial SQ TIDAC JADEN PRN Reason: Protocol Last Admin: 03/24/17 11:51 Dose: 45 units Mirtazapine (Remeron -) 15 mg PO HS [facility] Last Admin: 03/23/17 21:18 Dose: 15 mg Nystatin (Nystop Powder -) 1 applic TP BID [facility] Last Admin: 03/24/17 09:08 Dose: 1 applic Pantoprazole Sodium (Protonix Packets For Oral Suspension -) 40 mg PO DAILY [facility] Last Admin: 03/24/17 09:08 Dose: 40 mg Warfarin Sodium (Coumadin -) 2 mg PO DAILY@1800 [facility] Last Admin: 03/23/17 18:27 Dose: 2 mg - Objective Vital Signs: Vital Signs Temperature 98.2 F 03/24/17 09:00 Pulse Rate 100 H 03/24/17 09:00 Respiratory Rate 20 03/24/17 09:00 Blood Pressure 107/58 03/24/17 09:00 O2 Sat by Pulse Oximetry (%) 96 03/24/17 09:00 Constitutional: Yes: Calm, Anxious, Ashen Eyes: Yes: WNL, Conjunctiva Clear, EOM Intact, Occular Prosthesis HENT: Yes: WNL, Normocephalic Neck: Yes: WNL, Supple, Trachea Midline Cardiovascular: Yes: WNL, Regular Rate and Rhythm Respiratory: Yes: WNL, Regular, Rales Gastrointestinal: Yes: WNL, Normal Bowel Sounds, Soft Genitourinary: Yes: Other (B/L Nephrostomy tube) Edema: LLE: 1+, RLE: 1+ Peripheral Pulses: Left Doralis Pedis: 1+, Right Dorsalis Pedis: 1+ Wound/Incision: Yes: Other (Sacral decubitus ulcer) Labs: CBC, BMP 03/24/17 07:00 03/24/17 07:00 INR, PTT INR 1.46 (0.82-1.09) H 03/23/17 06:00 Problem List - Problems (1) OSCAR (acute kidney injury) Assessment/Plan: Due to dehydration/ drug induced , re evaluate renal functions after IV Hydration, renal consult. Code(s): N17.9 - ACUTE KIDNEY FAILURE, UNSPECIFIED (2) Acute on chronic kidney failure Code(s): N17.9 - ACUTE KIDNEY FAILURE, UNSPECIFIED N18.9 - CHRONIC KIDNEY DISEASE, UNSPECIFIED (3) Type 2 diabetes mellitus Assessment/Plan: Hold Levimir as patient has poor Po intake cont FS and Correction dose insulin Code(s): E11.9 - TYPE 2 DIABETES MELLITUS WITHOUT COMPLICATIONS Qualifiers: Diabetic retinopathy severity: with moderate nonproliferative retinopathy (4) Anemia Assessment/Plan: H/H stable after 1 unit PRBC transfusion , no obvious source of bleeding. H/H is salable Code(s): D64.9 - ANEMIA, UNSPECIFIED Qualifiers: Anemia type: unspecified type Qualified Code(s): D64.9 - Anemia, unspecified (5) DVT, lower extremity Assessment/Plan: Sub acute cont coumadin 2 mg F/U INR Code(s): I82.409 - ACUTE EMBOLISM AND THOMBOS UNSP DEEP VN UNSP LOWER EXTREMITY Qualifiers: Affected thrombotic vein of extremity: unspecified vein of extremity Laterality: right Chronicity: acute Qualified Code(s): I82.401 - Acute embolism and thrombosis of unspecified deep veins of right lower extremity (6) CA cervix Code(s): C53.9 - MALIGNANT NEOPLASM OF CERVIX UTERI, UNSPECIFIED (7) Obstructive uropathy Assessment/Plan: Due to CA Cervix s/p Nephrostomy tube Code(s): N13.9 - OBSTRUCTIVE AND REFLUX UROPATHY, UNSPECIFIED (8) UTI (urinary tract infection) Assessment/Plan: F/U ID recommendation . Code(s): N39.0 - URINARY TRACT INFECTION, SITE NOT SPECIFIED Qualifiers: Indwelling urinary catheter type: indwelling urethral catheter (9) Hoarseness of voice Assessment/Plan: Post incubation, F/U speech and swallow evaluation, ENT exam normal. Code(s): R49.0 - DYSPHONIA
--- NOTE | 2017-03-24 13:37 | PN ---
Progress Note (short form) - Note Progress Note: Renal Follow up for OSCAR on CKD Pt seen and examined at the bedside no complaints voiding in bed no sob, cp, abd pain, N/V/D poor oral intake Vital Signs Temperature 98.2 F 03/24/17 09:00 Pulse Rate 100 H 03/24/17 09:00 Respiratory Rate 20 03/24/17 09:00 Blood Pressure 107/58 03/24/17 09:00 O2 Sat by Pulse Oximetry (%) 96 03/24/17 09:00 Intake & Output 03/21/17 03/22/17 03/23/17 03/24/17 23:59 23:59 23:59 23:59 Intake Total 081 245 8997 1203 Output Total 402 480 800 Balance 498 755 354 7683 Weight 132 lb 6.4 oz 131 lb 2 oz 132 lb 4.8 oz Gen: NAD CVS: RRR, No M/R Lungs: CTA Abd: soft NT/ND Ext: No edema CBC, BMP 03/24/17 07:00 03/24/17 07:00 Laboratory Tests 03/24/17 07:00 Calcium 7.3 L Phosphorus 3.9 Magnesium 2.2 D Albumin 1.4 L Current Medications Acetaminophen (Tylenol -) 650 mg PO Q6H PRN PRN Reason: FEVER OR PAIN Last Admin: 03/23/17 21:16 Dose: 650 mg Clonazepam (Klonopin -) 0.5 mg PO TID [facility] Last Admin: 03/24/17 06:12 Dose: Not Given Diphenhydramine HCl (Benadryl -) 25 mg PO Q6H PRN PRN Reason: FOR ITCHING Fluconazole (Diflucan 200 Mg/D5w Premixed Ivpb -) 100 mls @ 100 mls/hr IVPB DAILY [facility] Last Admin: 03/24/17 09:08 Dose: 100 mls/hr Piperacillin Sod/Tazobactam Sod (Zosyn 2.25gm Ivpb (Pre-Docked)) 50 mls @ 100 mls/hr IVPB Q8H-IV JADEN PRN Reason: Protocol Last Admin: 03/24/17 10:29 Dose: 100 mls/hr Sodium Chloride (Normal Saline -) 1,000 mls @ 83 mls/hr IV ASDIR [facility] Last Admin: 03/23/17 19:18 Dose: Not Given Insulin Aspart (Novolog Vial Sliding Scale -) 1 vial SQ TIDAC [facility] PRN Reason: Protocol Last Admin: 03/24/17 11:51 Dose: 45 units Mirtazapine (Remeron -) 15 mg PO HS [facility] Last Admin: 03/23/17 21:18 Dose: 15 mg Nystatin (Nystop Powder -) 1 applic TP BID [facility] Last Admin: 03/24/17 09:08 Dose: 1 applic Pantoprazole Sodium (Protonix Packets For Oral Suspension -) 40 mg PO DAILY [facility] Last Admin: 03/24/17 09:08 Dose: 40 mg Warfarin Sodium (Coumadin -) 2 mg PO DAILY@1800 [facility] Last Admin: 03/23/17 18:27 Dose: 2 mg A/P 76 year old Female with PMhx of Cevical Ca, S/p Radiation, Hyperlipidemia, Hypertension, Obstructive uropathy, s/p Bilateral percutaneous nephrostomy, admitted with fever, lethargy, shortness of breath. #OSCAR on CKD Renal function stable, no improvement with IVF Renal US showed kidneys w/o signs of hydronephrosis Urinary Bladder noted to be distended - > will insert minaya catheter for 24 hours and monitor if she has improvement in renal function continue isotonic saline for now Check CXR to r/o congestion continue Abx as per NICHOLE Deluna DO
--- NOTE | 2017-03-24 15:14 | PN ---
Progress Note, Physician History of Present Illness: patient stable no new issues patient says she does not feel very hungry - Current Medication List Current Medications: Active Medications Acetaminophen (Tylenol -) 650 mg PO Q6H PRN PRN Reason: FEVER OR PAIN Last Admin: 03/23/17 21:16 Dose: 650 mg Clonazepam (Klonopin -) 0.5 mg PO TID [facility] Last Admin: 03/24/17 13:58 Dose: Not Given Diphenhydramine HCl (Benadryl -) 25 mg PO Q6H PRN PRN Reason: FOR ITCHING Fluconazole (Diflucan 200 Mg/D5w Premixed Ivpb -) 100 mls @ 100 mls/hr IVPB DAILY [facility] Last Admin: 03/24/17 09:08 Dose: 100 mls/hr Piperacillin Sod/Tazobactam Sod (Zosyn 2.25gm Ivpb (Pre-Docked)) 50 mls @ 100 mls/hr IVPB Q8H-IV JADEN PRN Reason: Protocol Last Admin: 03/24/17 10:29 Dose: 100 mls/hr Sodium Chloride (Normal Saline -) 1,000 mls @ 83 mls/hr IV ASDIR [facility] Last Admin: 03/23/17 19:18 Dose: Not Given Insulin Aspart (Novolog Vial Sliding Scale -) 1 vial SQ TIDAC JADEN PRN Reason: Protocol Last Admin: 03/24/17 11:51 Dose: 45 units Mirtazapine (Remeron -) 15 mg PO HS [facility] Last Admin: 03/23/17 21:18 Dose: 15 mg Nystatin (Nystop Powder -) 1 applic TP BID [facility] Last Admin: 03/24/17 09:08 Dose: 1 applic Pantoprazole Sodium (Protonix Packets For Oral Suspension -) 40 mg PO DAILY [facility] Last Admin: 03/24/17 09:08 Dose: 40 mg Warfarin Sodium (Coumadin -) 2 mg PO DAILY@1800 [facility] Last Admin: 03/23/17 18:27 Dose: 2 mg - Objective Vital Signs: Vital Signs Temperature 98.2 F 03/24/17 09:00 Pulse Rate 100 H 03/24/17 09:00 Respiratory Rate 20 03/24/17 09:00 Blood Pressure 107/58 03/24/17 09:00 O2 Sat by Pulse Oximetry (%) 96 03/24/17 09:00 Constitutional: Yes: No Distress, Calm HENT: Yes: Atraumatic Neck: Yes: Supple Cardiovascular: Yes: S1, S2 Respiratory: Yes: Regular, CTA Bilaterally Gastrointestinal: Yes: Normal Bowel Sounds, Soft Genitourinary: Yes: Other (bilateral nephrostomy tubes) Musculoskeletal: Yes: WNL Extremities: Yes: WNL Labs: CBC, BMP 03/24/17 07:00 03/24/17 07:00 INR, PTT INR 1.46 (0.82-1.09) H 03/23/17 06:00 Assessment/Plan uti neck pain anemia dehydration cancer patient cx from the nephrostomy tube showing infection we will try to find out which one plan continue current mgmt await for identification of the organism will have to change the tubes rest as per primary
[2017-03-24] MEDS: WARFARIN NA 2 MG TABLET (UD) PO SCH (17:04)
[2017-03-24] MEDS: MIRTAZAPINE 15 MG TABLET (FP) PO SCH (22:28)
[2017-03-24] MEDS: SODIUM CHLORIDE 1,000 ML IV SCH (22:29)
[2017-03-25] MEDS: PIPERACILLIN/TAZOB 2.25 GM 50 ML IVPB SCH ×3 (01:51→17:16)
[2017-03-25] MEDS: ACETAMINOPHEN 325 MG TABLET (FP) PO PRN (01:54)
[2017-03-25] MEDS: clonazePAM 0.5 MG TABLET PO SCH ×3 (06:12→21:07)
[2017-03-25] MEDS: INSULIN SLIDING SCALE (NOVOLOG) 1 VIAL SQ SCH ×3 (06:12→17:06)
[2017-03-25] MEDS: SODIUM CHLORIDE 1,000 ML IV SCH ×2 (06:15→20:49)
[2017-03-25] MEDS ORDERED: INSULIN (NOVOLOG) ASPART 100 UNITS/ML 10ML VIAL ONE (06:30)
[2017-03-25 07:56] LABS: BASOPHIL 0.4 % (0-2.0); EOSINOPHIL 0.9 % (0-4.5); MCH 26.7 pg (25.7-33.7); MCHC 32.2 g/dl (32.0-36.0); MEAN CELL VOLUME 82.9 fl (80-96); MEAN PLT VOLUME 7.1 fl (7.5-11.1); NEUTROPHILS 79.9 % (42.8-82.8); PLATELET COUNT 246 K/MM3 (134-434); WHITE BLOOD COUNT 12.7 K/mm3 (4.0-10.0)
[2017-03-25 08:09] LABS: INR 2.02 (0.82-1.09); PROTHROMBIN TIME (PATIENT) 22.5 SEC (9.98-11.88)
[2017-03-25 08:59] LABS: ALBUMIN 1.3 g/dl (3.4-5.0); BILIRUBIN,TOTAL 0.3 mg/dL (0.2-1.0); CALCIUM 7.7 mg/dL (8.5-10.1); COCKROFT - GAULT 17.5525; CREATININE 3.2 mg/dL (0.55-1.02); TOT PROT 4.9 g/dl (6.4-8.2)
[2017-03-25] MEDS: NYSTATIN POWDER 100,000 UNITS/GM - 15 GM TOPICAL POWDER TP SCH ×2 (08:59→21:07)
[2017-03-25] MEDS: PANTOPRAZOLE SOD 40 MG SUSPENSION PACKET PO SCH (08:59)
[2017-03-25] MEDS: FLUCONAZOLE 200 MG/D5W 100 ML IVPB SCH (10:09)
--- NOTE | 2017-03-25 11:32 | PN ---
Progress Note, Physician Chief Complaint: Patient feels weak and tired c/o nausea, vomited once., poor PO intake H/H gradually decreasing today is 7.1. History of Present Illness: 76 yrs old F multiple medical co-morbidities H/O HTN, T2DM, CKD stage 4 , obstructive uropathy due to CA Cervix S/P ureteric Stent and Nephrostomy, Chronic anemia, Rt LE DVT on AC, Depression Dc [facility] on 03/14/2017 after treated for UTI and obstructive uropathy, transferred back from [facility] with gradually worsening dysphonia, low grade fever and feeling weak, on arrival low BP, elevated TWBC and + UA,lw H/H recited 1 unit PRB now H/H is stable. - Current Medication List Current Medications: Active Medications Acetaminophen (Tylenol -) 650 mg PO Q6H PRN PRN Reason: FEVER OR PAIN Last Admin: 03/25/17 01:54 Dose: 650 mg Clonazepam (Klonopin -) 0.5 mg PO TID [facility] Last Admin: 03/25/17 06:12 Dose: Not Given Diphenhydramine HCl (Benadryl -) 25 mg PO Q6H PRN PRN Reason: FOR ITCHING Fluconazole (Diflucan 200 Mg/D5w Premixed Ivpb -) 100 mls @ 100 mls/hr IVPB DAILY [facility] Last Admin: 03/25/17 10:09 Dose: 100 mls/hr Piperacillin Sod/Tazobactam Sod (Zosyn 2.25gm Ivpb (Pre-Docked)) 50 mls @ 100 mls/hr IVPB Q8H-IV JADEN PRN Reason: Protocol Last Admin: 03/25/17 08:59 Dose: 100 mls/hr Sodium Chloride (Normal Saline -) 1,000 mls @ 83 mls/hr IV ASDIR [facility] Last Admin: 03/25/17 06:15 Dose: 83 mls/hr Insulin Aspart (Novolog Vial Sliding Scale -) 1 vial SQ TIDAC [facility] PRN Reason: Protocol Last Admin: 03/25/17 06:12 Dose: Not Given Mirtazapine (Remeron -) 15 mg PO HS [facility] Last Admin: 03/24/17 22:28 Dose: 15 mg Nystatin (Nystop Powder -) 1 applic TP BID [facility] Last Admin: 03/25/17 08:59 Dose: 1 applic Pantoprazole Sodium (Protonix Packets For Oral Suspension -) 40 mg PO DAILY [facility] Last Admin: 03/25/17 08:59 Dose: 40 mg Warfarin Sodium (Coumadin -) 1 mg PO DAILY@1800 [facility] - Objective Vital Signs: Vital Signs Temperature 98.4 F 03/25/17 09:00 Pulse Rate 102 H 03/25/17 09:00 Respiratory Rate 18 03/25/17 09:00 Blood Pressure 120/64 03/25/17 09:00 O2 Sat by Pulse Oximetry (%) 96 03/25/17 09:00 Constitutional: Yes: Anxious. No: Well Nourished, No Distress Eyes: Yes: WNL, Conjunctiva Clear, EOM Intact HENT: Yes: WNL, Atraumatic, Normocephalic Neck: Yes: WNL, Supple, Trachea Midline Cardiovascular: Yes: WNL, Regular Rate and Rhythm Respiratory: Yes: WNL, Regular, CTA Bilaterally Gastrointestinal: Yes: WNL, Soft, Hypoactive Bowel Sounds, Vomiting. No: Distention, Rectal Bleeding, Tenderness, Epigastrium Musculoskeletal: Yes: Back Pain Edema: LLE: Trace, RLE: Trace Peripheral Pulses: Left Doralis Pedis: 1+, Right Dorsalis Pedis: 1+ Integumentary: Yes: Other (Decubitis ulcers) Neurological: Yes: WNL, Alert, Oriented Labs: CBC, BMP 03/25/17 06:30 03/25/17 06:30 INR, PTT INR 2.02 (0.82-1.09) H D 03/25/17 06:30 Problem List - Problems (1) OSCAR (acute kidney injury) Assessment/Plan: Due to dehydration/ drug induced , re evaluate renal functions after IV Hydration, renal consult input appreciated, Renal ultrasound no Hydronephrosis. renal functions are at base line. Code(s): N17.9 - ACUTE KIDNEY FAILURE, UNSPECIFIED (2) Acute on chronic kidney failure Code(s): N17.9 - ACUTE KIDNEY FAILURE, UNSPECIFIED N18.9 - CHRONIC KIDNEY DISEASE, UNSPECIFIED (3) Type 2 diabetes mellitus Assessment/Plan: Hold Levimir as patient has poor Po intake cont FS and Correction dose insulin Code(s): E11.9 - TYPE 2 DIABETES MELLITUS WITHOUT COMPLICATIONS Qualifiers: Diabetic retinopathy severity: with moderate nonproliferative retinopathy (4) Anemia Assessment/Plan: Multifactorial gradually decreasing at present 7.1 will discuss with Hematology consult. Code(s): D64.9 - ANEMIA, UNSPECIFIED Qualifiers: Anemia type: unspecified type Qualified Code(s): D64.9 - Anemia, unspecified (5) DVT, lower extremity Assessment/Plan: INR therapeutic will decrese coumadin 1 mg F/U INR Code(s): I82.409 - ACUTE EMBOLISM AND THOMBOS UNSP DEEP VN UNSP LOWER EXTREMITY Qualifiers: Affected thrombotic vein of extremity: unspecified vein of extremity Laterality: right Chronicity: acute Qualified Code(s): I82.401 - Acute embolism and thrombosis of unspecified deep veins of right lower extremity (6) CA cervix Assessment/Plan: S/P RT and chemotherapy Code(s): C53.9 - MALIGNANT NEOPLASM OF CERVIX UTERI, UNSPECIFIED (7) Obstructive uropathy Assessment/Plan: Due to CA Cervix s/p Nephrostomy tube, no Hydronephrosis. Code(s): N13.9 - OBSTRUCTIVE AND REFLUX UROPATHY, UNSPECIFIED (8) UTI (urinary tract infection) Assessment/Plan: F/U ID recommendation . Code(s): N39.0 - URINARY TRACT INFECTION, SITE NOT SPECIFIED Qualifiers: Indwelling urinary catheter type: indwelling urethral catheter (9) Hoarseness of voice Assessment/Plan: Post incubation, F/U speech and swallow evaluation, ENT exam normal. Code(s): R49.0 - DYSPHONIA
[2017-03-25] MEDS ORDERED: POTASSIUM CHLORIDE ORAL LIQUID 20 MEQ/15 ML PO ONE (12:30)
[2017-03-25] MEDS ORDERED: ONDANSETRON 4 MG/2 ML VIAL IVPB PRN ×2 (12:57)
[2017-03-25 13:21] LABS: MAGNESIUM 2.1 mg/dL (1.8-2.4)
[2017-03-25] MEDS: FAMOTIDINE 20 MG/50 ML IVPB 50 ML IVPB SCH ×2 (13:46→21:07)
--- NOTE | 2017-03-25 16:23 | PN ---
Progress Note (short form) - Note Progress Note: Renal Follow up for OSCAR on CKD Pt seen and examined at the bedside complained of discomfort at the minaya site no sob or chest pain had N/V today x 2 on IVF Vital Signs Temperature 99.2 F 03/25/17 15:45 Pulse Rate 93 H 03/25/17 15:45 Respiratory Rate 20 03/25/17 15:45 Blood Pressure 129/65 03/25/17 15:45 O2 Sat by Pulse Oximetry (%) 96 03/25/17 09:00 Intake & Output 03/22/17 03/23/17 03/24/17 03/25/17 23:59 23:59 23:59 23:59 Intake Total 980 1776 2160 2342 Output Total 480 800 575 975 Balance 007 735 5394 1367 Weight 131 lb 2 oz 132 lb 4.8 oz 159 lb Gen: NAD CVS: RRR, No M/R Lungs: CTA Abd: soft NT/ND Ext: No edema CBC, BMP 03/25/17 06:30 03/25/17 06:30 Current Medications Acetaminophen (Tylenol -) 650 mg PO Q6H PRN PRN Reason: FEVER OR PAIN Last Admin: 03/25/17 01:54 Dose: 650 mg Clonazepam (Klonopin -) 0.5 mg PO TID [facility] Last Admin: 03/25/17 13:46 Dose: Not Given Diphenhydramine HCl (Benadryl -) 25 mg PO Q6H PRN PRN Reason: FOR ITCHING Fluconazole (Diflucan 200 Mg/D5w Premixed Ivpb -) 100 mls @ 100 mls/hr IVPB DAILY [facility] Last Admin: 03/25/17 10:09 Dose: 100 mls/hr Piperacillin Sod/Tazobactam Sod (Zosyn 2.25gm Ivpb (Pre-Docked)) 50 mls @ 100 mls/hr IVPB Q8H-IV JADEN PRN Reason: Protocol Last Admin: 03/25/17 08:59 Dose: 100 mls/hr Sodium Chloride (Normal Saline -) 1,000 mls @ 83 mls/hr IV ASDIR [facility] Last Admin: 03/25/17 06:15 Dose: 83 mls/hr Famotidine/Sodium Chloride (Pepcid 20 Mg Premixed Ivpb -) 50 mls @ 100 mls/hr IVPB BID [facility] Last Admin: 03/25/17 13:46 Dose: 100 mls/hr Insulin Aspart (Novolog Vial Sliding Scale -) 1 vial SQ TIDAC JADEN PRN Reason: Protocol Last Admin: 03/25/17 11:51 Dose: 2 units Mirtazapine (Remeron -) 15 mg PO HS [facility] Last Admin: 03/24/17 22:28 Dose: 15 mg Nystatin (Nystop Powder -) 1 applic TP BID [facility] Last Admin: 03/25/17 08:59 Dose: 1 applic Ondansetron HCl (Zofran Injection) 2 mg IVPB Q6H PRN PRN Reason: NAUSEA Warfarin Sodium (Coumadin -) 1 mg PO DAILY@1800 JADEN A/P 76 year old Female with PMhx of Cevical Ca, S/p Radiation, Hyperlipidemia, Hypertension, Obstructive uropathy, s/p Bilateral percutaneous nephrostomy, admitted with fever, lethargy, shortness of breath. #OSCAR on CKD Renal function unchanged Renal US showed kidneys w/o signs of hydronephrosis D/C Minaya today maintain on Minaya for next 24 hours (pt with vomiting today) Trend BUN/Cr #Anemia Hgb downtrending Check iron studies may need Epogen given CKD Glenn Deluna DO
[2017-03-25] MEDS: WARFARIN NA 1 MG TABLET (FP) PO SCH (17:15)
[2017-03-25] MEDS: DRONABINOL 2.5 MG CAPSULE PO SCH (20:50)
[2017-03-25] MEDS: SODIUM BICARBONATE 650 MG TABLET PO SCH (21:07)
[2017-03-25] MEDS: MIRTAZAPINE 15 MG TABLET (FP) PO SCH (21:07)
--- NOTE | 2017-03-25 22:59 | CONSULT ---
Consult - text type - Consultation Consultation Note: Patient seen and examiend c/o weakness, lack of appetitie Last Vital Signs Temp Pulse Resp BP Pulse Ox 98.7 F 94 H 20 138/71 97 03/25/17 22:00 03/25/17 22:00 03/25/17 22:00 03/25/17 22:00 03/25/17 21:00 Cor: RSR, No murmurs, No gallops Lungs: Clear to P&A Abd: Soft, Normal bowel sounds, No organomegaly Ext:No significant edema Skin: No rashes, Integument intact Abnormal Lab Results 03/21/17 03/25/17 03/25/17 10:25 06:30 06:30 WBC 12.7 H RBC 2.66 L Hgb 7.1 L Hct 22.0 L RDW 18.0 H MPV 7.1 L INR 2.02 H D Chloride Carbon Dioxide BUN Creatinine Random Glucose Calcium AST Alkaline Phosphatase Total Protein Albumin Crossmatch See Detail 03/25/17 06:30 WBC RBC Hgb Hct RDW MPV INR Chloride 109 H Carbon Dioxide 15 L BUN 50 H Creatinine 3.2 H Random Glucose 148 H Calcium 7.7 L AST 51 H D Alkaline Phosphatase 216 H Total Protein 4.9 L Albumin 1.3 L Crossmatch Current Medications Generic Name Dose Route Start Last Admin Trade Name Freq PRN Reason Stop Dose Admin Acetaminophen 650 mg 03/20/17 20:24 03/25/17 01:54 Tylenol - PO 650 mg Q6H PRN Administration FEVER OR PAIN Clonazepam 0.5 mg 03/20/17 22:00 03/25/17 21:07 Klonopin - PO 0.5 mg TID JADEN Administration Diphenhydramine HCl 25 mg 03/21/17 15:33 Benadryl - PO Q6H PRN FOR ITCHING Dronabinol 2.5 mg 03/25/17 20:15 03/25/17 20:50 Marinol - PO 2.5 mg DAILY JADEN Administration Fluconazole 100 mls @ 100 mls/hr 03/20/17 20:30 03/25/17 10:09 Diflucan 200 Mg/D5w Premixed Ivpb - IVPB 100 mls/hr DAILY JADEN Administration Piperacillin Sod/Tazobactam Sod 50 mls @ 100 mls/hr 03/21/17 10:00 03/25/17 17: 16 Zosyn 2.25gm Ivpb (Pre-Docked) IVPB 100 mls/hr Q8H-IV JADEN Administration Protocol Sodium Chloride 1,000 mls @ 83 mls/hr 03/22/17 18:30 03/25/17 20:49 Normal Saline - IV 83 mls/hr ASDIR JADEN Administration Famotidine/Sodium Chloride 50 mls @ 100 mls/hr 03/25/17 13:45 03/25/17 21:07 Pepcid 20 Mg Premixed Ivpb - IVPB 100 mls/hr BID JADEN Administration Insulin Aspart 1 vial 03/21/17 07:00 03/25/17 17:06 Novolog Vial Sliding Scale - SQ 2 units TIDAC JADEN Administration Protocol Mirtazapine 15 mg 03/20/17 22:00 03/25/17 21:07 Remeron - PO 15 mg HS JADEN Administration Nystatin 1 applic 03/20/17 22:00 03/25/17 21:07 Nystop Powder - TP 1 applic BID JADEN Administration Ondansetron HCl 2 mg 03/25/17 12:57 03/25/17 17:24 Zofran Injection IVPB 2 mg Q6H PRN Administration NAUSEA Sodium Bicarbonate 650 mg 03/25/17 22:00 03/25/17 21:07 Sodium Bicarbonate - PO 650 mg BID JADEN Administration Warfarin Sodium 1 mg 03/25/17 18:00 03/25/17 17:15 Coumadin - PO 1 mg DAILY@1800 JADEN Administration A/P 76 y/o female with HTN, DM, Afib, CKD, cervical cancer--? stage MALACHI based on pelic MRi, diagnosed 09/15, started RT February 14---got 3 weeks and developed worsening renal function, performance status,. OFF for 1 monthnow. Anemia: chronic disease/ CKD/ + marrow suppression fro RT r/o occult blood loss OSCAR/CKD/stents OVerall frail/loss of appetite, poor quality of life from treatment Family deciding on placement, goals of care To discuss with primary oncologist regarding initial stage, treatment received will check restaging CT scans will f/u on discussion with family
[2017-03-26] MEDS: PIPERACILLIN/TAZOB 2.25 GM 50 ML IVPB SCH (02:33)
[2017-03-26] MEDS: clonazePAM 0.5 MG TABLET PO SCH ×3 (06:03→22:06)
[2017-03-26] MEDS: INSULIN SLIDING SCALE (NOVOLOG) 1 VIAL SQ SCH ×3 (06:23→16:34)
[2017-03-26 07:40] LABS: BASOPHIL 0.4 % (0-2.0); EOSINOPHIL 0.9 % (0-4.5); MCH 26.7 pg (25.7-33.7); MCHC 32.7 g/dl (32.0-36.0); MEAN CELL VOLUME 81.6 fl (80-96); NEUTROPHILS 82.5 % (42.8-82.8); PLATELET COUNT 251 K/MM3 (134-434); RDW 17.9 % (11.6-15.6); WHITE BLOOD COUNT 12.1 K/mm3 (4.0-10.0)
[2017-03-26 08:17] LABS: INR 2.51 (0.82-1.09); PROTHROMBIN TIME (PATIENT) 28.1 SEC (9.98-11.88)
--- NOTE | 2017-03-26 08:28 | PN ---
Progress Note, Physician History of Present Illness: patient stable no new issues - Current Medication List Current Medications: Active Medications Acetaminophen (Tylenol -) 650 mg PO Q6H PRN PRN Reason: FEVER OR PAIN Last Admin: 03/25/17 01:54 Dose: 650 mg Clonazepam (Klonopin -) 0.5 mg PO TID [facility] Last Admin: 03/26/17 06:03 Dose: 0.5 mg Diphenhydramine HCl (Benadryl -) 25 mg PO Q6H PRN PRN Reason: FOR ITCHING Dronabinol (Marinol -) 2.5 mg PO DAILY [facility] Last Admin: 03/25/17 20:50 Dose: 2.5 mg Fluconazole (Diflucan 200 Mg/D5w Premixed Ivpb -) 100 mls @ 100 mls/hr IVPB DAILY [facility] Last Admin: 03/25/17 10:09 Dose: 100 mls/hr Piperacillin Sod/Tazobactam Sod (Zosyn 2.25gm Ivpb (Pre-Docked)) 50 mls @ 100 mls/hr IVPB Q8H-IV JADEN PRN Reason: Protocol Last Admin: 03/26/17 02:33 Dose: 100 mls/hr Sodium Chloride (Normal Saline -) 1,000 mls @ 83 mls/hr IV ASDIR [facility] Last Admin: 03/25/17 20:49 Dose: 83 mls/hr Famotidine/Sodium Chloride (Pepcid 20 Mg Premixed Ivpb -) 50 mls @ 100 mls/hr IVPB BID [facility] Last Admin: 03/25/17 21:07 Dose: 100 mls/hr Insulin Aspart (Novolog Vial Sliding Scale -) 1 vial SQ TIDAC [facility] PRN Reason: Protocol Last Admin: 03/26/17 06:23 Dose: Not Given Mirtazapine (Remeron -) 15 mg PO HS [facility] Last Admin: 03/25/17 21:07 Dose: 15 mg Nystatin (Nystop Powder -) 1 applic TP BID [facility] Last Admin: 03/25/17 21:07 Dose: 1 applic Ondansetron HCl (Zofran Injection) 2 mg IVPB Q6H PRN PRN Reason: NAUSEA Last Admin: 03/25/17 17:24 Dose: 2 mg Sodium Bicarbonate (Sodium Bicarbonate -) 650 mg PO BID [facility] Last Admin: 03/25/17 21:07 Dose: 650 mg Warfarin Sodium (Coumadin -) 1 mg PO DAILY@1800 [facility] Last Admin: 03/25/17 17:15 Dose: 1 mg - Objective Vital Signs: Vital Signs Temperature 100.1 F H 03/26/17 07:35 Pulse Rate 111 H 03/26/17 07:35 Respiratory Rate 20 03/26/17 07:35 Blood Pressure 139/74 03/26/17 07:35 O2 Sat by Pulse Oximetry (%) 97 03/25/17 21:00 Constitutional: Yes: No Distress, Calm Cardiovascular: Yes: S1, S2 Respiratory: Yes: Regular, CTA Bilaterally Gastrointestinal: Yes: Normal Bowel Sounds, Soft Musculoskeletal: Yes: Other Extremities: Yes: Other Neurological: Yes: Alert, Oriented Psychiatric: Yes: Alert Labs: CBC, BMP 03/26/17 06:00 INR, PTT INR 2.02 (0.82-1.09) H D 03/25/17 06:30 Assessment/Plan uti neck pain anemia dehydration cancer plan continue current mgmt organism noted stopped abx continue antifungal renal u/s noted
--- NOTE | 2017-03-26 09:00 | PN ---
Progress Note, Physician Chief Complaint: Complaints of loss of voice - Current Medication List Current Medications: Active Medications Acetaminophen (Tylenol -) 650 mg PO Q6H PRN PRN Reason: FEVER OR PAIN Last Admin: 03/25/17 01:54 Dose: 650 mg Clonazepam (Klonopin -) 0.5 mg PO TID [facility] Last Admin: 03/26/17 06:03 Dose: 0.5 mg Diphenhydramine HCl (Benadryl -) 25 mg PO Q6H PRN PRN Reason: FOR ITCHING Dronabinol (Marinol -) 2.5 mg PO DAILY [facility] Last Admin: 03/25/17 20:50 Dose: 2.5 mg Fluconazole (Diflucan 200 Mg/D5w Premixed Ivpb -) 100 mls @ 100 mls/hr IVPB DAILY [facility] Last Admin: 03/25/17 10:09 Dose: 100 mls/hr Sodium Chloride (Normal Saline -) 1,000 mls @ 83 mls/hr IV ASDIR [facility] Last Admin: 03/25/17 20:49 Dose: 83 mls/hr Famotidine/Sodium Chloride (Pepcid 20 Mg Premixed Ivpb -) 50 mls @ 100 mls/hr IVPB BID [facility] Last Admin: 03/25/17 21:07 Dose: 100 mls/hr Insulin Aspart (Novolog Vial Sliding Scale -) 1 vial SQ TIDAC [facility] PRN Reason: Protocol Last Admin: 03/26/17 06:23 Dose: Not Given Mirtazapine (Remeron -) 15 mg PO HS [facility] Last Admin: 03/25/17 21:07 Dose: 15 mg Nystatin (Nystop Powder -) 1 applic TP BID [facility] Last Admin: 03/25/17 21:07 Dose: 1 applic Ondansetron HCl (Zofran Injection) 2 mg IVPB Q6H PRN PRN Reason: NAUSEA Last Admin: 03/25/17 17:24 Dose: 2 mg Sodium Bicarbonate (Sodium Bicarbonate -) 650 mg PO BID [facility] Last Admin: 03/25/17 21:07 Dose: 650 mg Warfarin Sodium (Coumadin -) 1 mg PO DAILY@1800 [facility] Last Admin: 03/25/17 17:15 Dose: 1 mg - Objective Vital Signs: Vital Signs Temperature 100.1 F H 03/26/17 07:35 Pulse Rate 111 H 03/26/17 07:35 Respiratory Rate 20 03/26/17 07:35 Blood Pressure 139/74 03/26/17 07:35 O2 Sat by Pulse Oximetry (%) 97 03/25/17 21:00 Constitutional: Yes: Mild Distress Eyes: Yes: WNL HENT: Yes: WNL Neck: Yes: WNL Cardiovascular: Yes: WNL Respiratory: Yes: WNL Gastrointestinal: Yes: Hypoactive Bowel Sounds Genitourinary: Yes: Hutchins Present Musculoskeletal: Yes: Muscle Weakness Edema: No Labs: CBC, BMP 03/26/17 06:00 INR, PTT INR 2.51 (0.82-1.09) H 03/26/17 06:00 Assessment/Plan continue same trt
[2017-03-26] MEDS ORDERED: PT OWN MED DRAWER 7, Y5N ONE (09:43)
[2017-03-26] MEDS: DRONABINOL 2.5 MG CAPSULE PO SCH (09:52)
[2017-03-26] MEDS: SODIUM BICARBONATE 650 MG TABLET PO SCH ×2 (09:52→22:07)
[2017-03-26] MEDS: FAMOTIDINE 20 MG/50 ML IVPB 50 ML IVPB SCH ×2 (09:53→22:06)
[2017-03-26] MEDS: FLUCONAZOLE 200 MG/D5W 100 ML IVPB SCH (09:53)
[2017-03-26] MEDS: NYSTATIN POWDER 100,000 UNITS/GM - 15 GM TOPICAL POWDER TP SCH ×2 (09:53→22:06)
[2017-03-26 10:15] LABS: BILIRUBIN,TOTAL 0.3 mg/dL (0.2-1.0); CALCIUM 7.4 mg/dL (8.5-10.1); MAGNESIUM 2.1 mg/dL (1.8-2.4)
[2017-03-26 10:58] LABS: ALBUMIN 1.3 g/dl (3.4-5.0)
[2017-03-26 11:17] LABS: COCKROFT - GAULT 14.45; CREATININE 3.3 mg/dL (0.55-1.02); PHOSPHOROUS 4.3 mg/dL (2.5-4.9)
[2017-03-26] MEDS: SODIUM CHLORIDE 1,000 ML IV SCH (11:27)
[2017-03-26 12:22] LABS: ARTERIAL BLD GAS O2 SATURATION 97.4 % (90-98.9); ARTERIAL BLOOD GAS BASE EXCESS -10.7 meq/l (-2-2); ARTERIAL BLOOD GAS HCO3 13.4 meq/L (22-26); ARTERIAL BLOOD GAS PO2 85.6 mmHg (70-100); ARTERIAL BLOOD GAS pH 7.37 (7.35-7.45)
[2017-03-26 12:24] LABS: ALLENS TEST POSITIVE; ART PUNCT SITE LEFT RADIAL; LPM/O2% 21%; PT. ON O2? NO; TYPE OF O2 ROOM AIR
--- NOTE | 2017-03-26 13:21 | PN ---
Progress Note (short form) - Note Progress Note: Renal Follow up for OSCAR on CKD Pt seen and examined at the bedside family at the bedside feels weak abg done this am Vital Signs Temperature 99.3 F 03/26/17 08:55 Pulse Rate 105 H 03/26/17 08:55 Respiratory Rate 24 03/26/17 08:55 Blood Pressure 135/70 03/26/17 08:55 O2 Sat by Pulse Oximetry (%) 96 03/26/17 09:00 Intake & Output 03/23/17 03/24/17 03/25/17 03/26/17 23:59 23:59 23:59 23:59 Intake Total 1776 2160 2575 1446 Output Total 028 852 4553 300 Balance 976 1585 1050 1146 Weight 132 lb 4.8 oz 159 lb 135 lb 9 oz Gen: NAD CVS: RRR, No M/R Lungs: CTA Abd: soft NT/ND Ext: No edema CBC, BMP 03/26/17 06:00 03/26/17 06:00 Laboratory Tests 03/26/17 03/26/17 06:00 06:00 Calcium 7.4 L Phosphorus 4.3 Magnesium 2.1 Iron Pending Iron Saturation Pending Albumin 1.3 L Current Medications Acetaminophen (Tylenol -) 650 mg PO Q6H PRN PRN Reason: FEVER OR PAIN Last Admin: 03/25/17 01:54 Dose: 650 mg Clonazepam (Klonopin -) 0.5 mg PO TID [facility] Last Admin: 03/26/17 06:03 Dose: 0.5 mg Diphenhydramine HCl (Benadryl -) 25 mg PO Q6H PRN PRN Reason: FOR ITCHING Dronabinol (Marinol -) 2.5 mg PO DAILY [facility] Last Admin: 03/26/17 09:52 Dose: 2.5 mg Fluconazole (Diflucan 200 Mg/D5w Premixed Ivpb -) 100 mls @ 100 mls/hr IVPB DAILY [facility] Last Admin: 03/26/17 09:53 Dose: 100 mls/hr Sodium Chloride (Normal Saline -) 1,000 mls @ 83 mls/hr IV ASDIR [facility] Last Admin: 03/26/17 11:27 Dose: 83 mls/hr Famotidine/Sodium Chloride (Pepcid 20 Mg Premixed Ivpb -) 50 mls @ 100 mls/hr IVPB BID [facility] Last Admin: 03/26/17 09:53 Dose: 100 mls/hr Insulin Aspart (Novolog Vial Sliding Scale -) 1 vial SQ TIDAC [facility] PRN Reason: Protocol Last Admin: 03/26/17 11:25 Dose: 2 units Mirtazapine (Remeron -) 15 mg PO HS [facility] Last Admin: 03/25/17 21:07 Dose: 15 mg Nystatin (Nystop Powder -) 1 applic TP BID [facility] Last Admin: 03/26/17 09:53 Dose: 1 applic Ondansetron HCl (Zofran Injection) 2 mg IVPB Q6H PRN PRN Reason: NAUSEA Last Admin: 03/25/17 17:24 Dose: 2 mg Sodium Bicarbonate (Sodium Bicarbonate -) 650 mg PO BID [facility] Last Admin: 03/26/17 09:52 Dose: 650 mg Warfarin Sodium (Coumadin -) 1 mg PO DAILY@1800 [facility] Last Admin: 03/25/17 17:15 Dose: 1 mg A/P 76 year old Female with PMhx of Cevical Ca, S/p Radiation, Hyperlipidemia, Hypertension, Obstructive uropathy, s/p Bilateral percutaneous nephrostomy, admitted with fever, lethargy, shortness of breath. #OSCAR on CKD Renal function not improved despite IVF hydration imaging studies showed no obstruction Hutchins placement showed no improvement in renal function will d/c IVF at this time supportive Care dose all meds for Cr Cl less then 15 not a candidate for SPD TECH given poor overall status and co-morbid conditions #Anion gap Metabolic acidosis with resp compensation ph is ok on abg continue sodium bicarb with goal of 22 #Anemia Hgb downtrending iron studies pending Glenn Deluna DO
[2017-03-26] MEDS: WARFARIN NA 1 MG TABLET (FP) PO SCH (17:52)
[2017-03-26] MEDS: MIRTAZAPINE 15 MG TABLET (FP) PO SCH (22:11)
[2017-03-27 06:37] LABS: SERUM IRON 21 ug/dL (27-139); TOTAL IRON BINDING CAPACITY 73 ug/dL (250-450); UIBC 52 ug/dL (118-369)
[2017-03-27] MEDS: clonazePAM 0.5 MG TABLET PO SCH ×3 (06:43→21:52)
[2017-03-27] MEDS: INSULIN SLIDING SCALE (NOVOLOG) 1 VIAL SQ SCH ×3 (06:46→16:46)
[2017-03-27 07:13] LABS: BASOPHIL 0.5 % (0-2.0); EOSINOPHIL 1.2 % (0-4.5); MCH 26.3 pg (25.7-33.7); MCHC 32.3 g/dl (32.0-36.0); MEAN CELL VOLUME 81.5 fl (80-96); MEAN PLT VOLUME 6.7 fl (7.5-11.1); NEUTROPHILS 83.2 % (42.8-82.8); PLATELET COUNT 256 K/MM3 (134-434); RDW 18.1 % (11.6-15.6); WHITE BLOOD COUNT 11.6 K/mm3 (4.0-10.0)
--- NOTE | 2017-03-27 07:38 | PN ---
Progress Note (short form) - Note Progress Note: Renal Follow up for OSCAR on CKD Pt seen and examined at the bedside awake and alert confused no pain, N/V Vital Signs Temperature 98.7 F 03/27/17 06:07 Pulse Rate 104 H 03/27/17 06:07 Respiratory Rate 20 03/27/17 06:07 Blood Pressure 125/72 03/27/17 06:07 O2 Sat by Pulse Oximetry (%) 96 03/26/17 20:48 Intake & Output 03/24/17 03/25/17 03/26/17 03/27/17 23:59 23:59 23:59 23:59 Intake Total 2160 2575 2571 Output Total 575 1525 600 235 Balance 1585 1050 1971 - Weight 132 lb 4.8 oz 159 lb 135 lb 9 oz 135 lb 6 oz Gen: NAD CVS: RRR, No M/R Lungs: CTA Abd: soft NT/ND Ext: No edema : right nephrostomy tube appears partially out CBC, BMP 03/27/17 06:10 Current Medications Acetaminophen (Tylenol -) 650 mg PO Q6H PRN PRN Reason: FEVER OR PAIN Last Admin: 03/25/17 01:54 Dose: 650 mg Clonazepam (Klonopin -) 0.5 mg PO TID [facility] Last Admin: 03/27/17 06:43 Dose: Not Given Diphenhydramine HCl (Benadryl -) 25 mg PO Q6H PRN PRN Reason: FOR ITCHING Dronabinol (Marinol -) 2.5 mg PO DAILY [facility] Last Admin: 03/26/17 09:52 Dose: 2.5 mg Fluconazole (Diflucan 200 Mg/D5w Premixed Ivpb -) 100 mls @ 100 mls/hr IVPB DAILY [facility] Last Admin: 03/26/17 09:53 Dose: 100 mls/hr Famotidine/Sodium Chloride (Pepcid 20 Mg Premixed Ivpb -) 50 mls @ 100 mls/hr IVPB BID [facility] Last Admin: 03/26/17 22:06 Dose: 100 mls/hr Insulin Aspart (Novolog Vial Sliding Scale -) 1 vial SQ TIDAC [facility] PRN Reason: Protocol Last Admin: 03/27/17 06:46 Dose: Not Given Mirtazapine (Remeron -) 15 mg PO HS [facility] Last Admin: 03/26/17 22:11 Dose: 15 mg Nystatin (Nystop Powder -) 1 applic TP BID [facility] Last Admin: 03/26/17 22:06 Dose: 1 applic Ondansetron HCl (Zofran Injection) 2 mg IVPB Q6H PRN PRN Reason: NAUSEA Last Admin: 03/25/17 17:24 Dose: 2 mg Sodium Bicarbonate (Sodium Bicarbonate -) 650 mg PO BID [facility] Last Admin: 03/26/17 22:07 Dose: 650 mg Warfarin Sodium (Coumadin -) 1 mg PO DAILY@1800 [facility] Last Admin: 03/26/17 17:52 Dose: 1 mg A/P 76 year old Female with PMhx of Cevical Ca, S/p Radiation, Hyperlipidemia, Hypertension, Obstructive uropathy, s/p Bilateral percutaneous nephrostomy, admitted with fever, lethargy, shortness of breath. 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
[2017-03-27 07:45] LABS: CALCIUM 7.9 mg/dL (8.5-10.1); COCKROFT - GAULT 13.668; CREATININE 3.5 mg/dL (0.55-1.02); PHOSPHOROUS 4.3 mg/dL (2.5-4.9)
--- NOTE | 2017-03-27 09:34 | PN ---
Progress Note, Physician History of Present Illness: patient better says she is feeling well in room - Current Medication List Current Medications: Active Medications Acetaminophen (Tylenol -) 650 mg PO Q6H PRN PRN Reason: FEVER OR PAIN Last Admin: 03/25/17 01:54 Dose: 650 mg Clonazepam (Klonopin -) 0.5 mg PO TID [facility] Last Admin: 03/27/17 06:43 Dose: Not Given Diphenhydramine HCl (Benadryl -) 25 mg PO Q6H PRN PRN Reason: FOR ITCHING Dronabinol (Marinol -) 2.5 mg PO DAILY [facility] Last Admin: 03/26/17 09:52 Dose: 2.5 mg Fluconazole (Diflucan 200 Mg/D5w Premixed Ivpb -) 100 mls @ 100 mls/hr IVPB DAILY [facility] Last Admin: 03/26/17 09:53 Dose: 100 mls/hr Famotidine/Sodium Chloride (Pepcid 20 Mg Premixed Ivpb -) 50 mls @ 100 mls/hr IVPB BID [facility] Last Admin: 03/26/17 22:06 Dose: 100 mls/hr Insulin Aspart (Novolog Vial Sliding Scale -) 1 vial SQ TIDAC [facility] PRN Reason: Protocol Last Admin: 03/27/17 06:46 Dose: Not Given Mirtazapine (Remeron -) 15 mg PO HS [facility] Last Admin: 03/26/17 22:11 Dose: 15 mg Nystatin (Nystop Powder -) 1 applic TP BID [facility] Last Admin: 03/26/17 22:06 Dose: 1 applic Ondansetron HCl (Zofran Injection) 2 mg IVPB Q6H PRN PRN Reason: NAUSEA Last Admin: 03/25/17 17:24 Dose: 2 mg Sodium Bicarbonate (Sodium Bicarbonate -) 650 mg PO BID [facility] Last Admin: 03/26/17 22:07 Dose: 650 mg Warfarin Sodium (Coumadin -) 1 mg PO DAILY@1800 [facility] Last Admin: 03/26/17 17:52 Dose: 1 mg - Objective Vital Signs: Vital Signs Temperature 98.7 F 03/27/17 06:07 Pulse Rate 104 H 03/27/17 06:07 Respiratory Rate 20 03/27/17 06:07 Blood Pressure 125/72 03/27/17 06:07 O2 Sat by Pulse Oximetry (%) 96 03/26/17 20:48 Constitutional: Yes: No Distress, Calm Cardiovascular: Yes: Pulse Irregular, S1, S2 Respiratory: Yes: Regular, CTA Bilaterally Musculoskeletal: Yes: Other Extremities: Yes: WNL Edema: LLE: 1+, RLE: 1+ Neurological: Yes: Alert, Oriented Psychiatric: Yes: Alert, Oriented Labs: CBC, BMP 03/27/17 06:10 03/27/17 06:10 INR, PTT INR 2.51 (0.82-1.09) H 03/26/17 06:00 Assessment/Plan uti neck pain anemia dehydration cancer plan continue current mgmt nutrition continue as per renal and onco rest as per primary
[2017-03-27] MEDS ORDERED: PT OWN MED DRAWER 7, Y5N ONE (10:08)
[2017-03-27] MEDS: DRONABINOL 2.5 MG CAPSULE PO SCH (10:45)
[2017-03-27] MEDS: NYSTATIN POWDER 100,000 UNITS/GM - 15 GM TOPICAL POWDER TP SCH ×2 (10:46→21:52)
[2017-03-27] MEDS: FAMOTIDINE 20 MG/50 ML IVPB 50 ML IVPB SCH ×2 (10:46→21:52)
[2017-03-27] MEDS: FLUCONAZOLE 200 MG/D5W 100 ML IVPB SCH (10:46)
[2017-03-27 14:06] LABS: INR 2.97 (0.82-1.09); PROTHROMBIN TIME (PATIENT) 33.4 SEC (9.98-11.88)
--- NOTE | 2017-03-27 14:11 | PN ---
Progress Note, Physician Chief Complaint: Feels better History of Present Illness: Admitted with urosepsis,on IV antibiotics Hutchins out ,nephrostomy caths working well - Current Medication List Current Medications: Active Medications Acetaminophen (Tylenol -) 650 mg PO Q6H PRN PRN Reason: FEVER OR PAIN Last Admin: 03/25/17 01:54 Dose: 650 mg Clonazepam (Klonopin -) 0.5 mg PO TID [facility] Last Admin: 03/27/17 06:43 Dose: Not Given Diphenhydramine HCl (Benadryl -) 25 mg PO Q6H PRN PRN Reason: FOR ITCHING Dronabinol (Marinol -) 2.5 mg PO DAILY [facility] Last Admin: 03/27/17 10:45 Dose: 2.5 mg Fluconazole (Diflucan 200 Mg/D5w Premixed Ivpb -) 100 mls @ 100 mls/hr IVPB DAILY [facility] Last Admin: 03/27/17 10:46 Dose: 100 mls/hr Famotidine/Sodium Chloride (Pepcid 20 Mg Premixed Ivpb -) 50 mls @ 100 mls/hr IVPB BID [facility] Last Admin: 03/27/17 10:46 Dose: 100 mls/hr Insulin Aspart (Novolog Vial Sliding Scale -) 1 vial SQ TIDAC [facility] PRN Reason: Protocol Last Admin: 03/27/17 11:27 Dose: 2 units Mirtazapine (Remeron -) 15 mg PO HS [facility] Last Admin: 03/26/17 22:11 Dose: 15 mg Nystatin (Nystop Powder -) 1 applic TP BID [facility] Last Admin: 03/27/17 10:46 Dose: 1 applic Ondansetron HCl (Zofran Injection) 2 mg IVPB Q6H PRN PRN Reason: NAUSEA Last Admin: 03/25/17 17:24 Dose: 2 mg Sodium Bicarbonate (Sodium Bicarbonate -) 650 mg PO TID [facility] Warfarin Sodium (Coumadin -) 1 mg PO DAILY@1800 [facility] Last Admin: 03/26/17 17:52 Dose: 1 mg - Objective Vital Signs: Vital Signs Temperature 98.7 F 03/27/17 08:55 Pulse Rate 105 H 03/27/17 08:55 Respiratory Rate 22 03/27/17 08:55 Blood Pressure 140/62 03/27/17 08:55 O2 Sat by Pulse Oximetry (%) 97 03/27/17 09:00 Constitutional: Yes: Anxious Eyes: Yes: WNL HENT: Yes: WNL Neck: Yes: WNL Cardiovascular: Yes: WNL Respiratory: Yes: Regular Gastrointestinal: Yes: Normal Bowel Sounds Labs: CBC, BMP 03/27/17 06:10 03/27/17 06:10 INR, PTT INR 2.51 (0.82-1.09) H 03/26/17 06:00
[2017-03-27] MEDS: SODIUM BICARBONATE 650 MG TABLET PO SCH ×3 (16:41→21:52)
[2017-03-27] MEDS: WARFARIN NA 1 MG TABLET (FP) PO SCH (17:59)
[2017-03-27] MEDS: MIRTAZAPINE 15 MG TABLET (FP) PO SCH (21:52)
[2017-03-28] MEDS: SODIUM BICARBONATE 650 MG TABLET PO SCH ×2 (06:28→22:06)
[2017-03-28] MEDS: INSULIN SLIDING SCALE (NOVOLOG) 1 VIAL SQ SCH ×3 (06:28→16:38)
[2017-03-28] MEDS: clonazePAM 0.5 MG TABLET PO SCH ×3 (06:28→22:06)
[2017-03-28 08:21] LABS: BASOPHIL 0.4 % (0-2.0); EOSINOPHIL 1.1 % (0-4.5); MCH 27.1 pg (25.7-33.7); MCHC 32.5 g/dl (32.0-36.0); MEAN CELL VOLUME 83.5 fl (80-96); MEAN PLT VOLUME 6.8 fl (7.5-11.1); NEUTROPHILS 79.9 % (42.8-82.8); PLATELET COUNT 272 K/MM3 (134-434); RDW 18.3 % (11.6-15.6); WHITE BLOOD COUNT 11.9 K/mm3 (4.0-10.0)
[2017-03-28 08:36] LABS: CALCIUM 7.8 mg/dL (8.5-10.1); COCKROFT - GAULT 14.4925; CREATININE 3.3 mg/dL (0.55-1.02); PHOSPHOROUS 4.2 mg/dL (2.5-4.9)
[2017-03-28] MEDS ORDERED: PT OWN MED DRAWER 7, Y5N ONE (10:25)
[2017-03-28] MEDS ORDERED: SODIUM BICARBONATE 650 MG TABLET PO ONE (10:29)
--- NOTE | 2017-03-28 10:29 | PN ---
Progress Note (short form) - Note Progress Note: Renal Follow up for OSCAR on CKD Pt seen and examined at the bedside pt upset wants to go home denies sob, chest pain, N/V/D Vital Signs Temperature 99.3 F 03/28/17 06:00 Pulse Rate 104 H 03/28/17 06:00 Respiratory Rate 20 03/28/17 06:00 Blood Pressure 137/64 03/28/17 06:00 O2 Sat by Pulse Oximetry (%) 97 03/27/17 21:00 Intake & Output 03/25/17 03/26/17 03/27/17 03/28/17 23:59 23:59 23:59 23:59 Intake Total 2575 2571 740 0 Output Total 1525 600 735 600 Balance 1050 1971 5 -600 Weight 159 lb 135 lb 9 oz 135 lb 6 oz Gen: NAD CVS: RRR, No M/R Lungs: CTA Abd: soft NT/ND Ext: No edema : right nephrostomy tube appears partially out CBC, BMP 03/27/17 06:10 Current Medications Acetaminophen (Tylenol -) 650 mg PO Q6H PRN PRN Reason: FEVER OR PAIN Last Admin: 03/25/17 01:54 Dose: 650 mg Clonazepam (Klonopin -) 0.5 mg PO TID [facility] Last Admin: 03/27/17 06:43 Dose: Not Given Diphenhydramine HCl (Benadryl -) 25 mg PO Q6H PRN PRN Reason: FOR ITCHING Dronabinol (Marinol -) 2.5 mg PO DAILY [facility] Last Admin: 03/26/17 09:52 Dose: 2.5 mg Fluconazole (Diflucan 200 Mg/D5w Premixed Ivpb -) 100 mls @ 100 mls/hr IVPB DAILY [facility] Last Admin: 03/26/17 09:53 Dose: 100 mls/hr Famotidine/Sodium Chloride (Pepcid 20 Mg Premixed Ivpb -) 50 mls @ 100 mls/hr IVPB BID [facility] Last Admin: 03/26/17 22:06 Dose: 100 mls/hr Insulin Aspart (Novolog Vial Sliding Scale -) 1 vial SQ TIDAC [facility] PRN Reason: Protocol Last Admin: 03/27/17 06:46 Dose: Not Given Mirtazapine (Remeron -) 15 mg PO HS [facility] Last Admin: 03/26/17 22:11 Dose: 15 mg Nystatin (Nystop Powder -) 1 applic TP BID [facility] Last Admin: 03/26/17 22:06 Dose: 1 applic Ondansetron HCl (Zofran Injection) 2 mg IVPB Q6H PRN PRN Reason: NAUSEA Last Admin: 03/25/17 17:24 Dose: 2 mg Sodium Bicarbonate (Sodium Bicarbonate -) 650 mg PO BID [facility] Last Admin: 03/26/17 22:07 Dose: 650 mg Warfarin Sodium (Coumadin -) 1 mg PO DAILY@1800 [facility] Last Admin: 03/26/17 17:52 Dose: 1 mg A/P 76 year old Female with PMhx of Cevical Ca, S/p Radiation, Hyperlipidemia, Hypertension, Obstructive uropathy, s/p Bilateral percutaneous nephrostomy, admitted with fever, lethargy, shortness of breath. 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
[2017-03-28] MEDS: DRONABINOL 2.5 MG CAPSULE PO SCH (10:30)
[2017-03-28] MEDS: FLUCONAZOLE 200 MG/D5W 100 ML IVPB SCH (10:31)
[2017-03-28] MEDS: FAMOTIDINE 20 MG/50 ML IVPB 50 ML IVPB SCH ×2 (10:31→22:06)
[2017-03-28] MEDS: NYSTATIN POWDER 100,000 UNITS/GM - 15 GM TOPICAL POWDER TP SCH ×2 (10:32→22:06)
--- NOTE | 2017-03-28 11:47 | PN ---
Progress Note, Physician Chief Complaint: Confused sometimes History of Present Illness: Urosepsis on IV antibiotics - Current Medication List Current Medications: Active Medications Acetaminophen (Tylenol -) 650 mg PO Q6H PRN PRN Reason: FEVER OR PAIN Last Admin: 03/25/17 01:54 Dose: 650 mg Clonazepam (Klonopin -) 0.5 mg PO TID [facility] Last Admin: 03/28/17 06:28 Dose: 0.5 mg Diphenhydramine HCl (Benadryl -) 25 mg PO Q6H PRN PRN Reason: FOR ITCHING Dronabinol (Marinol -) 2.5 mg PO DAILY [facility] Last Admin: 03/28/17 10:30 Dose: 2.5 mg Fluconazole (Diflucan 200 Mg/D5w Premixed Ivpb -) 100 mls @ 100 mls/hr IVPB DAILY [facility] Last Admin: 03/28/17 10:31 Dose: 100 mls/hr Famotidine/Sodium Chloride (Pepcid 20 Mg Premixed Ivpb -) 50 mls @ 100 mls/hr IVPB BID [facility] Last Admin: 03/28/17 10:31 Dose: 100 mls/hr Insulin Aspart (Novolog Vial Sliding Scale -) 1 vial SQ TIDAC [facility] PRN Reason: Protocol Last Admin: 03/28/17 11:35 Dose: 4 units Mirtazapine (Remeron -) 15 mg PO HS [facility] Last Admin: 03/27/17 21:52 Dose: 15 mg Nystatin (Nystop Powder -) 1 applic TP BID [facility] Last Admin: 03/28/17 10:32 Dose: 1 applic Ondansetron HCl (Zofran Injection) 2 mg IVPB Q6H PRN PRN Reason: NAUSEA Last Admin: 03/25/17 17:24 Dose: 2 mg Sodium Bicarbonate (Sodium Bicarbonate -) 1,300 mg PO TID [facility] Warfarin Sodium (Coumadin -) 1 mg PO DAILY@1800 [facility] Last Admin: 03/27/17 17:59 Dose: 1 mg - Objective Vital Signs: Vital Signs Temperature 98.3 F 03/28/17 08:40 Pulse Rate 101 H 03/28/17 08:40 Respiratory Rate 24 03/28/17 08:40 Blood Pressure 146/72 03/28/17 08:40 O2 Sat by Pulse Oximetry (%) 97 03/27/17 21:00 Constitutional: Yes: Moderate Distress Eyes: Yes: WNL HENT: Yes: WNL Neck: Yes: WNL Cardiovascular: Yes: WNL Respiratory: Yes: WNL Gastrointestinal: Yes: Normal Bowel Sounds Genitourinary: Yes: Other (nephrostomy working) Breast(s): Yes: WNL Musculoskeletal: Yes: Muscle Weakness Edema: No Integumentary: Yes: WNL Wound/Incision: Yes: Clean/Dry Neurological: Yes: Lethargy Labs: CBC, BMP 03/28/17 06:30 03/28/17 06:30 INR, PTT INR 2.97 (0.82-1.09) H 03/27/17 13:35 Assessment/Plan DC coumadin
--- NOTE | 2017-03-28 15:50 | PN ---
Progress Note, Physician History of Present Illness: patient stable family in room n issues except weakness - Current Medication List Current Medications: Active Medications Acetaminophen (Tylenol -) 650 mg PO Q6H PRN PRN Reason: FEVER OR PAIN Last Admin: 03/25/17 01:54 Dose: 650 mg Clonazepam (Klonopin -) 0.5 mg PO TID [facility] Last Admin: 03/28/17 14:31 Dose: Not Given Diphenhydramine HCl (Benadryl -) 25 mg PO Q6H PRN PRN Reason: FOR ITCHING Dronabinol (Marinol -) 2.5 mg PO DAILY [facility] Last Admin: 03/28/17 10:30 Dose: 2.5 mg Fluconazole (Diflucan 200 Mg/D5w Premixed Ivpb -) 100 mls @ 100 mls/hr IVPB DAILY [facility] Last Admin: 03/28/17 10:31 Dose: 100 mls/hr Famotidine/Sodium Chloride (Pepcid 20 Mg Premixed Ivpb -) 50 mls @ 100 mls/hr IVPB BID [facility] Last Admin: 03/28/17 10:31 Dose: 100 mls/hr Insulin Aspart (Novolog Vial Sliding Scale -) 1 vial SQ TIDAC [facility] PRN Reason: Protocol Last Admin: 03/28/17 11:35 Dose: 4 units Mirtazapine (Remeron -) 15 mg PO HS [facility] Last Admin: 03/27/17 21:52 Dose: 15 mg Nystatin (Nystop Powder -) 1 applic TP BID [facility] Last Admin: 03/28/17 10:32 Dose: 1 applic Ondansetron HCl (Zofran Injection) 2 mg IVPB Q6H PRN PRN Reason: NAUSEA Last Admin: 03/25/17 17:24 Dose: 2 mg Sodium Bicarbonate (Sodium Bicarbonate -) 1,300 mg PO TID [facility] - Objective Vital Signs: Vital Signs Temperature 99.7 F H 03/28/17 15:43 Pulse Rate 101 H 03/28/17 15:43 Respiratory Rate 24 03/28/17 15:43 Blood Pressure 132/68 03/28/17 15:43 O2 Sat by Pulse Oximetry (%) 99 03/28/17 09:00 Constitutional: Yes: No Distress, Calm Cardiovascular: Yes: S1, S2 Respiratory: Yes: Regular, CTA Bilaterally Gastrointestinal: Yes: Normal Bowel Sounds, Soft Genitourinary: Yes: Other (bilateral nephrostomy tubes) Musculoskeletal: Yes: Other Edema: LLE: Trace, RLE: Trace Neurological: Yes: Alert, Oriented Psychiatric: Yes: Alert, Oriented Labs: CBC, BMP 03/28/17 06:30 03/28/17 06:30 INR, PTT INR 2.97 (0.82-1.09) H 03/27/17 13:35 Assessment/Plan uti neck pain anemia dehydration cancer plan continue current mgmt nutrition continue to monitor as per renal rest as per primary
[2017-03-28] MEDS: ACETAMINOPHEN 325 MG TABLET (FP) PO PRN (18:11)
[2017-03-28] MEDS: MIRTAZAPINE 15 MG TABLET (FP) PO SCH (22:06)
--- NOTE | 2017-03-28 22:50 | PN ---
Progress Note (short form) - Note Progress Note: Patient seen and examined frail, weak Last Vital Signs Temp Pulse Resp BP Pulse Ox 99.9 F H 103 H 18 125/62 99 03/28/17 17:29 03/28/17 22:00 03/28/17 22:00 03/28/17 22:00 03/28/17 21:00 Cor: RSR, No murmurs, No gallops Lungs: decreases at bases Abd: Soft, Normal bowel sounds, Ext:No significant edema Abnormal Lab Results 03/28/17 03/28/17 06:30 06:30 WBC 11.9 H RBC 2.59 L Hgb 7.0 L Hct 21.6 L RDW 18.3 H MPV 6.8 L Chloride 117 H Carbon Dioxide 12 L BUN 46 H Creatinine 3.3 H Random Glucose 123 H Calcium 7.8 L A/P 76 y/o patient with advanced cervical cancer, s/p RT, renal failure, anemia to discuss with primary oncologist restaging CT scans discussed with PMD
[2017-03-29] MEDS: clonazePAM 0.5 MG TABLET PO SCH ×3 (06:18→21:08)
[2017-03-29] MEDS: INSULIN SLIDING SCALE (NOVOLOG) 1 VIAL SQ SCH ×3 (06:18→17:45)
[2017-03-29] MEDS: SODIUM BICARBONATE 650 MG TABLET PO SCH ×3 (06:18→21:08)
[2017-03-29 08:05] LABS: BASOPHIL 0.2 % (0-2.0); MCH 26.5 pg (25.7-33.7); MCHC 32.4 g/dl (32.0-36.0); MEAN CELL VOLUME 81.7 fl (80-96); MEAN PLT VOLUME 6.8 fl (7.5-11.1); NEUTROPHILS 80.5 % (42.8-82.8); PLATELET COUNT 284 K/MM3 (134-434); RDW 17.8 % (11.6-15.6); WHITE BLOOD COUNT 11.1 K/mm3 (4.0-10.0)
[2017-03-29 08:34] LABS: CALCIUM 7.7 mg/dL (8.5-10.1); COCKROFT - GAULT 14.4925; CREATININE 3.3 mg/dL (0.55-1.02); MAGNESIUM 1.8 mg/dL (1.8-2.4); PHOSPHOROUS 4.2 mg/dL (2.5-4.9)
--- NOTE | 2017-03-29 09:09 | PN ---
Progress Note, Physician Chief Complaint: Feels weak History of Present Illness: Scheduled for CT of abdomen - Current Medication List Current Medications: Active Medications Acetaminophen (Tylenol -) 650 mg PO Q6H PRN PRN Reason: FEVER OR PAIN Last Admin: 03/28/17 18:11 Dose: 650 mg Clonazepam (Klonopin -) 0.5 mg PO TID [facility] Last Admin: 03/29/17 06:18 Dose: Not Given Diphenhydramine HCl (Benadryl -) 25 mg PO Q6H PRN PRN Reason: FOR ITCHING Dronabinol (Marinol -) 2.5 mg PO DAILY [facility] Last Admin: 03/28/17 10:30 Dose: 2.5 mg Fluconazole (Diflucan 200 Mg/D5w Premixed Ivpb -) 100 mls @ 100 mls/hr IVPB DAILY [facility] Last Admin: 03/28/17 10:31 Dose: 100 mls/hr Famotidine/Sodium Chloride (Pepcid 20 Mg Premixed Ivpb -) 50 mls @ 100 mls/hr IVPB BID [facility] Last Admin: 03/28/17 22:06 Dose: 100 mls/hr Insulin Aspart (Novolog Vial Sliding Scale -) 1 vial SQ TIDAC [facility] PRN Reason: Protocol Last Admin: 03/29/17 06:18 Dose: Not Given Mirtazapine (Remeron -) 15 mg PO HS [facility] Last Admin: 03/28/17 22:06 Dose: 15 mg Nystatin (Nystop Powder -) 1 applic TP BID [facility] Last Admin: 03/28/17 22:06 Dose: 1 applic Ondansetron HCl (Zofran Injection) 2 mg IVPB Q6H PRN PRN Reason: NAUSEA Last Admin: 03/25/17 17:24 Dose: 2 mg Sodium Bicarbonate (Sodium Bicarbonate -) 1,300 mg PO TID [facility] Last Admin: 03/29/17 06:18 Dose: Not Given - Objective Vital Signs: Vital Signs Temperature 99.5 F 03/29/17 07:38 Pulse Rate 105 H 03/29/17 07:38 Respiratory Rate 18 03/29/17 07:38 Blood Pressure 143/72 03/29/17 07:38 O2 Sat by Pulse Oximetry (%) 99 03/28/17 21:00 Constitutional: Yes: Moderate Distress Eyes: Yes: WNL HENT: Yes: WNL Neck: Yes: WNL Respiratory: Yes: WNL Gastrointestinal: Yes: Normal Bowel Sounds ...Rectal Exam: Yes: WNL Genitourinary: Yes: WNL, Other (nephrostomy tubes working well) Breast(s): Yes: WNL Musculoskeletal: Yes: Muscle Weakness Edema: No Labs: CBC, BMP 03/29/17 06:50 03/29/17 06:50 INR, PTT INR 2.97 (0.82-1.09) H 03/27/17 13:35 Assessment/Plan OOB sitting in chair
[2017-03-29] MEDS ORDERED: PT OWN MED DRAWER 7, Y5N ONE (09:29)
[2017-03-29] MEDS: FLUCONAZOLE 200 MG/D5W 100 ML IVPB SCH (09:36)
[2017-03-29] MEDS: DRONABINOL 2.5 MG CAPSULE PO SCH (09:36)
[2017-03-29] MEDS: FAMOTIDINE 20 MG/50 ML IVPB 50 ML IVPB SCH ×2 (09:36→21:07)
[2017-03-29] MEDS: NYSTATIN POWDER 100,000 UNITS/GM - 15 GM TOPICAL POWDER TP SCH ×2 (09:41→21:08)
--- NOTE | 2017-03-29 11:55 | PN ---
Progress Note (short form) - Note Progress Note: Renal Follow up for OSCAR on CKD Pt seen and examined at the bedside denies any sob, chest pain, abd pain, N/V/D Vital Signs Temperature 99.5 F 03/29/17 07:38 Pulse Rate 105 H 03/29/17 07:38 Respiratory Rate 18 03/29/17 07:38 Blood Pressure 143/72 03/29/17 07:38 O2 Sat by Pulse Oximetry (%) 99 03/28/17 21:00 Intake & Output 03/26/17 03/27/17 03/28/17 03/29/17 23:59 23:59 23:59 23:59 Intake Total 2571 740 150 50 Output Total 964 264 6432 400 Balance 1971 5 -1050 -350 Weight 135 lb 9 oz 135 lb 6 oz Gen: NAD CVS: RRR, No M/R Lungs: CTA Abd: soft NT/ND Ext: No edema : right nephrostomy tube appears partially out CBC, BMP 03/29/17 06:50 03/29/17 06:50 Laboratory Tests 03/28/17 03/29/17 06:30 06:50 Calcium 7.8 L 7.7 L Phosphorus 4.2 4.2 Magnesium 2.0 1.8 Current Medications Acetaminophen (Tylenol -) 650 mg PO Q6H PRN PRN Reason: FEVER OR PAIN Last Admin: 03/28/17 18:11 Dose: 650 mg Clonazepam (Klonopin -) 0.5 mg PO TID [facility] Last Admin: 03/29/17 06:18 Dose: Not Given Diphenhydramine HCl (Benadryl -) 25 mg PO Q6H PRN PRN Reason: FOR ITCHING Dronabinol (Marinol -) 2.5 mg PO DAILY [facility] Last Admin: 03/29/17 09:36 Dose: 2.5 mg Fluconazole (Diflucan 200 Mg/D5w Premixed Ivpb -) 100 mls @ 100 mls/hr IVPB DAILY [facility] Last Admin: 03/29/17 09:36 Dose: 100 mls/hr Famotidine/Sodium Chloride (Pepcid 20 Mg Premixed Ivpb -) 50 mls @ 100 mls/hr IVPB BID [facility] Last Admin: 03/29/17 09:36 Dose: 100 mls/hr Sodium Bicarbonate 75 meq/ (Dextrose) 1,075 mls @ 75 mls/hr IV .[id number] [facility] Insulin Aspart (Novolog Vial Sliding Scale -) 1 vial SQ TIDAC [facility] PRN Reason: Protocol Last Admin: 03/29/17 06:18 Dose: Not Given Mirtazapine (Remeron -) 15 mg PO HS [facility] Last Admin: 03/28/17 22:06 Dose: 15 mg Nystatin (Nystop Powder -) 1 applic TP BID [facility] Last Admin: 03/29/17 09:41 Dose: 1 applic Ondansetron HCl (Zofran Injection) 2 mg IVPB Q6H PRN PRN Reason: NAUSEA Last Admin: 03/25/17 17:24 Dose: 2 mg Sodium Bicarbonate (Sodium Bicarbonate -) 650 mg PO TID [facility] A/P 76 year old Female with PMhx of Cevical Ca, S/p Radiation, Hyperlipidemia, Hypertension, Obstructive uropathy, s/p Bilateral percutaneous nephrostomy, admitted with fever, lethargy, shortness of breath. #Non-oliguric OSCAR on CKD Renal function w/o improvement but is stable pt is non-oliguric #Anion gap Metabolic acidosis with resp compensation no improvement with oral bicarb sart bicarb gtt (1.5 amps at 75cc per hour) #Anemia Hgb 7.3 trend CBC transfuse fro Hgb less then 7 iron saturation is ok from the #Hypernatremia started hypotonic IVF trend Na levels prognosis guarded Glenn Deluna DO
--- NOTE | 2017-03-29 13:37 | PN ---
Progress Note, Physician History of Present Illness: patient stable her main complaint is weakness - Current Medication List Current Medications: Active Medications Acetaminophen (Tylenol -) 650 mg PO Q6H PRN PRN Reason: FEVER OR PAIN Last Admin: 03/28/17 18:11 Dose: 650 mg Clonazepam (Klonopin -) 0.5 mg PO TID [facility] Last Admin: 03/29/17 06:18 Dose: Not Given Diphenhydramine HCl (Benadryl -) 25 mg PO Q6H PRN PRN Reason: FOR ITCHING Dronabinol (Marinol -) 2.5 mg PO DAILY [facility] Last Admin: 03/29/17 09:36 Dose: 2.5 mg Fluconazole (Diflucan 200 Mg/D5w Premixed Ivpb -) 100 mls @ 100 mls/hr IVPB DAILY [facility] Last Admin: 03/29/17 09:36 Dose: 100 mls/hr Famotidine/Sodium Chloride (Pepcid 20 Mg Premixed Ivpb -) 50 mls @ 100 mls/hr IVPB BID [facility] Last Admin: 03/29/17 09:36 Dose: 100 mls/hr Sodium Bicarbonate 75 meq/ (Dextrose) 1,075 mls @ 75 mls/hr IV Q14H [facility] Insulin Aspart (Novolog Vial Sliding Scale -) 1 vial SQ TIDAC [facility] PRN Reason: Protocol Last Admin: 03/29/17 12:45 Dose: Not Given Mirtazapine (Remeron -) 15 mg PO HS [facility] Last Admin: 03/28/17 22:06 Dose: 15 mg Nystatin (Nystop Powder -) 1 applic TP BID [facility] Last Admin: 03/29/17 09:41 Dose: 1 applic Ondansetron HCl (Zofran Injection) 2 mg IVPB Q6H PRN PRN Reason: NAUSEA Last Admin: 03/25/17 17:24 Dose: 2 mg Sodium Bicarbonate (Sodium Bicarbonate -) 650 mg PO TID [facility] - Objective Vital Signs: Vital Signs Temperature 98.2 F 03/29/17 10:00 Pulse Rate 96 H 03/29/17 10:00 Respiratory Rate 18 03/29/17 10:00 Blood Pressure 137/68 03/29/17 10:00 O2 Sat by Pulse Oximetry (%) 98 03/29/17 09:00 Constitutional: Yes: No Distress, Calm Cardiovascular: Yes: S1, S2 Respiratory: Yes: Regular, CTA Bilaterally Gastrointestinal: Yes: Normal Bowel Sounds, Soft Musculoskeletal: Yes: Other Extremities: Yes: Other Neurological: Yes: Alert, Oriented Psychiatric: Yes: Alert Labs: CBC, BMP 03/29/17 06:50 03/29/17 06:50 INR, PTT INR 2.97 (0.82-1.09) H 03/27/17 13:35 Assessment/Plan uti neck pain anemia dehydration cancer plan continue current mgmt nutrition continue as per renal and onco rest as per primary will stop antifungals after 2 weeks
[2017-03-29] MEDS ORDERED: SODIUM BICARBONATE 8.4% 50 MEQ/50 ML VIAL ONE (16:09)
[2017-03-29] MEDS: SODIUM BICARBONATE 8.4% - 75 MEQ in DEXTROSE 5%-WATER - 1,000 ML IV SCH (16:24)
[2017-03-29] MEDS: MIRTAZAPINE 15 MG TABLET (FP) PO SCH (21:08)
[2017-03-30] MEDS: SODIUM BICARBONATE 8.4% - 75 MEQ in DEXTROSE 5%-WATER - 1,000 ML IV SCH ×4 (03:06→22:33)
[2017-03-30] MEDS: clonazePAM 0.5 MG TABLET PO SCH (05:43)
[2017-03-30] MEDS: SODIUM BICARBONATE 650 MG TABLET PO SCH ×3 (05:45→22:33)
[2017-03-30] MEDS: INSULIN SLIDING SCALE (NOVOLOG) 1 VIAL SQ SCH ×3 (06:16→17:29)
[2017-03-30 07:13] LABS: BASOPHIL 0.5 % (0-2.0); EOSINOPHIL 1.5 % (0-4.5); MCH 26.7 pg (25.7-33.7); MCHC 33.3 g/dl (32.0-36.0); MEAN CELL VOLUME 80.1 fl (80-96); MEAN PLT VOLUME 6.9 fl (7.5-11.1); NEUTROPHILS 78.4 % (42.8-82.8); PLATELET COUNT 255 K/MM3 (134-434); RDW 17.6 % (11.6-15.6); WHITE BLOOD COUNT 9.4 K/mm3 (4.0-10.0)
[2017-03-30 07:41] LABS: CALCIUM 7.5 mg/dL (8.5-10.1); COCKROFT - GAULT 17.085; CREATININE 2.8 mg/dL (0.55-1.02); MAGNESIUM 1.6 mg/dL (1.8-2.4); PHOSPHOROUS 3.5 mg/dL (2.5-4.9)
--- NOTE | 2017-03-30 09:41 | PN ---
Progress Note, Physician Chief Complaint: Feels better History of Present Illness: Percutaneous nephrostomy tubes working well - Current Medication List Current Medications: Active Medications Acetaminophen (Tylenol -) 650 mg PO Q6H PRN PRN Reason: FEVER OR PAIN Last Admin: 03/28/17 18:11 Dose: 650 mg Clonazepam (Klonopin -) 0.5 mg PO TID [facility] Last Admin: 03/30/17 05:43 Dose: Not Given Diphenhydramine HCl (Benadryl -) 25 mg PO Q6H PRN PRN Reason: FOR ITCHING Dronabinol (Marinol -) 2.5 mg PO DAILY [facility] Last Admin: 03/29/17 09:36 Dose: 2.5 mg Fluconazole (Diflucan 200 Mg/D5w Premixed Ivpb -) 100 mls @ 100 mls/hr IVPB DAILY [facility] Last Admin: 03/29/17 09:36 Dose: 100 mls/hr Famotidine/Sodium Chloride (Pepcid 20 Mg Premixed Ivpb -) 50 mls @ 100 mls/hr IVPB BID [facility] Last Admin: 03/29/17 21:07 Dose: 100 mls/hr Sodium Bicarbonate 75 meq/ (Dextrose) 1,075 mls @ 75 mls/hr IV Q14H [facility] Last Admin: 03/30/17 06:45 Dose: 75 mls/hr Insulin Aspart (Novolog Vial Sliding Scale -) 1 vial SQ TIDAC [facility] PRN Reason: Protocol Last Admin: 03/30/17 06:16 Dose: Not Given Mirtazapine (Remeron -) 15 mg PO HS [facility] Last Admin: 03/29/17 21:08 Dose: Not Given Nystatin (Nystop Powder -) 1 applic TP BID [facility] Last Admin: 03/29/17 21:08 Dose: 1 applic Ondansetron HCl (Zofran Injection) 2 mg IVPB Q6H PRN PRN Reason: NAUSEA Last Admin: 03/25/17 17:24 Dose: 2 mg Sodium Bicarbonate (Sodium Bicarbonate -) 650 mg PO TID [facility] Last Admin: 03/30/17 05:45 Dose: 650 mg - Objective Vital Signs: Vital Signs Temperature 98.9 F 03/29/17 22:00 Pulse Rate 78 03/29/17 22:00 Respiratory Rate 18 03/29/17 22:00 Blood Pressure 125/65 03/29/17 22:00 O2 Sat by Pulse Oximetry (%) 98 03/29/17 21:00 Constitutional: Yes: No Distress Eyes: Yes: WNL HENT: Yes: WNL Neck: Yes: WNL Cardiovascular: Yes: WNL Respiratory: Yes: WNL Gastrointestinal: Yes: WNL ...Rectal Exam: Yes: Deferred Genitourinary: Yes: Other (urine out put good) Musculoskeletal: Yes: Muscle Weakness Edema: No Neurological: Yes: Alert Psychiatric: Yes: Alert Labs: CBC, BMP 03/30/17 06:30 03/30/17 06:30 INR, PTT INR 2.97 (0.82-1.09) H 03/27/17 13:35 Assessment/Plan DC ativan
[2017-03-30] MEDS: FLUCONAZOLE 200 MG/D5W 100 ML IVPB SCH (09:50)
[2017-03-30] MEDS: DRONABINOL 2.5 MG CAPSULE PO SCH (09:50)
[2017-03-30] MEDS: NYSTATIN POWDER 100,000 UNITS/GM - 15 GM TOPICAL POWDER TP SCH ×2 (09:51→22:31)
[2017-03-30] MEDS: FAMOTIDINE 20 MG/50 ML IVPB 50 ML IVPB SCH ×2 (09:51→22:31)
[2017-03-30] MEDS ORDERED: INSULIN (NOVOLOG) ASPART 100 UNITS/ML 10ML VIAL ONE (12:05)
--- NOTE | 2017-03-30 13:56 | PN ---
Progress Note (short form) - Note Progress Note: Renal Follow up for OSCAR on CKD Pt seen and examined at the bedside no acute complaints s/p CT of Abd and chest yesterday Vital Signs Temperature 98.9 F 03/29/17 22:00 Pulse Rate 78 03/29/17 22:00 Respiratory Rate 18 03/29/17 22:00 Blood Pressure 125/65 03/29/17 22:00 O2 Sat by Pulse Oximetry (%) 98 03/29/17 21:00 Intake & Output 03/27/17 03/28/17 03/29/17 03/30/17 23:59 23:59 23:59 23:59 Intake Total 740 150 550 900 Output Total 735 1200 1575 350 Balance 5 -1050 -1025 550 Weight 135 lb 6 oz Gen: NAD CVS: RRR, No M/R Lungs: CTA Abd: soft NT/ND Ext: No edema : right nephrostomy tube appears partially out CBC, BMP 03/30/17 06:30 03/30/17 06:30 Current Medications Acetaminophen (Tylenol -) 650 mg PO Q6H PRN PRN Reason: FEVER OR PAIN Last Admin: 03/28/17 18:11 Dose: 650 mg Diphenhydramine HCl (Benadryl -) 25 mg PO Q6H PRN PRN Reason: FOR ITCHING Dronabinol (Marinol -) 2.5 mg PO DAILY [facility] Last Admin: 03/30/17 09:50 Dose: 2.5 mg Fluconazole (Diflucan 200 Mg/D5w Premixed Ivpb -) 100 mls @ 100 mls/hr IVPB DAILY [facility] Last Admin: 03/30/17 09:50 Dose: 100 mls/hr Famotidine/Sodium Chloride (Pepcid 20 Mg Premixed Ivpb -) 50 mls @ 100 mls/hr IVPB BID [facility] Last Admin: 03/30/17 09:51 Dose: 100 mls/hr Sodium Bicarbonate 75 meq/ (Dextrose) 1,075 mls @ 75 mls/hr IV Q14H [facility] Last Admin: 03/30/17 06:45 Dose: 75 mls/hr Insulin Aspart (Novolog Vial Sliding Scale -) 1 vial SQ TIDAC [facility] PRN Reason: Protocol Last Admin: 03/30/17 12:08 Dose: 4 units Mirtazapine (Remeron -) 15 mg PO HS [facility] Last Admin: 03/29/17 21:08 Dose: Not Given Nystatin (Nystop Powder -) 1 applic TP BID [facility] Last Admin: 03/30/17 09:51 Dose: 1 applic Ondansetron HCl (Zofran Injection) 2 mg IVPB Q6H PRN PRN Reason: NAUSEA Last Admin: 03/25/17 17:24 Dose: 2 mg Sodium Bicarbonate (Sodium Bicarbonate -) 650 mg PO TID [facility] Last Admin: 03/30/17 05:45 Dose: 650 mg A/P 76 year old Female with PMhx of Cevical Ca, S/p Radiation, Hyperlipidemia, Hypertension, Obstructive uropathy, s/p Bilateral percutaneous nephrostomy, admitted with fever, lethargy, shortness of breath. #Non-oliguric OSCAR on CKD Renal function with mild improvement with IVF continue fluids for now despite effusiosn on CT as pt without sob or hypoxia #Anion gap Metabolic acidosis with resp compensation improved on bicab gtt #Anemia Hgb 7.3 trend CBC transfuse fro Hgb less then 7 iron saturation is ok from the #Hypernatremia improved on hypotonic IVF #Pleural effusions on CT likely due to 3rd spacing from low albumin levels continue fluids for 1 more day prognosis guarded Glenn Deluna DO
--- NOTE | 2017-03-30 15:05 | PN ---
Progress Note, Physician History of Present Illness: stable no issues improving renal fn weakness main issues - Current Medication List Current Medications: Active Medications Acetaminophen (Tylenol -) 650 mg PO Q6H PRN PRN Reason: FEVER OR PAIN Last Admin: 03/28/17 18:11 Dose: 650 mg Diphenhydramine HCl (Benadryl -) 25 mg PO Q6H PRN PRN Reason: FOR ITCHING Dronabinol (Marinol -) 2.5 mg PO DAILY [facility] Last Admin: 03/30/17 09:50 Dose: 2.5 mg Fluconazole (Diflucan 200 Mg/D5w Premixed Ivpb -) 100 mls @ 100 mls/hr IVPB DAILY [facility] Last Admin: 03/30/17 09:50 Dose: 100 mls/hr Famotidine/Sodium Chloride (Pepcid 20 Mg Premixed Ivpb -) 50 mls @ 100 mls/hr IVPB BID [facility] Last Admin: 03/30/17 09:51 Dose: 100 mls/hr Sodium Bicarbonate 75 meq/ (Dextrose) 1,075 mls @ 75 mls/hr IV Q14H [facility] Last Admin: 03/30/17 06:45 Dose: 75 mls/hr Insulin Aspart (Novolog Vial Sliding Scale -) 1 vial SQ TIDAC [facility] PRN Reason: Protocol Last Admin: 03/30/17 12:08 Dose: 4 units Mirtazapine (Remeron -) 15 mg PO HS [facility] Last Admin: 03/29/17 21:08 Dose: Not Given Nystatin (Nystop Powder -) 1 applic TP BID [facility] Last Admin: 03/30/17 09:51 Dose: 1 applic Ondansetron HCl (Zofran Injection) 2 mg IVPB Q6H PRN PRN Reason: NAUSEA Last Admin: 03/25/17 17:24 Dose: 2 mg Sodium Bicarbonate (Sodium Bicarbonate -) 650 mg PO TID [facility] Last Admin: 03/30/17 14:44 Dose: 650 mg - Objective Vital Signs: Vital Signs Temperature 98.9 F 03/29/17 22:00 Pulse Rate 78 03/29/17 22:00 Respiratory Rate 18 03/29/17 22:00 Blood Pressure 125/65 03/29/17 22:00 O2 Sat by Pulse Oximetry (%) 98 03/29/17 21:00 Constitutional: Yes: No Distress, Calm Cardiovascular: Yes: S1, S2 Respiratory: Yes: Regular, CTA Bilaterally Gastrointestinal: Yes: Normal Bowel Sounds, Soft Genitourinary: Yes: Other (bilateral nephrostomy tubes) Musculoskeletal: Yes: Other Edema: LLE: 1+, RLE: 1+ Neurological: Yes: Alert Psychiatric: Yes: Alert Labs: CBC, BMP 03/30/17 06:30 03/30/17 06:30 INR, PTT INR 2.97 (0.82-1.09) H 03/27/17 13:35 Assessment/Plan uti neck pain anemia dehydration cancer plan continue current mgmt nutrition continue to monitor as per renal rest as per primary
[2017-03-30] MEDS: MIRTAZAPINE 15 MG TABLET (FP) PO SCH (22:32)
[2017-03-31] MEDS: SODIUM BICARBONATE 650 MG TABLET PO SCH ×3 (06:37→21:06)
[2017-03-31] MEDS: SODIUM BICARBONATE 8.4% - 75 MEQ in DEXTROSE 5%-WATER - 1,000 ML IV SCH ×2 (06:38→16:44)
[2017-03-31] MEDS: INSULIN SLIDING SCALE (NOVOLOG) 1 VIAL SQ SCH ×3 (06:40→17:14)
[2017-03-31 07:56] LABS: BASOPHIL 0.5 % (0-2.0); MCHC 34.3 g/dl (32.0-36.0); MEAN CELL VOLUME 84.6 fl (80-96); NEUTROPHILS 78.2 % (42.8-82.8); PLATELET COUNT 249 K/MM3 (134-434); RDW 17.5 % (11.6-15.6); WHITE BLOOD COUNT 9.6 K/mm3 (4.0-10.0)
[2017-03-31 08:36] LABS: CALCIUM 7.3 mg/dL (8.5-10.1); COCKROFT - GAULT 19.9325; CREATININE 2.4 mg/dL (0.55-1.02); MAGNESIUM 1.4 mg/dL (1.8-2.4); PHOSPHOROUS 3.2 mg/dL (2.5-4.9)
--- NOTE | 2017-03-31 09:40 | PN ---
Progress Note, Physician Chief Complaint: Feels better Feels better - Current Medication List Current Medications: Active Medications Acetaminophen (Tylenol -) 650 mg PO Q6H PRN PRN Reason: FEVER OR PAIN Last Admin: 03/28/17 18:11 Dose: 650 mg Diphenhydramine HCl (Benadryl -) 25 mg PO Q6H PRN PRN Reason: FOR ITCHING Dronabinol (Marinol -) 2.5 mg PO DAILY [facility] Last Admin: 03/30/17 09:50 Dose: 2.5 mg Fluconazole (Diflucan 200 Mg/D5w Premixed Ivpb -) 100 mls @ 100 mls/hr IVPB DAILY [facility] Last Admin: 03/30/17 09:50 Dose: 100 mls/hr Famotidine/Sodium Chloride (Pepcid 20 Mg Premixed Ivpb -) 50 mls @ 100 mls/hr IVPB BID [facility] Last Admin: 03/30/17 22:31 Dose: 100 mls/hr Sodium Bicarbonate 75 meq/ (Dextrose) 1,075 mls @ 75 mls/hr IV Q14H [facility] Last Admin: 03/31/17 06:38 Dose: Not Given Insulin Aspart (Novolog Vial Sliding Scale -) 1 vial SQ TIDAC [facility] PRN Reason: Protocol Last Admin: 03/31/17 06:40 Dose: 4 units Mirtazapine (Remeron -) 15 mg PO HS [facility] Last Admin: 03/30/17 22:32 Dose: 15 mg Nystatin (Nystop Powder -) 1 applic TP BID [facility] Last Admin: 03/30/17 22:31 Dose: 1 applic Ondansetron HCl (Zofran Injection) 2 mg IVPB Q6H PRN PRN Reason: NAUSEA Last Admin: 03/25/17 17:24 Dose: 2 mg Sodium Bicarbonate (Sodium Bicarbonate -) 650 mg PO TID [facility] Last Admin: 03/31/17 06:37 Dose: 650 mg - Objective Vital Signs: Vital Signs Temperature 99.4 F 03/31/17 06:00 Pulse Rate 107 H 03/31/17 06:00 Respiratory Rate 20 03/31/17 06:00 Blood Pressure 119/71 03/31/17 06:00 O2 Sat by Pulse Oximetry (%) 98 03/30/17 21:00 Constitutional: Yes: Mild Distress Eyes: Yes: WNL HENT: Yes: WNL Neck: Yes: WNL Cardiovascular: Yes: WNL Respiratory: Yes: Regular Gastrointestinal: Yes: Normal Bowel Sounds ...Rectal Exam: Yes: Deferred Genitourinary: Yes: Other (Nephrostomy tubes working) Labs: CBC, BMP 03/31/17 06:30 03/31/17 06:30 INR, PTT INR 2.97 (0.82-1.09) H 03/27/17 13:35 Assessment/Plan Transfuse 2units of PC today
[2017-03-31] MEDS: FAMOTIDINE 20 MG/50 ML IVPB 50 ML IVPB SCH ×2 (09:50→21:04)
[2017-03-31] MEDS: NYSTATIN POWDER 100,000 UNITS/GM - 15 GM TOPICAL POWDER TP SCH ×2 (09:50→21:42)
[2017-03-31] MEDS: DRONABINOL 2.5 MG CAPSULE PO SCH (09:50)
[2017-03-31] MEDS: FLUCONAZOLE 200 MG/D5W 100 ML IVPB SCH (10:36)
[2017-03-31 12:13] LABS: MICROCYTOSIS FEW
--- NOTE | 2017-03-31 13:20 | PN ---
Progress Note, Physician History of Present Illness: stable feeling well receiving blood all numbers look good - Current Medication List Current Medications: Active Medications Acetaminophen (Tylenol -) 650 mg PO Q6H PRN PRN Reason: FEVER OR PAIN Last Admin: 03/28/17 18:11 Dose: 650 mg Diphenhydramine HCl (Benadryl -) 25 mg PO Q6H PRN PRN Reason: FOR ITCHING Dronabinol (Marinol -) 2.5 mg PO DAILY [facility] Last Admin: 03/31/17 09:50 Dose: 2.5 mg Fluconazole (Diflucan 200 Mg/D5w Premixed Ivpb -) 100 mls @ 100 mls/hr IVPB DAILY [facility] Last Admin: 03/31/17 10:36 Dose: 100 mls/hr Famotidine/Sodium Chloride (Pepcid 20 Mg Premixed Ivpb -) 50 mls @ 100 mls/hr IVPB BID [facility] Last Admin: 03/31/17 09:50 Dose: 100 mls/hr Sodium Bicarbonate 75 meq/ (Dextrose) 1,075 mls @ 50 mls/hr IV Q14H [facility] Insulin Aspart (Novolog Vial Sliding Scale -) 1 vial SQ TIDAC [facility] PRN Reason: Protocol Last Admin: 03/31/17 12:53 Dose: 4 units Mirtazapine (Remeron -) 15 mg PO HS [facility] Last Admin: 03/30/17 22:32 Dose: 15 mg Nystatin (Nystop Powder -) 1 applic TP BID [facility] Last Admin: 03/31/17 09:50 Dose: 1 applic Ondansetron HCl (Zofran Injection) 2 mg IVPB Q6H PRN PRN Reason: NAUSEA Last Admin: 03/25/17 17:24 Dose: 2 mg Sodium Bicarbonate (Sodium Bicarbonate -) 650 mg PO TID [facility] Last Admin: 03/31/17 06:37 Dose: 650 mg - Objective Vital Signs: Vital Signs Temperature 99.4 F 03/31/17 06:00 Pulse Rate 107 H 03/31/17 06:00 Respiratory Rate 20 03/31/17 06:00 Blood Pressure 119/71 03/31/17 06:00 O2 Sat by Pulse Oximetry (%) 98 03/30/17 21:00 Constitutional: Yes: No Distress, Calm Cardiovascular: Yes: S1, S2 Respiratory: Yes: Regular, CTA Bilaterally Gastrointestinal: Yes: Normal Bowel Sounds, Soft Musculoskeletal: Yes: WNL Extremities: Yes: Other Neurological: Yes: Alert, Oriented Psychiatric: Yes: Alert Labs: CBC, BMP 03/31/17 06:30 03/31/17 06:30 INR, PTT INR 2.97 (0.82-1.09) H 03/27/17 13:35 Assessment/Plan uti neck pain anemia dehydration cancer plan continue current mgmt nutrition continue to monitor as per renal rest as per primary monitor h and h
--- NOTE | 2017-03-31 13:23 | PN ---
Progress Note (short form) - Note Progress Note: Renal Follow up for OSCAR on CKD Pt seen and examined at the bedside no complaints reports decreased appetite during this whole admission making urine via nephrostomy tubes Vital Signs Temperature 99.4 F 03/31/17 06:00 Pulse Rate 107 H 03/31/17 06:00 Respiratory Rate 20 03/31/17 06:00 Blood Pressure 119/71 03/31/17 06:00 O2 Sat by Pulse Oximetry (%) 98 03/30/17 21:00 Intake & Output 03/28/17 03/29/17 03/30/17 03/31/17 23:59 23:59 23:59 23:59 Intake Total 284 200 0814 100 Output Total 1200 1575 1175 550 Balance -1050 -1025 1825 -450 Gen: NAD CVS: RRR, No M/R Lungs: CTA Abd: soft NT/ND Ext: No edema : b/l nephrostomy tubes in place CBC, BMP 03/31/17 06:30 03/31/17 06:30 Current Medications Acetaminophen (Tylenol -) 650 mg PO Q6H PRN PRN Reason: FEVER OR PAIN Last Admin: 03/28/17 18:11 Dose: 650 mg Diphenhydramine HCl (Benadryl -) 25 mg PO Q6H PRN PRN Reason: FOR ITCHING Dronabinol (Marinol -) 2.5 mg PO DAILY [facility] Last Admin: 03/31/17 09:50 Dose: 2.5 mg Fluconazole (Diflucan 200 Mg/D5w Premixed Ivpb -) 100 mls @ 100 mls/hr IVPB DAILY [facility] Last Admin: 03/31/17 10:36 Dose: 100 mls/hr Famotidine/Sodium Chloride (Pepcid 20 Mg Premixed Ivpb -) 50 mls @ 100 mls/hr IVPB BID [facility] Last Admin: 03/31/17 09:50 Dose: 100 mls/hr Sodium Bicarbonate 75 meq/ (Dextrose) 1,075 mls @ 50 mls/hr IV Q21H [facility] Insulin Aspart (Novolog Vial Sliding Scale -) 1 vial SQ TIDAC [facility] PRN Reason: Protocol Last Admin: 03/31/17 12:53 Dose: 4 units Mirtazapine (Remeron -) 15 mg PO HS [facility] Last Admin: 03/30/17 22:32 Dose: 15 mg Nystatin (Nystop Powder -) 1 applic TP BID [facility] Last Admin: 03/31/17 09:50 Dose: 1 applic Ondansetron HCl (Zofran Injection) 2 mg IVPB Q6H PRN PRN Reason: NAUSEA Last Admin: 03/25/17 17:24 Dose: 2 mg Sodium Bicarbonate (Sodium Bicarbonate -) 650 mg PO TID [facility] Last Admin: 03/31/17 06:37 Dose: 650 mg A/P 76 year old Female with PMhx of Cevical Ca, S/p Radiation, Hyperlipidemia, Hypertension, Obstructive uropathy, s/p Bilateral percutaneous nephrostomy, admitted with fever, lethargy, shortness of breath. #Non-oliguric OSCAR on CKD Renal function improving and now near suspected baseline continue IVF at lower rate #Anion gap Metabolic acidosis with resp compensation improved on bicab gtt will start oral bicarb tomorrow #Anemia to get PRBC transfusion no epogen at this time given increased risk of tumor progression #Hypernatremia improved on hypotonic IVF #Pleural effusions on CT likely due to 3rd spacing from low albumin levels no resp distress Lasix PRN Glenn Deluna DO
--- NOTE | 2017-03-31 13:58 | PN ---
Progress Note, COMPLETIONS MANAGER - Note Progress Note: Selected Entries 03/30/17 03/30/17 03/30/17 10:00 15:18 18:30 Breakfast 25% Lunch 25% Supper 25% Temperature 98 F 98.6 F 03/30/17 03/30/17 03/31/17 19:19 22:00 06:00 Breakfast Lunch Supper Temperature 98.6 F 98.3 F 99.4 F 03/31/17 09:47 Breakfast 25% Lunch Supper Temperature Stage II pressure ulcer R upper buttock; healed ulcer L upper buttock Diet & intake: - Dysphagia puree - Glucerna TID. Magic cup w/ lunch.
[2017-03-31] MEDS ORDERED: POTASSIUM CHLORIDE TABS 20 MEQ TABLET.ER (FP) PO ONE (14:00)
[2017-03-31] MEDS: ACETAMINOPHEN 325 MG TABLET (FP) PO PRN (16:44)
[2017-03-31] MEDS: MIRTAZAPINE 15 MG TABLET (FP) PO SCH (21:16)
[2017-04-01] MEDS: SODIUM BICARBONATE 650 MG TABLET PO SCH ×3 (06:06→21:47)
[2017-04-01] MEDS: INSULIN SLIDING SCALE (NOVOLOG) 1 VIAL SQ SCH ×3 (06:07→16:35)
[2017-04-01] MEDS ORDERED: PT OWN MED DRAWER 7, Y5N ONE (09:30)
[2017-04-01] MEDS: DRONABINOL 2.5 MG CAPSULE PO SCH (09:40)
[2017-04-01] MEDS: FLUCONAZOLE 200 MG/D5W 100 ML IVPB SCH (09:41)
[2017-04-01] MEDS: FAMOTIDINE 20 MG/50 ML IVPB 50 ML IVPB SCH ×2 (09:41→21:46)
[2017-04-01] MEDS: NYSTATIN POWDER 100,000 UNITS/GM - 15 GM TOPICAL POWDER TP SCH ×2 (09:42→21:47)
--- NOTE | 2017-04-01 09:45 | DS ---
Physical Examination Vital Signs: Vital Signs Temperature 98.8 F 04/01/17 06:00 Pulse Rate 95 H 04/01/17 06:00 Respiratory Rate 18 04/01/17 06:00 Blood Pressure 126/68 04/01/17 06:00 O2 Sat by Pulse Oximetry (%) 98 03/31/17 21:00 Findings/Remarks: Diabetic ,Ca cervix admitted with urosepsis Had percutaneous nephrostomy done for ureteric obstrection Constitutional: Yes: Anxious Eyes: Yes: WNL HENT: Yes: WNL Neck: Yes: WNL Cardiovascular: Yes: WNL Respiratory: Yes: WNL Gastrointestinal: Yes: WNL ...Rectal Exam: Yes: Deferred Renal/: Yes: Other (nephrostomy bags working) Musculoskeletal: Yes: Muscle Weakness Neurological: Yes: Alert Labs: CBC, BMP 03/31/17 06:30 03/31/17 06:30 Discharge Summary Reason For Visit: COMPLICATION OF NEPHROSTOMY/SEPSIS Current Active Problems OSCAR (acute kidney injury) (Acute) Acute on chronic kidney failure (Acute) Fever (Acute) Hoarseness of voice (Acute) Sepsis (Acute) - Instructions Referrals: Roe Jones MD [Primary Care Provider] - - Home Medications Comprehensive Discharge Medication List: Ambulatory Orders Aspirin [ASA -] 81 mg PO DAILY 02/20/17 Atorvastatin Ca [Lipitor] 20 mg PO HS 02/20/17 Mirtazapine 15 mg PO HS 02/20/17 Amlodipine Besylate [Norvasc -] 5 mg PO DAILY tablet 03/14/17 Insulin (Levemir) [Levemir Vial] 16 units SQ HS ml 03/14/17 Warfarin Na [Coumadin -] 2 mg PO DAILY@1800 #0 tablet 03/14/17 Ferrous Sulfate 325 mg PO BID 03/20/17
[2017-04-01 09:47] LABS: MCH 26.7 pg (25.7-33.7); MCHC 33.8 g/dl (32.0-36.0); MEAN CELL VOLUME 79.1 fl (80-96); MEAN PLT VOLUME 6.6 fl (7.5-11.1); PLATELET COUNT 245 K/MM3 (134-434); RDW 16.3 % (11.6-15.6); WHITE BLOOD COUNT 13.4 K/mm3 (4.0-10.0)
[2017-04-01 10:25] LABS: CALCIUM 7.1 mg/dL (8.5-10.1); COCKROFT - GAULT 25.534; MAGNESIUM 1.3 mg/dL (1.8-2.4)
--- NOTE | 2017-04-01 11:12 | PN ---
Progress Note (short form) - Note Progress Note: Renal Follow up for OSCAR on CKD Pt seen and examined at the bedside has some pain in lower abd no N/V/D denies any sob, chest pain Vital Signs Temperature 97.3 F L 04/01/17 08:10 Pulse Rate 91 H 04/01/17 08:10 Respiratory Rate 22 04/01/17 08:10 Blood Pressure 139/75 04/01/17 08:10 O2 Sat by Pulse Oximetry (%) 95 04/01/17 09:00 Intake & Output 03/29/17 03/30/17 03/31/17 04/01/17 23:59 23:59 23:59 23:59 Intake Total 550 3000 350 700 Output Total 1575 1175 1350 200 Balance -1025 1825 -1000 500 Weight 144 lb 8 oz Gen: NAD CVS: RRR, No M/R Lungs: CTA Abd: soft NT/ND Ext: No edema : b/l nephrostomy tubes in place CBC, BMP 04/01/17 09:36 04/01/17 09:50 Current Medications Acetaminophen (Tylenol -) 650 mg PO Q6H PRN PRN Reason: FEVER OR PAIN Last Admin: 03/31/17 16:44 Dose: 650 mg Acetaminophen (Tylenol Suppository -) 650 mg [place] Q4H PRN PRN Reason: FEVER OR PAIN Diphenhydramine HCl (Benadryl -) 25 mg PO Q6H PRN PRN Reason: FOR ITCHING Dronabinol (Marinol -) 2.5 mg PO DAILY [facility] Last Admin: 04/01/17 09:40 Dose: 2.5 mg Fluconazole (Diflucan 200 Mg/D5w Premixed Ivpb -) 100 mls @ 100 mls/hr IVPB DAILY [facility] Last Admin: 04/01/17 09:41 Dose: 100 mls/hr Famotidine/Sodium Chloride (Pepcid 20 Mg Premixed Ivpb -) 50 mls @ 100 mls/hr IVPB BID [facility] Last Admin: 04/01/17 09:41 Dose: 100 mls/hr Sodium Bicarbonate 75 meq/ (Dextrose) 1,075 mls @ 50 mls/hr IV Q21H [facility] Last Admin: 03/31/17 16:44 Dose: 50 mls/hr Insulin Aspart (Novolog Vial Sliding Scale -) 1 vial SQ TIDAC [facility] PRN Reason: Protocol Last Admin: 04/01/17 06:07 Dose: 2 units Magnesium Sulfate (Magnesium Sulfate) 2 gm IVPB ONCE ONE Stop: 04/01/17 11:10 Mirtazapine (Remeron -) 15 mg PO HS [facility] Last Admin: 03/31/17 21:16 Dose: Not Given Nystatin (Nystop Powder -) 1 applic TP BID [facility] Last Admin: 04/01/17 09:42 Dose: 1 applic Ondansetron HCl (Zofran Injection) 2 mg IVPB Q6H PRN PRN Reason: NAUSEA Last Admin: 03/25/17 17:24 Dose: 2 mg Potassium Chloride (K-Dur -) 40 meq PO ONCE ONE Stop: 04/01/17 11:10 Sodium Bicarbonate (Sodium Bicarbonate -) 650 mg PO TID [facility] Last Admin: 04/01/17 06:06 Dose: Not Given A/P 76 year old Female with PMhx of Cevical Ca, S/p Radiation, Hyperlipidemia, Hypertension, Obstructive uropathy, s/p Bilateral percutaneous nephrostomy, admitted with fever, lethargy, shortness of breath. #Non-oliguric OSCAR on CKD Renal function now imrpoved to levels at last discharge with good urine output maintain b/l nephrostomy tubes #Anion gap Metabolic acidosis with resp compensation improved d/c bicarb gtt continue oral bicab #Anemia to get PRBC transfusion no epogen at this time given increased risk of tumor progression #Pleural effusions on CT likely due to 3rd spacing from low albumin levels no resp distress Lasix PRN Pt ok for discharge but overall prognosis is guarded given Anemia/Renal Insufficiency/Cervical Ca can follow at the office Glenn Deluna DO
[2017-04-01] MEDS ORDERED: MAGNESIUM SULF 50% (8.12 MEQ/2 ML-1 GM VIAL) IVPB ONE (11:30)
[2017-04-01] MEDS ORDERED: POTASSIUM CHLORIDE TABS 20 MEQ TABLET.ER (FP) PO ONE (12:00)
--- NOTE | 2017-04-01 12:21 | PN ---
Progress Note, Physician History of Present Illness: stable no new issues some abd pain - Current Medication List Current Medications: Active Medications Acetaminophen (Tylenol -) 650 mg PO Q6H PRN PRN Reason: FEVER OR PAIN Last Admin: 03/31/17 16:44 Dose: 650 mg Acetaminophen (Tylenol Suppository -) 650 mg [place] Q4H PRN PRN Reason: FEVER OR PAIN Diphenhydramine HCl (Benadryl -) 25 mg PO Q6H PRN PRN Reason: FOR ITCHING Dronabinol (Marinol -) 2.5 mg PO DAILY [facility] Last Admin: 04/01/17 09:40 Dose: 2.5 mg Fluconazole (Diflucan 200 Mg/D5w Premixed Ivpb -) 100 mls @ 100 mls/hr IVPB DAILY [facility] Last Admin: 04/01/17 09:41 Dose: 100 mls/hr Famotidine/Sodium Chloride (Pepcid 20 Mg Premixed Ivpb -) 50 mls @ 100 mls/hr IVPB BID [facility] Last Admin: 04/01/17 09:41 Dose: 100 mls/hr Insulin Aspart (Novolog Vial Sliding Scale -) 1 vial SQ TIDAC [facility] PRN Reason: Protocol Last Admin: 04/01/17 11:51 Dose: 2 units Mirtazapine (Remeron -) 15 mg PO HS [facility] Last Admin: 03/31/17 21:16 Dose: Not Given Nystatin (Nystop Powder -) 1 applic TP BID [facility] Last Admin: 04/01/17 09:42 Dose: 1 applic Ondansetron HCl (Zofran Injection) 2 mg IVPB Q6H PRN PRN Reason: NAUSEA Last Admin: 03/25/17 17:24 Dose: 2 mg Sodium Bicarbonate (Sodium Bicarbonate -) 650 mg PO TID [facility] Last Admin: 04/01/17 06:06 Dose: Not Given - Objective Vital Signs: Vital Signs Temperature 97.3 F L 04/01/17 08:10 Pulse Rate 91 H 04/01/17 08:10 Respiratory Rate 22 04/01/17 08:10 Blood Pressure 139/75 04/01/17 08:10 O2 Sat by Pulse Oximetry (%) 95 04/01/17 09:00 Constitutional: Yes: Calm, Mild Distress Cardiovascular: Yes: S1, S2 Respiratory: Yes: Regular, CTA Bilaterally Gastrointestinal: Yes: Normal Bowel Sounds, Soft, Tenderness Genitourinary: Yes: Other (nephrostomy tubes in place) Musculoskeletal: Yes: WNL Extremities: Yes: WNL Neurological: Yes: Alert, Oriented Psychiatric: Yes: Alert Labs: CBC, BMP 04/01/17 09:36 04/01/17 09:50 INR, PTT INR 2.97 (0.82-1.09) H 03/27/17 13:35 Assessment/Plan uti neck pain anemia dehydration cancer plan continue current mgmt nutrition continue to monitor as per renal rest as per primary monitor h and h creatinine improving
[2017-04-01] MEDS: KCL 10 MEQ IVPB 100 ML IVPB SCH ×3 (13:24→15:45)
[2017-04-01] MEDS: SODIUM BICARBONATE 8.4% - 75 MEQ in DEXTROSE 5%-WATER - 1,000 ML IV SCH (19:30)
[2017-04-01] MEDS: MIRTAZAPINE 15 MG TABLET (FP) PO SCH (21:47)
[2017-04-02] MEDS: SODIUM BICARBONATE 650 MG TABLET PO SCH ×3 (05:47→21:16)
[2017-04-02] MEDS: INSULIN SLIDING SCALE (NOVOLOG) 1 VIAL SQ SCH ×3 (06:03→17:24)
--- NOTE | 2017-04-02 07:32 | PN ---
Progress Note (short form) - Note Progress Note: Renal Follow up for OSCAR on CKD Pt seen and examined at the bedside no acute complaints wants to go home Vital Signs Temperature 100.6 F H 04/02/17 06:00 Pulse Rate 110 H 04/02/17 06:00 Respiratory Rate 20 04/02/17 06:00 Blood Pressure 147/54 04/02/17 06:00 O2 Sat by Pulse Oximetry (%) 96 04/01/17 21:00 Intake & Output 03/30/17 03/31/17 04/01/17 04/02/17 23:59 23:59 23:59 23:59 Intake Total 3000 350 1853 Output Total 1175 1350 500 500 Balance 1825 -1000 1353 -500 Weight 144 lb 8 oz Gen: NAD CVS: RRR, No M/R Lungs: CTA Abd: soft NT/ND Ext: No edema : b/l nephrostomy tubes in place CBC, BMP 04/01/17 09:36 04/01/17 09:50 Current Medications Acetaminophen (Tylenol -) 650 mg PO Q6H PRN PRN Reason: FEVER OR PAIN Last Admin: 03/31/17 16:44 Dose: 650 mg Acetaminophen (Tylenol Suppository -) 650 mg [place] Q4H PRN PRN Reason: FEVER OR PAIN Diphenhydramine HCl (Benadryl -) 25 mg PO Q6H PRN PRN Reason: FOR ITCHING Fluconazole (Diflucan 200 Mg/D5w Premixed Ivpb -) 100 mls @ 100 mls/hr IVPB DAILY [facility] Last Admin: 04/01/17 09:41 Dose: 100 mls/hr Famotidine/Sodium Chloride (Pepcid 20 Mg Premixed Ivpb -) 50 mls @ 100 mls/hr IVPB BID [facility] Last Admin: 04/01/17 21:46 Dose: 100 mls/hr Insulin Aspart (Novolog Vial Sliding Scale -) 1 vial SQ TIDAC [facility] PRN Reason: Protocol Last Admin: 04/02/17 06:03 Dose: Not Given Mirtazapine (Remeron -) 15 mg PO HS [facility] Last Admin: 04/01/17 21:47 Dose: 15 mg Nystatin (Nystop Powder -) 1 applic TP BID [facility] Last Admin: 04/01/17 21:47 Dose: 1 applic Ondansetron HCl (Zofran Injection) 2 mg IVPB Q6H PRN PRN Reason: NAUSEA Last Admin: 03/25/17 17:24 Dose: 2 mg Sodium Bicarbonate (Sodium Bicarbonate -) 650 mg PO TID [facility] Last Admin: 04/02/17 05:47 Dose: 650 mg A/P 76 year old Female with PMhx of Cevical Ca, S/p Radiation, Hyperlipidemia, Hypertension, Obstructive uropathy, s/p Bilateral percutaneous nephrostomy, admitted with fever, lethargy, shortness of breath. #Non-oliguric OSCAR on CKD Renal function improving todays labs ordered good urine output #Anion gap Metabolic acidosis with resp compensation continue oral bicarb #Anemia s/p prbc transfusion #Pleural effusions on CT likely due to 3rd spacing from low albumin levels no resp distress Lasix PRN Pt ok for discharge but overall prognosis is guarded given Anemia/Renal Insufficiency/Cervical Ca can follow at the office Glenn Deluna DO
[2017-04-02 08:37] LABS: COCKROFT - GAULT 30.039; CREATININE 1.7 mg/dL (0.55-1.02); MAGNESIUM 1.8 mg/dL (1.8-2.4)
[2017-04-02] MEDS ORDERED: PT OWN MED DRAWER 7, Y5N ONE (09:12)
[2017-04-02] MEDS: FAMOTIDINE 20 MG/50 ML IVPB 50 ML IVPB SCH (09:26)
--- NOTE | 2017-04-02 09:46 | PN ---
Progress Note, Physician History of Present Illness: no new events patients renal function improving - Current Medication List Current Medications: Active Medications Acetaminophen (Tylenol -) 650 mg PO Q6H PRN PRN Reason: FEVER OR PAIN Last Admin: 03/31/17 16:44 Dose: 650 mg Acetaminophen (Tylenol Suppository -) 650 mg [place] Q4H PRN PRN Reason: FEVER OR PAIN Diphenhydramine HCl (Benadryl -) 25 mg PO Q6H PRN PRN Reason: FOR ITCHING Fluconazole (Diflucan 200 Mg/D5w Premixed Ivpb -) 100 mls @ 100 mls/hr IVPB DAILY [facility] Last Admin: 04/01/17 09:41 Dose: 100 mls/hr Famotidine/Sodium Chloride (Pepcid 20 Mg Premixed Ivpb -) 50 mls @ 100 mls/hr IVPB BID [facility] Last Admin: 04/02/17 09:26 Dose: 100 mls/hr Insulin Aspart (Novolog Vial Sliding Scale -) 1 vial SQ TIDAC [facility] PRN Reason: Protocol Last Admin: 04/02/17 06:03 Dose: Not Given Mirtazapine (Remeron -) 15 mg PO HS [facility] Last Admin: 04/01/17 21:47 Dose: 15 mg Nystatin (Nystop Powder -) 1 applic TP BID [facility] Last Admin: 04/01/17 21:47 Dose: 1 applic Ondansetron HCl (Zofran Injection) 2 mg IVPB Q6H PRN PRN Reason: NAUSEA Last Admin: 03/25/17 17:24 Dose: 2 mg Sodium Bicarbonate (Sodium Bicarbonate -) 650 mg PO TID [facility] Last Admin: 04/02/17 05:47 Dose: 650 mg - Objective Vital Signs: Vital Signs Temperature 100.6 F H 04/02/17 06:00 Pulse Rate 110 H 04/02/17 06:00 Respiratory Rate 20 04/02/17 06:00 Blood Pressure 147/54 04/02/17 06:00 O2 Sat by Pulse Oximetry (%) 96 04/01/17 21:00 Constitutional: Yes: No Distress, Calm Cardiovascular: Yes: Pulse Irregular, S1, S2 Respiratory: Yes: Regular, CTA Bilaterally Gastrointestinal: Yes: Normal Bowel Sounds, Soft Genitourinary: Yes: Other (bilateral nephrostomy tubes) Musculoskeletal: Yes: Other Extremities: Yes: Other Neurological: Yes: Alert, Oriented Psychiatric: Yes: Alert Labs: CBC, BMP 04/01/17 09:36 04/02/17 07:25 INR, PTT INR 2.97 (0.82-1.09) H 03/27/17 13:35 Assessment/Plan uti neck pain anemia dehydration cancer plan continue current mgmt nutrition continue to monitor as per renal rest as per primary will check wbc
[2017-04-02] MEDS: FLUCONAZOLE 200 MG/D5W 100 ML IVPB SCH (09:55)
[2017-04-02] MEDS: NYSTATIN POWDER 100,000 UNITS/GM - 15 GM TOPICAL POWDER TP SCH ×2 (09:56→21:17)
--- NOTE | 2017-04-02 12:57 | PN ---
Progress Note, Physician Chief Complaint: Feels better History of Present Illness: Family wants take her home - Current Medication List Current Medications: Active Medications Acetaminophen (Tylenol -) 650 mg PO Q6H PRN PRN Reason: FEVER OR PAIN Last Admin: 03/31/17 16:44 Dose: 650 mg Acetaminophen (Tylenol Suppository -) 650 mg [place] Q4H PRN PRN Reason: FEVER OR PAIN Diphenhydramine HCl (Benadryl -) 25 mg PO Q6H PRN PRN Reason: FOR ITCHING Fluconazole (Diflucan 200 Mg/D5w Premixed Ivpb -) 100 mls @ 100 mls/hr IVPB DAILY [facility] Last Admin: 04/02/17 09:55 Dose: Not Given Famotidine/Sodium Chloride (Pepcid 20 Mg Premixed Ivpb -) 50 mls @ 100 mls/hr IVPB BID [facility] Last Admin: 04/02/17 09:26 Dose: 100 mls/hr Insulin Aspart (Novolog Vial Sliding Scale -) 1 vial SQ TIDAC [facility] PRN Reason: Protocol Last Admin: 04/02/17 12:27 Dose: 2 units Mirtazapine (Remeron -) 15 mg PO HS [facility] Last Admin: 04/01/17 21:47 Dose: 15 mg Nystatin (Nystop Powder -) 1 applic TP BID [facility] Last Admin: 04/02/17 09:56 Dose: 1 applic Ondansetron HCl (Zofran Injection) 2 mg IVPB Q6H PRN PRN Reason: NAUSEA Last Admin: 03/25/17 17:24 Dose: 2 mg Sodium Bicarbonate (Sodium Bicarbonate -) 650 mg PO TID [facility] Last Admin: 04/02/17 05:47 Dose: 650 mg - Objective Vital Signs: Vital Signs Temperature 99.8 F H 04/02/17 10:00 Pulse Rate 92 H 04/02/17 10:00 Respiratory Rate 16 04/02/17 10:00 Blood Pressure 132/55 04/02/17 10:00 O2 Sat by Pulse Oximetry (%) 96 04/02/17 09:00 Constitutional: Yes: Anxious Eyes: Yes: WNL HENT: Yes: WNL Neck: Yes: WNL Cardiovascular: Yes: WNL Respiratory: Yes: Regular Gastrointestinal: Yes: Normal Bowel Sounds ...Rectal Exam: Yes: Deferred Genitourinary: Yes: Other (Nephrostomy working well) Musculoskeletal: Yes: Muscle Weakness Edema: No Integumentary: Yes: WNL Neurological: Yes: Oriented Psychiatric: Yes: Oriented Labs: CBC, BMP 04/01/17 09:36 04/02/17 07:25 INR, PTT INR 2.97 (0.82-1.09) H 03/27/17 13:35 Assessment/Plan DC edilson
[2017-04-02] MEDS: MIRTAZAPINE 15 MG TABLET (FP) PO SCH (21:16)
[2017-04-03] MEDS: SODIUM BICARBONATE 650 MG TABLET PO SCH ×3 (06:23→21:45)
[2017-04-03] MEDS: INSULIN SLIDING SCALE (NOVOLOG) 1 VIAL SQ SCH ×3 (06:23→17:35)
--- NOTE | 2017-04-03 07:50 | PN ---
Progress Note (short form) - Note Progress Note: Renal Follow up for OSCAR on CKD Pt seen and examined at the bedside no acute complaints Vital Signs Temperature 99.6 F 04/03/17 06:00 Pulse Rate 105 H 04/03/17 06:00 Respiratory Rate 20 04/03/17 06:00 Blood Pressure 156/84 04/03/17 06:00 O2 Sat by Pulse Oximetry (%) 97 04/02/17 21:00 Gen: NAD CVS: RRR, No M/R Lungs: CTA Abd: soft NT/ND Ext: No edema : b/l nephrostomy tubes in place CBC, BMP 04/02/17 07:25 Current Medications Acetaminophen (Tylenol -) 650 mg PO Q6H PRN PRN Reason: FEVER OR PAIN Last Admin: 03/31/17 16:44 Dose: 650 mg Acetaminophen (Tylenol Suppository -) 650 mg [place] Q4H PRN PRN Reason: FEVER OR PAIN Diphenhydramine HCl (Benadryl -) 25 mg PO Q6H PRN PRN Reason: FOR ITCHING Insulin Aspart (Novolog Vial Sliding Scale -) 1 vial SQ TIDAC [facility] PRN Reason: Protocol Last Admin: 04/03/17 06:23 Dose: Not Given Mirtazapine (Remeron -) 15 mg PO HS [facility] Last Admin: 04/02/17 21:16 Dose: 15 mg Nystatin (Nystop Powder -) 1 applic TP BID [facility] Last Admin: 04/02/17 21:17 Dose: 1 applic Ondansetron HCl (Zofran Injection) 2 mg IVPB Q6H PRN PRN Reason: NAUSEA Last Admin: 03/25/17 17:24 Dose: 2 mg Potassium Chloride (K-Dur -) 20 meq PO DAILY [facility] Sodium Bicarbonate (Sodium Bicarbonate -) 650 mg PO TID [facility] Last Admin: 04/03/17 06:23 Dose: 650 mg A/P 76 year old Female with PMhx of Cevical Ca, S/p Radiation, Hyperlipidemia, Hypertension, Obstructive uropathy, s/p Bilateral percutaneous nephrostomy, admitted with fever, lethargy, shortness of breath. #Non-oliguric OSCAR on CKD Renal function continues to improve off IVF oral intake as tolerated #Anion gap Metabolic acidosis with resp compensation continue oral bicarb if bicarb uptrending on labs can to BId #Anemia s/p prbc transfusion #Pleural effusions on CT likely due to 3rd spacing from low albumin levels no resp distress Lasix PRN Pt ok for discharge but overall prognosis is guarded given Anemia/Renal Insufficiency/Cervical Ca can follow at the office Glenn Deluna DO
[2017-04-03 08:43] LABS: MCH 27.6 pg (25.7-33.7); MCHC 33.8 g/dl (32.0-36.0); MEAN CELL VOLUME 81.4 fl (80-96); MEAN PLT VOLUME 7.3 fl (7.5-11.1); PLATELET COUNT 268 K/MM3 (134-434); RDW 16.9 % (11.6-15.6); WHITE BLOOD COUNT 13.5 K/mm3 (4.0-10.0)
[2017-04-03] MEDS: POTASSIUM CHLORIDE TABS 20 MEQ TABLET.ER (FP) PO SCH (10:48)
[2017-04-03] MEDS: NYSTATIN POWDER 100,000 UNITS/GM - 15 GM TOPICAL POWDER TP SCH ×2 (10:48→21:45)
--- NOTE | 2017-04-03 11:37 | PN ---
Progress Note, Physician History of Present Illness: stable no new issues - Current Medication List Current Medications: Active Medications Acetaminophen (Tylenol -) 650 mg PO Q6H PRN PRN Reason: FEVER OR PAIN Last Admin: 03/31/17 16:44 Dose: 650 mg Acetaminophen (Tylenol Suppository -) 650 mg [place] Q4H PRN PRN Reason: FEVER OR PAIN Diphenhydramine HCl (Benadryl -) 25 mg PO Q6H PRN PRN Reason: FOR ITCHING Insulin Aspart (Novolog Vial Sliding Scale -) 1 vial SQ TIDAC [facility] PRN Reason: Protocol Last Admin: 04/03/17 06:23 Dose: Not Given Mirtazapine (Remeron -) 15 mg PO HS [facility] Last Admin: 04/02/17 21:16 Dose: 15 mg Nystatin (Nystop Powder -) 1 applic TP BID [facility] Last Admin: 04/03/17 10:48 Dose: 1 applic Ondansetron HCl (Zofran Injection) 2 mg IVPB Q6H PRN PRN Reason: NAUSEA Last Admin: 03/25/17 17:24 Dose: 2 mg Potassium Chloride (K-Dur -) 20 meq PO DAILY [facility] Last Admin: 04/03/17 10:48 Dose: 20 meq Sodium Bicarbonate (Sodium Bicarbonate -) 650 mg PO TID [facility] Last Admin: 04/03/17 06:23 Dose: 650 mg - Objective Vital Signs: Vital Signs Temperature 98.6 F 04/03/17 10:00 Pulse Rate 103 H 04/03/17 10:00 Respiratory Rate 16 04/03/17 10:00 Blood Pressure 122/64 04/03/17 10:00 O2 Sat by Pulse Oximetry (%) 97 04/03/17 09:00 Constitutional: Yes: No Distress, Calm Cardiovascular: Yes: S1, S2 Respiratory: Yes: Regular, CTA Bilaterally Gastrointestinal: Yes: Normal Bowel Sounds, Soft Musculoskeletal: Yes: Other Extremities: Yes: Other Neurological: Yes: Alert, Oriented Psychiatric: Yes: Alert Labs: CBC, BMP 04/03/17 06:30 04/02/17 07:25 INR, PTT INR 2.97 (0.82-1.09) H 03/27/17 13:35 Assessment/Plan uti neck pain anemia dehydration cancer plan continue current mgmt nutrition continue to monitor as per renal wbc on higher side no fevers will continue to watch
--- NOTE | 2017-04-03 15:17 | PN ---
Progress Note, Physician Chief Complaint: No new complaints History of Present Illness: Admitted with UTI Diabetes S/P bilateral nephrostomy - Current Medication List Current Medications: Active Medications Acetaminophen (Tylenol -) 650 mg PO Q6H PRN PRN Reason: FEVER OR PAIN Last Admin: 03/31/17 16:44 Dose: 650 mg Acetaminophen (Tylenol Suppository -) 650 mg [place] Q4H PRN PRN Reason: FEVER OR PAIN Diphenhydramine HCl (Benadryl -) 25 mg PO Q6H PRN PRN Reason: FOR ITCHING Insulin Aspart (Novolog Vial Sliding Scale -) 1 vial SQ TIDAC [facility] PRN Reason: Protocol Last Admin: 04/03/17 12:14 Dose: 2 units Mirtazapine (Remeron -) 15 mg PO HS [facility] Last Admin: 04/02/17 21:16 Dose: 15 mg Nystatin (Nystop Powder -) 1 applic TP BID [facility] Last Admin: 04/03/17 10:48 Dose: 1 applic Ondansetron HCl (Zofran Injection) 2 mg IVPB Q6H PRN PRN Reason: NAUSEA Last Admin: 03/25/17 17:24 Dose: 2 mg Potassium Chloride (K-Dur -) 20 meq PO DAILY [facility] Last Admin: 04/03/17 10:48 Dose: 20 meq Sodium Bicarbonate (Sodium Bicarbonate -) 650 mg PO TID [facility] Last Admin: 04/03/17 13:01 Dose: 650 mg - Objective Vital Signs: Vital Signs Temperature 98.6 F 04/03/17 10:00 Pulse Rate 103 H 04/03/17 10:00 Respiratory Rate 16 04/03/17 10:00 Blood Pressure 122/64 04/03/17 10:00 O2 Sat by Pulse Oximetry (%) 97 04/03/17 09:00 Constitutional: Yes: Anxious Eyes: Yes: WNL HENT: Yes: WNL Neck: Yes: WNL Respiratory: Yes: Regular Gastrointestinal: Yes: Normal Bowel Sounds Edema: No Integumentary: Yes: WNL Labs: CBC, BMP 04/03/17 06:30 04/02/17 07:25 INR, PTT INR 2.97 (0.82-1.09) H 03/27/17 13:35 Assessment/Plan Rt neprostomy urine not clear ,will do culture
[2017-04-03] MEDS: ACETAMINOPHEN 325 MG TABLET (FP) PO PRN (21:44)
[2017-04-03] MEDS: MIRTAZAPINE 15 MG TABLET (FP) PO SCH (21:45)
[2017-04-04] MEDS: INSULIN SLIDING SCALE (NOVOLOG) 1 VIAL SQ SCH ×3 (06:15→17:32)
[2017-04-04] MEDS: SODIUM BICARBONATE 650 MG TABLET PO SCH (06:16)
--- NOTE | 2017-04-04 09:47 | PN ---
Progress Note, Physician Chief Complaint: No new complaints History of Present Illness: Family wants to take her home Need OK from PT - Current Medication List Current Medications: Active Medications Acetaminophen (Tylenol -) 650 mg PO Q6H PRN PRN Reason: FEVER OR PAIN Last Admin: 04/03/17 21:44 Dose: 650 mg Acetaminophen (Tylenol Suppository -) 650 mg [place] Q4H PRN PRN Reason: FEVER OR PAIN Diphenhydramine HCl (Benadryl -) 25 mg PO Q6H PRN PRN Reason: FOR ITCHING Insulin Aspart (Novolog Vial Sliding Scale -) 1 vial SQ TIDAC [facility] PRN Reason: Protocol Last Admin: 04/04/17 06:15 Dose: Not Given Mirtazapine (Remeron -) 15 mg PO HS [facility] Last Admin: 04/03/17 21:45 Dose: 15 mg Nystatin (Nystop Powder -) 1 applic TP BID [facility] Last Admin: 04/03/17 21:45 Dose: 1 applic Ondansetron HCl (Zofran Injection) 2 mg IVPB Q6H PRN PRN Reason: NAUSEA Last Admin: 03/25/17 17:24 Dose: 2 mg Potassium Chloride (K-Dur -) 20 meq PO DAILY [facility] Last Admin: 04/03/17 10:48 Dose: 20 meq Sodium Bicarbonate (Sodium Bicarbonate -) 650 mg PO TID [facility] Last Admin: 04/04/17 06:16 Dose: 650 mg - Objective Vital Signs: Vital Signs Temperature 98.8 F 04/04/17 06:26 Pulse Rate 104 H 04/04/17 06:26 Respiratory Rate 20 04/04/17 06:26 Blood Pressure 136/62 04/04/17 06:26 O2 Sat by Pulse Oximetry (%) 97 04/03/17 21:00 Constitutional: Yes: Mild Distress Eyes: Yes: WNL HENT: Yes: WNL Neck: Yes: WNL Cardiovascular: Yes: Regular Rate and Rhythm Respiratory: Yes: Regular Gastrointestinal: Yes: WNL ...Rectal Exam: Yes: Deferred Genitourinary: Yes: Other (Rt neprostomy urine cloudy) Labs: CBC, BMP 04/03/17 06:30 04/02/17 07:25 INR, PTT INR 2.97 (0.82-1.09) H 03/27/17 13:35 Assessment/Plan Discussed with social security assessor and PT regarding DC home
[2017-04-04 10:21] LABS: CALCIUM 7.1 mg/dL (8.5-10.1); COCKROFT - GAULT 32.5125; CREATININE 1.5 mg/dL (0.55-1.02); MAGNESIUM 1.7 mg/dL (1.8-2.4); PHOSPHOROUS 2.8 mg/dL (2.5-4.9)
[2017-04-04] MEDS: POTASSIUM CHLORIDE TABS 20 MEQ TABLET.ER (FP) PO SCH (10:42)
[2017-04-04] MEDS ORDERED: POTASSIUM CHLORIDE TABS 20 MEQ TABLET.ER (FP) PO ONE (11:08)
[2017-04-04] MEDS ORDERED: MAGNESIUM SULF 50% (8.12 MEQ/2 ML-1 GM VIAL) IVPB ONE (11:08)
--- NOTE | 2017-04-04 11:11 | PN ---
Progress Note (short form) - Note Progress Note: Renal Follow up for OSCAR on CKD Pt seen and examined at the bedside awake and alert good urine output via nephrostomy tubes denies any sob, chest pain Vital Signs Temperature 98.8 F 04/04/17 06:26 Pulse Rate 104 H 04/04/17 06:26 Respiratory Rate 20 04/04/17 06:26 Blood Pressure 136/62 04/04/17 06:26 O2 Sat by Pulse Oximetry (%) 97 04/03/17 21:00 Intake & Output 04/01/17 04/02/17 04/03/17 04/04/17 23:59 23:59 23:59 23:59 Intake Total 1853 850 570 100 Output Total 500 1052 1300 240 Balance 1353 -202 -730 -140 Weight 144 lb 8 oz 138 lb Gen: NAD CVS: RRR, No M/R Lungs: CTA Abd: soft NT/ND Ext: No edema : b/l nephrostomy tubes in place CBC, BMP 04/03/17 06:30 04/04/17 09:56 Laboratory Tests 04/04/17 09:56 Calcium 7.1 L Phosphorus 2.8 Magnesium 1.7 L Current Medications Acetaminophen (Tylenol -) 650 mg PO Q6H PRN PRN Reason: FEVER OR PAIN Last Admin: 04/03/17 21:44 Dose: 650 mg Acetaminophen (Tylenol Suppository -) 650 mg [place] Q4H PRN PRN Reason: FEVER OR PAIN Diphenhydramine HCl (Benadryl -) 25 mg PO Q6H PRN PRN Reason: FOR ITCHING Insulin Aspart (Novolog Vial Sliding Scale -) 1 vial SQ TIDAC [facility] PRN Reason: Protocol Last Admin: 04/04/17 10:46 Dose: 2 units Magnesium Sulfate (Magnesium Sulfate) 2 gm IVPB ONCE ONE Stop: 04/04/17 11:09 Mirtazapine (Remeron -) 15 mg PO HS [facility] Last Admin: 04/03/17 21:45 Dose: 15 mg Nystatin (Nystop Powder -) 1 applic TP BID [facility] Last Admin: 04/03/17 21:45 Dose: 1 applic Ondansetron HCl (Zofran Injection) 2 mg IVPB Q6H PRN PRN Reason: NAUSEA Last Admin: 03/25/17 17:24 Dose: 2 mg Potassium Chloride (K-Dur -) 20 meq PO DAILY [facility] Last Admin: 04/04/17 10:42 Dose: 20 meq Potassium Chloride (K-Dur -) 20 meq PO ONCE ONE Stop: 04/04/17 11:09 Sodium Bicarbonate (Sodium Bicarbonate -) 650 mg PO TID [facility] Last Admin: 04/04/17 06:16 Dose: 650 mg A/P 76 year old Female with PMhx of Cevical Ca, S/p Radiation, Hyperlipidemia, Hypertension, Obstructive uropathy, s/p Bilateral percutaneous nephrostomy, admitted with fever, lethargy, shortness of breath. #Non-oliguric OSCAR on CKD Renal function improving off IVF good urine output #Anion gap Metabolic acidosis with resp compensation decrease bicarb to one daily goal Bicarb 22-24 #Anemia s/p prbc transfusion #Pleural effusions on CT likely due to 3rd spacing from low albumin levels no resp distress Lasix PRN Pt ok for discharge but overall prognosis is guarded given Anemia/Renal Insufficiency/Cervical Ca can follow at the office Glenn Deluna DO
[2017-04-04] MEDS: NYSTATIN POWDER 100,000 UNITS/GM - 15 GM TOPICAL POWDER TP SCH ×2 (13:00→22:28)
[2017-04-04] MEDS: MIRTAZAPINE 15 MG TABLET (FP) PO SCH (22:27)
[2017-04-05] MEDS: INSULIN SLIDING SCALE (NOVOLOG) 1 VIAL SQ SCH ×3 (06:11→17:41)
[2017-04-05 07:19] LABS: BASOPHIL 0.4 % (0-2.0); EOSINOPHIL 1.7 % (0-4.5); MCH 26.8 pg (25.7-33.7); MCHC 33.1 g/dl (32.0-36.0); MEAN CELL VOLUME 81.1 fl (80-96); MEAN PLT VOLUME 6.8 fl (7.5-11.1); NEUTROPHILS 80.8 % (42.8-82.8); PLATELET COUNT 251 K/MM3 (134-434); RDW 16.2 % (11.6-15.6); WHITE BLOOD COUNT 11.6 K/mm3 (4.0-10.0)
[2017-04-05 07:33] LABS: INR 1.83 (0.82-1.09); PROTHROMBIN TIME (PATIENT) 20.4 SEC (9.98-11.88)
[2017-04-05 07:52] LABS: ALBUMIN 1.1 g/dl (3.4-5.0); MAGNESIUM 1.9 mg/dL (1.8-2.4)
[2017-04-05 07:57] LABS: BILIRUBIN,TOTAL 0.4 mg/dL (0.2-1.0); CALCIUM 7.1 mg/dL (8.5-10.1); CREATININE 1.3 mg/dL (0.55-1.02); PHOSPHOROUS 2.6 mg/dL (2.5-4.9); TOT PROT 4.5 g/dl (6.4-8.2)
[2017-04-05] MEDS: ACETAMINOPHEN 325 MG TABLET (FP) PO PRN (08:22)
--- NOTE | 2017-04-05 09:44 | PN ---
Progress Note, Physician Chief Complaint: Confussed at times History of Present Illness: For SNF - Current Medication List Current Medications: Active Medications Acetaminophen (Tylenol -) 650 mg PO Q6H PRN PRN Reason: FEVER OR PAIN Last Admin: 04/05/17 08:22 Dose: 650 mg Acetaminophen (Tylenol Suppository -) 650 mg [place] Q4H PRN PRN Reason: FEVER OR PAIN Diphenhydramine HCl (Benadryl -) 25 mg PO Q6H PRN PRN Reason: FOR ITCHING Insulin Aspart (Novolog Vial Sliding Scale -) 1 vial SQ TIDAC [facility] PRN Reason: Protocol Last Admin: 04/05/17 06:11 Dose: Not Given Mirtazapine (Remeron -) 15 mg PO HS [facility] Last Admin: 04/04/17 22:27 Dose: 15 mg Nystatin (Nystop Powder -) 1 applic TP BID [facility] Last Admin: 04/04/17 22:28 Dose: 1 applic Ondansetron HCl (Zofran Injection) 2 mg IVPB Q6H PRN PRN Reason: NAUSEA Last Admin: 03/25/17 17:24 Dose: 2 mg Potassium Chloride (K-Dur -) 20 meq PO DAILY [facility] Last Admin: 04/04/17 10:42 Dose: 20 meq Sodium Bicarbonate (Sodium Bicarbonate -) 650 mg PO DAILY [facility] - Objective Vital Signs: Vital Signs Temperature 98.8 F 04/05/17 05:59 Pulse Rate 97 H 04/05/17 05:59 Respiratory Rate 18 04/05/17 05:59 Blood Pressure 142/67 04/05/17 05:59 O2 Sat by Pulse Oximetry (%) 97 04/04/17 21:00 Constitutional: Yes: Anxious Eyes: Yes: WNL HENT: Yes: WNL Neck: Yes: WNL Cardiovascular: Yes: Regular Rate and Rhythm Respiratory: Yes: Regular Gastrointestinal: Yes: WNL ...Rectal Exam: Yes: Deferred Musculoskeletal: Yes: Muscle Weakness Neurological: Yes: Alert Labs: CBC, BMP 04/05/17 06:30 04/05/17 06:30 INR, PTT INR 1.83 (0.82-1.09) H D 04/05/17 06:30 Assessment/Plan Will discuss with family regarding placement
[2017-04-05] MEDS: NYSTATIN POWDER 100,000 UNITS/GM - 15 GM TOPICAL POWDER TP SCH ×2 (12:00→21:34)
--- NOTE | 2017-04-05 12:10 | PN ---
Progress Note (short form) - Note Progress Note: Renal Follow up for OSCAR on CKD Pt seen and examined at the bedside no acute complaints at the bedside awaiting placement Vital Signs Temperature 98.8 F 04/05/17 05:59 Pulse Rate 97 H 04/05/17 05:59 Respiratory Rate 18 04/05/17 05:59 Blood Pressure 142/67 04/05/17 05:59 O2 Sat by Pulse Oximetry (%) 97 04/04/17 21:00 Intake & Output 04/02/17 04/03/17 04/04/17 04/05/17 23:59 23:59 23:59 23:59 Intake Total 850 570 400 200 Output Total 1052 1300 670 300 Balance -202 -730 -270 -100 Weight 138 lb 141 lb 3.2 oz Gen: NAD CVS: RRR, No M/R Lungs: CTA Abd: soft NT/ND Ext: No edema : b/l nephrostomy tubes in place CBC, BMP 04/05/17 06:30 04/05/17 06:30 Current Medications Acetaminophen (Tylenol -) 650 mg PO Q6H PRN PRN Reason: FEVER OR PAIN Last Admin: 04/05/17 08:22 Dose: 650 mg Acetaminophen (Tylenol Suppository -) 650 mg [place] Q4H PRN PRN Reason: FEVER OR PAIN Diphenhydramine HCl (Benadryl -) 25 mg PO Q6H PRN PRN Reason: FOR ITCHING Insulin Aspart (Novolog Vial Sliding Scale -) 1 vial SQ TIDAC [facility] PRN Reason: Protocol Last Admin: 04/05/17 11:36 Dose: Not Given Mirtazapine (Remeron -) 15 mg PO HS [facility] Last Admin: 04/04/17 22:27 Dose: 15 mg Nystatin (Nystop Powder -) 1 applic TP BID [facility] Last Admin: 04/04/17 22:28 Dose: 1 applic Ondansetron HCl (Zofran Injection) 2 mg IVPB Q6H PRN PRN Reason: NAUSEA Last Admin: 03/25/17 17:24 Dose: 2 mg Potassium Chloride (K-Dur -) 20 meq PO DAILY [facility] Last Admin: 04/04/17 10:42 Dose: 20 meq Sodium Bicarbonate (Sodium Bicarbonate -) 650 mg PO DAILY [facility] A/P 76 year old Female with PMhx of Cevical Ca, S/p Radiation, Hyperlipidemia, Hypertension, Obstructive uropathy, s/p Bilateral percutaneous nephrostomy, admitted with fever, lethargy, shortness of breath. #Non-oliguric OSCAR on CKD renal function with significant improvement good urine output #Anion gap Metabolic acidosis with resp compensation continue oral bicarb once daily #Anemia s/p prbc transfusion #Pleural effusions on CT likely due to 3rd spacing from low albumin levels no resp distress Lasix PRN Pt ok for discharge but overall prognosis is guarded given Anemia/Renal Insufficiency/Cervical Ca can follow at the office Glenn Deluna DO
[2017-04-05] MEDS: ACETAMINOPHEN 650 MG SUPP.RECT PR PRN ×2 (12:32→17:51)
[2017-04-05] MEDS ORDERED: CEFTRIAXONE 1 GM in DEXTROSE 5%-WATER - 50 ML IVPB SCH (13:45)
--- NOTE | 2017-04-05 13:48 | PN ---
Progress Note, Physician History of Present Illness: patient doing well no new issues weakness - Current Medication List Current Medications: Active Medications Acetaminophen (Tylenol -) 650 mg PO Q6H PRN PRN Reason: FEVER OR PAIN Last Admin: 04/05/17 08:22 Dose: 650 mg Acetaminophen (Tylenol Suppository -) 650 mg [place] Q4H PRN PRN Reason: FEVER OR PAIN Last Admin: 04/05/17 12:32 Dose: 650 mg Diphenhydramine HCl (Benadryl -) 25 mg PO Q6H PRN PRN Reason: FOR ITCHING Ceftriaxone Sodium 1 gm/ (Dextrose) 50 mls @ 100 mls/hr IVPB DAILY [facility] Insulin Aspart (Novolog Vial Sliding Scale -) 1 vial SQ TIDAC [facility] PRN Reason: Protocol Last Admin: 04/05/17 11:36 Dose: Not Given Mirtazapine (Remeron -) 15 mg PO HS [facility] Last Admin: 04/04/17 22:27 Dose: 15 mg Nystatin (Nystop Powder -) 1 applic TP BID [facility] Last Admin: 04/04/17 22:28 Dose: 1 applic Ondansetron HCl (Zofran Injection) 2 mg IVPB Q6H PRN PRN Reason: NAUSEA Last Admin: 03/25/17 17:24 Dose: 2 mg Potassium Chloride (K-Dur -) 20 meq PO DAILY [facility] Last Admin: 04/04/17 10:42 Dose: 20 meq Silver Sulfadiazine (Silvadene -) 1 applic TP BID [facility] Sodium Bicarbonate (Sodium Bicarbonate -) 650 mg PO DAILY COUNTS INCLUDE 234 BEDS AT THE [facility] - Objective Vital Signs: Vital Signs Temperature 98.8 F 04/05/17 05:59 Pulse Rate 97 H 04/05/17 05:59 Respiratory Rate 18 04/05/17 05:59 Blood Pressure 142/67 04/05/17 05:59 O2 Sat by Pulse Oximetry (%) 97 04/04/17 21:00 Constitutional: Yes: No Distress, Calm Cardiovascular: Yes: S1, S2 Respiratory: Yes: Regular, CTA Bilaterally Gastrointestinal: Yes: Normal Bowel Sounds, Soft Musculoskeletal: Yes: Other Extremities: Yes: Other Edema: LUE: 1+, RUE: 1+, LLE: 1+, RLE: 1+ Neurological: Yes: Alert, Oriented Psychiatric: Yes: Alert, Oriented Labs: CBC, BMP 04/05/17 06:30 04/05/17 06:30 INR, PTT INR 1.83 (0.82-1.09) H D 04/05/17 06:30 Assessment/Plan uti neck pain anemia dehydration cancer plan continue current mgmt nutrition continue to monitor as per renal wbcdown no fevers will continue to watch
--- NOTE | 2017-04-05 13:54 | PN ---
Progress Note, Physician History of Present Illness: patient spiked high grade fevers associated with chills does not feel good - Current Medication List Current Medications: Active Medications Acetaminophen (Tylenol -) 650 mg PO Q6H PRN PRN Reason: FEVER OR PAIN Last Admin: 04/05/17 08:22 Dose: 650 mg Acetaminophen (Tylenol Suppository -) 650 mg [place] Q4H PRN PRN Reason: FEVER OR PAIN Last Admin: 04/05/17 12:32 Dose: 650 mg Diphenhydramine HCl (Benadryl -) 25 mg PO Q6H PRN PRN Reason: FOR ITCHING Ceftriaxone Sodium 1 gm/ (Dextrose) 50 mls @ 100 mls/hr IVPB DAILY [facility] Insulin Aspart (Novolog Vial Sliding Scale -) 1 vial SQ TIDAC [facility] PRN Reason: Protocol Last Admin: 04/05/17 11:36 Dose: Not Given Mirtazapine (Remeron -) 15 mg PO HS [facility] Last Admin: 04/04/17 22:27 Dose: 15 mg Nystatin (Nystop Powder -) 1 applic TP BID [facility] Last Admin: 04/04/17 22:28 Dose: 1 applic Ondansetron HCl (Zofran Injection) 2 mg IVPB Q6H PRN PRN Reason: NAUSEA Last Admin: 03/25/17 17:24 Dose: 2 mg Potassium Chloride (K-Dur -) 20 meq PO DAILY [facility] Last Admin: 04/04/17 10:42 Dose: 20 meq Silver Sulfadiazine (Silvadene -) 1 applic TP BID [facility] Sodium Bicarbonate (Sodium Bicarbonate -) 650 mg PO DAILY [facility] - Objective Vital Signs: Vital Signs Temperature 98.8 F 04/05/17 05:59 Pulse Rate 97 H 04/05/17 05:59 Respiratory Rate 18 04/05/17 05:59 Blood Pressure 142/67 04/05/17 05:59 O2 Sat by Pulse Oximetry (%) 97 04/04/17 21:00 Constitutional: Yes: Mild Distress Cardiovascular: Yes: S1, S2 Respiratory: Yes: Regular, CTA Bilaterally Gastrointestinal: Yes: Normal Bowel Sounds, Soft Genitourinary: Yes: Other (bilateral nephrostomy tubes in place) Musculoskeletal: Yes: Other Extremities: Yes: Other Edema: LUE: 1+, RUE: 1+, LLE: 1+, RLE: 1+ Neurological: Yes: Alert Psychiatric: Yes: Alert Labs: CBC, BMP 04/05/17 06:30 04/05/17 06:30 INR, PTT INR 1.83 (0.82-1.09) H D 04/05/17 06:30 Assessment/Plan uti neck pain anemia dehydration cancer fever leukocytosis plan will send stat blood cx urine cx from both nephrostomy tubes monitor fevers started on abx rest ct as per primary sacral ulcer noted stage 1 skin excoriation
[2017-04-05] MEDS: ERTAPENEM SODIUM 1 GM in SODIUM CHLORIDE 50 ML IVPB SCH (14:30)
[2017-04-05] MEDS ORDERED: SODIUM CHLORIDE 1,000 ML IV STA (14:58)
--- NOTE | 2017-04-05 15:22 | HOSP ---
Subjective - Review of Symptoms Events since last encounter: Rapid response was call and arrived at scene in patient's room. Patient was lethargic, but arousable, unable to follow command or speak. BP in mid 60s/40s, HR ~120, Temp 102F O2 sat 99% on 2L NC, non-labored breathing. Gave 1L bolus and pt responded appropriately. Straight cath drained 50cc green-yellowish urine. Lactic acid ~5. EKG shows sinus tachycardia but no acute pathology. Physical Examination Vital Signs: Vital Signs Temperature 98.8 F 04/05/17 05:59 Pulse Rate 97 H 04/05/17 05:59 Respiratory Rate 18 04/05/17 05:59 Blood Pressure 142/67 04/05/17 05:59 O2 Sat by Pulse Oximetry (%) 97 04/04/17 21:00 Constitutional: Yes: Moderate Distress, Other (lethargic, warm) Cardiovascular: Yes: Tachycardia (distant heard sounds) Respiratory: Yes: CTA Bilaterally, On Nasal O2 Renal/: Yes: Other (b/l nephrostomy bags with yellowish urine) Edema: LLE: 2+, RLE: 2+ Labs: CBC, BMP 04/05/17 06:30 04/05/17 06:30 Hospitalist Encounter Assessment: Severe sepsis - Likely 2/2 UTI (complicated with indwelling nephrostomy tubes b/l) - Stat labs, UA, UC - Started ertapenem 1g - Cont. fluid - PCP informed Visit type - Emergency Visit Emergency Visit: No - New Patient This patient is new to me today: Yes Date on this admission: 04/05/17 - Critical Care Critical Care patient: No
[2017-04-05] MEDS ORDERED: SODIUM CHLORIDE 1,000 ML IV SCH (15:45)
[2017-04-05 16:19] LABS: URINE APPEARANCE CLOUDY; URINE BILIRUBIN NEGATIVE (NEGATIVE); URINE BLOOD NEGATIVE (NEGATIVE); URINE COLOR YELLOW; URINE GLUCOSE (UA) 2+ (NEGATIVE); URINE KETONE NEGATIVE (NEGATIVE); URINE NITRITE NEGATIVE (NEGATIVE); URINE UROBILINOGEN NEGATIVE E.U./dl (0.2-1.0)
[2017-04-05 16:53] LABS: URINE LEUK ESTERASE TRACE (NEGATIVE); URINE PROTEIN 2+ (NEGATIVE)
[2017-04-05 17:15] LABS: URINE BACTERIA RARE /hpf (NONE SEEN); URINE MUCUS RARE; URINE RBC 8 /hpf (0-3); URINE WBC 166 /hpf (3-5); YEAST RARE
[2017-04-05] MEDS: SODIUM BICARBONATE 650 MG TABLET PO SCH (17:39)
[2017-04-05] MEDS: POTASSIUM CHLORIDE TABS 20 MEQ TABLET.ER (FP) PO SCH (17:39)
[2017-04-05] MEDS: SILVER SULFADIAZINE 1% TOP CREAM 50 GM JAR TP SCH ×2 (17:52→21:35)
[2017-04-05] MEDS: MIRTAZAPINE 15 MG TABLET (FP) PO SCH (21:34)
[2017-04-06] MEDS: INSULIN SLIDING SCALE (NOVOLOG) 1 VIAL SQ SCH ×3 (06:30→17:55)
[2017-04-06] MEDS ORDERED: PT OWN MED DRAWER 7, Y5N ONE (08:25)
[2017-04-06] MEDS ORDERED: INSULIN (NOVOLOG) ASPART 100 UNITS/ML 10ML VIAL ONE (09:18)
[2017-04-06] MEDS: POTASSIUM CHLORIDE TABS 20 MEQ TABLET.ER (FP) PO SCH (09:19)
[2017-04-06] MEDS: SODIUM BICARBONATE 650 MG TABLET PO SCH (09:19)
[2017-04-06] MEDS: NYSTATIN POWDER 100,000 UNITS/GM - 15 GM TOPICAL POWDER TP SCH ×2 (09:20→21:54)
[2017-04-06] MEDS: SILVER SULFADIAZINE 1% TOP CREAM 50 GM JAR TP SCH ×2 (09:21→21:54)
--- NOTE | 2017-04-06 09:38 | PN ---
Progress Note, Physician Chief Complaint: Not feeling well History of Present Illness: Yesterday,s events noted Spiked fever, became hypotensive IV fluids and antibiotics given ,conditions improved - Current Medication List Current Medications: Active Medications Acetaminophen (Tylenol -) 650 mg PO Q6H PRN PRN Reason: FEVER OR PAIN Last Admin: 04/05/17 08:22 Dose: 650 mg Acetaminophen (Tylenol Suppository -) 650 mg [place] Q4H PRN PRN Reason: FEVER OR PAIN Last Admin: 04/05/17 17:51 Dose: 650 mg Diphenhydramine HCl (Benadryl -) 25 mg PO Q6H PRN PRN Reason: FOR ITCHING Ertapenem 1 gm/ Sodium (Chloride) 50 mls @ 100 mls/hr IVPB DAILY [facility] PRN Reason: Protocol Last Admin: 04/05/17 14:30 Dose: 100 mls/hr Sodium Chloride (Normal Saline -) 1,000 mls @ 75 mls/hr IV ASDIR [facility] Last Admin: 04/05/17 17:51 Dose: 75 mls/hr Insulin Aspart (Novolog Vial Sliding Scale -) 1 vial SQ TIDAC [facility] PRN Reason: Protocol Last Admin: 04/06/17 06:30 Dose: Not Given Mirtazapine (Remeron -) 15 mg PO HS [facility] Last Admin: 04/05/17 21:34 Dose: 15 mg Nystatin (Nystop Powder -) 1 applic TP BID [facility] Last Admin: 04/06/17 09:20 Dose: 1 applic Ondansetron HCl (Zofran Injection) 2 mg IVPB Q6H PRN PRN Reason: NAUSEA Last Admin: 03/25/17 17:24 Dose: 2 mg Potassium Chloride (K-Dur -) 20 meq PO DAILY [facility] Last Admin: 04/06/17 09:19 Dose: 20 meq Silver Sulfadiazine (Silvadene -) 1 applic TP BID [facility] Last Admin: 04/06/17 09:21 Dose: 1 applic Sodium Bicarbonate (Sodium Bicarbonate -) 650 mg PO DAILY [facility] Last Admin: 04/06/17 09:19 Dose: 650 mg - Objective Vital Signs: Vital Signs Temperature 98.0 F 04/06/17 06:00 Pulse Rate 92 H 04/06/17 06:00 Respiratory Rate 20 04/06/17 06:00 Blood Pressure 122/65 04/06/17 06:00 O2 Sat by Pulse Oximetry (%) 96 04/05/17 21:00 Constitutional: Yes: Mild Distress Eyes: Yes: WNL HENT: Yes: WNL Neck: Yes: WNL Cardiovascular: Yes: WNL Respiratory: Yes: On Nasal O2 Gastrointestinal: Yes: WNL ...Rectal Exam: Yes: Deferred Genitourinary: Yes: WNL, Other (nephrostomy working) Musculoskeletal: Yes: Muscle Weakness Neurological: Yes: Alert Labs: CBC, BMP 04/05/17 06:30 04/05/17 06:30 INR, PTT INR 1.83 (0.82-1.09) H D 04/05/17 06:30 Assessment/Plan DC IV fluids
[2017-04-06] MEDS: ERTAPENEM SODIUM 1 GM in SODIUM CHLORIDE 50 ML IVPB SCH (10:10)
--- NOTE | 2017-04-06 12:08 | PN ---
Progress Note (short form) - Note Progress Note: Renal Follow up for OSCAR on CKD Pt seen and examined at the bedside pt was febrile and hypotensive yesterday feels weak today reports having diarrhea this am no sob, chest pain Vital Signs Temperature 98.1 F 04/06/17 10:00 Pulse Rate 86 04/06/17 10:00 Respiratory Rate 16 04/06/17 10:00 Blood Pressure 90/48 04/06/17 10:00 O2 Sat by Pulse Oximetry (%) 96 04/05/17 21:00 Intake & Output 04/03/17 04/04/17 04/05/17 04/06/17 23:59 23:59 23:59 23:59 Intake Total 570 742 481 7233 Output Total 1300 670 400 Balance -730 -242 359 3563 Weight 138 lb 141 lb 3.2 oz 138 lb 8 oz Gen: NAD CVS: RRR, No M/R Lungs: dec bs at lung bases Abd: soft NT/ND Ext: trace LE edema, 1+ sacral edema : b/l nephrostomy tubes in place CBC, BMP 04/05/17 06:30 04/05/17 06:30 todays labs pending Current Medications Acetaminophen (Tylenol -) 650 mg PO Q6H PRN PRN Reason: FEVER OR PAIN Last Admin: 04/05/17 08:22 Dose: 650 mg Acetaminophen (Tylenol Suppository -) 650 mg [place] Q4H PRN PRN Reason: FEVER OR PAIN Last Admin: 04/05/17 17:51 Dose: 650 mg Diphenhydramine HCl (Benadryl -) 25 mg PO Q6H PRN PRN Reason: FOR ITCHING Ertapenem 1 gm/ Sodium (Chloride) 50 mls @ 100 mls/hr IVPB DAILY [facility] PRN Reason: Protocol Last Admin: 04/06/17 10:10 Dose: 100 mls/hr Insulin Aspart (Novolog Vial Sliding Scale -) 1 vial SQ TIDAC [facility] PRN Reason: Protocol Last Admin: 04/06/17 06:30 Dose: Not Given Mirtazapine (Remeron -) 15 mg PO HS [facility] Last Admin: 04/05/17 21:34 Dose: 15 mg Nystatin (Nystop Powder -) 1 applic TP BID [facility] Last Admin: 04/06/17 09:20 Dose: 1 applic Ondansetron HCl (Zofran Injection) 2 mg IVPB Q6H PRN PRN Reason: NAUSEA Last Admin: 03/25/17 17:24 Dose: 2 mg Potassium Chloride (K-Dur -) 20 meq PO DAILY [facility] Last Admin: 04/06/17 09:19 Dose: 20 meq Silver Sulfadiazine (Silvadene -) 1 applic TP BID [facility] Last Admin: 04/06/17 09:21 Dose: 1 applic Sodium Bicarbonate (Sodium Bicarbonate -) 650 mg PO DAILY [facility] Last Admin: 04/06/17 09:19 Dose: 650 mg A/P 76 year old Female with PMhx of Cevical Ca, S/p Radiation, Hyperlipidemia, Hypertension, Obstructive uropathy, s/p Bilateral percutaneous nephrostomy, admitted with fever, lethargy, shortness of breath. #Non-oliguric OSCAR on CKD Renal function stable as of yesterday, todays labs pending continue isotonic IVF as pt with fever/hypotension decreased urine output noted yesterday continue to trend BUN/Cr and output from both nephrostomy tubes #Fever/Hypotension/Sepsis on ertapenum IV f/u cultures supportive care, keep map > 65 #Anion gap Metabolic acidosis with resp compensation continue oral bicarb once daily #Anemia s/p prbc transfusion todays cbc pending #Pleural effusions on CT likely due to 3rd spacing from low albumin levels no resp distress Lasix PRN on IVF now or management of sepsis Glenn Deluna DO
[2017-04-06] MEDS ORDERED: SODIUM CHLORIDE 1,000 ML IV SCH (12:15)
--- NOTE | 2017-04-06 12:34 | EKG ---
Test Reason : Blood Pressure : / mmHG Vent. Rate : 122 BPM Atrial Rate : 122 BPM P-R Int : 144 ms QRS Dur : 074 ms QT Int : 340 ms P-R-T Axes : 044 017 036 degrees QTc Int : 484 ms SINUS TACHYCARDIA ANTERIOR INFARCT (CITED ON OR BEFORE 20-MAR-2017) ABNORMAL ECG WHEN COMPARED WITH ECG OF 20-MAR-2017 19:09, NO SIGNIFICANT CHANGE WAS FOUND Confirmed by SAUD TALAMANTES, BERNARDA ([id number]) on 04/06/2017 12:34:22 PM Referred By: Hipolito ABDULLAHI Confirmed By:BERNARDA VILLAVICENCIO MD
[2017-04-06 12:37] LABS: BASOPHIL 0.4 % (0-2.0); EOSINOPHIL 1.6 % (0-4.5); MCH 26.3 pg (25.7-33.7); MCHC 32.4 g/dl (32.0-36.0); MEAN CELL VOLUME 81.4 fl (80-96); MEAN PLT VOLUME 7.5 fl (7.5-11.1); PLATELET COUNT 197 K/MM3 (134-434); RDW 16.2 % (11.6-15.6); WHITE BLOOD COUNT 12.9 K/mm3 (4.0-10.0)
[2017-04-06 13:26] LABS: BILIRUBIN,TOTAL 0.3 mg/dL (0.2-1.0); COCKROFT - GAULT 27.1915; CREATININE 1.8 mg/dL (0.55-1.02); MAGNESIUM 1.9 mg/dL (1.8-2.4); TOT PROT 4.3 g/dl (6.4-8.2)
[2017-04-06 13:53] LABS: CALCIUM 6.8 mg/dL (8.5-10.1)
[2017-04-06] MEDS ORDERED: POTASSIUM CHLORIDE ORAL LIQUID 20 MEQ/15 ML PO ONE ×2 (14:09→17:45)
--- NOTE | 2017-04-06 15:38 | PN ---
Progress Note, Physician History of Present Illness: patient looking much better no complaints according to the daughter eating better - Current Medication List Current Medications: Active Medications Acetaminophen (Tylenol -) 650 mg PO Q6H PRN PRN Reason: FEVER OR PAIN Last Admin: 04/05/17 08:22 Dose: 650 mg Acetaminophen (Tylenol Suppository -) 650 mg [place] Q4H PRN PRN Reason: FEVER OR PAIN Last Admin: 04/05/17 17:51 Dose: 650 mg Diphenhydramine HCl (Benadryl -) 25 mg PO Q6H PRN PRN Reason: FOR ITCHING Ertapenem 1 gm/ Sodium (Chloride) 50 mls @ 100 mls/hr IVPB DAILY [facility] PRN Reason: Protocol Last Admin: 04/06/17 10:10 Dose: 100 mls/hr Sodium Chloride (Normal Saline -) 1,000 mls @ 83 mls/hr IV ASDIR [facility] Stop: 04/07/17 00:14 Last Admin: 04/06/17 10:12 Dose: Not Given Insulin Aspart (Novolog Vial Sliding Scale -) 1 vial SQ TIDAC [facility] PRN Reason: Protocol Last Admin: 04/06/17 11:13 Dose: Not Given Mirtazapine (Remeron -) 15 mg PO HS [facility] Last Admin: 04/05/17 21:34 Dose: 15 mg Nystatin (Nystop Powder -) 1 applic TP BID [facility] Last Admin: 04/06/17 09:20 Dose: 1 applic Ondansetron HCl (Zofran Injection) 2 mg IVPB Q6H PRN PRN Reason: NAUSEA Last Admin: 03/25/17 17:24 Dose: 2 mg Potassium Chloride (K-Dur -) 20 meq PO DAILY [facility] Last Admin: 04/06/17 09:19 Dose: 20 meq Silver Sulfadiazine (Silvadene -) 1 applic TP BID [facility] Last Admin: 04/06/17 09:21 Dose: 1 applic Sodium Bicarbonate (Sodium Bicarbonate -) 650 mg PO DAILY [facility] Last Admin: 04/06/17 09:19 Dose: 650 mg - Objective Vital Signs: Vital Signs Temperature 97.7 F 04/06/17 15:20 Pulse Rate 93 H 04/06/17 15:20 Respiratory Rate 20 04/06/17 15:20 Blood Pressure 124/64 04/06/17 15:20 O2 Sat by Pulse Oximetry (%) 96 04/05/17 21:00 Constitutional: Yes: No Distress, Calm Cardiovascular: Yes: S1, S2 Respiratory: Yes: Regular, CTA Bilaterally Gastrointestinal: Yes: Normal Bowel Sounds, Soft Edema: LUE: 1+, RUE: 1+, LLE: 1+, RLE: 1+ Neurological: Yes: Alert, Oriented Psychiatric: Yes: Alert Labs: CBC, BMP 04/06/17 12:05 04/06/17 12:05 INR, PTT INR 1.83 (0.82-1.09) H D 04/05/17 06:30 Assessment/Plan uti neck pain anemia dehydration cancer fever leukocytosis gm negative bacteremia plan blood cx result noted await for urine cx i think the nephrostomy tube not working d/w IR to change and internalize the tube one blood cx negative cr up because of blockage continue abx
[2017-04-06] MEDS: MIRTAZAPINE 15 MG TABLET (FP) PO SCH (21:54)
--- NOTE | 2017-04-06 22:34 | PN ---
Progress Note (short form) - Note Progress Note: Patient seen and examined frail, weak Last Vital Signs Temp Pulse Resp BP Pulse Ox 97.7 F 93 H 20 124/64 96 04/06/17 15:20 04/06/17 15:20 04/06/17 15:20 04/06/17 15:20 04/06/17 09:00 Cor: RSR, No murmurs, No gallops Lungs: decreases at bases Abd: Soft, Normal bowel sounds, Ext:No significant edema Abnormal Lab Results 04/06/17 04/06/17 12:05 12:05 WBC 12.9 H RBC 3.11 L Hgb 8.2 L Hct 25.3 L RDW 16.2 H Neutrophils % 84.0 H Potassium 3.0 L BUN 29 H Creatinine 1.8 H D Calcium 6.8 L* AST 91 H Alkaline Phosphatase 394 H D Total Protein 4.3 L Albumin 1.0 L A/P 76 y/o patient with advanced cervical cancer, s/p RT, renal failure, anemia restaging CT scans---inguinal nodes/mass in the cervix discussed with PMD--locally advanced cervical cancer,poor performance status, nonsurgical candidate, s/P RT with worsening renal failure, anemia h/o DVT--was on coumadin ongoing discussions with family regarding goals of care ? best supportive care vs hospice
[2017-04-07] MEDS: INSULIN SLIDING SCALE (NOVOLOG) 1 VIAL SQ SCH ×3 (06:16→17:45)
[2017-04-07 07:29] LABS: BASOPHIL 0.6 % (0-2.0); EOSINOPHIL 1.4 % (0-4.5); MCH 26.3 pg (25.7-33.7); MCHC 32.2 g/dl (32.0-36.0); MEAN CELL VOLUME 81.6 fl (80-96); MEAN PLT VOLUME 7.7 fl (7.5-11.1); NEUTROPHILS 83.5 % (42.8-82.8); PLATELET COUNT 220 K/MM3 (134-434); RDW 16.5 % (11.6-15.6); WHITE BLOOD COUNT 15.6 K/mm3 (4.0-10.0)
[2017-04-07 07:59] LABS: BILIRUBIN,TOTAL 0.3 mg/dL (0.2-1.0); CALCIUM 7.2 mg/dL (8.5-10.1); COCKROFT - GAULT 32.3; CREATININE 1.6 mg/dL (0.55-1.02); MAGNESIUM 1.9 mg/dL (1.8-2.4); PHOSPHOROUS 2.7 mg/dL (2.5-4.9); TOT PROT 4.4 g/dl (6.4-8.2)
--- NOTE | 2017-04-07 09:46 | PN ---
Progress Note, Physician Chief Complaint: Sleeping this am History of Present Illness: Blood culture + GNB - Current Medication List Current Medications: Active Medications Acetaminophen (Tylenol -) 650 mg PO Q6H PRN PRN Reason: FEVER OR PAIN Last Admin: 04/05/17 08:22 Dose: 650 mg Acetaminophen (Tylenol Suppository -) 650 mg [place] Q4H PRN PRN Reason: FEVER OR PAIN Last Admin: 04/05/17 17:51 Dose: 650 mg Diphenhydramine HCl (Benadryl -) 25 mg PO Q6H PRN PRN Reason: FOR ITCHING Ertapenem 1 gm/ Sodium (Chloride) 50 mls @ 100 mls/hr IVPB DAILY [facility] PRN Reason: Protocol Last Admin: 04/06/17 10:10 Dose: 100 mls/hr Insulin Aspart (Novolog Vial Sliding Scale -) 1 vial SQ TIDAC [facility] PRN Reason: Protocol Last Admin: 04/07/17 06:16 Dose: Not Given Mirtazapine (Remeron -) 15 mg PO HS [facility] Last Admin: 04/06/17 21:54 Dose: 15 mg Nystatin (Nystop Powder -) 1 applic TP BID [facility] Last Admin: 04/06/17 21:54 Dose: 1 applic Ondansetron HCl (Zofran Injection) 2 mg IVPB Q6H PRN PRN Reason: NAUSEA Last Admin: 03/25/17 17:24 Dose: 2 mg Potassium Chloride (K-Dur -) 20 meq PO DAILY [facility] Last Admin: 04/06/17 09:19 Dose: 20 meq Silver Sulfadiazine (Silvadene -) 1 applic TP BID [facility] Last Admin: 04/06/17 21:54 Dose: 1 applic Sodium Bicarbonate (Sodium Bicarbonate -) 650 mg PO DAILY [facility] Last Admin: 04/06/17 09:19 Dose: 650 mg - Objective Vital Signs: Vital Signs Temperature 99.4 F 04/07/17 06:56 Pulse Rate 99 H 04/07/17 06:56 Respiratory Rate 20 04/07/17 06:56 Blood Pressure 126/64 04/07/17 06:56 O2 Sat by Pulse Oximetry (%) 98 04/06/17 21:00 Constitutional: Yes: Mild Distress Eyes: Yes: WNL HENT: Yes: WNL Neck: Yes: WNL Respiratory: Yes: On Nasal O2 Gastrointestinal: Yes: Normal Bowel Sounds ...Rectal Exam: Yes: Deferred Genitourinary: Yes: Other (Nephrostomy workig) Musculoskeletal: Yes: Muscle Weakness Edema: No Peripheral Pulses WNL: Yes Integumentary: Yes: WNL Psychiatric: Yes: Alert Labs: CBC, BMP 04/07/17 06:45 04/07/17 06:45 INR, PTT INR 1.83 (0.82-1.09) H D 04/05/17 06:30 Assessment/Plan Kcl supplements ordered
[2017-04-07] MEDS: POTASSIUM CHLORIDE ORAL LIQUID 20 MEQ/15 ML PO SCH ×3 (11:11→21:56)
[2017-04-07] MEDS: ERTAPENEM SODIUM 1 GM in SODIUM CHLORIDE 50 ML IVPB SCH (11:11)
[2017-04-07] MEDS: SODIUM BICARBONATE 650 MG TABLET PO SCH ×2 (11:12→12:59)
[2017-04-07] MEDS: SILVER SULFADIAZINE 1% TOP CREAM 50 GM JAR TP SCH (12:00)
[2017-04-07] MEDS: NYSTATIN POWDER 100,000 UNITS/GM - 15 GM TOPICAL POWDER TP SCH ×2 (12:58→21:56)
[2017-04-07] MEDS: KCL 10 MEQ IVPB 100 ML IVPB SCH ×2 (12:58→15:12)
--- NOTE | 2017-04-07 14:18 | PN ---
Progress Note (short form) - Note Progress Note: Renal Follow up for OSCAR on CKD Pt seen and examined at the bedside no fevers today bp stable s/p IVF up til last night nurse reports that pt is gagging on foods but able to tolerate liquid intake no mouth pain no abd pain Vital Signs Temperature 99.4 F 04/07/17 06:56 Pulse Rate 99 H 04/07/17 06:56 Respiratory Rate 20 04/07/17 06:56 Blood Pressure 126/64 04/07/17 06:56 O2 Sat by Pulse Oximetry (%) 98 04/06/17 21:00 Intake & Output 04/04/17 04/05/17 04/06/17 04/07/17 23:59 23:59 23:59 23:59 Intake Total 129 567 4879 1240 Output Total 670 400 650 Balance -093 508 0806 590 Weight 138 lb 141 lb 3.2 oz 138 lb 8 oz 146 lb 4 oz Gen: NAD CVS: RRR, No M/R Lungs: dec bs at lung bases Abd: soft NT/ND Ext: trace LE edema, 1+ sacral edema : b/l nephrostomy tubes in place CBC, BMP 04/07/17 06:45 04/07/17 06:45 Current Medications Acetaminophen (Tylenol -) 650 mg PO Q6H PRN PRN Reason: FEVER OR PAIN Last Admin: 04/05/17 08:22 Dose: 650 mg Acetaminophen (Tylenol Suppository -) 650 mg [place] Q4H PRN PRN Reason: FEVER OR PAIN Last Admin: 04/05/17 17:51 Dose: 650 mg Diphenhydramine HCl (Benadryl -) 25 mg PO Q6H PRN PRN Reason: FOR ITCHING Ertapenem 1 gm/ Sodium (Chloride) 50 mls @ 100 mls/hr IVPB DAILY JADEN PRN Reason: Protocol Last Admin: 04/07/17 11:11 Dose: 100 mls/hr Potassium Chloride (Potassium Chloride 10 Meq Premix Ivpb -) 100 mls @ 100 mls/ hr IVPB Q1H [facility] Stop: 04/07/17 14:29 Last Admin: 04/07/17 12:58 Dose: 100 mls/hr Insulin Aspart (Novolog Vial Sliding Scale -) 1 vial SQ TIDAC JADEN PRN Reason: Protocol Last Admin: 04/07/17 11:12 Dose: Not Given Mirtazapine (Remeron -) 15 mg PO HS [facility] Last Admin: 04/06/17 21:54 Dose: 15 mg Nystatin (Nystop Powder -) 1 applic TP BID [facility] Last Admin: 04/07/17 12:58 Dose: 1 applic Ondansetron HCl (Zofran Injection) 2 mg IVPB Q6H PRN PRN Reason: NAUSEA Last Admin: 03/25/17 17:24 Dose: 2 mg Potassium Chloride (Potassium Chloride Oral Liquid) 40 meq PO BID [facility] Stop: 04/09/17 22:01 Last Admin: 04/07/17 13:00 Dose: Not Given Silver Sulfadiazine (Silvadene -) 1 applic TP BID [facility] Last Admin: 04/06/17 21:54 Dose: 1 applic Sodium Bicarbonate (Sodium Bicarbonate -) 650 mg PO DAILY [facility] Last Admin: 04/07/17 12:59 Dose: Not Given A/P 76 year old Female with PMhx of Cevical Ca, S/p Radiation, Hyperlipidemia, Hypertension, Obstructive uropathy, s/p Bilateral percutaneous nephrostomy, admitted with fever, lethargy, shortness of breath. #Non-oliguric OSCAR on CKD Cr stable supportive care off IVF now, can maintain off as long as bp is stable keep MAP > 65 #Fever/Hypotension/Sepsis on ertapenum IV f/u cultures supportive care, keep map > 65 #Anion gap Metabolic acidosis with resp compensation continue oral bicarb once daily #Anemia Hgb stable #Pleural effusions on CT likely due to 3rd spacing from low albumin levels no resp distress Lasix PRN on IVF now or management of sepsis #Dysphagia Swallow audra Deluna DO
--- NOTE | 2017-04-07 14:36 | PN ---
Progress Note, Physician History of Present Illness: patient looks better clinically stable has been afebrile - Current Medication List Current Medications: Active Medications Acetaminophen (Tylenol -) 650 mg PO Q6H PRN PRN Reason: FEVER OR PAIN Last Admin: 04/05/17 08:22 Dose: 650 mg Acetaminophen (Tylenol Suppository -) 650 mg [place] Q4H PRN PRN Reason: FEVER OR PAIN Last Admin: 04/05/17 17:51 Dose: 650 mg Diphenhydramine HCl (Benadryl -) 25 mg PO Q6H PRN PRN Reason: FOR ITCHING Ertapenem 1 gm/ Sodium (Chloride) 50 mls @ 100 mls/hr IVPB DAILY JADEN PRN Reason: Protocol Last Admin: 04/07/17 11:11 Dose: 100 mls/hr Insulin Aspart (Novolog Vial Sliding Scale -) 1 vial SQ TIDAC JADEN PRN Reason: Protocol Last Admin: 04/07/17 11:12 Dose: Not Given Mirtazapine (Remeron -) 15 mg PO HS [facility] Last Admin: 04/06/17 21:54 Dose: 15 mg Nystatin (Nystop Powder -) 1 applic TP BID [facility] Last Admin: 04/07/17 12:58 Dose: 1 applic Ondansetron HCl (Zofran Injection) 2 mg IVPB Q6H PRN PRN Reason: NAUSEA Last Admin: 03/25/17 17:24 Dose: 2 mg Potassium Chloride (Potassium Chloride Oral Liquid) 40 meq PO BID [facility] Stop: 04/09/17 22:01 Last Admin: 04/07/17 13:00 Dose: Not Given Silver Sulfadiazine (Silvadene -) 1 applic TP BID [facility] Last Admin: 04/06/17 21:54 Dose: 1 applic Sodium Bicarbonate (Sodium Bicarbonate -) 650 mg PO DAILY [facility] Last Admin: 04/07/17 12:59 Dose: Not Given - Objective Vital Signs: Vital Signs Temperature 99.4 F 04/07/17 06:56 Pulse Rate 99 H 04/07/17 06:56 Respiratory Rate 20 04/07/17 06:56 Blood Pressure 126/64 04/07/17 06:56 O2 Sat by Pulse Oximetry (%) 98 04/06/17 21:00 Constitutional: Yes: No Distress, Calm Cardiovascular: Yes: S1, S2 Respiratory: Yes: Regular, CTA Bilaterally Gastrointestinal: Yes: Normal Bowel Sounds, Soft Genitourinary: Yes: Other (bilat nephrostomy tube in place) Musculoskeletal: Yes: Other Extremities: Yes: Other (bilateral amputations) Neurological: Yes: Alert, Oriented Psychiatric: Yes: Alert, Oriented Labs: CBC, BMP 04/07/17 06:45 04/07/17 06:45 INR, PTT INR 1.83 (0.82-1.09) H D 04/05/17 06:30 Assessment/Plan uti neck pain anemia dehydration cancer fever leukocytosis gm negative bacteremia plan continue current mgmt continue abx repeat blood cx ordered once patient negative will get internalization of the nephrostomy tubes
[2017-04-07] MEDS: ACETAMINOPHEN 650 MG SUPP.RECT PR PRN (17:45)
[2017-04-07] MEDS: MIRTAZAPINE 15 MG TABLET (FP) PO SCH (21:55)
[2017-04-07] MEDS: MICONAZOLE NITRATE 2% VAGINAL CREAM 45 GM TUBE VG SCH (21:56)
--- NOTE | 2017-04-08 09:39 | PN ---
Progress Note, Physician Chief Complaint: No appetite History of Present Illness: Septicemia on IV antibiotics - Current Medication List Current Medications: Active Medications Acetaminophen (Tylenol -) 650 mg PO Q6H PRN PRN Reason: FEVER OR PAIN Last Admin: 04/05/17 08:22 Dose: 650 mg Acetaminophen (Tylenol Suppository -) 650 mg [place] Q4H PRN PRN Reason: FEVER OR PAIN Last Admin: 04/07/17 17:45 Dose: 650 mg Diphenhydramine HCl (Benadryl -) 25 mg PO Q6H PRN PRN Reason: FOR ITCHING Ertapenem 1 gm/ Sodium (Chloride) 50 mls @ 100 mls/hr IVPB DAILY JADEN PRN Reason: Protocol Last Admin: 04/07/17 11:11 Dose: 100 mls/hr Insulin Aspart (Novolog Vial Sliding Scale -) 1 vial SQ TIDAC JADEN PRN Reason: Protocol Last Admin: 04/07/17 17:45 Dose: Not Given Miconazole Nitrate (Monistat-7 Vaginal Cream -) 1 applic VG HS [facility] Stop: 04/13/17 22:01 Last Admin: 04/07/17 21:56 Dose: 1 applic Mirtazapine (Remeron -) 15 mg PO HS [facility] Last Admin: 04/07/17 21:55 Dose: 15 mg Nystatin (Nystop Powder -) 1 applic TP BID [facility] Last Admin: 04/07/17 21:56 Dose: 1 applic Ondansetron HCl (Zofran Injection) 2 mg IVPB Q6H PRN PRN Reason: NAUSEA Last Admin: 03/25/17 17:24 Dose: 2 mg Potassium Chloride (Potassium Chloride Oral Liquid) 40 meq PO BID [facility] Stop: 04/09/17 22:01 Last Admin: 04/07/17 21:56 Dose: 40 meq Silver Sulfadiazine (Silvadene -) 1 applic TP BID [facility] Last Admin: 04/07/17 12:00 Dose: 1 applic Sodium Bicarbonate (Sodium Bicarbonate -) 650 mg PO DAILY [facility] Last Admin: 04/07/17 12:59 Dose: Not Given - Objective Vital Signs: Vital Signs Temperature 97.9 F 04/08/17 06:00 Pulse Rate 95 H 04/08/17 06:00 Respiratory Rate 18 04/08/17 06:00 Blood Pressure 140/69 04/08/17 06:00 O2 Sat by Pulse Oximetry (%) 98 04/07/17 09:00 Constitutional: Yes: Mild Distress Eyes: Yes: WNL HENT: Yes: WNL Neck: Yes: WNL Cardiovascular: Yes: Regular Rate and Rhythm Respiratory: Yes: Poor Air Entry Gastrointestinal: Yes: Normal Bowel Sounds ...Rectal Exam: Yes: Deferred Extremities: Yes: WNL Edema: No Neurological: Yes: Alert Labs: CBC, BMP 04/07/17 06:45 04/07/17 06:45 INR, PTT INR 1.83 (0.82-1.09) H D 04/05/17 06:30 Assessment/Plan Start clinimix
[2017-04-08] MEDS: ERTAPENEM SODIUM 1 GM in SODIUM CHLORIDE 50 ML IVPB SCH (09:43)
[2017-04-08] MEDS: INSULIN SLIDING SCALE (NOVOLOG) 1 VIAL SQ SCH ×3 (09:43→17:53)
[2017-04-08] MEDS: NYSTATIN POWDER 100,000 UNITS/GM - 15 GM TOPICAL POWDER TP SCH ×2 (09:43→22:00)
[2017-04-08] MEDS: POTASSIUM CHLORIDE ORAL LIQUID 20 MEQ/15 ML PO SCH ×2 (09:44→22:08)
[2017-04-08] MEDS: SODIUM BICARBONATE 650 MG TABLET PO SCH (09:44)
--- NOTE | 2017-04-08 09:59 | PN ---
Progress Note, [employer] - Note Progress Note: Asked by Renal to reassess swallowing. Nursing reported to him that "pt is gagging on foods but able to tolerate liquid intake no mouth pain ,no abd pain " CXR 04/04 suspected left lung PNA Selected Entries 04/05/17 04/05/17 04/05/17 05:59 07:45 08:30 Breakfast Lunch Supper Temperature 98.8 F 98.2 F 100.5 F H Pulse Rate 04/05/17 04/05/17 04/05/17 12:00 15:58 17:00 Breakfast Lunch Supper Temperature 102.5 F H 102.5 F H 100.5 F H Pulse Rate 04/05/17 04/06/17 04/06/17 18:00 06:00 10:00 Breakfast Lunch Supper Temperature 100.5 F H Pulse Rate 92 H 86 04/06/17 04/06/17 04/06/17 15:20 16:20 22:00 Breakfast Lunch Supper Temperature Pulse Rate 93 H 98 H 78 04/07/17 04/07/17 04/07/17 06:56 10:00 12:14 Breakfast 25% Lunch Supper Temperature 99.4 F 98.8 F Pulse Rate 04/07/17 04/07/17 04/08/17 14:47 21:13 06:00 Breakfast Lunch 25% Supper 0 Temperature 98.9 F Pulse Rate 95 H Laboratory Tests 04/05/17 04/07/17 06:30 06:45 WBC 11.6 H 15.6 H Pt reassessed with son present. Low volume due to weakness and reduced effort. Pt had ENT consult. VF are functioning per visualization. Refusing most PO intake. Gagging noted yesterday after she accepted a little food. Pt is on puree and thin. Eating/drinking very little. Pt's son reports she ate very little when she was at home. They delivered food to her from their diner, and she ate tiny amounts throughout the day. Accepted 1 sip of water, with much encouragement needed. Pt denies feeling depressed, although affect is flat and she wants to be left alone. Pt is a full code. Consider appetite stimulant? anti depressant? Discussed consideration of PEG insertion, if not medically contraindicated, to supplement PO intake. Follow up by palliative care.
[2017-04-08] MEDS ORDERED: AMINO ACIDS 4.25%/D5W 1,000 ML IV SCH (10:00)
[2017-04-08 13:20] LABS: CALCIUM 7.5 mg/dL (8.5-10.1); COCKROFT - GAULT 33.15; CREATININE 1.5 mg/dL (0.55-1.02); MAGNESIUM 1.8 mg/dL (1.8-2.4); PHOSPHOROUS 3.1 mg/dL (2.5-4.9)
--- NOTE | 2017-04-08 13:51 | PN ---
Progress Note (short form) - Note Progress Note: Renal Follow up for OSCAR on CKD Pt seen and examined at the bedside feels weak, requesting blood transfusion son at the bedside pt not taking in anything by mouth Vital Signs Temperature 97.9 F 04/08/17 06:00 Pulse Rate 95 H 04/08/17 06:00 Respiratory Rate 18 04/08/17 06:00 Blood Pressure 140/69 04/08/17 06:00 O2 Sat by Pulse Oximetry (%) 98 04/07/17 09:00 Intake & Output 04/05/17 04/06/17 04/07/17 04/08/17 23:59 23:59 23:59 23:59 Intake Total 500 2040 1440 Output Total 400 800 250 Balance 100 2040 640 -250 Weight 141 lb 3.2 oz 138 lb 8 oz 146 lb 4 oz 143 lb 4.8 oz Gen: NAD CVS: RRR, No M/R Lungs: dec bs at lung bases Abd: soft NT/ND Ext: trace LE edema, 1+ sacral edema : b/l nephrostomy tubes in place CBC, BMP 04/07/17 06:45 04/08/17 12:35 Laboratory Tests 04/05/17 04/05/17 04/08/17 06:30 19:45 12:35 Lactic Acid 2.1 H* Calcium 7.1 L 7.5 L Phosphorus 2.6 3.1 Magnesium 1.9 1.8 Albumin 1.1 L Current Medications Acetaminophen (Tylenol -) 650 mg PO Q6H PRN PRN Reason: FEVER OR PAIN Last Admin: 04/05/17 08:22 Dose: 650 mg Acetaminophen (Tylenol Suppository -) 650 mg [place] Q4H PRN PRN Reason: FEVER OR PAIN Last Admin: 04/07/17 17:45 Dose: 650 mg Diphenhydramine HCl (Benadryl -) 25 mg PO Q6H PRN PRN Reason: FOR ITCHING Ertapenem 1 gm/ Sodium (Chloride) 50 mls @ 100 mls/hr IVPB DAILY JADEN PRN Reason: Protocol Last Admin: 04/08/17 09:43 Dose: 100 mls/hr Potassium Chloride 40 meq/ (Amino Acids) 1,020 mls @ 84 mls/hr IVPB Q12H JADEN Insulin Aspart (Novolog Vial Sliding Scale -) 1 vial SQ TIDAC JADEN PRN Reason: Protocol Last Admin: 04/08/17 12:20 Dose: Not Given Miconazole Nitrate (Monistat-7 Vaginal Cream -) 1 applic VG HS [facility] Stop: 04/13/17 22:01 Last Admin: 04/07/17 21:56 Dose: 1 applic Mirtazapine (Remeron -) 15 mg PO HS [facility] Last Admin: 04/07/17 21:55 Dose: 15 mg Nystatin (Nystop Powder -) 1 applic TP BID [facility] Last Admin: 04/08/17 09:43 Dose: 1 applic Ondansetron HCl (Zofran Injection) 2 mg IVPB Q6H PRN PRN Reason: NAUSEA Last Admin: 03/25/17 17:24 Dose: 2 mg Potassium Chloride (Potassium Chloride Oral Liquid) 40 meq PO BID [facility] Stop: 04/09/17 22:01 Last Admin: 04/08/17 09:44 Dose: Not Given Silver Sulfadiazine (Silvadene -) 1 applic TP BID [facility] Last Admin: 04/07/17 12:00 Dose: 1 applic Sodium Bicarbonate (Sodium Bicarbonate -) 650 mg PO DAILY [facility] Last Admin: 04/08/17 09:44 Dose: Not Given A/P 76 year old Female with PMhx of Cevical Ca, S/p Radiation, Hyperlipidemia, Hypertension, Obstructive uropathy, s/p Bilateral percutaneous nephrostomy, admitted with fever, lethargy, shortness of breath. #Non-oliguric OSCAR on CKD renal function stable to start Clinimix today #Fever/Hypotension/Sepsis f/u blood cultures titrate Abx as per ID #Anion gap Metabolic acidosis with resp compensation continue oral bicarb once daily #Anemia Hgb stable #Pleural effusions on CT likely due to 3rd spacing from low albumin levels no resp distress Lasix PRN #Dysphagia recommended feeding tube as per s&s, no impediment to swallowing but pt with poor apatite Glenn Deluna DO
[2017-04-08] MEDS: POTASSIUM CHLORIDE 40 MEQ in AMINO ACIDS 4.25%/D5W 1,000 ML IVPB SCH (17:53)
[2017-04-08] MEDS: SILVER SULFADIAZINE 1% TOP CREAM 50 GM JAR TP SCH ×2 (17:53→22:16)
[2017-04-08] MEDS: MICONAZOLE NITRATE 2% VAGINAL CREAM 45 GM TUBE VG SCH (22:00)
[2017-04-08] MEDS: MIRTAZAPINE 15 MG TABLET (FP) PO SCH (22:09)
[2017-04-08] MEDS: ACETAMINOPHEN 650 MG SUPP.RECT PR PRN (22:30)
[2017-04-08 23:23] LABS: ARTERIAL BLOOD GAS BASE EXCESS -3.4 meq/l (-2-2); ARTERIAL BLOOD GAS pH 7.45 (7.35-7.45)
[2017-04-08] MEDS ORDERED: LORAZEPAM CARPU-JECT 2 MG/ML DISP.SYRIN IVPUSH ONE (23:23)
[2017-04-08] MEDS ORDERED: LORazepam 2 MG/ML SDV VIAL ONE ×2 (23:24→23:32)
[2017-04-08 23:27] LABS: ALLENS TEST POSITIVE; ART PUNCT SITE RIGHT RADIAL; LPM/O2% 100%; PT. ON O2? YES; TYPE OF O2 NONREBREATHER
[2017-04-08 23:28] LABS: ARTERIAL BLOOD GAS HCO3 19.4 meq/L (22-26)
[2017-04-08] MEDS ORDERED: IBUPROFEN 800 MG/8 ML IJ IVPB ONE (23:30)
[2017-04-08] MEDS ORDERED: ALBUTEROL SO4 2.5/IPRATROPIUM 0.5 INH SOL 3 ML VIAL.NEB. NEB PRN (23:30)
[2017-04-08] MEDS: IBUPROFEN 800 MG/8 ML IJ IVPB PRN (23:51)
[2017-04-09] LABS: BASOPHIL 0.4 % (0-2.0); MCH 25.4 pg (25.7-33.7); MEAN CELL VOLUME 81.9 fl (80-96); MEAN PLT VOLUME 7.5 fl (7.5-11.1); NEUTROPHILS 73.8 % (42.8-82.8); PLATELET COUNT 230 K/MM3 (134-434); RDW 16.6 % (11.6-15.6); WHITE BLOOD COUNT 12.1 K/mm3 (4.0-10.0)
[2017-04-09] MEDS ORDERED: SODIUM CHLORIDE 250 ML IV STA (00:10)
[2017-04-09] MEDS ORDERED: SODIUM CHLORIDE 1,000 ML IV STA (00:11)
[2017-04-09 00:28] LABS: ALK PHOS 365 U/L (45-117); ANION GAP 13 (8-16); BILIRUBIN,TOTAL 0.3 mg/dL (0.2-1.0); CALCIUM 7.2 mg/dL (8.5-10.1); CO2 20 mmol/L (21-32); COCKROFT - GAULT 29.75; CREATININE 1.7 mg/dL (0.55-1.02); GLUCOSE,RANDOM 153 mg/dL (74-106); MAGNESIUM 1.6 mg/dL (1.8-2.4); PHOSPHOROUS 2.4 mg/dL (2.5-4.9); SGOT/AST 53 U/L (15-37); SGPT/ALT 21 U/L (12-78); TOT PROT 4.4 g/dl (6.4-8.2)
[2017-04-09 00:30] LABS: TROPONIN I < 0.02 ng/ml (0.00-0.05)
--- NOTE | 2017-04-09 00:42 | RAPID ---
Physical Examination Vital Signs: Vital Signs Temperature 104.2 F H 04/08/17 22:00 Pulse Rate 126 H 04/08/17 22:00 Respiratory Rate 22 04/08/17 22:00 Blood Pressure 111/60 04/08/17 22:00 O2 Sat by Pulse Oximetry (%) 99 04/08/17 09:00 Findings/Remarks: Called to evaluate patient with fever of 104 F Constitutional: Yes: Diaphoresis, Other (acut respiratory distress, labored breathing) Eyes: Yes: Other (eyes rolled back in head) Cardiovascular: Yes: Regular Rate and Rhythm, Tachycardia, Murmur, S1, S2 Respiratory: Yes: Diminished, On Venti-Mask, Rhonchi, Other (very course breath sounds anterior and posterior) Gastrointestinal: Yes: Normal Bowel Sounds, Soft ...Rectal Exam: Yes: Deferred Renal/: Yes: Other (bilateral nephrostomy tubes with cloudy yellow) Edema: Yes Edema: LUE: 1+, RUE: 1+, LLE: 2+, RLE: 2+ Peripheral Pulses WNL: Yes Peripheral Pulses: Left Radial: 2+, Right Radial: 2+, Left Doralis Pedis: 0 ( non palpable due to edema), Right Dorsalis Pedis: 0 Integumentary: Yes: WNL (vaginal erythema) Neurological: Yes: Lethargy, Unresponsive Labs: CBC, BMP 04/08/17 23:45 04/08/17 23:45 Rapid Response - Rapid Response Assessment: Microbiology 04/05/17 14:10 Blood - Peripheral Venous Blood Culture - Final Bacteroides Fragilis 04/05/17 15:15 Urine - Urine Nephrostomy Tube Urine Culture - Preliminary Group D Strep Or Entero Coccus Yeast Like Organism 04/05/17 16:00 Urine - Urine - Catheterized Urine Culture - Final NO GROWTH OBTAINED 04/05/17 14:00 Blood - Peripheral Venous Blood Culture - Preliminary Pending Organism 04/03/17 18:00 Urine - Urine Nephrostomy Tube Urine Culture - Final NO GROWTH OBTAINED 03/20/17 18:20 Blood - Peripheral Venous Blood Culture - Final NO GROWTH AFTER 5 DAYS INCUBATION 03/20/17 18:20 Blood - Peripheral Venous Blood Culture - Final NO GROWTH AFTER 5 DAYS INCUBATION 03/22/17 03:50 Urine - Urine Nephrostomy Tube Urine Culture - Final Yeast Like Organism 03/21/17 19:57 Urine - Urine Nephrostomy Tube Urine Culture - Final NO GROWTH OBTAINED 03/20/17 19:48 Urine - Urine Nephrostomy Tube Urine Culture - Final NO GROWTH OBTAINED 76 year old Female with PMhx of Cevical Ca, S/p Radiation, Hyperlipidemia, Hypertension, Obstructive uropathy, s/p Bilateral percutaneous nephrostomy, admitted with fever, lethargy, shortness of breath. Patient being treated for gram negative bacteremia on ertapenam. Rapid response called to evaluate patient with fever of 104F. When entering room , she was unresponsive with eyes rolled in back of head. Tylenol 650mg suppository was given before arrival. Upon exam of the patient, she was on 2L NC saturating 96%,auscultation reveals very coarse breath sounds. ABG drawn, venti mask 100% put on. IV ibuprofen 650mg given. Few minuets later she started to have a seizure, 2mg IV push Ativan was given, seizure resolved. Fever trending down. Patient became hypotensive was given fluid challenge 250cc with adequate bp response. #unresponsive with fever 104 with subsequent seizure: -sepsis work up -IVF 250cc bolus -stat, cbc, cmp, lactic acid 1.9 -f/u repeat blood cultures -stat portable cxr -dunebs given -already on IV Ertapenam #seizure secondary to high fever: -resolved with ativan 2mg IV push #DNR/DNI Discussed with family and health care proxy goals of care; healthcare proxy made patient DNR/DNI; witnessed and documented.
[2017-04-09] MEDS ORDERED: MAGNESIUM SULF 50% (8.12 MEQ/2 ML-1 GM VIAL) IVPB ONE (02:12)
--- NOTE | 2017-04-09 02:28 | HOSP ---
Subjective - Review of Symptoms Events since last encounter: Discussed with family the patient CXR; my preliminary reading of right lung worsening infiltrate suggestive for pneumonia and inc left lung marking suggestive of congestion. Follow up official report. I also Discussed with family patient status and current treatment plan. Answered all of their questions at this time. Physical Examination Vital Signs: Vital Signs Temperature 104.2 F H 04/08/17 22:00 Pulse Rate 126 H 04/08/17 22:00 Respiratory Rate 22 04/08/17 22:00 Blood Pressure 111/60 04/08/17 22:00 O2 Sat by Pulse Oximetry (%) 99 04/08/17 09:00 Labs: CBC, BMP 04/08/17 23:45 04/08/17 23:45 Visit type - Emergency Visit Emergency Visit: Yes ED Registration Date: 03/20/17 Care time: The patient presented to the Emergency Department on the above date and was hospitalized for further evaluation of their emergent condition. - New Patient This patient is new to me today: Yes Date on this admission: 03/20/17 - Critical Care Critical Care patient: Yes Total Critical Care Time (in minutes): 30 Critical Care Statement: The care of this patient involved high complexity decision making to prevent further life threatening deterioration of the patient 's condition and/or to evalute & treat vital organ system(s) failure or risk of failure.
[2017-04-09 07:12] LABS: BASOPHIL 0.4 % (0-2.0); EOSINOPHIL 0.6 % (0-4.5); MCH 26.3 pg (25.7-33.7); MCHC 32.2 g/dl (32.0-36.0); MEAN CELL VOLUME 81.7 fl (80-96); MEAN PLT VOLUME 7.4 fl (7.5-11.1); NEUTROPHILS 76.3 % (42.8-82.8); PLATELET COUNT 200 K/MM3 (134-434); RDW 16.5 % (11.6-15.6); WHITE BLOOD COUNT 8.6 K/mm3 (4.0-10.0)
[2017-04-09 07:50] LABS: CALCIUM 7.2 mg/dL (8.5-10.1); COCKROFT - GAULT 29.75; CREATININE 1.7 mg/dL (0.55-1.02); MAGNESIUM 2.2 mg/dL (1.8-2.4); PHOSPHOROUS 2.3 mg/dL (2.5-4.9)
--- NOTE | 2017-04-09 08:51 | PN ---
Progress Note, Physician Chief Complaint: not responding to verbal commands History of Present Illness: Last night patient had spiked fever 145.5 also becane hypotensive Rapid response team responded DNR made by family - Current Medication List Current Medications: Active Medications Acetaminophen (Tylenol -) 650 mg PO Q6H PRN PRN Reason: FEVER OR PAIN Last Admin: 04/05/17 08:22 Dose: 650 mg Acetaminophen (Tylenol Suppository -) 650 mg [place] Q4H PRN PRN Reason: FEVER OR PAIN Last Admin: 04/08/17 22:30 Dose: 650 mg Albuterol/Ipratropium (Duoneb -) 1 amp NEB Q4H PRN PRN Reason: SHORTNESS OF BREATH Last Admin: 04/08/17 23:53 Dose: 1 amp Diphenhydramine HCl (Benadryl -) 25 mg PO Q6H PRN PRN Reason: FOR ITCHING Ertapenem 1 gm/ Sodium (Chloride) 50 mls @ 100 mls/hr IVPB DAILY JADEN PRN Reason: Protocol Last Admin: 04/08/17 09:43 Dose: 100 mls/hr Potassium Chloride 40 meq/ (Amino Acids) 1,020 mls @ 84 mls/hr IVPB Q12H [facility] Last Admin: 04/08/17 17:53 Dose: 84 mls/hr Ibuprofen (Caldolor Injection -) 600 mg IVPB Q6H PRN PRN Reason: FEVER Last Admin: 04/08/17 23:51 Dose: 600 mg Insulin Aspart (Novolog Vial Sliding Scale -) 1 vial SQ TIDAC JADEN PRN Reason: Protocol Last Admin: 04/08/17 17:53 Dose: Not Given Miconazole Nitrate (Monistat-7 Vaginal Cream -) 1 applic VG [facility] Stop: 04/13/17 22:01 Last Admin: 04/08/17 22:00 Dose: 1 applic Mirtazapine (Remeron -) 15 mg PO HS [facility] Last Admin: 04/08/17 22:09 Dose: Not Given Nystatin (Nystop Powder -) 1 applic TP BID [facility] Last Admin: 04/08/17 22:00 Dose: 1 applic Ondansetron HCl (Zofran Injection) 2 mg IVPB Q6H PRN PRN Reason: NAUSEA Last Admin: 03/25/17 17:24 Dose: 2 mg Potassium Chloride (Potassium Chloride Oral Liquid) 40 meq PO BID [facility] Stop: 04/09/17 22:01 Last Admin: 04/08/17 22:08 Dose: Not Given Potassium Phos/Sodium Phos (Phos-Nak Packet -) 1 packet PO TID [facility] Silver Sulfadiazine (Silvadene -) 1 applic TP BID [facility] Last Admin: 04/08/17 22:16 Dose: 1 applic Sodium Bicarbonate (Sodium Bicarbonate -) 650 mg PO DAILY [facility] Last Admin: 04/08/17 09:44 Dose: Not Given - Objective Vital Signs: Vital Signs Temperature 99.7 F H 04/09/17 05:56 Pulse Rate 95 H 04/09/17 05:56 Respiratory Rate 20 04/09/17 05:56 Blood Pressure 92/54 04/09/17 05:56 O2 Sat by Pulse Oximetry (%) 99 04/08/17 21:00 Constitutional: Yes: Mild Distress HENT: Yes: WNL Neck: Yes: WNL Cardiovascular: Yes: Tachycardia Respiratory: Yes: On Venti-Mask Genitourinary: Yes: WNL Musculoskeletal: Yes: Muscle Weakness Edema: No Labs: CBC, BMP 04/09/17 06:00 04/09/17 06:00 INR, PTT INR 1.83 (0.82-1.09) H D 04/05/17 06:30 Assessment/Plan supportive care
[2017-04-09] MEDS: ERTAPENEM SODIUM 1 GM in SODIUM CHLORIDE 50 ML IVPB SCH (11:04)
[2017-04-09] MEDS: SILVER SULFADIAZINE 1% TOP CREAM 50 GM JAR TP SCH ×3 (12:00→21:47)
[2017-04-09] MEDS: POTASSIUM CHLORIDE ORAL LIQUID 20 MEQ/15 ML PO SCH ×2 (12:12→21:56)
[2017-04-09] MEDS: SODIUM BICARBONATE 650 MG TABLET PO SCH (12:12)
[2017-04-09] MEDS: IBUPROFEN 800 MG/8 ML IJ IVPB PRN ×2 (12:20→19:45)
[2017-04-09] MEDS: POTASSIUM CHLORIDE 40 MEQ in AMINO ACIDS 4.25%/D5W 1,000 ML IVPB SCH ×3 (12:21→16:25)
[2017-04-09] MEDS: KCL 10 MEQ IVPB 100 ML IVPB SCH (12:21)
[2017-04-09] MEDS: INSULIN SLIDING SCALE (NOVOLOG) 1 VIAL SQ SCH ×3 (12:22→17:27)
[2017-04-09] MEDS: NAPH,MB-DB/K PH,MBDB POWDER PACKET PO SCH ×3 (12:22→21:48)
--- NOTE | 2017-04-09 13:35 | PN ---
Progress Note, Physician History of Present Illness: patient stable no new issues - Current Medication List Current Medications: Active Medications Acetaminophen (Tylenol -) 650 mg PO Q6H PRN PRN Reason: FEVER OR PAIN Last Admin: 04/05/17 08:22 Dose: 650 mg Acetaminophen (Tylenol Suppository -) 650 mg [place] Q4H PRN PRN Reason: FEVER OR PAIN Last Admin: 04/08/17 22:30 Dose: 650 mg Albuterol/Ipratropium (Duoneb -) 1 amp NEB Q4H PRN PRN Reason: SHORTNESS OF BREATH Last Admin: 04/08/17 23:53 Dose: 1 amp Diphenhydramine HCl (Benadryl -) 25 mg PO Q6H PRN PRN Reason: FOR ITCHING Ertapenem 1 gm/ Sodium (Chloride) 50 mls @ 100 mls/hr IVPB DAILY JADEN PRN Reason: Protocol Last Admin: 04/09/17 11:04 Dose: 100 mls/hr Potassium Chloride 40 meq/ (Amino Acids) 1,020 mls @ 84 mls/hr IVPB Q12H [facility] Last Admin: 04/09/17 12:21 Dose: 84 mls/hr Ibuprofen (Caldolor Injection -) 600 mg IVPB Q6H PRN PRN Reason: FEVER Last Admin: 04/09/17 12:20 Dose: 600 mg Insulin Aspart (Novolog Vial Sliding Scale -) 1 vial SQ TIDAC JADEN PRN Reason: Protocol Last Admin: 04/09/17 12:22 Dose: Not Given Miconazole Nitrate (Monistat-7 Vaginal Cream -) 1 applic VG HS [facility] Stop: 04/13/17 22:01 Last Admin: 04/08/17 22:00 Dose: 1 applic Mirtazapine (Remeron -) 15 mg PO HS [facility] Last Admin: 04/08/17 22:09 Dose: Not Given Nystatin (Nystop Powder -) 1 applic TP BID [facility] Last Admin: 04/08/17 22:00 Dose: 1 applic Ondansetron HCl (Zofran Injection) 2 mg IVPB Q6H PRN PRN Reason: NAUSEA Last Admin: 03/25/17 17:24 Dose: 2 mg Potassium Chloride (Potassium Chloride Oral Liquid) 40 meq PO BID [facility] Stop: 04/09/17 22:01 Last Admin: 04/09/17 12:12 Dose: Not Given Potassium Phos/Sodium Phos (Phos-Nak Packet -) 1 packet PO TID [facility] Last Admin: 04/09/17 12:22 Dose: Not Given Silver Sulfadiazine (Silvadene -) 1 applic TP BID [facility] Last Admin: 04/08/17 22:16 Dose: 1 applic Sodium Bicarbonate (Sodium Bicarbonate -) 650 mg PO DAILY [facility] Last Admin: 04/09/17 12:12 Dose: Not Given - Objective Vital Signs: Vital Signs Temperature 98.1 F 04/09/17 10:00 Pulse Rate 86 04/09/17 10:00 Respiratory Rate 18 04/09/17 10:00 Blood Pressure 112/53 04/09/17 10:00 O2 Sat by Pulse Oximetry (%) 99 04/08/17 21:00 Constitutional: Yes: No Distress, Calm Cardiovascular: Yes: S1, S2 Respiratory: Yes: Regular, CTA Bilaterally Gastrointestinal: Yes: Normal Bowel Sounds, Soft Musculoskeletal: Yes: Other Extremities: Yes: Other Neurological: Yes: Alert Psychiatric: Yes: Alert Labs: CBC, BMP 04/09/17 06:00 04/09/17 06:00 INR, PTT INR 1.83 (0.82-1.09) H D 04/05/17 06:30 Assessment/Plan uti neck pain anemia dehydration cancer fever leukocytosis gm negative bacteremia plan continue current mgmt continue abx await for urine cx sensitivities rest ct current mgmt
--- NOTE | 2017-04-09 13:41 | PN ---
Progress Note, Physician History of Present Illness: events noted from last night patient with high fevers and seizure like activity patient septic now little better rapid response note noted - Current Medication List Current Medications: Active Medications Acetaminophen (Tylenol -) 650 mg PO Q6H PRN PRN Reason: FEVER OR PAIN Last Admin: 04/05/17 08:22 Dose: 650 mg Acetaminophen (Tylenol Suppository -) 650 mg [place] Q4H PRN PRN Reason: FEVER OR PAIN Last Admin: 04/08/17 22:30 Dose: 650 mg Albuterol/Ipratropium (Duoneb -) 1 amp NEB Q4H PRN PRN Reason: SHORTNESS OF BREATH Last Admin: 04/08/17 23:53 Dose: 1 amp Diphenhydramine HCl (Benadryl -) 25 mg PO Q6H PRN PRN Reason: FOR ITCHING Ertapenem 1 gm/ Sodium (Chloride) 50 mls @ 100 mls/hr IVPB DAILY JADEN PRN Reason: Protocol Last Admin: 04/09/17 11:04 Dose: 100 mls/hr Potassium Chloride 40 meq/ (Amino Acids) 1,020 mls @ 84 mls/hr IVPB Q12H JADEN Last Admin: 04/09/17 12:21 Dose: 84 mls/hr Ibuprofen (Caldolor Injection -) 600 mg IVPB Q6H PRN PRN Reason: FEVER Last Admin: 04/09/17 12:20 Dose: 600 mg Insulin Aspart (Novolog Vial Sliding Scale -) 1 vial SQ TIDAC JADEN PRN Reason: Protocol Last Admin: 04/09/17 12:22 Dose: Not Given Miconazole Nitrate (Monistat-7 Vaginal Cream -) 1 applic VG HS [facility] Stop: 04/13/17 22:01 Last Admin: 04/08/17 22:00 Dose: 1 applic Mirtazapine (Remeron -) 15 mg PO HS [facility] Last Admin: 04/08/17 22:09 Dose: Not Given Nystatin (Nystop Powder -) 1 applic TP BID [facility] Last Admin: 04/08/17 22:00 Dose: 1 applic Ondansetron HCl (Zofran Injection) 2 mg IVPB Q6H PRN PRN Reason: NAUSEA Last Admin: 03/25/17 17:24 Dose: 2 mg Potassium Chloride (Potassium Chloride Oral Liquid) 40 meq PO BID [facility] Stop: 04/09/17 22:01 Last Admin: 04/09/17 12:12 Dose: Not Given Potassium Phos/Sodium Phos (Phos-Nak Packet -) 1 packet PO TID [facility] Last Admin: 04/09/17 12:22 Dose: Not Given Silver Sulfadiazine (Silvadene -) 1 applic TP BID [facility] Last Admin: 04/08/17 22:16 Dose: 1 applic Sodium Bicarbonate (Sodium Bicarbonate -) 650 mg PO DAILY [facility] Last Admin: 04/09/17 12:12 Dose: Not Given - Objective Vital Signs: Vital Signs Temperature 98.1 F 04/09/17 10:00 Pulse Rate 86 04/09/17 10:00 Respiratory Rate 18 04/09/17 10:00 Blood Pressure 112/53 04/09/17 10:00 O2 Sat by Pulse Oximetry (%) 99 04/08/17 21:00 Constitutional: Yes: No Distress, Calm Cardiovascular: Yes: S1, S2 Respiratory: Yes: Regular, CTA Bilaterally Gastrointestinal: Yes: Normal Bowel Sounds, Soft Musculoskeletal: Yes: Other Extremities: Yes: Other Neurological: Yes: Alert Psychiatric: Yes: Alert Labs: CBC, BMP 04/09/17 06:00 04/09/17 06:00 INR, PTT INR 1.83 (0.82-1.09) H D 04/05/17 06:30 Assessment/Plan uti neck pain anemia dehydration cancer fever leukocytosis gm negative bacteremia sepsis organism and sensitivities note patient probably becoming septic from the urine organism blood cx still awaited will continue meropenam will add zyox
--- NOTE | 2017-04-09 13:47 | PN ---
Progress Note, Physician History of Present Illness: The patient continues to be febrile. Minimally responsive. Family visiting. Bilateral Nephrolostomy tubes draining cloudy urine. - Current Medication List Current Medications: Active Medications Acetaminophen (Tylenol -) 650 mg PO Q6H PRN PRN Reason: FEVER OR PAIN Last Admin: 04/05/17 08:22 Dose: 650 mg Acetaminophen (Tylenol Suppository -) 650 mg ID Q4H PRN PRN Reason: FEVER OR PAIN Last Admin: 04/08/17 22:30 Dose: 650 mg Albuterol/Ipratropium (Duoneb -) 1 amp NEB Q4H PRN PRN Reason: SHORTNESS OF BREATH Last Admin: 04/08/17 23:53 Dose: 1 amp Diphenhydramine HCl (Benadryl -) 25 mg PO Q6H PRN PRN Reason: FOR ITCHING Ertapenem 1 gm/ Sodium (Chloride) 50 mls @ 100 mls/hr IVPB DAILY JADEN PRN Reason: Protocol Last Admin: 04/09/17 11:04 Dose: 100 mls/hr Potassium Chloride 40 meq/ (Amino Acids) 1,020 mls @ 84 mls/hr IVPB Q12H [facility] Last Admin: 04/09/17 12:21 Dose: 84 mls/hr Ibuprofen (Caldolor Injection -) 600 mg IVPB Q6H PRN PRN Reason: FEVER Last Admin: 04/09/17 12:20 Dose: 600 mg Insulin Aspart (Novolog Vial Sliding Scale -) 1 vial SQ TIDAC JADEN PRN Reason: Protocol Last Admin: 04/09/17 12:22 Dose: Not Given Miconazole Nitrate (Monistat-7 Vaginal Cream -) 1 applic VG HS [facility] Stop: 04/13/17 22:01 Last Admin: 04/08/17 22:00 Dose: 1 applic Mirtazapine (Remeron -) 15 mg PO HS [facility] Last Admin: 04/08/17 22:09 Dose: Not Given Nystatin (Nystop Powder -) 1 applic TP BID [facility] Last Admin: 04/08/17 22:00 Dose: 1 applic Ondansetron HCl (Zofran Injection) 2 mg IVPB Q6H PRN PRN Reason: NAUSEA Last Admin: 03/25/17 17:24 Dose: 2 mg Potassium Chloride (Potassium Chloride Oral Liquid) 40 meq PO BID [facility] Stop: 04/09/17 22:01 Last Admin: 04/09/17 12:12 Dose: Not Given Potassium Phos/Sodium Phos (Phos-Nak Packet -) 1 packet PO TID [facility] Last Admin: 04/09/17 12:22 Dose: Not Given Silver Sulfadiazine (Silvadene -) 1 applic TP BID [facility] Last Admin: 04/08/17 22:16 Dose: 1 applic Sodium Bicarbonate (Sodium Bicarbonate -) 650 mg PO DAILY [facility] Last Admin: 04/09/17 12:12 Dose: Not Given - Objective Vital Signs: Vital Signs Temperature 98.1 F 04/09/17 10:00 Pulse Rate 86 04/09/17 10:00 Respiratory Rate 18 04/09/17 10:00 Blood Pressure 112/53 04/09/17 10:00 O2 Sat by Pulse Oximetry (%) 99 04/08/17 21:00 Constitutional: Yes: Calm Eyes: Yes: Conjunctiva Clear HENT: Yes: Normocephalic Neck: Yes: Trachea Midline, Decreased ROM Cardiovascular: Yes: Regular Rate and Rhythm, S1, S2 Respiratory: Yes: CTA Bilaterally Gastrointestinal: Yes: Normal Bowel Sounds Genitourinary: Yes: Other (Bilateral Percutaneous nephrostomy tube in place.) Neurological: Yes: Alert, Oriented Psychiatric: Yes: Oriented Labs: CBC, BMP 04/09/17 06:00 04/09/17 06:00 INR, PTT INR 1.83 (0.82-1.09) H D 04/05/17 06:30 Problem List - Problems (1) OSCAR (acute kidney injury) Code(s): N17.9 - ACUTE KIDNEY FAILURE, UNSPECIFIED (2) Acute on chronic kidney failure Code(s): N17.9 - ACUTE KIDNEY FAILURE, UNSPECIFIED N18.9 - CHRONIC KIDNEY DISEASE, UNSPECIFIED (3) Fever Code(s): R50.9 - FEVER, UNSPECIFIED (4) Sepsis Code(s): A41.9 - SEPSIS, UNSPECIFIED ORGANISM (5) Anemia Code(s): D64.9 - ANEMIA, UNSPECIFIED Qualifiers: Qualified Code(s): D64.9 - Anemia, unspecified (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 has worsening pulmonary infiltrate The renal functions are stable. Mental status minimally improved. IV antibiotics as ordered. Discussed with Dr. Medina. Will monitor the renal functions with you. Jennifer Gardner MD
[2017-04-09] MEDS: NYSTATIN POWDER 100,000 UNITS/GM - 15 GM TOPICAL POWDER TP SCH ×2 (14:00→21:47)
[2017-04-09] MEDS ORDERED: LINEZOLID 600 MG PREMIX BAG 600 MG in PREMIX 300 IVPB SCH (15:30)
[2017-04-09] MEDS ORDERED: LINEZOLID 600 MG PREMIX BAG 300 ML IVPB SCH (15:49)
[2017-04-09] MEDS: MICONAZOLE NITRATE 2% VAGINAL CREAM 45 GM TUBE VG SCH (21:47)
[2017-04-09] MEDS ORDERED: PT OWN MED DRAWER 7, Y5N ONE (22:26)
[2017-04-10] MEDS: POTASSIUM CHLORIDE 40 MEQ in AMINO ACIDS 4.25%/D5W 1,000 ML IVPB SCH (03:27)
[2017-04-10] MEDS: INSULIN SLIDING SCALE (NOVOLOG) 1 VIAL SQ SCH (06:38)
[2017-04-10] MEDS: NAPH,MB-DB/K PH,MBDB POWDER PACKET PO SCH (06:39)
[2017-04-10] MEDS ORDERED: LORazepam 2 MG/ML SDV VIAL ONE (08:37)
[2017-04-10] MEDS ORDERED: LORazepam 2 MG/ML SDV VIAL IVPUSH ONE (08:45)
--- NOTE | 2017-04-10 08:46 | RAPID ---
Physical Examination Vital Signs: Vital Signs Temperature 98.8 F 04/09/17 17:37 Pulse Rate 97 H 04/09/17 17:37 Respiratory Rate 20 04/09/17 17:37 Blood Pressure 94/48 04/09/17 17:37 O2 Sat by Pulse Oximetry (%) 99 04/09/17 21:00 Findings/Remarks: Rapid response called. Patient found lying supine in bed. Nursing staff reported they were summoned by patient's son who observed seizure-type activity. When they arrived they also observed seizure activity: tremors and shaking of the RUE and head and facial grimacing. Constitutional: Yes: Pallor Cardiovascular: Yes: S1, S2 Respiratory: Yes: Other (Sonorous breath sounds bilaterally) Edema: Yes Edema: LUE: 2+, RUE: 2+, LLE: 2+, RLE: 1+ Neurological: Yes: Seizure (Facial grimacing, deviated gaze) Labs: CBC, BMP 04/09/17 06:00 04/09/17 06:00 Rapid Response - Rapid Response Assessment: Seizures --Ativan 2mg x 1 given --start Keppra IV 500mg BID Hypotension likely secondary to septic shock --BP dropped to 70/30, bolus NS x 1L and monitor --CXR pending --cbc, cmp, Mg, lactic acid pending Dispo: Son present and daughter on phone. They confirmed patient is DNR/DNI. Written order in chart. Informed Dr. Jones of events.
[2017-04-10 09:23] LABS: MEAN PLT VOLUME 7.7 fl (7.5-11.1)
[2017-04-10 09:25] LABS: MCH 26.4 pg (25.7-33.7); MCHC 31.4 g/dl (32.0-36.0); MEAN CELL VOLUME 83.8 fl (80-96); PLATELET COUNT 247 K/MM3 (134-434); RDW 17.1 % (11.6-15.6); WHITE BLOOD COUNT 16.5 K/mm3 (4.0-10.0)
[2017-04-10] MEDS ORDERED: morphine CARPU-JECT 2 MG/1 ML DISP.SYRIN IVPUSH ONE (09:36)
--- NOTE | 2017-04-10 09:50 | HOSP ---
Subjective - Review of Symptoms Events since last encounter: Re-evaluated patient following rapid response. Unresponsive. Labored breathing with accessory muscle use on NRB 100%. Son, , and granddaughter present. All agreed to comfort measures only. Morphine 2mg x 1 ordered. Morphine drip. No further blood draws, fingersticks. Stop antibiotics. Will continue anti- seizure meds, anti-emetics, tylenol/motrin for fever. Spoke with Dr. Jones and he agrees. Physical Examination Vital Signs: Vital Signs Temperature 98.8 F 04/09/17 17:37 Pulse Rate 97 H 04/09/17 17:37 Respiratory Rate 20 04/09/17 17:37 Blood Pressure 94/48 04/09/17 17:37 O2 Sat by Pulse Oximetry (%) 99 04/09/17 21:00 Labs: CBC, BMP 04/10/17 08:57
[2017-04-10 09:59] LABS: ALBUMIN 1.1 g/dl (3.4-5.0); BILIRUBIN,TOTAL 0.4 mg/dL (0.2-1.0); CALCIUM 7.5 mg/dL (8.5-10.1); COCKROFT - GAULT 24.65; TOT PROT 4.7 g/dl (6.4-8.2)
[2017-04-10] MEDS: levETIRAcetam 500 MG/5 ML INJECTION VIAL IVPB SCH ×2 (10:43→21:26)
[2017-04-10] MEDS: NYSTATIN POWDER 100,000 UNITS/GM - 15 GM TOPICAL POWDER TP SCH ×2 (10:44→21:32)
[2017-04-10] MEDS: SODIUM CHLORIDE 1,000 ML IV SCH (10:44)
[2017-04-10] MEDS: MORPHINE 100 MG in SODIUM CHLORIDE 98 ML IVPB SCH (11:16)
--- NOTE | 2017-04-10 12:22 | PN ---
Progress Note, Physician History of Present Illness: events noted from last night patient continues to have seizure like activity - Current Medication List Current Medications: Active Medications Acetaminophen (Tylenol Suppository -) 650 mg ND Q4H PRN PRN Reason: FEVER OR PAIN Last Admin: 04/08/17 22:30 Dose: 650 mg Morphine Sulfate 100 mg/ (Sodium Chloride) 100 mls @ 1 mls/hr IVPB TITR JADEN; 1 MG/HR PRN Reason: Protocol Sodium Chloride (Normal Saline -) 1,000 mls @ 21 mls/hr IV ASDIR JADEN Last Admin: 04/10/17 10:44 Dose: 21 mls/hr Ibuprofen (Caldolor Injection -) 600 mg IVPB Q6H PRN PRN Reason: FEVER Last Admin: 04/09/17 19:45 Dose: 600 mg Levetiracetam (Keppra Injection -) 500 mg IVPB BID [facility]ADEN Last Admin: 04/10/17 10:43 Dose: 500 mg Nystatin (Nystop Powder -) 1 applic TP BID [facility]ADEN Last Admin: 04/10/17 10:44 Dose: 1 applic Ondansetron HCl (Zofran Injection) 2 mg IVPB Q6H PRN PRN Reason: NAUSEA Last Admin: 03/25/17 17:24 Dose: 2 mg - Objective Vital Signs: Vital Signs Temperature 98.8 F 04/09/17 17:37 Pulse Rate 97 H 04/09/17 17:37 Respiratory Rate 20 04/09/17 17:37 Blood Pressure 94/48 04/09/17 17:37 O2 Sat by Pulse Oximetry (%) 99 04/09/17 21:00 Constitutional: Yes: Other Cardiovascular: Yes: S1, S2 Respiratory: Yes: Regular, Poor Air Entry Gastrointestinal: Yes: Normal Bowel Sounds, Soft Musculoskeletal: Yes: Other Extremities: Yes: Other Neurological: Yes: Unresponsive, Other (seizure llike activity) Labs: CBC, BMP 04/10/17 08:57 04/10/17 08:57 INR, PTT INR 1.83 (0.82-1.09) H D 04/05/17 06:30 Assessment/Plan uti neck pain anemia dehydration cancer fever leukocytosis gm negative bacteremia sepsis organism and sensitivities note blood cx result noted ct abx rest as per primary might get neurology
--- NOTE | 2017-04-10 13:56 | PN ---
Progress Note, Physician Chief Complaint: Not responding History of Present Illness: On morphine IV - Current Medication List Current Medications: Active Medications Acetaminophen (Tylenol Suppository -) 650 mg IN Q4H PRN PRN Reason: FEVER OR PAIN Last Admin: 04/08/17 22:30 Dose: 650 mg Morphine Sulfate 100 mg/ (Sodium Chloride) 100 mls @ 1 mls/hr IVPB TITR JADEN; 1 MG/HR PRN Reason: Protocol Sodium Chloride (Normal Saline -) 1,000 mls @ 21 mls/hr IV ASDIR JADEN Last Admin: 04/10/17 10:44 Dose: 21 mls/hr Levetiracetam (Keppra Injection -) 500 mg IVPB BID [facility]ADEN Last Admin: 04/10/17 10:43 Dose: 500 mg Nystatin (Nystop Powder -) 1 applic TP BID [facility]EN Last Admin: 04/10/17 10:44 Dose: 1 applic Ondansetron HCl (Zofran Injection) 2 mg IVPB Q6H PRN PRN Reason: NAUSEA Last Admin: 03/25/17 17:24 Dose: 2 mg - Objective Vital Signs: Vital Signs Temperature 98.8 F 04/09/17 17:37 Pulse Rate 97 H 04/09/17 17:37 Respiratory Rate 20 04/09/17 17:37 Blood Pressure 94/48 04/09/17 17:37 O2 Sat by Pulse Oximetry (%) 99 04/09/17 21:00 Constitutional: Yes: No Distress Cardiovascular: Yes: Tachycardia Respiratory: Yes: Poor Air Entry ...Rectal Exam: Yes: Deferred Genitourinary: Yes: WNL Edema: Yes Edema: LUE: 2+, RUE: 2+, LLE: 2+, RLE: 2+ Labs: CBC, BMP 04/10/17 08:57 04/10/17 08:57 INR, PTT INR 1.83 (0.82-1.09) H D 04/05/17 06:30 Assessment/Plan Palliative care
--- NOTE | 2017-04-10 14:02 | PN ---
Progress Note, Physician Chief Complaint: Events from earlier today reviewed. The patient had a seizure. History of Present Illness: The patient afebrile. Cloudy urine from the nephrostomy tube. On IV antibiotics. - Current Medication List Current Medications: Active Medications Acetaminophen (Tylenol Suppository -) 650 mg [place] Q4H PRN PRN Reason: FEVER OR PAIN Last Admin: 04/08/17 22:30 Dose: 650 mg Morphine Sulfate 100 mg/ (Sodium Chloride) 100 mls @ 1 mls/hr IVPB TITR JADEN; 1 MG/HR PRN Reason: Protocol Sodium Chloride (Normal Saline -) 1,000 mls @ 21 mls/hr IV ASDIR JADEN Last Admin: 04/10/17 10:44 Dose: 21 mls/hr Levetiracetam (Keppra Injection -) 500 mg IVPB BID [facility] Last Admin: 04/10/17 10:43 Dose: 500 mg Nystatin (Nystop Powder -) 1 applic TP BID [facility] Last Admin: 04/10/17 10:44 Dose: 1 applic Ondansetron HCl (Zofran Injection) 2 mg IVPB Q6H PRN PRN Reason: NAUSEA Last Admin: 03/25/17 17:24 Dose: 2 mg - Objective Vital Signs: Vital Signs Temperature 98.8 F 04/09/17 17:37 Pulse Rate 97 H 04/09/17 17:37 Respiratory Rate 20 04/09/17 17:37 Blood Pressure 94/48 04/09/17 17:37 O2 Sat by Pulse Oximetry (%) 99 04/09/17 21:00 Constitutional: Yes: Mild Distress Cardiovascular: Yes: S1, S2 Respiratory: Yes: Diminished, Rhonchi Gastrointestinal: Yes: Soft Labs: CBC, BMP 04/10/17 08:57 04/10/17 08:57 INR, PTT INR 1.83 (0.82-1.09) H D 04/05/17 06:30 Problem List - Problems (1) OSCAR (acute kidney injury) Code(s): N17.9 - ACUTE KIDNEY FAILURE, UNSPECIFIED (2) Acute on chronic kidney failure Code(s): N17.9 - ACUTE KIDNEY FAILURE, UNSPECIFIED N18.9 - CHRONIC KIDNEY DISEASE, UNSPECIFIED (3) Fever Code(s): R50.9 - FEVER, UNSPECIFIED (4) Sepsis Code(s): A41.9 - SEPSIS, UNSPECIFIED ORGANISM (5) Anemia Code(s): D64.9 - ANEMIA, UNSPECIFIED Qualifiers: Anemia type: unspecified type Qualified Code(s): D64.9 - Anemia, unspecified (6) CA cervix Code(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 Also has worsening pulmonary infiltrate The renal functions are stable. More lethargic. s/p Seizure? etiology. Off Antibiotics. Minimal worsening of the renal functions are noted. Possibly due to Hemodynamic changes. Jennifer Gardner MD
--- NOTE | 2017-04-10 15:39 | EKG ---
Test Reason : Blood Pressure : / mmHG Vent. Rate : 115 BPM Atrial Rate : 115 BPM P-R Int : 142 ms QRS Dur : 080 ms QT Int : 322 ms P-R-T Axes : 018 -32 018 degrees QTc Int : 445 ms SINUS TACHYCARDIA WITH PREMATURE ATRIAL COMPLEXES LEFT AXIS DEVIATION POOR R WAVE PROGRESSION ABNORMAL ECG WHEN COMPARED WITH ECG OF 05-APR-2017 15:13, PREMATURE ATRIAL COMPLEXES ARE NOW PRESENT Confirmed by JUSTYNA TALAMANTES, EFREM ([id number]) on 04/10/2017 3:38:44 PM Referred By: Confirmed By:EFREM JANSEN MD
[2017-04-11 08:33] LABS: BILIRUBIN,TOTAL 0.2 mg/dL (0.2-1.0); COCKROFT - GAULT 22.95; CREATININE 2.2 mg/dL (0.55-1.02); MAGNESIUM 2.3 mg/dL (1.8-2.4); PHOSPHOROUS 4.1 mg/dL (2.5-4.9); TOT PROT 4.5 g/dl (6.4-8.2)
[2017-04-11] MEDS: levETIRAcetam 500 MG/5 ML INJECTION VIAL IVPB SCH ×2 (09:11→21:14)
[2017-04-11] MEDS: NYSTATIN POWDER 100,000 UNITS/GM - 15 GM TOPICAL POWDER TP SCH ×2 (09:18→23:10)
[2017-04-11] MEDS: MORPHINE 100 MG in SODIUM CHLORIDE 98 ML IVPB SCH (09:26)
[2017-04-11] MEDS: LORazepam 2 MG/ML SDV VIAL IVPUSH PRN ×3 (10:57→23:10)
--- NOTE | 2017-04-11 11:05 | PN ---
Progress Note (short form) - Note Progress Note: Renal Follow up for OSCAR on CKD Pt seen and examined at the bedside Chart reviewed, events from the weekend noted son at the bedside pt on Keppra, Ativan IV family requesting comfort measures only Vital Signs Temperature 100.3 F H 04/11/17 06:00 Pulse Rate 101 H 04/11/17 06:00 Respiratory Rate 15 04/11/17 06:00 Blood Pressure 63/34 04/11/17 06:00 O2 Sat by Pulse Oximetry (%) 99 04/10/17 21:00 Intake & Output 04/08/17 04/09/17 04/10/17 04/11/17 23:59 23:59 23:59 23:59 Intake Total 720 1200 1216 154 Output Total 250 350 130 70 Balance 077 908 8653 84 Weight 143 lb 4.8 oz Gen: Sedaetd on Facemask O2 CVS: RRR, No M/R Lungs: dec bs at lung bases Abd: soft NT/ND Ext: trace LE edema, 1+ sacral edema : b/l nephrostomy tubes in place CBC, BMP 04/11/17 06:00 04/11/17 07:30 Laboratory Tests 04/11/17 07:30 Calcium 8.0 L Phosphorus 4.1 D Magnesium 2.3 Albumin 1.0 L Current Medications Acetaminophen (Tylenol Suppository -) 650 mg AR Q4H PRN PRN Reason: FEVER OR PAIN Last Admin: 04/08/17 22:30 Dose: 650 mg Morphine Sulfate 100 mg/ (Sodium Chloride) 100 mls @ 1 mls/hr IVPB TITR JADEN; 1 MG/HR PRN Reason: Protocol Last Admin: 04/10/17 11:16 Dose: 1 mls/hr Sodium Chloride (Normal Saline -) 1,000 mls @ 21 mls/hr IV ASDIR JADEN Last Admin: 04/10/17 10:44 Dose: 21 mls/hr Levetiracetam (Keppra Injection -) 500 mg IVPB BID JADEN Last Admin: 04/11/17 09:11 Dose: 500 mg Lorazepam (Ativan Injection -) 2 mg IVPUSH Q6H PRN PRN Reason: FOR SEIZURES Nystatin (Nystop Powder -) 1 applic TP BID JADEN Last Admin: 04/11/17 09:18 Dose: 1 applic Ondansetron HCl (Zofran Injection) 2 mg IVPB Q6H PRN PRN Reason: NAUSEA Last Admin: 03/25/17 17:24 Dose: 2 mg A/P 76 year old Female with PMhx of Cevical Ca, S/p Radiation, Hyperlipidemia, Hypertension, Obstructive uropathy, s/p Bilateral percutaneous nephrostomy, admitted with fever, lethargy, shortness of breath. #Non-oliguric OSCAR on CKD Renal function worsening in setting of hypotension/sepsis no acute intervention given pt is comfort measures #Fever/Hypotension/Sepsis Abx as per Id #Acute Seizures continue Ativan Q6h and Keppra BID Prognosis poor Comfort measures only will sign off case at this time thank you for allowing us to take part in the care of this patient Glenn Deluna DO
[2017-04-11] MEDS: SODIUM CHLORIDE 1,000 ML IV SCH (11:26)
--- NOTE | 2017-04-11 13:14 | PN ---
Progress Note, Physician History of Present Illness: patient contiues to have seizure like activity inspite of being on keppra spoke with the family want something to stop it family would like seizures to stop spoke with family about getting neurology - Current Medication List Current Medications: Active Medications Acetaminophen (Tylenol Suppository -) 650 mg [place] Q4H PRN PRN Reason: FEVER OR PAIN Last Admin: 04/08/17 22:30 Dose: 650 mg Morphine Sulfate 100 mg/ (Sodium Chloride) 100 mls @ 1 mls/hr IVPB TITR JADEN; 1 MG/HR PRN Reason: Protocol Last Admin: 04/10/17 11:16 Dose: 1 mls/hr Sodium Chloride (Normal Saline -) 1,000 mls @ 21 mls/hr IV ASDIR JADEN Last Admin: 04/11/17 11:26 Dose: 21 mls/hr Levetiracetam (Keppra Injection -) 500 mg IVPB BID JADEN Last Admin: 04/11/17 09:11 Dose: 500 mg Lorazepam (Ativan Injection -) 2 mg IVPUSH Q6H PRN PRN Reason: FOR SEIZURES Last Admin: 04/11/17 10:57 Dose: 2 mg Nystatin (Nystop Powder -) 1 applic TP BID JADEN Last Admin: 04/11/17 09:18 Dose: 1 applic Ondansetron HCl (Zofran Injection) 2 mg IVPB Q6H PRN PRN Reason: NAUSEA Last Admin: 03/25/17 17:24 Dose: 2 mg - Objective Vital Signs: Vital Signs Temperature 100.3 F H 04/11/17 06:00 Pulse Rate 101 H 04/11/17 06:00 Respiratory Rate 15 04/11/17 06:00 Blood Pressure 63/34 04/11/17 06:00 O2 Sat by Pulse Oximetry (%) 99 04/10/17 21:00 Constitutional: Yes: Other Cardiovascular: Yes: S1, S2 Respiratory: Yes: On Nasal O2, Poor Air Entry, Other Gastrointestinal: Yes: Soft Musculoskeletal: Yes: Other Extremities: Yes: Other Neurological: Yes: Other (seizures like activity every 10 min) Labs: CBC, BMP 04/11/17 06:00 04/11/17 07:30 INR, PTT INR 1.83 (0.82-1.09) H D 04/05/17 06:30 Assessment/Plan uti neck pain anemia dehydration cancer fever leukocytosis gm negative bacteremia sepsis family wants comfort care but wants seizures to stop will get neurology to see if they can add anything to keppra rest continue supportive measures
--- NOTE | 2017-04-11 14:37 | PN ---
Progress Note, Physician Chief Complaint: continues to have seizure History of Present Illness: On morphine drip - Current Medication List Current Medications: Active Medications Acetaminophen (Tylenol Suppository -) 650 mg RI Q4H PRN PRN Reason: FEVER OR PAIN Last Admin: 04/08/17 22:30 Dose: 650 mg Morphine Sulfate 100 mg/ (Sodium Chloride) 100 mls @ 1 mls/hr IVPB TITR JADEN; 1 MG/HR PRN Reason: Protocol Last Admin: 04/10/17 11:16 Dose: 1 mls/hr Sodium Chloride (Normal Saline -) 1,000 mls @ 21 mls/hr IV ASDIR JADEN Last Admin: 04/11/17 11:26 Dose: 21 mls/hr Levetiracetam (Keppra Injection -) 500 mg IVPB BID JADEN Last Admin: 04/11/17 09:11 Dose: 500 mg Lorazepam (Ativan Injection -) 2 mg IVPUSH Q6H PRN PRN Reason: FOR SEIZURES Last Admin: 04/11/17 10:57 Dose: 2 mg Nystatin (Nystop Powder -) 1 applic TP BID JADEN Last Admin: 04/11/17 09:18 Dose: 1 applic Ondansetron HCl (Zofran Injection) 2 mg IVPB Q6H PRN PRN Reason: NAUSEA Last Admin: 03/25/17 17:24 Dose: 2 mg - Objective Vital Signs: Vital Signs Temperature 100.3 F H 04/11/17 06:00 Pulse Rate 101 H 04/11/17 06:00 Respiratory Rate 15 04/11/17 06:00 Blood Pressure 63/34 04/11/17 06:00 O2 Sat by Pulse Oximetry (%) 99 04/10/17 21:00 Constitutional: Yes: Moderate Distress Eyes: Yes: WNL HENT: Yes: WNL Neck: Yes: WNL Cardiovascular: Yes: Regular Rate and Rhythm Respiratory: Yes: Poor Air Entry, Rhonchi Gastrointestinal: Yes: Normal Bowel Sounds ...Rectal Exam: Yes: Deferred Genitourinary: Yes: WNL Musculoskeletal: Yes: Muscle Weakness Labs: CBC, BMP 04/11/17 06:00 04/11/17 07:30 INR, PTT INR 1.83 (0.82-1.09) H D 04/05/17 06:30 Assessment/Plan neuro consult
[2017-04-11] MEDS ORDERED: levETIRAcetam 500 MG/5 ML INJECTION VIAL IVPB ONE (21:00)
--- NOTE | 2017-04-12 08:31 | CON.NEURO ---
Consult - History of Present Illness History of Present Illness: 76 year old female history of htn, dm, ckd , obstructive uropathy, ca cervic , anemia patient is been on comfort care and she is on keppra, morphine drip nad ativan 2 mg iv q 6h. She still continue to have these jerks specially once she is being stimulated. Patient did not have jerky motion thi smorning Patient is DNR AND DNi, now there is no more blood work - Past Medical History [employer]: Yes: Dementia Renal/: Yes: Renal Inusuff ...: No Additional Medical History: Cervical CA - Past Surgical History Additional Surgical History: Neprostomy - Alcohol/Substance Use Hx Alcohol Use: No - Smoking History Smoking history: Never smoked Have you smoked in the past 12 months: No Aproximately how many cigarettes per day: 0 Home Medications - Allergies Allergies/Adverse Reactions: Allergies Allergy/AdvReac Type Severity Reaction Status Date / Time No Known Allergies Allergy Verified 03/20/17 20:05 - Home Medications Home Medications: Ambulatory Orders Aspirin [ASA -] 81 mg PO DAILY 02/20/17 Atorvastatin Ca [Lipitor] 20 mg PO HS 02/20/17 Mirtazapine 15 mg PO HS 02/20/17 Amlodipine Besylate [Norvasc -] 5 mg PO DAILY tablet 03/14/17 Insulin (Levemir) [Levemir Vial] 16 units SQ HS ml 03/14/17 Warfarin Na [Coumadin -] 2 mg PO DAILY@1800 #0 tablet 03/14/17 Ferrous Sulfate 325 mg PO BID 03/20/17 Physical Exam-Neuro Vital Signs: Vital Signs Temperature 99.6 F 04/12/17 06:17 Pulse Rate 94 H 04/12/17 06:17 Respiratory Rate 11 L 04/12/17 06:17 Blood Pressure 70/34 04/12/17 06:17 O2 Sat by Pulse Oximetry (%) 99 04/11/17 21:00 Labs: CBC, BMP 04/11/17 06:00 04/11/17 07:30 INR, PTT INR 1.83 (0.82-1.09) H D 04/05/17 06:30 NIH Stroke Scale - Total Score NIH Stroke Scale Score: 0 Assessment/Plan cc brief generalized jerky motion , intractable HPI 76 year old female history of htn, dm, ckd , obstructive uropathy, ca cervic , anemia patient is been on comfort care and she is on keppra, morphine drip nad ativan 2 mg iv q 6h. She still continue to have these jerks specially once she is being stimulated. Patient did not have jerky motion thi smorning Patient is DNR AND DNi, now there is no more blood work Past Medical History as above ROS, SH reviewed in chart HOME Medication Aspirin [ASA -] 81 mg PO DAILY 02/20/17 Atorvastatin Ca [Lipitor] 20 mg PO HS 02/20/17 Mirtazapine 15 mg PO HS 02/20/17 Amlodipine Besylate [Norvasc -] 5 mg PO DAILY tablet 03/14/17 Insulin (Levemir) [Levemir Vial] 16 units SQ HS ml 03/14/17 Warfarin Na [Coumadin -] 2 mg PO DAILY@1800 #0 tablet 03/14/17 Ferrous Sulfate 325 mg PO BID 03/20/17 NOW she is only on ativan 2 mg q 6h, keppra 500 mg iv bid and morphine drip Neurological Examination Patient is comatosed , not responding to pain or verbal stimuli pupils are midsize and not reactive, spontaneous breathing present, corneal reflex is sluggist neck is supple Assessment- Most likley these are Myoclonic Jerks, and sign of poor prognosis and very intractable to treat Plan -- increase keppra to 750 mg bid - continue ativan at current dose - if seizures continue , consider adding depakote - refrain from stimulating patient as that can be trigger for myclonic jerks - over all prognosis is poor at this time. thanking you so much gabi estrada md
[2017-04-12] MEDS: MORPHINE 100 MG in SODIUM CHLORIDE 98 ML IVPB SCH (10:04)
[2017-04-12] MEDS: levETIRAcetam 500 MG/5 ML INJECTION VIAL IVPB SCH (11:09)
[2017-04-12] MEDS: NYSTATIN POWDER 100,000 UNITS/GM - 15 GM TOPICAL POWDER TP SCH (11:10)
[2017-04-12] MEDS: SODIUM CHLORIDE 1,000 ML IV SCH (11:10)
--- NOTE | 2017-04-12 14:02 | PN ---
Progress Note, Physician History of Present Illness: continues to do poorly patients family had a meeting they want to reverse there decision and now they want everything done for the patient discussed with the family for a long time and since its there wishes will restart treatment and resend all the cx - Current Medication List Current Medications: Active Medications Acetaminophen (Tylenol Suppository -) 650 mg FL Q4H PRN PRN Reason: FEVER OR PAIN Last Admin: 04/08/17 22:30 Dose: 650 mg Morphine Sulfate 100 mg/ (Sodium Chloride) 100 mls @ 1 mls/hr IVPB TITR JADEN; 1 MG/HR PRN Reason: Protocol Last Admin: 04/12/17 10:04 Dose: 3 mls/hr Sodium Chloride (Normal Saline -) 1,000 mls @ 21 mls/hr IV ASDIR JADEN Last Admin: 04/12/17 11:10 Dose: Not Given Levetiracetam (Keppra Injection -) 500 mg IVPB BID JADEN Last Admin: 04/12/17 11:09 Dose: 500 mg Lorazepam (Ativan Injection -) 2 mg IVPUSH Q6H PRN PRN Reason: FOR SEIZURES Last Admin: 04/11/17 23:10 Dose: 2 mg Nystatin (Nystop Powder -) 1 applic TP BID JADEN Last Admin: 04/12/17 11:10 Dose: 1 applic Ondansetron HCl (Zofran Injection) 2 mg IVPB Q6H PRN PRN Reason: NAUSEA Last Admin: 03/25/17 17:24 Dose: 2 mg - Objective Vital Signs: Vital Signs Temperature 99.7 F H 04/12/17 10:00 Pulse Rate 90 04/12/17 10:00 Respiratory Rate 10 L 04/12/17 10:00 Blood Pressure 68/31 04/12/17 10:00 O2 Sat by Pulse Oximetry (%) 99 04/11/17 21:00 Constitutional: Yes: Other Cardiovascular: Yes: S1, S2 Respiratory: Yes: Regular, Other (on nonrebreather) Gastrointestinal: Yes: Normal Bowel Sounds, Soft Genitourinary: Yes: Other (bilateral nephrostomy tubes in place) Neurological: Yes: Other (obtunded) Labs: CBC, BMP 04/11/17 06:00 04/11/17 07:30 INR, PTT INR 1.83 (0.82-1.09) H D 04/05/17 06:30 Assessment/Plan uti neck pain anemia dehydration cancer fever leukocytosis gm negative bacteremia sepsis plan will sedn urine cx blood cx was negative once we have the cx report will start abx patient will need central line and nutrition prognosis still grim
--- NOTE | 2017-04-12 14:44 | PN ---
Progress Note, Physician Chief Complaint: To day family wanted to treat her History of Present Illness: yared Gutiérrez neuro consult appreciated - Current Medication List Current Medications: Active Medications Acetaminophen (Tylenol Suppository -) 650 mg ME Q4H PRN PRN Reason: FEVER OR PAIN Last Admin: 04/08/17 22:30 Dose: 650 mg Morphine Sulfate 100 mg/ (Sodium Chloride) 100 mls @ 1 mls/hr IVPB TITR JADEN; 1 MG/HR PRN Reason: Protocol Last Admin: 04/12/17 10:04 Dose: 3 mls/hr Sodium Chloride (Normal Saline -) 1,000 mls @ 21 mls/hr IV ASDIR JADEN Last Admin: 04/12/17 11:10 Dose: Not Given Levetiracetam (Keppra Injection -) 500 mg IVPB BID JADEN Last Admin: 04/12/17 11:09 Dose: 500 mg Lorazepam (Ativan Injection -) 2 mg IVPUSH Q6H PRN PRN Reason: FOR SEIZURES Last Admin: 04/11/17 23:10 Dose: 2 mg Nystatin (Nystop Powder -) 1 applic TP BID JADEN Last Admin: 04/12/17 11:10 Dose: 1 applic Ondansetron HCl (Zofran Injection) 2 mg IVPB Q6H PRN PRN Reason: NAUSEA Last Admin: 03/25/17 17:24 Dose: 2 mg - Objective Vital Signs: Vital Signs Temperature 99.7 F H 04/12/17 10:00 Pulse Rate 90 04/12/17 10:00 Respiratory Rate 10 L 04/12/17 10:00 Blood Pressure 68/31 04/12/17 10:00 O2 Sat by Pulse Oximetry (%) 99 04/11/17 21:00 Constitutional: Yes: Severe Distress Eyes: Yes: WNL HENT: Yes: WNL Neck: Yes: WNL Cardiovascular: Yes: Regular Rate and Rhythm Respiratory: Yes: On Venti-Mask ...Rectal Exam: Yes: Deferred Edema: Yes Edema: LUE: 1+, RUE: 1+, LLE: 1+, RLE: 1+ Neurological: Yes: Other (comatosed) Labs: CBC, BMP 04/11/17 06:00 04/11/17 07:30 INR, PTT INR 1.83 (0.82-1.09) H D 04/05/17 06:30 Assessment/Plan Start on IV fluids
[2017-04-12] MEDS ORDERED: DEXTROSE 5%-0.45% SALINE 1,000 ML IV SCH (15:00)
[2017-04-12 15:31] VITALS: BP 58/27; PULSE 88; TEMP 98.7
--- NOTE | 2017-04-12 15:42 | HOSP ---
Physical Examination Vital Signs: Vital Signs Temperature 98.7 F 04/12/17 15:30 Pulse Rate 88 04/12/17 15:30 Respiratory Rate 8 L 04/12/17 15:30 Blood Pressure 58/27 04/12/17 15:30 O2 Sat by Pulse Oximetry (%) 99 04/11/17 21:00 Labs: CBC, BMP 04/11/17 06:00 04/11/17 07:30 Hospitalist Encounter Assessment: Paged to see patient for unresponsiveness. On exam the patient was unresponsive , no spontaneous movement was observed, patient did not respond to verbal or noxious stimuli. Absent heart and breath sounds for more than 1 minute. Pupils are fixed and dilated, corneal reflex was absent. Patient pronounced at 15:39. PCP notified. Family was at bedside.
== END 2017-04-12 15:30 | disposition expired | DRG 698 ==
LOC: JER 17:21 → JERBED 20:03 → J8W 22:19
PROVIDERS: ADMIT Internal Medicine; ATTEND Internal Medicine
PROC: 0CJS8ZZ Inspection of Larynx, Via Natural or Artificial Opening Endoscopic (ICD-10-PCS; principal; 2017-03-23)
DX: N99.521 Infection of incontinent external stoma of urinary tract (principal); A41.9 Sepsis, unspecified organism; R65.21 Severe sepsis with septic shock; N17.9 Acute kidney failure, unspecified; N18.4 Chronic kidney disease, stage 4 (severe); N39.0 Urinary tract infection, site not specified; E87.2 Acidosis; E87.0 Hyperosmolality and hypernatremia; J90 Pleural effusion, not elsewhere classified; E86.0 Dehydration; E11.22 Type 2 diabetes mellitus with diabetic chronic kidney disease; I12.9 Hypertensive chronic kidney disease with stage 1 through stage 4 chronic kidney disease, or unspecified chronic kidney disease; D64.9 Anemia, unspecified; Z86.718 Personal history of other venous thrombosis and embolism; E78.5 Hyperlipidemia, unspecified; F32.9 Major depressive disorder, single episode, unspecified; N13.9 Obstructive and reflux uropathy, unspecified; Z79.4 Long term (current) use of insulin; C53.9 Malignant neoplasm of cervix uteri, unspecified; R49.0 Dysphonia; D63.8 Anemia in other chronic diseases classified elsewhere; E86.9 Volume depletion, unspecified; M54.2 Cervicalgia; Y83.8 Other surgical procedures as the cause of abnormal reaction of the patient, or of later complication, without mention of misadventure at the time of the procedure; L89.312 Pressure ulcer of right buttock, stage 2; Z66 Do not resuscitate; G25.3 Myoclonus
CPT/HCPCS: 36415; 36430; 36511; 36600; 71010-TC; 71250-TC; 74176-TC; 76775-TC; 80048; 80053; 81003; 81015; 82550; 82553; 82728; 82803; 83540; 83550; 83605; 83690; 83735; 84100; 84484; 85025; 85027; 85610; 85730; 86850; 86900; 86901; 86922; 87040; 87076; 87077; 87086; 87186; 93005; 93010; 94640; 97116-GP; 97162-PG; 99283-25; P9038; P9058